=== PATIENT | male | born 1950 | race Caucasian/White ===

== ENCOUNTER 2018-06-27 15:38 | Emergency (ER) | payer MEDICARE, OTHER, SELFPAY ==
[2018-06-27 15:48] VITALS: BP 162/90; PULSE 62; RESP 20; TEMP 37; O2SAT 96; BMI 36.6
[2018-06-27 17:14] LABS: Bacteria Urine None Seen; RBC Urine None Seen (0-5/HPF); WBC Urine None Seen (0-5/HPF)
[2018-06-27 17:28] LABS: Amorphous Sediment Urine 1+; Culture Indicated Urine Cult Not Indicated
--- NOTE | 2018-06-27 18:15 | ED.MALEGU ---
HPI - Male Genitourinary <ERWIN Arnold - Last Filed: 06/27/18 23:07> General Chief complaint: Urogenital-Male Stated complaint: possible uti Time Seen by Provider: 06/27/18 16:54 Source: patient Mode of arrival: ambulatory Limitations: no limitations History of Present Illness HPI Narrative: 68-year-old male history of hypertension and is a former smoker. here for complaint of having pain into the bladder area that lasted for 2 days last week. He states symptoms have resolved somewhat. He denies having any dysuria or increased urinary frequency. He denies any rectal pain. He denies any penile discharge. no fevers no chills. He was concern for urinary tract infection. Positive p.o. intake. No nausea vomiting. No flank pain. No abdominal pain. MD Complaint: other ( Concern for urina) Related Data Home Medications Medication Instructions Recorded Confirmed Fluticasone Propionate (FLONASE) 1 spray INTRANASAL BID #0 spray 05/19/13 fexofenadine 180 mg PO QDAY #0 05/19/13 oxycodone [OxyContin] 10 mg PO QID #0 05/19/13 06/27/18 oxycodone-acetaminophen [Percocet] 2 tab PO Q4HP PRN #0 tab 05/19/13 lansoprazole 30 mg PO QDAY #0 ecc 05/29/13 alprazolam 1 tab PO Q6H 06/27/18 06/27/18 diltiazem HCl [Cartia XT] 1 cap PO DAILY 06/27/18 06/27/18 meloxicam 1 tab PO DAILY 06/27/18 06/27/18 olmesartan 1 tab PO DAILY 06/27/18 06/27/18 omeprazole 1 cap PO DAILY 06/27/18 06/27/18 oxycodone 1 tab PO QID 06/27/18 06/27/18 Allergies Allergy/AdvReac Type Severity Reaction Status Date / Time Procaine Allergy Unknown NECK Uncoded 12/08/17 12:00 SWELLING Review of Systems <ERWIN Arnold - Last Filed: 06/27/18 23:07> Review of Systems All systems reviewed & are unremarkable except as noted in HPI and below Constitutional Denies chills, Denies fever(s), Denies lethargy and Denies weakness Eyes Denies change in vision, Denies eye discharge, Denies irritation and Denies loss of vision ENT Ears, Nose, Mouth, and Throat: Denies change in voice, Denies neck pain and Denies sore throat Cardiovascular Denies chest pain, Denies irregular heart rhythm, Denies lightheadedness, Denies palpitations, Denies dyspnea, Denies dyspnea on exertion and Denies orthopnea Respiratory Denies cough, Denies dyspnea, Denies dyspnea on exertion and Denies wheezing Gastrointestinal Gastrointestinal: Denies abdominal pain, Denies change in bowel habits, Denies diarrhea, Denies nausea and Denies vomiting Genitourinary Comments: concern for urinary tract infection Musculoskeletal Denies neck pain Integumentary/Breasts Denies pruritus, Denies erythema, Denies rash and Denies wounds Neurologic Denies confusion, Denies loss of vision and Denies weakness Psychiatric Denies anxiety, Denies confusion, Denies depression, Denies homicidal ideation and Denies suicidal ideation Endocrine Denies palpitations Hematologic/Lymphatic Denies easy bruising Allergic/Immunologic Denies wheezing Exam <ERWIN Arnold - Last Filed: 06/27/18 23:07> Initial Vital Signs Initial Vital Signs: Vital Signs Temperature 98.6 F 06/27/18 15:48 Pulse Rate 62 06/27/18 15:48 Respiratory Rate 20 06/27/18 15:48 Blood Pressure 162/90 H 06/27/18 15:48 Pulse Oximetry 96 06/27/18 15:48 Const General: cooperative and well developed Nutritional Appearance: well nourished Orientation: alert, awake, oriented x3 and not confused [facility] Mouth: oral mucosae normal and moist mucous membranes Eyes Conjunctivae: conjunctivae normal Sclera: sclerae normal Pupils: PERRL EOM: EOM intact bilaterally Resp Effort & Inspection: normal respiratory effort, able to speak in complete sentences, no respiratory distress and no use of accessory muscles Auscultation: clear to auscultation bilaterally, no rales, no rhonchi and no wheezes Cardio Rate: regular rate Rhythm: regular rhythm Heart Sounds: no click, no gallops, no murmurs and no rubs Pulses: normal peripheral pulses GI Inspection: non-distended Palpation: soft, no hepatosplenomegaly, No guarding, No pulsatile mass and No tender Auscultation: normal bowel sounds General: No CVA tenderness Skin General: no rashes or lesions noted, No jaundice and No petechiae Neuro General: alert, oriented x3, gait normal and no focal motor deficits Speech: speech normal <Tres Vásquez DO - Last Filed: 06/28/18 07:15> Initial Vital Signs Initial Vital Signs: Vital Signs Temperature 98.6 F 06/27/18 15:48 Pulse Rate 62 06/27/18 15:48 Respiratory Rate 20 06/27/18 15:48 Blood Pressure 162/90 H 06/27/18 15:48 Pulse Oximetry 96 06/27/18 15:48 Course <ERWIN Arnold - Last Filed: 06/27/18 23:07> Orders Ordered: ED Orders 06/27/18 16:25 Urine Microscopic Stat Vital Signs - 8 hr 06/27/18 15:48 06/27/18 19:03 Temperature 98.6 F Pulse Rate 62 71 Respiratory Rate 20 20 Blood Pressure 162/90 H 156/100 H Pulse Oximetry 96 96 <Tres Vásquez DO - Last Filed: 06/28/18 07:15> Orders Ordered: ED Orders 06/27/18 16:25 Urine Microscopic Stat Vital Signs - 8 hr 06/27/18 15:48 06/27/18 19:03 Temperature 98.6 F Pulse Rate 62 71 Respiratory Rate 20 20 Blood Pressure 162/90 H 156/100 H Pulse Oximetry 96 96 MDM - Male Genitourinary <ERWIN Arnold - Last Filed: 06/27/18 23:07> Lab Data Lab Results 06/27/18 Range/Units 16:25 Urine RBC None seen (0-5/HPF) Urine WBC None seen (0-5/HPF) Amorphous Sediment 1+ Urine Bacteria None seen (None) Ur Culture Indicated? Cult not indicated Micro UA Comment Not Reportable Urine Dip Bedside Urine Glucose Negative Bedside Urine Bilirubin - Negative Bedside Urine Ketone - Negative Urine Specific [place] 1.020 Bedside Urine Occult Blood +/- Bedside Urine pH 6.0 Bedside Urine Protein - Negative Bedside Urine Urobilinogen - Negative Bedside Urine Nitrite - Negative Bedside Urine Leukocytes - Negative Esterase MDM Narrative Medical decision making narrative: Urinalysis was negative for urinary tract infection. Patient is not having symptoms as of this time. Differential between a urinary tract infection that has resolved or BPH issues. Follow up with primary care provider later this week. For any worsening symptoms return to the emergency room. <Rtes Thalia, DO - Last Filed: 06/28/18 07:15> Lab Data Lab Results 06/27/18 Range/Units 16:25 Urine RBC None seen (0-5/HPF) Urine WBC None seen (0-5/HPF) Amorphous Sediment 1+ Urine Bacteria None seen (None) Ur Culture Indicated? Cult not indicated Micro UA Comment Not Reportable Urine Dip Bedside Urine Glucose Negative Bedside Urine Bilirubin - Negative Bedside Urine Ketone - Negative Urine Specific [place] 1.020 Bedside Urine Occult Blood +/- Bedside Urine pH 6.0 Bedside Urine Protein - Negative Bedside Urine Urobilinogen - Negative Bedside Urine Nitrite - Negative Bedside Urine Leukocytes - Negative Esterase Discharge Plan Departure Patient Disposition: Home Clinical Impression: Suprapubic discomfort Discharge Date/Time: 06/27/18 19:04 Interventions: ED Discharge Assessment Last Done: 06/27/18 19:03 Instructions: DI for Dysuria -- Adult Activity Restrictions/Additional Instructions: urinalysis was negative for urinary tract infection. Symptoms may have been due to a urinary tract infection last week and may have resolved or may be due to prostate swelling. follow up with her primary care provider later this week for re-evaluation. For any worsening symptoms return to the emergency room. Prescriptions: No Action oxycodone-acetaminophen [Percocet] 5 MG/325 MG tablet 2 tab PO Q4HP PRNQty: 0 RF: 0 oxycodone [OxyContin] 10 MG tablet,oral only,ext.rel.12 hr 10 mg PO QID Qty: 0 RF: 0 fexofenadine 180 MG tablet 180 mg PO QDAY Qty: 0 RF: 0 Fluticasone Propionate (FLONASE) 1 spray Intranasal BID Qty: 0 RF: 0 lansoprazole 30 MG capsule,delayed release(DR/EC) 30 mg PO QDAY Qty: 0 RF: 0 meloxicam 15 mg tablet 1 tab PO DAILY RF: 0 alprazolam 0.5 mg tablet 1 tab PO Q6H RF: 0 diltiazem HCl [Cartia XT] 300 mg capsule,extended release 24hr 1 cap PO DAILY RF: 0 omeprazole 40 mg capsule,delayed release(DR/EC) 1 cap PO DAILY RF: 0 olmesartan 20 mg tablet 1 tab PO DAILY RF: 0 oxycodone 10 mg tablet 1 tab PO QID RF: 0 Referrals: Hosea Reyes MD [Primary Care Provider] - <Tres Vásquez DO - Last Filed: 06/28/18 07:15> Cosign ED Attending [place] Attestation: I was available for consultation during this patient's emergency department encounter
[2018-06-27 19:03] VITALS: BP 156/100; PULSE 71; RESP 20; O2SAT 96
== END 2018-06-27 19:04 | disposition home or self-care (01) ==
PROVIDERS: Emergency Medicine; Emergency Provider Nurse Practitioner Family; Family Provider Family Medicine; PCP Family Medicine
DX: R10.2 Pelvic and perineal pain (principal)
CPT/HCPCS: 81003; 81015; 99282; 99283

== ENCOUNTER 2018-12-03 21:34 | Emergency (ER) | payer MEDICARE, OTHER, SELFPAY ==
[2018-12-03 21:46] VITALS: BP 173/85; PULSE 69; RESP 16; TEMP 36.5; O2SAT 98; BMI 35.6
--- NOTE | 2018-12-03 21:52 | ED_ITS ---
HPI - Weakness General Chief complaint: Weakness Stated complaint: states keeps falling sleep Time Seen by Provider: 12/03/18 21:50 Source: patient Mode of arrival: ambulatory Limitations: no limitations History of Present Illness HPI Narrative: The patient is a 68-year-old male who presents increased sleepiness. Apparently today he was falling asleep without knowing it he was sitting at a computer in with fall asleep. This is extremely abnormal for him. He denies any fever chills. Someone had to keep waking him up. He is on quite a bit of opiate medication however he states that he did not take any extra. He denies any dizziness lightheadedness. He does have some chest discomfort but has a known hiatal hernia it is not any worse than normal. he has been working in the [employer] a lot lately he thinks maybe it is finally getting up with him. Yesterday he was sleepy as well. MD Complaint: generalized weakness Related Data Home Medications Medication Instructions Recorded Confirmed Fluticasone Propionate (FLONASE) 1 spray INTRANASAL BID #0 spray 05/19/13 fexofenadine 180 mg PO QDAY #0 05/19/13 oxycodone [OxyContin] 10 mg PO QID #0 05/19/13 06/27/18 oxycodone-acetaminophen [Percocet] 2 tab PO Q4HP PRN #0 tab 05/19/13 lansoprazole 30 mg PO QDAY #0 ecc 05/29/13 alprazolam 1 tab PO Q6H 06/27/18 06/27/18 diltiazem HCl [Cartia XT] 1 cap PO DAILY 06/27/18 06/27/18 meloxicam 1 tab PO DAILY 06/27/18 06/27/18 olmesartan 1 tab PO DAILY 06/27/18 06/27/18 omeprazole 1 cap PO DAILY 06/27/18 06/27/18 oxycodone 1 tab PO QID 06/27/18 06/27/18 Allergies Allergy/AdvReac Type Severity Reaction Status Date / Time No Known Drug Allergies Allergy Verified 12/03/18 21:46 Review of Systems Review of Systems ROS Unobtainable: All systems reviewed & are unremarkable except as noted in HPI and below Constitutional Denies chills, Reports daytime sleepiness, Denies fever(s) and Reports snoring Eyes Denies change in vision, Denies eye discharge, Denies irritation and Denies loss of vision ENT Ears, Nose, Mouth, and Throat: Denies change in voice, Denies neck pain and Denies sore throat Cardiovascular Reports chest pain, Denies irregular heart rhythm, Denies lightheadedness, Denies palpitations and Denies orthopnea Respiratory Reports snoring Gastrointestinal Gastrointestinal: Denies abdominal pain, Denies change in bowel habits, Denies diarrhea, Denies nausea and Denies vomiting Genitourinary Denies hematuria, Denies flank pain, Denies urinary incontinence and Denies urinary urgency Musculoskeletal Denies neck pain Integumentary/Breasts Denies pruritus, Denies erythema, Denies rash and Denies wounds Neurologic Denies loss of vision Endocrine Denies palpitations [facility] Medical History Chronic pain (Acute) Hiatal hernia (Acute) Hypertension (Acute) Social History Smoking Status: Former smoker Social History Smoking Status: Former smoker Exam Initial Vital Signs Initial Vital Signs: Vital Signs Temperature 97.7 F 12/03/18 21:46 Pulse Rate 69 12/03/18 21:46 Respiratory Rate 16 12/03/18 21:46 Blood Pressure 173/85 H 12/03/18 21:46 Pulse Oximetry 98 12/03/18 21:46 GENERAL: Overweight well-appearing male no acute distress HEENT: Head atraumatic,EOMI, pupils reactive CARDIOVASCULAR: Regular rate and rhythm without murmurs, rubs or gallops. RESPIRATORY: Breath sounds equal bilaterally, no wheezes rales or rhonchi. ABDOMEN: Soft, nontender. Normoactive bowel sounds all 4 quadrants. No guarding or rebound. EXTREMITIES: Normal range of motion, no clubbing or edema. Neurovascularly intact NEUROLOGICAL: Alert and oriented x4.Normal gait and speech. Cranial nerves II through XII grossly intact. SKIN: Warm, dry, no laceration, no petechiae, no rashes or lesions. Course Orders Ordered: ED Orders 12/03/18 21:59 XR chest 1V Stat EKG-12 Lead Stat 12/03/18 22:00 Complete Blood Count AUTO DIFF Stat Comprehensive Metabolic Panel Stat Lipase Stat Troponin & CK Cardiac Panel Stat 12/03/18 22:50 Urine Culture Stat Urine Microscopic Stat Vital Signs - 8 hr 12/03/18 21:46 12/03/18 22:30 12/03/18 23:53 Temperature 97.7 F Pulse Rate 69 63 62 Respiratory Rate 16 17 16 Blood Pressure 173/85 H 169/86 H Blood Pressure [Left Arm] 169/86 H Pulse Oximetry 98 98 96 MDM - Weakness Lab Data Attestation: I reviewed the patient's lab results. Result diagrams: 12/03/18 22:00 12/03/18 22:00 Lab Results 12/03/18 12/03/18 12/03/18 Range/Units 22:00 22:00 22:50 WBC 6.2 (4.5-11.0) X10^3/uL RBC 5.34 (4.5-5.9) X10^6/uL Hgb 14.8 (13.5-17.5) g/dL Hct 43.7 (41-53) % MCV 81.8 (80-100) fL MCH 27.6 (26-34) PG MCHC 33.8 (30-36) % RDW 14.1 (11.6-14.8) % Plt Count 181 (150-400) X10^3/uL Neut % (Auto) 46.6 L (50-75) % Lymph % (Auto) 35.8 (25-40) % [place] % (Auto) 12.3 (3-14) % Eos % (Auto) 4.6 H (2-4) % Baso % (Auto) 0.7 (0-2) % Neut # (Auto) 2900 (3422-0390) /uL Lymph # (Auto) 2200 (1519-6033) /uL [place] # (Auto) 800 (0-900) /uL Eos # (Auto) 300 (0-450) /uL Baso # (Auto) 0 (0-100) /uL Sodium 135 L (137-145) mmol/L Potassium 3.7 (3.4-5.1) mmol/L Chloride 98 (98-107) mmol/L Carbon Dioxide 29 (22-32) mmol/L BUN 13 (9-20) mg/dL Creatinine 1.00 (0.66-1.25) mg/dL Estimated GFR > 60.0 (>60) mL/min BUN/Creatinine Ratio 13.0 (6-22) Glucose 135 H (80-110) mg/dL Calcium 8.9 (8.4-10.2) mg/dL Total Bilirubin 0.6 (0.2-1.3) mg/dL AST 40 (17-59) IU/L ALT 42 (21-72) IU/L Alkaline Phosphatase 56 (38-126) U/L Total Creatine Kinase 141 (55-170) U/L CK-MB (CK-2) 2.38 H (<2.37) ng/mL CK-MB (CK-2) Rel Index 1.7 (1.5-5.0) % Troponin I < 0.012 (0.01-0.034) ng/mL Total Protein 7.1 (6.3-8.2) g/dL Albumin 4.0 (3.5-5.0) g/dL Globulin 3.1 (1.7-4.1) g/dL Albumin/Globulin Ratio 1.3 (1.0-2.8) Lipase 66 (23-300) U/L Urine RBC 5-10/hpf H (0-5/HPF) Urine WBC 1-5/hpf (0-5/HPF) Urine Bacteria Occasional (0-1) (None) Ur Culture Indicated? Specimen cultured Urine Dip Bedside Urine Glucose Negative Bedside Urine Bilirubin - Negative Bedside Urine Ketone - Negative Urine Specific [place] 1.025 Bedside Urine Occult Blood ++ Bedside Urine pH 5.5 Bedside Urine Protein +/- 15 Bedside Urine Urobilinogen - Negative Bedside Urine Nitrite - Negative Bedside Urine Leukocytes + 70 Esterase Imaging Data Chest x-ray: Attestation: I personally reviewed and interpreted this imaging study as follows: My impression: No acute cardiopulmonary process ECG Data Attestation: I personally reviewed and interpreted this ECG as follows: Prior ECG tracings: available for review Interpretation: Normal sinus rhythm rate 54 NM interval [address] changes simil ar previous EKG Q-wave noted in lead 3 unchanged MDM Narrative Medical decision making narrative: At this time patient really has no complaints except that he is tired. There is no sign of infection. I suspect he may have sleep apnea but he says he is not sure if he snores. I recommended sleep study and have his PCP said it up. However patient is quite adamant that she can't possibly be sleep apnea. At this time I have no reason for him to be falling asleep. He has been on the monitor in been awake in the ED no arrhythmias. No confusion. Discharge Plan Departure Patient Disposition: Home Clinical Impression: Feared complaint without diagnosis Discharge Date/Time: 12/03/18 23:53 Interventions: ED Discharge Assessment Last Done: 12/03/18 23:53 Instructions: DI for Obstructive Sleep Apnea -- Adult Activity Restrictions/Additional Instructions: *You have been diagnosed with no cause for sleeping during the daytime. *What to do: You may need a sleep study, possible sleep apnea. Which can put you at risk for heart attack and stroke. Speak to her primary care provider to set up a sleep study *Continue to take medications as directed *Follow up with your primary care provider in 2-3 days *Return to ER if you should have passing out, headache, chest pain or any new, worsening or concerning symptoms Prescriptions: No Action oxycodone-acetaminophen [Percocet] 5 MG/325 MG tablet 2 tab PO Q4HP PRNQty: 0 RF: 0 oxycodone [OxyContin] 10 MG tablet,oral only,ext.rel.12 hr 10 mg PO QID Qty: 0 RF: 0 fexofenadine 180 MG tablet 180 mg PO QDAY Qty: 0 RF: 0 Fluticasone Propionate (FLONASE) 1 spray Intranasal BID Qty: 0 RF: 0 lansoprazole 30 MG capsule,delayed release(DR/EC) 30 mg PO QDAY Qty: 0 RF: 0 meloxicam 15 mg tablet 1 tab PO DAILY RF: 0 alprazolam 0.5 mg tablet 1 tab PO Q6H RF: 0 diltiazem HCl [Cartia XT] 300 mg capsule,extended release 24hr 1 cap PO DAILY RF: 0 omeprazole 40 mg capsule,delayed release(DR/EC) 1 cap PO DAILY RF: 0 olmesartan 20 mg tablet 1 tab PO DAILY RF: 0 oxycodone 10 mg tablet 1 tab PO QID RF: 0 Referrals: Hosea Reyes MD [Primary Care Provider] -
--- NOTE | 2018-12-03 21:59 | DI.RAD.S_ITS ---
PROCEDURE: XR CHEST 1V INDICATIONS: chest pain TECHNIQUE: One view of the chest was acquired. COMPARISON: [facility], CHEST 1 VIEW, 12/02/2017, 23:22. [facility], CHEST 2 VIEW, 12/04/2014, 15:21. [facility], CHEST 2 VIEW, 12/25/2013, 10:56. FINDINGS: Surgical changes and devices: Multiple monitor leads project of the chest Lungs and pleura: Lungs are clear. No pleural effusions or pneumothorax. There is prominence of the pulmonary vasculature. Mediastinum: Mediastinal contours appear normal. Heart size is normal. Bones and chest wall: Degenerative changes of the right common femoral joint are noted. Mild multilevel degenerative changes of the thoracic spine. IMPRESSION: No acute cardiopulmonary disease. Dictated by: Todd Kelley M.D. on 12/04/2018 at 8:53 Approved by: Todd Kelley M.D. on 12/04/2018 at 8:55
[2018-12-03 22:15] LABS: Add Manual Diff / Slide Review NO; Basophils Absolute Auto 0 /uL (0-100); Basophils Percent Auto 0.7 % (0-2); Eosinophils Absolute Auto 300 /uL (0-450); Eosinophils Percent Auto 4.6 % (2-4); Hematocrit 43.7 % (41-53); Hemoglobin 14.8 g/dL (13.5-17.5); Lymphocytes Absolute Auto 2200 /uL (1100-4500); Lymphocytes Percent Auto 35.8 % (25-40); Mean Corpuscular HGB Conc 33.8 % (30-36); Mean Corpuscular Hemoglobin 27.6 PG (26-34); Mean Corpuscular Volume 81.8 fL (80-100); Monocytes Absolute Auto 800 /uL (0-900); Monocytes Percent Auto 12.3 % (3-14); Neutrophils Absolute Auto 2900 /uL (1500-7000); Neutrophils Percent Auto 46.6 % (50-75); Platelet Count 181 X10^3/uL (150-400); Red Blood Cell Count 5.34 X10^6/uL (4.5-5.9); Red Cell Distribution Width 14.1 % (11.6-14.8); White Blood Cell Count 6.2 X10^3/uL (4.5-11.0)
[2018-12-03 22:22] LABS: Alanine Aminotransferase 42 IU/L (21-72); Albumin Globulin Ratio 1.3 (1.0-2.8); Alkaline Phosphatase 56 U/L (38-126); Aspartate Aminotransferase 40 IU/L (17-59); Bilirubin Total 0.6 mg/dL (0.2-1.3); Blood Urea Nitrogen 13 mg/dL (9-20); Calcium 8.9 mg/dL (8.4-10.2); Carbon Dioxide 29 mmol/L (22-32); Chloride 98 mmol/L (98-107); Creatine Kinase 141 U/L (55-170); Estimated Glomerular Filt Rate > 60.0 mL/min (>60); Globulin 3.1 g/dL (1.7-4.1); Glucose 135 mg/dL (80-110); HEMOLYSIS 19 (0-50); Lipase 66 U/L (23-300); Potassium 3.7 mmol/L (3.4-5.1); Sodium 135 mmol/L (137-145); Total Protein 7.1 g/dL (6.3-8.2)
[2018-12-03 22:30] VITALS: BP 169/86; PULSE 63; RESP 17; O2SAT 98
[2018-12-03 22:33] LABS: Troponin I < 0.012 ng/mL (0.01-0.034)
[2018-12-03 22:37] LABS: CKMB % Relative Index 1.7 % (1.5-5.0); Creatine Kinase MB 2.38 ng/mL (<2.37)
[2018-12-03 23:11] LABS: Bacteria Urine Occasional (0-1); RBC Urine 5-10/HPF (0-5/HPF); WBC Urine 1-5/HPF (0-5/HPF)
[2018-12-03 23:12] LABS: Culture Indicated Urine Specimen Cultured
[2018-12-03 23:53] VITALS: BP 169/86; PULSE 62; RESP 16; O2SAT 96
== END 2018-12-03 23:53 | disposition home or self-care (01) ==
PROVIDERS: Emergency Provider Emergency Medicine; PCP Family Medicine
DX: R53.1 Weakness (principal); R07.89 Other chest pain; R53.83 Other fatigue; Z71.1 Person with feared health complaint in whom no diagnosis is made
CPT/HCPCS: 36591; 71045; 80053; 81003; 81015; 82550; 82553; 83690; 84484; 85025; 87086; 93005; 99283; 99285

== ENCOUNTER 2019-09-10 14:27 | Emergency (ER) | payer MEDICARE, OTHER, SELFPAY ==
[2019-09-10 14:30] VITALS: BP 162/83; PULSE 59; RESP 18; TEMP 36.9; O2SAT 97
[2019-09-10] MEDS: KETOROLAC 60 MG/2 ML VIAL IM (17:25)
[2019-09-10] MEDS: KETOROLAC 10MG PREPACK 1 BOTTLE MISC (18:12)
--- NOTE | 2019-09-10 19:44 | ED.BACK ---
HPI - Back Pain/Injury <SUSAN OseiBC - Last Filed: 09/10/19 19:47> General Chief Complaint: Back Pain/Injury Stated Complaint: left side hip pain Time Seen by Provider: 09/10/19 16:01 Source: patient Mode of arrival: Ambulatory Limitations: no limitations History of Present Illness HPI Narrative: The patient is a 69-year-old male former smoker with history of chronic pain who presents with a chief complaint of positional right-sided lower back pain. He states it has been going on for few days, and then got worse when he picked up a bag of dog food. Patient states that he takes Percocet and OxyContin for chronic pain. He denies any falls or trauma. He has not taken anything other than his normal medications for pain. He states that his NSAID helps, but does not help enough throughout the day. He denies any numbness, tingling, incontinence bowel, incontinence of bladder saddle anesthesia. He denies any weakness. Related Data Home Medications Medication Instructions Recorded Confirmed Fluticasone Propionate (FLONASE) 1 spray INTRANASAL BID #0 spray 05/19/13 fexofenadine 180 mg PO QDAY #0 05/19/13 oxycodone [OxyContin] 10 mg PO QID #0 05/19/13 06/27/18 oxycodone-acetaminophen [Percocet] 2 tab PO Q4HP PRN #0 tab 05/19/13 lansoprazole 30 mg PO QDAY #0 ecc 05/29/13 alprazolam 1 tab PO Q6H 06/27/18 06/27/18 diltiazem HCl [Cartia XT] 1 cap PO DAILY 06/27/18 06/27/18 meloxicam 1 tab PO DAILY 06/27/18 06/27/18 olmesartan 1 tab PO DAILY 06/27/18 06/27/18 omeprazole 1 cap PO DAILY 06/27/18 06/27/18 oxycodone 1 tab PO QID 06/27/18 06/27/18 Previous Rx's Medication Instructions Recorded ketorolac 10 mg PO TID PRN #14 tab 09/10/19 Allergies Allergy/AdvReac Type Severity Reaction Status Date / Time procaine [From Novocain] Allergy Verified 09/10/19 14:34 Review of Systems <PURVI Osei - Last Filed: 09/10/19 19:47> Review of Systems Narrative: GENERAL: Denies chills, fatigue, malaise, fever, sweats. HEENT: Denies sinus pain, ear pain, sore throat, difficulty swallowing, dizziness. RESPIRATORY: Denies dyspnea, cough, wheezing, hemoptysis, sputum. CARDIOVASCULAR: Denies chest pain, palpitations, orthopnea, edema, GASTROINTESTINAL: Denies nausea, vomiting, abdominal pain, diarrhea, constipation, melena. : Denies dysuria, frequency, incontinence, hematuria, urinary retention. MUSCULOSKELETAL: See HPI SKIN: Denies rash, skin lesions, or other NEUROLOGIC: Denies weakness, headache, numbness, change in speech, confusion, seizures, incoordination. PSYCHIATRIC: No concerning psychosocial issues. 12 point review of systems is negative except for those stated above Patient History <PURVI Osei - Last Filed: 09/10/19 19:47> Medical History Chronic pain (Acute) Hiatal hernia (Acute) Hypertension (Acute) Social History Smoking Status: Former smoker Smoking Status: Former smoker alcohol intake frequency: 0-2 drinks per day Substance Use Type: does not use Exam <PURVI Osei - Last Filed: 09/10/19 19:47> Narrative Exam Narrative: GENERAL: This is a well-nourished, well-developed patient, no acute distress HEAD: Atraumatic. Normocephalic. No temporal or scalp tenderness. EYES: Pupils equal round and reactive. Extraocular motions intact. No scleral icterus. No injection or drainage. ENT: Nose without bleeding, purulent drainage or septal hematoma. Throat without erythema, tonsillar hypertrophy or exudate. Uvula midline. Airway patent. NECK: Trachea midline. No JVD or lymphadenopathy. Supple, nontender, no meningeal signs. CARDIOVASCULAR: Regular rate and rhythm RESPIRATORY: Clear to auscultation. Breath sounds equal bilaterally. No wheezes, rales, or rhonchi. No cough. No increased respiratory effort. No accessory muscle use. GASTROINTESTINAL: Abdomen soft, non-tender, nondistended. No hepato-splenomegaly, or palpable masses. No guarding. EXTREMITIES: No clubbing, cyanosis, or edema. No joint tenderness, effusion, or edema noted. BACK: Cervical, and thoracic and lumbar spine without deformity or crepitance. Pain to palpation of right-sided lumbar paraspinal muscles. NEURO: AOx3. Stable gait. Strength is equal upper lower extremities bilaterally. No gross cranial nerve deficit. SKIN: No rash or erythema on visible skin. No rash ecchymosis erythema noted on lower back. Initial Vital Signs Initial Vital Signs: Vital Signs Temperature 98.5 F 09/10/19 14:30 Pulse Rate 59 L 09/10/19 14:30 Respiratory Rate 18 09/10/19 14:30 Blood Pressure 162/83 H 09/10/19 14:30 Pulse Oximetry 97 09/10/19 14:30 <Annetta Dickson MD - Last Filed: 09/10/19 19:48> Initial Vital Signs Initial Vital Signs: Vital Signs Temperature 98.5 F 09/10/19 14:30 Pulse Rate 59 L 09/10/19 14:30 Respiratory Rate 18 09/10/19 14:30 Blood Pressure 162/83 H 09/10/19 14:30 Pulse Oximetry 97 09/10/19 14:30 Course <PURVI Osei - Last Filed: 09/10/19 19:47> Orders Ordered: Discontinued Medications Ketorolac Tromethamine (Toradol) 60 mg IM NOW ONE Stop: 09/10/19 16:33 Last Admin: 09/10/19 17:25 Dose: 60 mg Documented by: JOAQUIM Ketorolac Tromethamine (Toradol 10mg Prepack) 1 bottle [facility] ONE Stop: 09/10/19 18:00 Last Admin: 09/10/19 18:12 Dose: 1 bottle Documented by: JOAQUIM Vital Signs Vital signs: Vital Signs - 8 hr 09/10/19 14:30 Temperature 98.5 F Pulse Rate 59 L Respiratory Rate 18 Blood Pressure 162/83 H Pulse Oximetry 97 <Annetta Dickson MD - Last Filed: 09/10/19 19:48> Orders Ordered: Discontinued Medications Ketorolac Tromethamine (Toradol) 60 mg IM NOW ONE Stop: 09/10/19 16:33 Last Admin: 09/10/19 17:25 Dose: 60 mg Documented by: JOAQUIM Ketorolac Tromethamine (Toradol 10mg Prepack) 1 bottle [facility] SEETANESHATR ONE Stop: 09/10/19 18:00 Last Admin: 09/10/19 18:12 Dose: 1 bottle Documented by: JOAQUIM Vital Signs Vital signs: Vital Signs - 8 hr 09/10/19 14:30 Temperature 98.5 F Pulse Rate 59 L Respiratory Rate 18 Blood Pressure 162/83 H Pulse Oximetry 97 MDM - Back Pain/Injury <LEXI Osei- - Last Filed: 09/10/19 19:47> MDM Narrative Medical decision making narrative: The patient is a 69-year-old male who presents with a chief complaint of right-sided lower back pain that is positional. He declines an x-ray on arrival. He has no red flag symptoms of incontinence of bowel, incontinence of bladder saddle anesthesia. He states that he understands that these are return precautions. The patient was given Toradol in the emergency department, as he had not had is Mobic yet today. This improved his pain greatly. I did give him a prescription of Toradol, strict instructions to not take it with Mobic or any other NSAIDs. Discussed at length return precautions as well as follow-up with primary care provider. Patient has no questions or concerns upon discharge and states understanding return precautions as well as follow-up care. Discharge Plan Departure Patient Disposition: Home Clinical Impression: Low back pain Qualifiers: Chronicity: acute Back pain laterality: left Sciatica presence: without sciatica Qualified Code(s): M54.5 - Low back pain Discharge Date/Time: 09/10/19 18:42 Instructions: DI for Low Back Pain, DI for Back Spasm Activity Restrictions/Additional Instructions: I've given her prescription of Toradol for pain. I appeared to work well for in the emergency department. I have given you a prescription of Toradol. This is an NSAID. Do not combine it with other NSAIDs such as Mobic or meloxicam Aleve or ibuprofen. I suggest taking it with some food, as it can irritate your stomach. Please follow-up with primary care provider in the next few days. Please come back to emergency department for any acute concerns such as incontinence of bowel, incontinence of bladder or numbness in your groin Prescriptions: New ketorolac 10 mg tablet 10 mg PO TID PRN (Reason: pain) Qty: 14 RF: 0 No Action oxycodone-acetaminophen [Percocet] 5 MG/325 MG tablet 2 tab PO Q4HP PRNQty: 0 RF: 0 oxycodone [OxyContin] 10 MG tablet,oral only,ext.rel.12 hr 10 mg PO QID Qty: 0 RF: 0 fexofenadine 180 MG tablet 180 mg PO QDAY Qty: 0 RF: 0 Fluticasone Propionate (FLONASE) 1 spray Intranasal BID Qty: 0 RF: 0 lansoprazole 30 MG capsule,delayed release(DR/EC) 30 mg PO QDAY Qty: 0 RF: 0 meloxicam 15 mg tablet 1 tab PO DAILY RF: 0 alprazolam 0.5 mg tablet 1 tab PO Q6H RF: 0 diltiazem HCl [Cartia XT] 300 mg capsule,extended release 24hr 1 cap PO DAILY RF: 0 omeprazole 40 mg capsule,delayed release(DR/EC) 1 cap PO DAILY RF: 0 olmesartan 20 mg tablet 1 tab PO DAILY RF: 0 oxycodone 10 mg tablet 1 tab PO QID RF: 0 Referrals: Hosea Reyes MD [Primary Care Provider] -
== END 2019-09-10 18:42 | disposition home or self-care (01) ==
PROVIDERS: Emergency Provider Nurse Practitioner Family; PCP Family Medicine
DX: M54.5 Low back pain (principal)
CPT/HCPCS: 96372; 99283; J1885

== ENCOUNTER 2019-10-29 16:24 | Emergency (ER) | payer MEDICARE, OTHER, SELFPAY ==
[2019-10-29 16:48] VITALS: BP 186/95; PULSE 67; RESP 20; TEMP 36.8; O2SAT 97; BMI 33.0
--- NOTE | 2019-10-29 17:32 | ED.BACK ---
HPI - Back Pain/Injury General Chief Complaint: Back Pain/Injury Stated Complaint: right hip and back pain [id number] Time Seen by Provider: 10/29/19 17:27 Source: patient Mode of arrival: Ambulatory Limitations: no limitations History of Present Illness HPI Narrative: 61-year-old male here for evaluation of right-sided hip pain on the back. He states this started about 10 days ago. It started after he was lifting his dog in to the back of his truck. Since then he has had pain in the back of his hip. Does take oxycodone at home which has not helped his pain. He switch to Tylenol which may have helped his pain a little bit more than the oxycodone. 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 Symptoms were not improving she came into the emergency department. Related Data Home Medications Medication Instructions Recorded Confirmed Fluticasone Propionate (FLONASE) 1 spray INTRANASAL BID #0 spray 05/19/13 fexofenadine 180 mg PO QDAY #0 05/19/13 oxycodone [OxyContin] 10 mg PO QID #0 05/19/13 06/27/18 oxycodone-acetaminophen [Percocet] 2 tab PO Q4HP PRN #0 tab 05/19/13 lansoprazole 30 mg PO QDAY #0 ecc 05/29/13 alprazolam 1 tab PO Q6H 06/27/18 06/27/18 diltiazem HCl [Cartia XT] 1 cap PO DAILY 06/27/18 06/27/18 meloxicam 1 tab PO DAILY 06/27/18 06/27/18 olmesartan 1 tab PO DAILY 06/27/18 06/27/18 omeprazole 1 cap PO DAILY 06/27/18 06/27/18 oxycodone 1 tab PO QID 06/27/18 06/27/18 Previous Rx's Medication Instructions Recorded ketorolac 10 mg PO TID PRN #14 tab 09/10/19 cyclobenzaprine 10 mg PO TID PRN #10 tab 10/29/19 Allergies Allergy/AdvReac Type Severity Reaction Status Date / Time procaine [From Novocain] Allergy Verified 10/29/19 16:54 Review of Systems Constitutional Constitutional: Denies fever(s) ENT Ears, Nose, Mouth, and Throat: Denies disequilibrium Respiratory Respiratory: Denies cough Gastrointestinal Gastrointestinal: Denies abdominal pain Musculoskeletal Comments: Right hip pain Integumentary/Breasts Skin/Breast: Denies lesions and Denies rash Neurologic Neurologic: Denies tremor(s) and Denies disequilibrium Hematologic/Lymphatic Hematologic/Lymphatic: Denies easy bleeding and Denies easy bruising Patient History Medical History Chronic pain (Acute) Hiatal hernia (Acute) Hypertension (Acute) Social History Smoking Status: Former smoker Smoking Status: Former smoker alcohol intake frequency: 0-2 drinks per day Substance Use Type: does not use Exam Initial Vital Signs Initial Vital Signs: Vital Signs Temperature 98.3 F 10/29/19 16:48 Pulse Rate 67 10/29/19 16:48 Respiratory Rate 20 10/29/19 16:48 Blood Pressure 186/95 H 10/29/19 16:48 Pulse Oximetry 97 10/29/19 16:48 Resp Effort & Inspection: normal respiratory effort Cardio Rate: regular rate Skin Lesions: no lesions Rashes: no rashes Neuro General: alert and awake Cognition: normal cognition Speech: speech normal Gait: normal gait Extrem General: normal to inspection and capillary refill normal Other: Mild tenderness to palpation over the posterior aspect of the right hip Course Orders Ordered: Discontinued Medications Ketorolac Tromethamine (Toradol) 30 mg IM NOW ONE Stop: 10/29/19 17:33 Last Admin: 10/29/19 17:48 Dose: 30 mg Documented by: KAYLEY Vital Signs Vital signs: Vital Signs - 8 hr 10/29/19 16:48 Temperature 98.3 F Pulse Rate 67 Respiratory Rate 20 Blood Pressure 186/95 H Pulse Oximetry 97 MDM - Back Pain/Injury MDM Narrative Medical decision making narrative: Neurovascular intact, no suspicion for fracture. Feel we can hold on radiologic studies. Patient has pain medication at home. Was given a shot of Toradol. Will send home with muscle relaxers. He was given return precautions and follow-up instructions. He expressed understanding and agreement. Discharge Plan Departure Patient Disposition: Home Clinical Impression: Acute hip pain Qualifiers: Laterality: right Qualified Code(s): M25.551 - Pain in right hip Instructions: DI for Low Back Pain Activity Restrictions/Additional Instructions: Continue to take all of your medications as directed. Keep all of your scheduled medical appointments. Return to the emergency department for any new or worsening symptoms Prescriptions: New cyclobenzaprine 10 mg tablet 10 mg PO TID PRN (Reason: muscle spasm) Qty: 10 RF: 0 No Action oxycodone-acetaminophen [Percocet] 5 MG/325 MG tablet 2 tab PO Q4HP PRNQty: 0 RF: 0 oxycodone [OxyContin] 10 MG tablet,oral only,ext.rel.12 hr 10 mg PO QID Qty: 0 RF: 0 fexofenadine 180 MG tablet 180 mg PO QDAY Qty: 0 RF: 0 Fluticasone Propionate (FLONASE) 1 spray Intranasal BID Qty: 0 RF: 0 lansoprazole 30 MG capsule,delayed release(DR/EC) 30 mg PO QDAY Qty: 0 RF: 0 meloxicam 15 mg tablet 1 tab PO DAILY RF: 0 alprazolam 0.5 mg tablet 1 tab PO Q6H RF: 0 diltiazem HCl [Cartia XT] 300 mg capsule,extended release 24hr 1 cap PO DAILY RF: 0 omeprazole 40 mg capsule,delayed release(DR/EC) 1 cap PO DAILY RF: 0 olmesartan 20 mg tablet 1 tab PO DAILY RF: 0 oxycodone 10 mg tablet 1 tab PO QID RF: 0 ketorolac 10 mg tablet 10 mg PO TID PRN (Reason: pain) Qty: 14 RF: 0 Referrals: Hosea Reyes MD [Primary Care Provider] -
[2019-10-29] MEDS: KETOROLAC 60 MG/2 ML VIAL 30 MG IM (17:48)
[2019-10-29 18:19] VITALS: BP 174/96; PULSE 60; RESP 15; O2SAT 97
== END 2019-10-29 18:24 | disposition home or self-care (01) ==
PROVIDERS: Emergency Provider Emergency Medicine; PCP Family Medicine
DX: M25.551 Pain in right hip (principal)
CPT/HCPCS: 96372; 99283; J1885

== ENCOUNTER 2019-11-03 22:37 | Observation (INO) | payer MEDICARE, OTHER, SELFPAY ==
[2019-11-03 22:42] VITALS: BP 173/96; PULSE 89; RESP 20; TEMP 36.6; O2SAT 97
--- NOTE | 2019-11-03 23:12 | DI.CT.S_ITS ---
PROCEDURE: CT STROKE INDICATIONS: weakness resolved TECHNIQUE: Noncontrast 4.5 mm thick angled axial sections acquired from the foramen magnum to the vertex, with coronal reformats. For radiation dose reduction, the following was used: automated exposure control, adjustment of mA and/or kV according to patient size. COMPARISON: None. FINDINGS: Image quality: Excellent. CSF spaces: Basal cisterns are patent. No extra-axial fluid collections. The ventricles are symmetric in size and shape. Brain: No intracranial bleeds or masses. There is cerebral volume loss for age, with resultant ventricular and sulcal prominence. There are periventricular and deep white matter chronic small vessel ischemic changes. There is intracranial internal carotid artery atherosclerosis. The M1 segment of the left middle cerebral artery appears somewhat hyperdense on single axial image (series 2/image 9). Skull and face: Calvarium and visualized facial bones appear intact, without suspicious lesions. Sinuses: There is limited visualization of the left maxillary sinus which appears opacified. Mucoperiosteal reaction is present. Visualized sinuses and mastoids are otherwise clear. IMPRESSION: 1. Questionable hyperdense left central middle cerebral artery versus artifact. Of note, there is no loss of hodge-white differentiation of the left hemisphere. However, early acute arterial thrombus cannot be excluded. Please consider MRI or short interval repeat CT if clinically indicated. This finding was discussed with Dr. Laird by the overnight interpreting radiologist on 11/03/19 at 11:51 PM [place] standard time. 2. No other acute intracranial findings. 3. Chronic left maxillary sinusitis, incompletely characterized. These findings are concordant with the overnight interpretation. This study fulfills neurological imaging criteria for inclusion or exclusion of acute stroke therapies based on available published neurological guidelines. Dictated by: Cheryl Salter M.D. on 11/04/2019 at 7:30 Approved by: Cheryl Salter M.D. on 11/04/2019 at 7:35
--- NOTE | 2019-11-03 23:15 | ED_ITS ---
HPI - Neuro Symptoms/Deficit General Chief Complaint: Neuro Symptoms/Deficit Stated Complaint: COULD NOT GET UP WEAKNESS Time Seen by Provider: 11/03/19 22:38 Source: patient Mode of arrival: Ambulatory Limitations: no limitations History of Present Illness HPI Narrative: 69-year-old male former smoker with history of hypertension, hyperlipidemia and probable prior DE presents with family in the chief complaint general weakness and fall this morning, he was unable to get up. He denies focal findings. He has had no blurred vision, trouble with speech. His story is a bit unclear but it sounds like he eventually got himself up onto the couch and had been there much of the day. He denies any history of stroke or TIA. He denies any significant injury. He states he did not pass out as he remembers the entire event. On Anticoagulants: No Related Data Home Medications Medication Instructions Recorded Confirmed Fluticasone Propionate (FLONASE) 1 spray INTRANASAL BID #0 spray 05/19/13 fexofenadine 180 mg PO QDAY #0 05/19/13 oxycodone [OxyContin] 10 mg PO QID #0 05/19/13 06/27/18 oxycodone-acetaminophen [Percocet] 2 tab PO Q4HP PRN #0 tab 05/19/13 lansoprazole 30 mg PO QDAY #0 ecc 05/29/13 alprazolam 1 tab PO Q6H 06/27/18 06/27/18 diltiazem HCl [Cartia XT] 1 cap PO DAILY 06/27/18 06/27/18 meloxicam 1 tab PO DAILY 06/27/18 06/27/18 olmesartan 1 tab PO DAILY 06/27/18 06/27/18 omeprazole 1 cap PO DAILY 06/27/18 06/27/18 oxycodone 1 tab PO QID 06/27/18 06/27/18 Previous Rx's Medication Instructions Recorded ketorolac 10 mg PO TID PRN #14 tab 09/10/19 cyclobenzaprine 10 mg PO TID PRN #10 tab 10/29/19 ibuprofen 600 mg PO TID PRN #60 tab 10/29/19 Allergies Allergy/AdvReac Type Severity Reaction Status Date / Time procaine [From Novocain] Allergy Verified 10/29/19 16:54 Review of Systems Constitutional Constitutional: Denies chills, Denies fatigue, Denies fever(s), Denies frequent falls, Denies lethargy and Reports weakness Eyes Eyes: Denies change in vision, Denies eye discharge, Denies irritation and Denies loss of vision ENT Ears, Nose, Mouth, and Throat: Denies change in voice, Denies dizziness, Denies neck pain, Denies sore throat and Denies throat swelling Cardiovascular Cardiovascular: Denies chest pain, Denies irregular heart rhythm, Denies lightheadedness, Denies palpitations, Denies dyspnea, Denies dyspnea on exertion and Denies orthopnea Respiratory Respiratory: Denies cough, Denies dyspnea, Denies dyspnea on exertion and Denies wheezing Gastrointestinal Gastrointestinal: Denies abdominal pain, Denies change in bowel habits, Denies diarrhea, Denies nausea and Denies vomiting Genitourinary Genitourinary: Denies hematuria, Denies flank pain, Denies urinary incontinence and Denies urinary urgency Musculoskeletal Musculoskeletal: Denies back pain, Denies muscle weakness, Denies neck pain, Denies numbness and Denies tingling Integumentary/Breasts Skin/Breast: Denies pruritus, Denies erythema, Denies rash and Denies wounds Neurologic Neurologic: Denies behavioral changes, Denies confusion, Denies dizziness, Denies frequent falls, Denies loss of vision, Denies numbness, Denies tingling and Reports weakness Psychiatric Psychiatric: Denies anxiety, Denies behavioral changes, Denies confusion, Denies depression, Denies homicidal ideation and Denies suicidal ideation Endocrine Endocrine: Denies fatigue, Denies flushing and Denies palpitations Hematologic/Lymphatic Hematologic/Lymphatic: Denies easy bruising Allergic/Immunologic Allergic/Immunologic: Denies urticaria, Denies throat swelling and Denies wheezing Patient History Medical History Chronic pain (Acute) Hiatal hernia (Acute) Hypertension (Acute) Social History household members: none Smoking Status: Former smoker alcohol intake: current Smoking Status: Former smoker alcohol intake frequency: 0-2 drinks per day Substance Use Type: does not use Exam Narrative Exam Narrative: GENERAL: [69] year old patient appears stated age. Well- nourished, well-developed patient, in mild distress. HEAD: Atraumatic. Normocephalic. EYES: Pupils equal round and reactive. Extraocular motions intact. No scleral icterus. No injection or drainage. ENT: Nose without bleeding, purulent drainage. Throat without erythema, tonsillar hypertrophy or exudate. Airway patent. NECK: Trachea midline. Non tender CARDIOVASCULAR: Regular rate and rhythm without murmurs, gallops, or rubs. RESPIRATORY: Clear to auscultation. Breath sounds equal bilaterally. No wheezes, rales, or rhonchi. GASTROINTESTINAL: Abdomen soft, non-tender, nondistended. EXTREMITIES: No edema or joint tenderness. BACK: Nontender without deformity or crepitance. No flank tenderness. NEURO: AOx3. SKIN: No rash or erythema of visible areas NIH Stroke Scale 1a. LOC: Patient is alert and keenly responsive (0) 1b. LOC Questions: Patient answers both LOC questions accurately (0) 1c. LOC Commands: Patient performs both tasks correctly (0) 2. Best Gaze: Normal (0) 3. Visual: No visual loss (0) 4. Facial palsy: Normal symmetrical movements (0) 5. Motor arm: No drift (0) 6. Motor leg: No drift (0) 7. Limb ataxia: Absent (0) 8. Sensory: Normal (0) 9. Best language: No aphasia; normal (0) 10. Dysarthria: Normal (0) 11. Extinction and inattention: No abnormality (0) NIHSS: 0 Initial Vital Signs Initial Vital Signs: Vital Signs Temperature 97.8 F 11/03/19 22:42 Pulse Rate 89 11/03/19 22:42 Respiratory Rate 20 11/03/19 22:42 Blood Pressure 173/96 H 11/03/19 22:42 Pulse Oximetry 97 11/03/19 22:42 Course Course Course Narrative: Upon receipt of head CT showing a possible clot in the MCA I called [facility]. Patient is outside any TPA window and though he is in the window for mechanical retrieval he is not a candidate as he has a stroke scale of 0, and LAMS 0. Neurology recommends patient be admitted here at our hospital, receive the typical stroke workup including MRI and echocardiogram Orders Ordered: ED Orders 11/03/19 23:12 CT Stroke Stat 11/03/19 23:20 Basic Metabolic Panel Stat Complete Blood Count AUTO DIFF Stat Partial Thromboplastin Time Stat Prothrombin Time INR Stat Troponin & CK Cardiac Panel Stat Alprazolam (Xanax) 0.5 mg PO Q6H [facility] Last Admin: 11/04/19 05:17 Dose: 0.5 mg Documented by: NGOZI Sodium Chloride (Normal Saline 0.9%) 1,000 mls @ 150 mls/hr IV CONT [facility] Last Admin: 11/04/19 05:16 Dose: 150 mls/hr Documented by: Infusion: 11/04/19 05:16 Dose: 0 mls/hr Documented by: Infusion: 11/04/19 04:28 Dose: 0 mls/hr Documented by: Admin: 11/04/19 00:24 Dose: 150 mls/hr Documented by: KAYLEY Ketorolac Tromethamine (Toradol) 10 mg PO TID PRN PRN Reason: pain Last Admin: 11/04/19 05:28 Dose: 10 mg Documented by: NGOZI Olmesartan (Benicar) 20 mg PO DAILY [facility] Pantoprazole Sodium (Protonix) 40 mg PO 0600 [facility] Last Admin: 11/04/19 06:10 Dose: 40 mg Documented by: NGOZI Discontinued Medications Aspirin (Aspirin Chew) 324 mg PO NOW ONE Stop: 11/04/19 00:09 Last Admin: 11/04/19 00:23 Dose: 324 mg Documented by: KAYLEY Consultations Consultation #1: Dr. Elizabeth happy to accept on her service. Vital Signs Vital signs: Vital Signs - 8 hr 11/04/19 00:47 11/04/19 02:14 Pulse Rate 70 66 Respiratory Rate 16 14 Blood Pressure [Right Arm] 181/95 H 159/87 H Pulse Oximetry 98 98 MDM - Neuro Symptoms/Deficit Lab Data Result diagrams: 11/03/19 23:20 11/03/19 23:20 Labs: Lab Results 11/03/19 11/03/19 11/03/19 Range/Units 23:20 23:20 23:20 WBC 8.3 (4.5-11.0) X10^3/uL RBC 5.64 (4.5-5.9) X10^6/uL Hgb 16.5 (13.5-17.5) g/dL Hct 47.0 (41-53) % MCV 83.3 (80-100) fL MCH 29.2 (26-34) PG MCHC 35.1 (30-36) % RDW 13.5 (11.6-14.8) % Plt Count 215 (150-400) X10^3/uL Neut % (Auto) 77.1 H (50-75) % Lymph % (Auto) 13.7 L (25-40) % [place] % (Auto) 7.6 (3-14) % Eos % (Auto) 0.4 L (2-4) % Baso % (Auto) 1.2 (0-2) % Neut # (Auto) 6400 (9867-5132) /uL Lymph # (Auto) 1100 (4678-8804) /uL [place] # (Auto) 600 (0-900) /uL Eos # (Auto) 0 (0-450) /uL Baso # (Auto) 100 (0-100) /uL PT 12.8 H (10.1-12.7) SECONDS INR 1.1 (0.9-1.3) APTT 29 (26.4-36.2) SECONDS Sodium 138 (137-145) mmol/L Potassium 4.1 (3.4-5.1) mmol/L Chloride 97 L (98-107) mmol/L Carbon Dioxide 31 (22-32) mmol/L BUN 18 (9-20) mg/dL Creatinine 1.30 H (0.66-1.25) mg/dL Estimated GFR 54.9 L (>60) mL/min BUN/Creatinine Ratio 13.8 (6-22) Glucose 123 H (80-110) mg/dL Calcium 9.5 (8.4-10.2) mg/dL Total Creatine Kinase 102 (55-170) U/L CK-MB (CK-2) 1.11 (<2.37) ng/mL CK-MB (CK-2) Rel Index 1.1 L (1.5-5.0) % Troponin I < 0.012 (0.01-0.034) ng/mL Imaging Data CT scan - head: Radiologist's Impression: Possible thrombus in L MCA Discharge Plan Departure Admit Date/Time: 11/04/19 03:25 Admit Provider: Vanesa Elizabeth
[2019-11-03 23:36] LABS: Add Manual Diff / Slide Review NO; Basophils Absolute Auto 100 /uL (0-100); Basophils Percent Auto 1.2 % (0-2); Eosinophils Absolute Auto 0 /uL (0-450); Eosinophils Percent Auto 0.4 % (2-4); Hemoglobin 16.5 g/dL (13.5-17.5); Lymphocytes Absolute Auto 1100 /uL (1100-4500); Lymphocytes Percent Auto 13.7 % (25-40); Mean Corpuscular HGB Conc 35.1 % (30-36); Mean Corpuscular Hemoglobin 29.2 PG (26-34); Mean Corpuscular Volume 83.3 fL (80-100); Monocytes Absolute Auto 600 /uL (0-900); Monocytes Percent Auto 7.6 % (3-14); Neutrophils Absolute Auto 6400 /uL (1500-7000); Neutrophils Percent Auto 77.1 % (50-75); Platelet Count 215 X10^3/uL (150-400); Red Blood Cell Count 5.64 X10^6/uL (4.5-5.9); Red Cell Distribution Width 13.5 % (11.6-14.8); White Blood Cell Count 8.3 X10^3/uL (4.5-11.0)
[2019-11-03 23:38] LABS: INR 1.1 (0.9-1.3); Prothrombin Time 12.8 SECONDS (10.1-12.7)
[2019-11-03 23:41] LABS: PTT Partial Thromboplastin Tim 29 SECONDS (26.4-36.2)
[2019-11-03 23:43] LABS: BUN Creatinine Ratio 13.8 (6-22); Blood Urea Nitrogen 18 mg/dL (9-20); Calcium 9.5 mg/dL (8.4-10.2); Carbon Dioxide 31 mmol/L (22-32); Chloride 97 mmol/L (98-107); Creatine Kinase 102 U/L (55-170); Estimated Glomerular Filt Rate 54.9 mL/min (>60); Glucose 123 mg/dL (80-110); Potassium 4.1 mmol/L (3.4-5.1); Sodium 138 mmol/L (137-145)
[2019-11-03 23:55] LABS: Troponin I < 0.012 ng/mL (0.01-0.034)
[2019-11-03 23:57] LABS: CKMB % Relative Index 1.1 % (1.5-5.0); Creatine Kinase MB 1.11 ng/mL (<2.37); HEMOLYSIS 16 (0-50)
[2019-11-04] MEDS: ASPIRIN 81 MG CHEW TAB 324 MG PO (00:23)
[2019-11-04] MEDS: SODIUM CHLORIDE 0.9% 1,000 ML 150 ML IV ×2 (00:24→05:16)
[2019-11-04 00:47] VITALS: BP 181/95; PULSE 70; RESP 16; O2SAT 98
[2019-11-04 02:14] VITALS: BP 159/87; PULSE 66; RESP 14; O2SAT 98
[2019-11-04 04:19] VITALS: BP 162/90; PULSE 74; RESP 16; TEMP 36.5; O2SAT 97
--- NOTE | 2019-11-04 04:33 | DI.ECHO.S_ITS ---
[facility] +---------+ : : [address] : [place] [address] : : : : [id number] : : : : Phone: [phone]---------+ Echocardiogram Report + + :Name: LIZBETH WOLF Study Date: 11/04/2019 Height: 73 in : :[facility] Weight: 257 lb : : Gender: Male BSA: 2.4 m2 : :: 1950 Age: 69 yrs BP: 160/90 mmHg: :Reason For Study: Stroke evaluation : :Ordering Physician: Lissa : :Hospitalist Performed By: Amanda Seay : :Referring: SUSAN JONES : + + Interpretation Summary The left ventricle is normal in size. The ejection fraction is estimated to be 45-50%. There are no obvious focal wall motion abnormalities noted but poor endocardial definition reduces the sensitivity for the detection of such. There is borderline global hypokinesis of the left ventricle. Diastolic parameters suggest probable normal left ventricular diastolic function and normal filling pressures. The right ventricle is not well visualized. The right ventricular systolic function is normal. The right ventricular systolic pressure is estimated to be at least 30 mmHg based on an estimated right atrial pressure of 3 mm Hg. The left atrial size is normal. Right atrial size is normal. The interatrial septum is intact with no evidence for an atrial septal defect. There is mild mitral regurgitation. There is mild aortic regurgitation. There is no other significant valvular heart disease. The aortic root is normal size. No obvious source for stroke. Procedure: A two-dimensional transthoracic echocardiogram with color flow and Doppler was performed. There is no prior echocardiogram noted for this patient. The study quality was technically adequate. The patient was in sinus bradycardia with heart rates between 51-71 bpm during the exam. Left Ventricle: The left ventricle is normal in size. There is normal left ventricular wall thickness. The ejection fraction is estimated to be 45-50%. There are no obvious focal wall motion abnormalities noted but poor endocardial definition reduces the sensitivity for the detection of such. There is borderline global hypokinesis of the left ventricle. Diastolic parameters suggest probable normal left ventricular diastolic function and normal filling pressures. Right Ventricle: The right ventricle is not well visualized. The right ventricular systolic function is normal. Atria: The left atrial size is normal. Right atrial size is normal. The interatrial septum is intact with no evidence for an atrial septal defect. Mitral Valve: The mitral valve is normal in structure and function. There is mild mitral annular calcification. There is mild mitral regurgitation. Aortic Valve: The aortic valve is trileaflet. The aortic valve opens well. There is no aortic valve stenosis. There is mild aortic regurgitation. Tricuspid Valve: The tricuspid valve is normal in structure and function. There is mild tricuspid regurgitation. The right ventricular systolic pressure is estimated to be at least 30 mmHg based on an estimated right atrial pressure of 3 mm Hg. Pulmonic Valve: The pulmonic valve is normal in structure and function. There is trace pulmonic regurgitation. There is no other significant valvular heart disease. Great Vessels: The aortic root is normal size. The dimensions of the ascending aorta are normal. The IVC is of normal diameter and collapses greater than 50% with a sniff. This suggests a low right atrial pressure of 3 mm Hg. Pericardium/ Pleura There is no pericardial effusion. There is no pleural effusion. MMode/2D Measurements & Calculations LVIDd: 4.6 cm LVOT diam: 2.3 cm LVIDs: 3.6 cm Ao root diam: 3.4 cm FS: 22.8 % asc Aorta Diam: 3.2 cm EPSS: 1.5 cm IVSd: 1.3 cm LVPWd: 1.1 cm LV sanchez. diameter/BSA (cm/m^2): 1.9 LV sys. diameter/BSA (cm/m^2): 1.5 LA A2 area: 18.1 cm2 RA long axis: 4.7 cm LA A4 area: 17.4 cm2 RA area: 14.6 cm2 LA length (vol): 5.2 cm RA vol: 38.8 ml LA vol: 51.4 ml RA : 16.2 ml/m2 LA vol index: 21.5 ml/m2 IVC diam: 1.2 cm TAPSE: 2.2 cm Doppler Measurements & Calculations Ao V2 max: 89.8 cm/sec LVOT Max Roshan: 62.6 cm/sec Ao V2 mean: 62.9 cm/sec LV V1 max P.6 mmHg Ao max P.2 mmHg LV V1 VTI: 14.0 cm Ao mean P.8 mmHg WILLIS(I,D): 3.0 cm2 Ao V2 VTI: 20.0 cm WILLIS(V,D): 2.9 cm2 sev ratio: 0.70 WILLIS indexed to BSA (cm^2/m^2): 1.2 MV E max roshan: 51.0 cm/sec TR max roshan: 259.4 cm/sec MV A max roshan: 41.2 cm/sec TR max P.0 mmHg MV E/A: 1.2 PA V2 max: 56.5 cm/sec Med Peak E' Roshan: 3.6 cm/sec PA V2 mean: 37.7 cm/sec E/E' med: 14.3 PA mean P.66 mmHg Lat Peak E' Roshan: 5.9 cm/sec PA Accel Time: 0.14 sec E/E' lat: 8.6 E/e' average: 11.4 MV dec time: 0.32 sec MV P1/2t: 96.5 msec MV P1/2t max roshan: 51.7 cm/sec SV(LVOT): 59.4 ml MVA(P1/2t): 2.3 cm2 Reading Physician:02:32 PM
--- NOTE | 2019-11-04 04:33 | DI.MRI.S_ITS ---
PROCEDURE: MR STROKE Pre- and post-contrast brain MRI, non-contrast brain MR angiogram, pre- and postcontrast neck MR angiogram INDICATIONS: Stroke symptoms TECHNIQUE: Brain: Noncontrast axial T1 spin echo, axial T2 fast spin echo, sagittal and axial FLAIR, coronal T2 fast spin echo, axial gradient echo, axial diffusion and ADC through the brain. After the administration of contrast, axial 3D VIBE of the cranial vasculature and brain. Brain MRA: Non-contrast 3-D time of flight MR angiogram, with multiple lqbjopl-stubfvcwm-esaisxyuau (MIP) reformats performed. Neck MRA: Axial and sagittal TruFISP through the neck. Coronal dynamic MR angiogram during administration of contrast in the arterial and venous phases, with 3-dimenstional scauzfg-unjwelkxp-gkanqazxlu (MIP) reformats constructed from subtraction images. COMPARISON: None. FINDINGS: Image quality: Excellent. BRAIN: CSF spaces: Ventricles are normal in size and shape. Basal cisterns are patent. No extra-axial fluid collections. Brain: No intracranial bleeds or mass effects. Salgado-white matter interface is normal. Diffusion weighted images show no acute ischemic insults. Brainstem appears normal. Normal intravascular flow voids are present. No abnormal intracranial enhancement. Skull and face: Calvarial marrow signal is normal. Orbits appear normal. Sinuses: Sinuses and mastoids are clear. BRAIN MR ANGIOGRAM: Anterior circulation: Intracranial internal carotid arteries are normal in size and enhancement. The flow within the paired anterior cerebral arteries is normal and symmetric. The flow within the middle cerebral arteries is normal and symmetric. The anterior communicating artery is seen. Opacification and mucoperiosteal thickening is present within the left maxillary sinus. Posterior circulation: The visualized portions of the vertebral arteries demonstrate normal caliber, and join to form a normal appearing basilar artery. The flow within the posterior cerebral arteries is normal and symmetric. No stenoses, occlusions, or aneurysms. NECK MR ANGIOGRAM: Carotids: Great vessels demonstrate a conventional anatomy as they arise from the aortic arch. The origins of the common carotid arteries appear patent. The calibers and courses of both common carotid arteries are normal. The bifurcation regions appear normal bilaterally. The internal carotid arteries demonstrate normal course and caliber. Posterior circulation: The origins of the vertebral arteries appear patent. The right vertebral artery forms the basilar artery and the left vertebral artery terminates at the skull base. Miscellaneous: Subclavian arteries appear patent. Pre-contrast images through the neck show no soft tissue abnormalities. IMPRESSION: BRAIN MRI: 1. No acute intracranial findings. Specifically, no increased restricted diffusion to suggest acute or subacute infarct. 2. Chronic left maxillary sinusitis. BRAIN MR ANGIOGRAM: 1. No stenosis, occlusion, or aneurysm. Specifically, no finding to suggest thrombus within the left middle cerebral artery. NECK MR ANGIOGRAM: 1. No stenosis, occlusion, or aneurysm. Dictated by: Cheryl Salter M.D. on 11/04/2019 at 8:08 Approved by: Cheryl Salter M.D. on 11/04/2019 at 8:14
[2019-11-04 04:34] VITALS: BMI 33.9
[2019-11-04] MEDS: ALPRAZolam 0.5 MG TABLET PO ×2 (05:17→11:12)
[2019-11-04] MEDS: KETOROLAC 10 MG TABLET PO (05:28)
[2019-11-04] MEDS: PANTOPRAZOLE 40 MG TABLET PO (06:10)
--- NOTE | 2019-11-04 06:54 | PC.ADMIT ---
[address] Admission Note:Pt admitted to room 204. Pt denies lower extremity weakness at time of admit, states It just comes on without notice, Denies numbness tingling to all extremities. Pt alert and oriented x4. Speech clear, coherent. Daughter at bedside talking with pt. Pt denies any focal deficits. Does report his blood pressure is all over the place and so I just quit taking it at home. Pt report chronic back pain and takes oxycontin at home. No current orders for pain med other than toradol PO which was given. PIV in R AC with IVF of NS at 150cc/hr. Pt is SBA to BR due to recent weakness. Plan for MRI and ECHO today. The patient,Jeremie Donohue,69 y/o, was given written information regarding hospital policies, unit procedures and contact persons. Patient's smoking status: Former smoker. Vital Signs - 8 hr 11/04/19 00:47 11/04/19 02:14 11/04/19 04:19 Temperature 97.7 F Pulse Rate 70 66 74 Respiratory Rate 16 14 16 Blood Pressure 162/90 H Blood Pressure [Right Arm] 181/95 H 159/87 H Pulse Oximetry 98 98 97
[2019-11-04 08:00] VITALS: BP 149/101; PULSE 65; RESP 16; TEMP 36.3; O2SAT 97
--- NOTE | 2019-11-04 08:03 | PC.NURSE ---
Day shift: Pt off unit for MRI at approx 0800.
--- NOTE | 2019-11-04 08:40 | PC.NURSE ---
Day shift: Talked with Dr Menezes on telephone and verbal order for oxycodone and to place on tele taken and ordered. Per ICU there are no tele boxes available. matrix drier tender made aware of the tele box issue. As this is written a tele box has been made available. Also as this is written Pt remains off of AC unit.
[2019-11-04] MEDS: OXYCODONE IR 10 MG TABLET PO (09:02)
[2019-11-04] MEDS: OLMESARTAN 20 MG TABLET PO (09:02)
--- NOTE | 2019-11-04 09:15 | CM.DANOTE ---
Addendum entered by Rocio Hamm LPN 11/04/19 15:35: Home via taxi with PCP and personnel arbitrator clinic visit recommended. Addendum entered by Rocio Hamm LPN 11/04/19 15:34: Went to room to check in with pt. A d/c order is now noted and JANN Arce confirms pt left for home setting about 1500. Addendum entered by Rocio Hamm LPN 11/04/19 15:32: Admission status: OBS: confirmed by RHODA Ham. Addendum entered by Rocio Hamm LPN 11/04/19 09:27: Note: primary contact for pt is listed as daughter Alem Donohue: cell: [phone]. She was at bedside when pt arrived to hospital. Original Note: Discharge Planning/Care Management DCP: assessment: case received, EMR reviewed. Pt is a 69 year old male who admitted early this mornin to care of [facility] team. PCP: Dr. Reyes. Payer: Medicare and commercial insurance: per face sheet. Admission status: in review: per RHODA Ham POC is outlined by the ER physician after he spoke with the [facility] Stroke Neurology team: MRI brain and echo are pending. P: discuss case in Team Rounds and meet with pt after more is known to assist with d/c issues and options. CM Discharge Assessment Start: 11/04/19 09:12 Freq: Status: Active Protocol: Document 11/04/19 09:13 ITV (Rec: 11/04/19 09:15 ITV [id number]) Discharge Planning Assessment Advance Directives? No History Provided By Medical Record Has Patient been admitted in last 30 No days? Prior Living Arrangements House Household Members none Review Status In Process
[2019-11-04 12:00] VITALS: BP 140/78; PULSE 53; RESP 16; TEMP 36.3; O2SAT 95
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
--- NOTE | 2019-11-04 15:21 | PC.NURSE ---
Day shift: Pt off unit at approx 1515. Taken to taxi by this magnetic tape typewriter operator in WC. Tolerated well. Paperwork signed and all questions answered. Pt has all personal belongings. Pt has no new MD scrips. Pt encouraged to f/u with PCP and rn intern.
== END 2019-11-04 15:22 | disposition home or self-care (01) ==
LOC: ED 22:41 → AC 11-04 03:25
PROVIDERS: Admitting Provider Family Medicine; Emergency Provider Emergency Medicine; PCP Family Medicine; Visit Provider Family Medicine
DX: M51.36 Other intervertebral disc degeneration, lumbar region (principal); R53.1 Weakness; Z87.891 Personal history of nicotine dependence; I10 Essential (primary) hypertension; E78.5 Hyperlipidemia, unspecified; W18.30XA Fall on same level, unspecified, initial encounter; Y92.009 Unspecified place in unspecified non-institutional (private) residence as the place of occurrence of the external cause; M19.90 Unspecified osteoarthritis, unspecified site; G89.29 Other chronic pain; M54.5 Low back pain; F15.90 Other stimulant use, unspecified, uncomplicated; M87.851 Other osteonecrosis, right femur; K21.9 Gastro-esophageal reflux disease without esophagitis; N40.0 Benign prostatic hyperplasia without lower urinary tract symptoms; J30.9 Allergic rhinitis, unspecified
CPT/HCPCS: 36415; 70450; 70548; 70553; 80048; 82550; 82553; 84484; 85025; 85610; 85730; 93005; 93010; 93306; 96360; 96361; 99285; G0378

== ENCOUNTER → 2020-01-03 10:28 | Outpatient (CLI) | payer MEDICARE, OTHER, SELFPAY ==
--- NOTE | 2020-01-03 | DI.NM.S_ITS ---
PROCEDURE: [facility] PERF SPECT R&S PHARM Rest and pharmacological stress myocardial perfusion SPECT with gated imaging and ejection fraction RADIOPHARMACEUTICAL: 26.2 mCi Tc-99m tetrafosmin IV at rest and 26.5 mCi Tc-99m tetrafosmin IV at peak effect of pharmacological stress. [id number] was performed. INDICATIONS: Acute systolic (congestive) heart failure TECHNIQUE: Radiopharmaceutical was injected at peak stress test, and also at rest. SPECT images were obtained. SPECT myocardial perfusion images were displayed in short axis, horizontal long axis, and vertical long axis views. Gated images were reviewed using [employer] software. COMPARISON: [employer], [place], RENAL IMAGING WITH LASIX, 02/16/2013, 8:57. CARDIAC STRESS: A pharmacologic stress test was performed under the supervision of an attending staff, using an infusion of Lexiscan. Hemodynamic data: There is normal blood pressure and heart rate response to pharmacologic stress. Symptoms: The patient denied anginal chest pain. Aminophylline: Not used. EKG: No diagnostic changes of ischemia; occasional PVCs after Lexiscan infusion. FINDINGS: Raw data: There is good myocardial uptake of radiotracer. No significant motion artifacts. Uypz-io-[id number] ratio is 0.29 (normal is less than 0.38 for tetrafosmin tracer). Left ventricle function: Gated images demonstrate normal left ventricular wall thickening. Global hypokinesis which is more pronounced over the inferior wall. No transient ischemic dilation; TID is 0.92 (normal less than 1.3). Left ventricle resting end diastolic volume is 179 mL. Left ventricle stress ejection fraction is 55%; normal range is above 45%. Myocardial perfusion: There is a large, moderately severe perfusion defect which involves the basal inferior, basal inferoseptal, mid inferior and apical inferior wall on stress images. This defect is present but less intense, especially in the basal segments, on rest images. No other perfusion defects. IMPRESSION: -Abnormal perfusion study. -Moderate reversible ischemia in the inferior wall, more pronounced in the inferior basal segment. -Prone imaging could not be performed to correct for diaphragmatic attenuation. But the difference in the post-stress and rest mages indicate ischemia of inferior wall. -The LV is enlarged and LV systolic function is reduced at baseline with LVEF of 41% which improved to 55% on post-stress images. -The findings were communicated to the ordering physician. Dictated by: Pj Burnette M.D. on 01/04/2020 at 16:23 Approved by: Pj Burnette M.D. on 01/04/2020 at 16:37
--- NOTE | 2020-01-03 11:48 | PM.TREADMILL ---
Cardiac Stress Test Report Referral & Results Date Patient Seen: 01/03/20 Time Patient Seen: 11:48 Requesting provider: Hosea Reyes Indication: systolic CHF Rest ECG: sinus bradycardia Procedure Note: After Lexiscan injection had minimal dypsnea, no chest discomfort No significant ST changes on ECG after Lexiscan injection Occasional PVC No reversal agent needed Impression: Normal Lexiscan stress test Please note: Actual ECG tracings can be found in the PACS system.
== END ==
PROVIDERS: PCP Family Medicine; Referring Provider Family Medicine; Visit Provider Family Medicine
DX: R94.39 Abnormal result of other cardiovascular function study (principal); I50.21 Acute systolic (congestive) heart failure; I25.89 Other forms of chronic ischemic heart disease
CPT/HCPCS: 78452; 93017; A9502; J2785

== ENCOUNTER → 2020-01-26 15:17 | Outpatient (CLI) | payer MEDICARE, OTHER, SELFPAY ==
--- NOTE | 2020-01-26 15:21 | DI.CT.S_ITS ---
PROCEDURE: CT SINUS SCREEN WO CON INDICATIONS: headache TECHNIQUE: Noncontrast 3.0 mm axial images acquired from the frontal sinuses to the mid-sella, with coronal and sagittal reformats. For radiation dose reduction, the following was used: automated exposure control, adjustment of mA and/or kV according to patient size. COMPARISON: None. FINDINGS: Image quality: Excellent. Maxillary Sinuses: No bony remodeling or destruction. The right maxillary sinus is clear but the left maxillary sinus appears opacified chronically given the mild thickening of the lateral wall of the left maxillary sinus associated. There is a mild degree of convex leftward deviation of the midline nasal septum with secondary significant nasal airway stenosis. Ethmoid Air Cells: No bony remodeling or destruction. Sinuses are clear except for minimal ethmoid air cell opacification at the anterolateral left border of the ethmoid air cells abutting the area of maxillary sinus opacification.. Sphenoid Sinuses: No bony remodeling or destruction. Sinuses are clear. Frontal Sinuses: No bony remodeling or destruction. Sinuses are clear. Ostiomeatal Complexes: Ostiomeatal complexes are patent. No Jaret cells. Miscellaneous: Visualized intra-orbital contents are normal. No micky bullosa or paradoxical turbinate curvature. Mild leftward nasal septal deviation. 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 Chronic complete opacification of the left maxillary sinus. Mild ethmoid air cell opacification immediately adjacent. No sign of osseous erosion or air-fluid level. Dictated by: Satya Caballero M.D. on 01/26/2020 at 15:48 Approved by: Satya Caballero M.D. on 01/26/2020 at 15:52
== END ==
PROVIDERS: PCP Family Medicine; Referring Provider Family Medicine; Visit Provider Family Medicine
DX: J32.8 Other chronic sinusitis (principal); R51 Headache; J34.2 Deviated nasal septum
CPT/HCPCS: 70486

== ENCOUNTER 2020-02-12 21:22 | Emergency (ER) | payer MEDICARE, OTHER, SELFPAY ==
[2020-02-12 21:51] VITALS: BP 147/75; PULSE 58; RESP 20; TEMP 36.8; O2SAT 96
[2020-02-12 23:01] VITALS: BP 186/99; PULSE 63; RESP 18; O2SAT 96
[2020-02-12] MEDS: MAG HYDROX/ALUMINUM/SIMETH SUS 20 ML, LIDOCAINE VISCOUS 2% 15 ML PO (23:14)
--- NOTE | 2020-02-13 00:20 | ED_ITS ---
HPI - Abdominal Pain General Chief Complaint: Abdominal Pain Stated Complaint: states heart burn,sinus issues, and hernia problem Time Seen by Provider: 02/13/20 00:20 Source: patient Mode of arrival: Ambulatory Limitations: no limitations History of Present Illness HPI narrative: The patient takes omeprazole for hiatal hernia. He was also on clindamycin. He was previously directed take clindamycin with food in his stomach. He said he had no food available he took the clindamycin as prescribed. He developed epigastric pain shortly after taking the medication. At that time he tried taking crackers and such, pain persist. He has no chest pain, no dyspnea. He has had no weakness or dizziness. He had no nausea or vomiting. After evaluation the ER, the pain has resolved. He is on medications for hypertension. He is a nonsmoker. He has no history of PA/CAD. He has no fever, chills or respiratory illness. He is asymptomatic at the time my evaluation. Related Data Home Medications Medication Instructions Recorded Confirmed Fluticasone Propionate (FLONASE) 1 spray INTRANASAL BID #0 spray 05/19/13 fexofenadine 180 mg PO QDAY #0 05/19/13 oxycodone [OxyContin] 10 mg PO QID #0 05/19/13 06/27/18 oxycodone-acetaminophen [Percocet] 2 tab PO Q4HP PRN #0 tab 05/19/13 lansoprazole 30 mg PO QDAY #0 ecc 05/29/13 alprazolam 1 tab PO Q6H 06/27/18 06/27/18 diltiazem HCl 1 cap PO DAILY 06/27/18 06/27/18 meloxicam 1 tab PO DAILY 06/27/18 06/27/18 olmesartan 1 tab PO DAILY 06/27/18 06/27/18 omeprazole 1 cap PO DAILY 06/27/18 06/27/18 oxycodone 1 tab PO QID 06/27/18 06/27/18 Previous Rx's Medication Instructions Recorded ketorolac 10 mg PO TID PRN #14 tab 09/10/19 cyclobenzaprine 10 mg PO TID PRN #10 tab 10/29/19 ibuprofen 600 mg PO TID PRN #60 tab 10/29/19 Allergies Allergy/AdvReac Type Severity Reaction Status Date / Time procaine [From Novocain] Allergy Verified 10/29/19 16:54 Review of Systems Review of Systems ROS Unobtainable: All systems reviewed & are unremarkable except as noted in HPI and below ENT Ears, Nose, Mouth, and Throat: Denies vertigo, Denies dizziness and Denies sore throat Cardiovascular Cardiovascular: Denies syncope, Denies rapid heart rate, Denies edema, Denies irregular heart rhythm and Denies dyspnea Comments: Epigastric pain, no chest pain. Respiratory Respiratory: Denies cough, Denies dyspnea and Denies wheezing Gastrointestinal Gastrointestinal: Reports as per HPI, Reports abdominal pain, Denies nausea and Denies vomiting Musculoskeletal Musculoskeletal: Denies back pain Integumentary/Breasts Skin/Breast: Denies pruritus, Denies erythema and Denies rash Neurologic Neurologic: Denies vertigo, Denies dizziness and Denies syncope Allergic/Immunologic Allergic/Immunologic: Denies wheezing Patient History Medical History Chronic pain (Acute) Hiatal hernia (Acute) Hypertension (Acute) Social History household members: none Smoking Status: Former smoker alcohol intake: current Smoking Status: Former smoker alcohol intake frequency: 0-2 drinks per day Substance Use Type: does not use Exam Initial Vital Signs Initial Vital Signs: Vital Signs Temperature 98.3 F 02/12/20 21:51 Pulse Rate 58 L 02/12/20 21:51 Respiratory Rate 20 02/12/20 21:51 Blood Pressure 147/75 H 02/12/20 21:51 Pulse Oximetry 96 02/12/20 21:51 Const General: cooperative and well developed Nutritional Appearance: well nourished [facility] Head: normocephalic and atraumatic Neck Neck: No JVD Chest Chest: normal palpation of entire chest wall Resp Effort & Inspection: normal respiratory effort and able to speak in complete sentences Auscultation: clear to auscultation bilaterally, no rales, no rhonchi and no wheezes Cardio Rate: regular rate Rhythm: regular rhythm Heart Sounds: S1 normal, S2 normal, no click, no gallops, no murmurs and no rubs Pulses: normal peripheral pulses GI Inspection: non-distended Palpation: soft, no hepatosplenomegaly, No guarding, No pulsatile mass and No tender Auscultation: normal bowel sounds Back/Spine/Pelvis Back: No back tenderness Skin General: no rashes or lesions noted and No jaundice Neuro General: patient alert, patient oriented x3, gait normal and no focal motor deficits Speech: speech normal Extrem General: full ROM, no pedal edema and no calf tenderness Psych Appearance: grossly normal Mental Status: mental status grossly normal Speech and Movement: speech and movement normal Course Orders Ordered: ED Orders 02/12/20 22:48 EKG-12 Lead Stat Discontinued Medications Al Hydrox/Mg Hydrox/Simethicone 20 ml/ Lidocaine HCl 15 ml 0 ml PO NOW ONE Stop: 02/12/20 23:03 Last Admin: 02/12/20 23:14 Dose: 35 ml Documented by: RASHAD Vital Signs Vital signs: Vital Signs - 8 hr 02/12/20 21:51 02/12/20 23:01 Temperature 98.3 F Pulse Rate 58 L 63 Respiratory Rate 20 18 Blood Pressure 147/75 H Blood Pressure [Right Arm] 186/99 H Pulse Oximetry 96 96 MDM - Abdominal Pain ECG Data Attestation: I personally reviewed and interpreted this ECG as follows: (Sinus bradycardia rate 54 beats per minute. Incomplete RBBB. No active. No acute ST T wave changes.) Discharge Plan Departure Patient Disposition: Home Clinical Impression: Gastritis Qualifiers: Gastritis type: unspecified gastritis Chronicity: acute Gastritis bleeding: without bleeding Qualified Code(s): K29.00 - Acute gastritis without bleeding Instructions: DI for Gastritis Activity Restrictions/Additional Instructions: Take your medications as prescribed. With the clindamycin be sure you have food in her stomach before you take this pill. Return the ER if you have return of significant pain. Prescriptions: No Action oxycodone-acetaminophen [Percocet] 5 MG/325 MG tablet 2 tab PO Q4HP PRNQty: 0 RF: 0 oxycodone [OxyContin] 10 MG tablet,oral only,ext.rel.12 hr 10 mg PO QID Qty: 0 RF: 0 fexofenadine 180 MG tablet 180 mg PO QDAY Qty: 0 RF: 0 Fluticasone Propionate (FLONASE) 1 spray Intranasal BID Qty: 0 RF: 0 lansoprazole 30 MG capsule,delayed release(DR/EC) 30 mg PO QDAY Qty: 0 RF: 0 cyclobenzaprine 10 mg tablet 10 mg PO TID PRN (Reason: muscle spasm) Qty: 10 RF: 0 ibuprofen 600 mg tablet 600 mg PO TID PRN (Reason: pain) Qty: 60 RF: 0 meloxicam 15 mg tablet 1 tab PO DAILY RF: 0 alprazolam 0.5 mg tablet 1 tab PO Q6H RF: 0 diltiazem HCl 300 mg capsule,extended release 24hr 1 cap PO DAILY RF: 0 omeprazole 40 mg capsule,delayed release(DR/EC) 1 cap PO DAILY RF: 0 olmesartan 20 mg tablet 1 tab PO DAILY RF: 0 oxycodone 10 mg tablet 1 tab PO QID RF: 0 ketorolac 10 mg tablet 10 mg PO TID PRN (Reason: pain) Qty: 14 RF: 0 Referrals: Hosea Reyes MD [Primary Care Provider] -
[2020-02-13 00:32] VITALS: BP 183/96; PULSE 66; RESP 14; O2SAT 99
== END 2020-02-13 00:32 | disposition home or self-care (01) ==
PROVIDERS: Emergency Provider Emergency Medicine; PCP Family Medicine
DX: K29.00 Acute gastritis without bleeding (principal); R07.9 Chest pain, unspecified
CPT/HCPCS: 93005; 99283

== ENCOUNTER 2020-03-13 21:48 | Emergency (ER) | payer MEDICARE, OTHER, SELFPAY ==
[2020-03-13 22:01] VITALS: BP 153/80; PULSE 67; RESP 17; TEMP 37.1; O2SAT 98; BMI 33.0
--- NOTE | 2020-03-13 22:08 | ED_ITS ---
HPI - Chest Pain General Chief Complaint: Chest Pain Stated Complaint: CHEST PAIN Time Seen by Provider: 03/13/20 21:55 Source: patient Mode of arrival: Ambulatory Limitations: no limitations History of Present Illness HPI narrative: 69-year-old male former smoker with history of hypertension, hyperlipidemia as well as gastritis and hiatal hernia presents with a chief complaint of some burning epigastric discomfort that is worse with eating, drinking and laying flat. He denies any dizziness, weakness or lightheadedness. He denies any shortness of breath nor nausea, vomiting or diaphoresis. He states that this happens on occasion any seems to get better with a GI cocktail. He denies any dietary indiscretions or change in his medications. He does take omeprazole and sometimes Mylanta at home. His symptoms started a few hours ago. MD complaint: chest pain Onset (ago): hour(s) Duration: constant Onset: after eating Pain location: epigastric Severity: mild Quality: other Pain radiation: none Relieving factors: antacids and leaning forward Exacerbating factors: eating and supine Treatments prior to arrival chest pain: none Related Data Home Medications Medication Instructions Recorded Confirmed Fluticasone Propionate (FLONASE) 1 spray INTRANASAL BID #0 spray 05/19/13 fexofenadine 180 mg PO QDAY #0 05/19/13 oxycodone [OxyContin] 10 mg PO QID #0 05/19/13 06/27/18 oxycodone-acetaminophen [Percocet] 2 tab PO Q4HP PRN #0 tab 05/19/13 lansoprazole 30 mg PO QDAY #0 ecc 05/29/13 alprazolam 1 tab PO Q6H 06/27/18 06/27/18 diltiazem HCl 1 cap PO DAILY 06/27/18 06/27/18 meloxicam 1 tab PO DAILY 06/27/18 06/27/18 olmesartan 1 tab PO DAILY 06/27/18 06/27/18 omeprazole 1 cap PO DAILY 06/27/18 06/27/18 oxycodone 1 tab PO QID 06/27/18 06/27/18 Previous Rx's Medication Instructions Recorded ketorolac 10 mg PO TID PRN #14 tab 09/10/19 cyclobenzaprine 10 mg PO TID PRN #10 tab 03/01/20 ibuprofen 600 mg PO TID PRN #60 tab 10/29/19 Allergies Allergy/AdvReac Type Severity Reaction Status Date / Time procaine [From Novocain] Allergy Verified 03/13/20 21:58 Review of Systems Constitutional Constitutional: Denies chills, Denies fatigue, Denies fever(s), Denies frequent falls, Denies lethargy and Denies weakness Eyes Eyes: Denies change in vision, Denies eye discharge, Denies irritation and Denies loss of vision ENT Ears, Nose, Mouth, and Throat: Denies change in voice, Denies dizziness, Denies neck pain, Denies sore throat and Denies throat swelling Cardiovascular Cardiovascular: Reports chest pain, Denies irregular heart rhythm, Denies lightheadedness, Denies palpitations, Denies dyspnea, Denies dyspnea on exertion and Denies orthopnea Respiratory Respiratory: Denies cough, Denies dyspnea, Denies dyspnea on exertion and Denies wheezing Gastrointestinal Gastrointestinal: Reports abdominal pain, Denies change in bowel habits, Denies diarrhea, Denies nausea and Denies vomiting Musculoskeletal Musculoskeletal: Denies neck pain and Denies numbness Integumentary/Breasts Skin/Breast: Denies pruritus, Denies erythema, Denies rash and Denies wounds Neurologic Neurologic: Denies behavioral changes, Denies confusion, Denies dizziness, Denies frequent falls, Denies loss of vision, Denies numbness and Denies weakness Psychiatric Psychiatric: Denies anxiety, Denies behavioral changes, Denies confusion, Denies depression, Denies homicidal ideation and Denies suicidal ideation Endocrine Endocrine: Denies fatigue, Denies flushing and Denies palpitations Hematologic/Lymphatic Hematologic/Lymphatic: Denies easy bruising Allergic/Immunologic Allergic/Immunologic: Denies urticaria, Denies throat swelling and Denies wheezing Patient History Medical History (Updated 03/14/20 @ 00:16 by Darion Laird DO) Chronic pain (Acute) Hiatal hernia (Acute) Hypertension (Acute) Social History household members: none Smoking Status: Former smoker alcohol intake: current Smoking Status: Former smoker alcohol intake frequency: 0-2 drinks per day Substance Use Type: does not use Exam Narrative Exam Narrative: GENERAL: [69] year old patient appears stated age. Well- nourished, well-developed patient, in mild distress. HEAD: Atraumatic. Normocephalic. EYES: Pupils equal round and reactive. Extraocular motions intact. No scleral icterus. No injection or drainage. ENT: Nose without bleeding, purulent drainage. Throat without erythema, tonsillar hypertrophy or exudate. Airway patent. NECK: Trachea midline. Non tender CARDIOVASCULAR: Regular rate and rhythm without murmurs, gallops, or rubs. RESPIRATORY: Clear to auscultation. Breath sounds equal bilaterally. No wheezes, rales, or rhonchi. GASTROINTESTINAL: Abdomen soft, non-tender, nondistended. EXTREMITIES: No edema or joint tenderness. BACK: Nontender without deformity or crepitance. No flank tenderness. NEURO: AOx3. SKIN: No rash or erythema of visible areas Initial Vital Signs Initial Vital Signs: Vital Signs Temperature 98.7 F 03/13/20 22:01 Pulse Rate 67 03/13/20 22:01 Respiratory Rate 17 03/13/20 22:01 Blood Pressure 153/80 H 03/13/20 22:01 Pulse Oximetry 98 03/13/20 22:01 Course Course Course Narrative: patient has near complete resolution of symptoms after above stated therapies Multiple causes of chest pain considered including PA, PE, pneumothorax, pneumonia, aortic dissection, and pleurisy. Patient reports no radiation, no diaphoresis, no provocation with exertion, and no vomiting Multiple etiologies for patient's symptoms considered including: [Reflux versus gastritis versus pancreatitis versus gallbladder disease in addition to the above-stated cardiac considerations among others] Patient's symptoms improved or duration of stay with above-stated therapies. Findings and discharge diagnosis discussed with patient/family followed by verbalization of understanding Return precautions discussed with patient/family whom verbalize understanding. Orders Ordered: ED Orders 03/13/20 21:55 EKG-12 Lead Stat 03/13/20 22:15 Complete Blood Count AUTO DIFF Stat Comprehensive Metabolic Panel Stat D Dimer Stat Lipase Stat Troponin & CK Cardiac Panel Stat 03/13/20 23:41 Troponin I Stat Discontinued Medications Al Hydrox/Mg Hydrox/Simethicone 20 ml/ Lidocaine HCl 15 ml 0 ml PO NOW ONE Stop: 03/13/20 21:56 Last Admin: 03/13/20 22:25 Dose: 35 ml Documented by: MAAME Sodium Chloride (Normal Saline 0.9%) 1,000 mls @ 150 mls/hr IV CONT SOHA Last Infusion: 03/14/20 00:36 Dose: 0 mls/hr Documented by: Admin: 03/13/20 22:30 Dose: 150 mls/hr Documented by: MAAME Vital Signs Vital signs: Vital Signs - 8 hr 03/13/20 22:01 03/13/20 23:30 Temperature 98.7 F Pulse Rate 67 61 Respiratory Rate 17 14 Blood Pressure 153/80 H 146/70 H Pulse Oximetry 98 97 MDM - Chest Pain Lab Data Result diagrams: 03/13/20 22:15 03/13/20 22:15 Labs: Lab Results 03/13/20 03/13/20 03/13/20 Range/Units 22:15 22:15 22:15 WBC 6.7 (4.5-11.0) X10^3/uL RBC 5.38 (4.5-5.9) X10^6/uL Hgb 15.3 (13.5-17.5) g/dL Hct 44.6 (41-53) % MCV 82.9 (80-100) fL MCH 28.4 (26-34) PG MCHC 34.3 (30-36) % RDW 14.5 (11.6-14.8) % Plt Count 177 (150-400) X10^3/uL Neut % (Auto) 53.3 (50-75) % Lymph % (Auto) 34.8 (25-40) % [place] % (Auto) 8.0 (3-14) % Eos % (Auto) 3.4 (2-4) % Baso % (Auto) 0.5 (0-2) % Neut # (Auto) 3600 (3397-9270) /uL Lymph # (Auto) 2300 (4645-0871) /uL [place] # (Auto) 500 (0-900) /uL Eos # (Auto) 200 (0-450) /uL Baso # (Auto) 0 (0-100) /uL D-Dimer 212 (<230) ng/mL Sodium 135 L (137-145) mmol/L Potassium 4.4 (3.4-5.1) mmol/L Chloride 101 (98-107) mmol/L Carbon Dioxide 26 (22-32) mmol/L BUN 15 (9-20) mg/dL Creatinine 1.15 (0.66-1.25) mg/dL Estimated GFR > 60.0 (>60) mL/min BUN/Creatinine Ratio 13.0 (6-22) Glucose 116 H (80-110) mg/dL Calcium 9.5 (8.4-10.2) mg/dL Total Bilirubin 0.5 (0.2-1.3) mg/dL AST 35 (17-59) IU/L ALT 30 (<50) IU/L Alkaline Phosphatase 73 (38-126) U/L Total Creatine Kinase 136 (55-170) U/L CK-MB (CK-2) 1.89 (<2.37) ng/mL CK-MB (CK-2) Rel Index 1.4 L (1.5-5.0) % Troponin I < 0.012 (0.01-0.034) ng/mL Total Protein 7.3 (6.3-8.2) g/dL Albumin 4.4 (3.5-5.0) g/dL Globulin 2.9 (1.7-4.1) g/dL Albumin/Globulin Ratio 1.5 (1.0-2.8) Lipase 120 (23-300) U/L // Range/Units 23:41 WBC (4.5-11.0) X10^3/uL RBC (4.5-5.9) X10^6/uL Hgb (13.5-17.5) g/dL Hct (41-53) % MCV (80-100) fL MCH (26-34) PG MCHC (30-36) % RDW (11.6-14.8) % Plt Count (150-400) X10^3/uL Neut % (Auto) (50-75) % Lymph % (Auto) (25-40) % [place] % (Auto) (3-14) % Eos % (Auto) (2-4) % Baso % (Auto) (0-2) % Neut # (Auto) (6192-6796) /uL Lymph # (Auto) (3415-3400) /uL [place] # (Auto) (0-900) /uL Eos # (Auto) (0-450) /uL Baso # (Auto) (0-100) /uL D-Dimer (<230) ng/mL Sodium (137-145) mmol/L Potassium (3.4-5.1) mmol/L Chloride (98-107) mmol/L Carbon Dioxide (22-32) mmol/L BUN (9-20) mg/dL Creatinine (0.66-1.25) mg/dL Estimated GFR (>60) mL/min BUN/Creatinine Ratio (6-22) Glucose (80-110) mg/dL Calcium (8.4-10.2) mg/dL Total Bilirubin (0.2-1.3) mg/dL AST (17-59) IU/L ALT (<50) IU/L Alkaline Phosphatase (38-126) U/L Total Creatine Kinase (55-170) U/L CK-MB (CK-2) (<2.37) ng/mL CK-MB (CK-2) Rel Index (1.5-5.0) % Troponin I < 0.012 (0.01-0.034) ng/mL Total Protein (6.3-8.2) g/dL Albumin (3.5-5.0) g/dL Globulin (1.7-4.1) g/dL Albumin/Globulin Ratio (1.0-2.8) Lipase (23-300) U/L Discharge Plan Departure Patient Disposition: Home Clinical Impression: Atypical chest pain Discharge Date/Time: 03/14/20 00:42 Instructions: DI for Atypical Chest Pain Activity Restrictions/Additional Instructions: *You have been diagnosed with [atypical chest pain] *What to do: *Take medications as directed *Follow up with your primary care provider in 2-3 days, call for an appointment. Let them know you were seen in the Emergency Department and that we ask that you be seen in follow up *Return to ER if you should have any new, worsening or concerning symptoms Prescriptions: No Action oxycodone-acetaminophen [Percocet] 5 MG/325 MG tablet 2 tab PO Q4HP PRNQty: 0 RF: 0 oxycodone [OxyContin] 10 MG tablet,oral only,ext.rel.12 hr 10 mg PO QID Qty: 0 RF: 0 fexofenadine 180 MG tablet 180 mg PO QDAY Qty: 0 RF: 0 Fluticasone Propionate (FLONASE) 1 spray Intranasal BID Qty: 0 RF: 0 lansoprazole 30 MG capsule,delayed release(DR/EC) 30 mg PO QDAY Qty: 0 RF: 0 cyclobenzaprine 10 mg tablet 10 mg PO TID PRN (Reason: muscle spasm) Qty: 10 RF: 0 ibuprofen 600 mg tablet 600 mg PO TID PRN (Reason: pain) Qty: 60 RF: 0 meloxicam 15 mg tablet 1 tab PO DAILY RF: 0 alprazolam 0.5 mg tablet 1 tab PO Q6H RF: 0 diltiazem HCl 300 mg capsule,extended release 24hr 1 cap PO DAILY RF: 0 omeprazole 40 mg capsule,delayed release(DR/EC) 1 cap PO DAILY RF: 0 olmesartan 20 mg tablet 1 tab PO DAILY RF: 0 oxycodone 10 mg tablet 1 tab PO QID RF: 0 ketorolac 10 mg tablet 10 mg PO TID PRN (Reason: pain) Qty: 14 RF: 0 Referrals: Hosea Reyes MD [Primary Care Provider] -
[2020-03-13 22:24] LABS: Add Manual Diff / Slide Review NO; Basophils Absolute Auto 0 /uL (0-100); Basophils Percent Auto 0.5 % (0-2); Eosinophils Absolute Auto 200 /uL (0-450); Eosinophils Percent Auto 3.4 % (2-4); Hematocrit 44.6 % (41-53); Hemoglobin 15.3 g/dL (13.5-17.5); Lymphocytes Absolute Auto 2300 /uL (1100-4500); Lymphocytes Percent Auto 34.8 % (25-40); Mean Corpuscular HGB Conc 34.3 % (30-36); Mean Corpuscular Hemoglobin 28.4 PG (26-34); Mean Corpuscular Volume 82.9 fL (80-100); Monocytes Absolute Auto 500 /uL (0-900); Neutrophils Absolute Auto 3600 /uL (1500-7000); Neutrophils Percent Auto 53.3 % (50-75); Platelet Count 177 X10^3/uL (150-400); Red Blood Cell Count 5.38 X10^6/uL (4.5-5.9); Red Cell Distribution Width 14.5 % (11.6-14.8); White Blood Cell Count 6.7 X10^3/uL (4.5-11.0)
[2020-03-13] MEDS: MAG HYDROX/ALUMINUM/SIMETH SUS 20 ML, LIDOCAINE VISCOUS 2% 15 ML PO (22:25)
[2020-03-13] MEDS: SODIUM CHLORIDE 0.9% 1,000 ML 150 ML IV (22:30)
[2020-03-13 22:32] LABS: D Dimer 212 ng/mL (<230)
[2020-03-13 22:36] LABS: Alanine Aminotransferase 30 IU/L (<50); Albumin 4.4 g/dL (3.5-5.0); Albumin Globulin Ratio 1.5 (1.0-2.8); Alkaline Phosphatase 73 U/L (38-126); Aspartate Aminotransferase 35 IU/L (17-59); Bilirubin Total 0.5 mg/dL (0.2-1.3); Blood Urea Nitrogen 15 mg/dL (9-20); Calcium 9.5 mg/dL (8.4-10.2); Carbon Dioxide 26 mmol/L (22-32); Chloride 101 mmol/L (98-107); Creatine Kinase 136 U/L (55-170); Estimated Glomerular Filt Rate > 60.0 mL/min (>60); Globulin 2.9 g/dL (1.7-4.1); Glucose 116 mg/dL (80-110); Lipase 120 U/L (23-300); Potassium 4.4 mmol/L (3.4-5.1); Sodium 135 mmol/L (137-145); Total Protein 7.3 g/dL (6.3-8.2)
[2020-03-13 22:47] LABS: Troponin I < 0.012 ng/mL (0.01-0.034)
[2020-03-13 22:54] LABS: CKMB % Relative Index 1.4 % (1.5-5.0); Creatine Kinase MB 1.89 ng/mL (<2.37); HEMOLYSIS < 15 (0-50)
[2020-03-13 23:30] VITALS: BP 146/70; PULSE 61; RESP 14; O2SAT 97
[2020-03-14 00:13] LABS: Troponin I < 0.012 ng/mL (0.01-0.034)
== END 2020-03-14 00:42 | disposition home or self-care (01) ==
PROVIDERS: Emergency Provider Emergency Medicine; PCP Family Medicine
DX: R07.89 Other chest pain (principal); R10.13 Epigastric pain; I10 Essential (primary) hypertension; E78.5 Hyperlipidemia, unspecified; K29.70 Gastritis, unspecified, without bleeding; K44.9 Diaphragmatic hernia without obstruction or gangrene
CPT/HCPCS: 36415; 80053; 82550; 82553; 83690; 84484; 85025; 85379; 93005; 93010; 96360; 96361; 99283; 99284

== ENCOUNTER → 2020-06-11 18:32 | Outpatient (CLI) | payer MEDICARE, OTHER, SELFPAY ==
--- NOTE | 2020-06-11 18:36 | DI.MRI.S_ITS ---
PROCEDURE: MR KNEE RT WO CON INDICATIONS: UNILATERAL PRIMARY OSTEOARTHRITIS,RIGHT KNEE TECHNIQUE: Noncontrast sagittal PD fast spin echo and T2 fast spin echo with fat saturation, sagittal 3-D FLASH with fat saturation; coronal T1 spin echo and PD fast spin echo with fat saturation, and axial PD fast spin echo with fat saturation through the knee. COMPARISON: None. FINDINGS: Image quality: Excellent. Menisci: Complex oblique tear involving posterior horn of medial meniscus is seen extending to inferior articulating surface. There is also complex tear seen involving anterior horn and body of lateral meniscus extending to both superior and inferior articulating surfaces. The meniscal root ligaments appear intact. Cruciate ligaments: The anterior and posterior cruciate ligaments appear intact. Medial structures: The medial collateral ligament appears intact. The posterior oblique ligament, semimembranosus tendon insertions, oblique popliteal ligament, and meniscocapsular junction appear intact. Visualized portions of the pes anserinus tendons appear normal. No abnormal bursal fluid. Lateral structures: The lateral collateral ligament, long and short heads of the biceps femoris tendon appear intact. The popliteus tendon appears normal; the popliteofibular ligament appears intact. The posterosuperior and anteroinferior popliteomeniscal fascicles appear intact. The arcuate and fabellofibular ligaments appear intact, on either side of the lateral inferior geniculate artery. Iliotibial band appears normal. Anterior structures: The quadriceps and patellar tendons appear intact. Patellar alignment is normal. No femoral trochlear dysplasia or ventral trochlear prominence. No edema in the infrapatellar fat pad. Bones and cartilage: Moderate tricompartmental osteoarthritis and chondromalacia is seen most prominent in medial femoral tibial compartment. Joint space: There is small to moderate amount of joint fluid, no gross intra-articular loose body. Small popliteal cyst is seen. Normal appearing synovial plicae are incidentally noted. IMPRESSION: 1. Complex oblique tear involving posterior horn of medial meniscus extending to inferior articulating surface. Complex tear also seen involving anterior horn and body of lateral meniscus extending to both superior and inferior articulating surfaces. 2. Cruciate ligaments are intact. 3. Moderate tricompartmental osteoarthritis and chondromalacia more prominent in medial femoral tibial compartment. 4. Small to moderate amount of joint fluid, no gross loose body. Small popliteal cyst. Dictated by: Charlie Cano M.D. on 06/12/2020 at 8:25 Approved by: Charlie Cano M.D. on 06/12/2020 at 8:35
== END ==
PROVIDERS: PCP Family Medicine; Referring Provider Orthopaedic Surgery; Visit Provider Orthopaedic Surgery
DX: M17.11 Unilateral primary osteoarthritis, right knee (principal); S83.231A Complex tear of medial meniscus, current injury, right knee, initial encounter; S83.271A Complex tear of lateral meniscus, current injury, right knee, initial encounter; M94.261 Chondromalacia, right knee; M71.21 Synovial cyst of popliteal space [Baker], right knee
CPT/HCPCS: 73721

== ENCOUNTER 2020-07-12 12:13 | Emergency (ER) | payer MEDICARE, OTHER, SELFPAY ==
[2020-07-12] VITALS (24 sets, daily range): BP systolic 138–179; BP diastolic 74–127; PULSE 47–66; RESP 14–36; TEMP 37.3; O2SAT 93–98; BMI 34.2
--- NOTE | 2020-07-12 12:54 | DI.CT.S_ITS ---
PROCEDURE: CT HEAD/BRAIN WO CON INDICATIONS: Difficulty texting prior to coming to ED,now resolved. TECHNIQUE: Noncontrast 4.5 mm thick angled axial sections acquired from the foramen magnum to the vertex, with coronal and sagittal reformats. For radiation dose reduction, the following was used: automated exposure control, adjustment of mA and/or kV according to patient size. COMPARISON: None. FINDINGS: Image quality: Excellent. CSF spaces: Basal cisterns are patent. No extra-axial fluid collections. Ventricles are normal in size and shape. Brain: No midline shift. No intracranial masses or hemorrhage. Salgado-white matter interface is normal. Skull and face: Calvarium and visualized facial bones are intact, without suspicious lesions. Sinuses: Partially visualized chronic left maxillary sinusitis. Remaining paranasal sinuses and mastoid air cells are clear where visualized. IMPRESSION: No acute intracranial abnormality demonstrated. Dictated by: Gabo Key M.D. on 07/12/2020 at 13:31 Approved by: Gabo Key M.D. on 07/12/2020 at 13:32
--- NOTE | 2020-07-12 13:00 | ED_ITS ---
HPI - Chest Pain General Chief Complaint: Chest Pain Stated Complaint: Pain in ribs Time Seen by Provider: 07/12/20 13:00 Source: patient Mode of arrival: Ambulatory Limitations: no limitations History of Present Illness HPI narrative: Patient is a 70-year-old male hyperlipidemia hiatal hernia presenting with some right-sided chest pain. He said today he was sitting watching TV when he felt some sharp shooting pain on the right side it was nonradiating remained in [address] It lasted for under an hour and has resolved since he got here. He says that he did have cardiac workup this year including stress test and possible calcium score CT. He says that while driving over here he had some difficulty texting which is abnormal. He said he just can not find the letters. He had no weakness numbness tingling or difficulty speaking. He does not the seems to be resolved as well. MD complaint: chest pain Onset (ago): hour(s) Duration: now resolved Onset: during rest Pain location: right chest Related Data Home Medications Medication Instructions Recorded Confirmed Fluticasone Propionate (FLONASE) 1 spray INTRANASAL BID #0 spray 05/19/13 fexofenadine 180 mg PO QDAY #0 05/19/13 oxycodone [OxyContin] 10 mg PO QID #0 05/19/13 06/27/18 oxycodone-acetaminophen [Percocet] 2 tab PO Q4HP PRN #0 tab 05/19/13 lansoprazole 30 mg PO QDAY #0 ecc 05/29/13 alprazolam 1 tab PO Q6H 06/27/18 06/27/18 diltiazem HCl 1 cap PO DAILY 06/27/18 06/27/18 meloxicam 1 tab PO DAILY 06/27/18 06/27/18 olmesartan 1 tab PO DAILY 06/27/18 06/27/18 omeprazole 1 cap PO DAILY 06/27/18 06/27/18 oxycodone 1 tab PO QID 06/27/18 06/27/18 Previous Rx's Medication Instructions Recorded ketorolac 10 mg PO TID PRN #14 tab 09/10/19 cyclobenzaprine 10 mg PO TID PRN #10 tab 10/29/19 ibuprofen 600 mg PO TID PRN #60 tab 10/29/19 Allergies Allergy/AdvReac Type Severity Reaction Status Date / Time procaine [From Novocain] Allergy Verified 07/12/20 12:37 Review of Systems Review of Systems Narrative: GENERAL: Denies chills, fatigue, malaise, fever, sweats, travel HEENT: Denies sinus pain, ear pain, sore throat, difficulty swallowing, neck pain RESPIRATORY: Denies dyspnea, cough, wheezing, hemoptysis, sputum. CARDIOVASCULAR: See HPI GASTROINTESTINAL: Denies nausea, vomiting, abdominal pain, diarrhea, constipation, melena. : Denies dysuria, frequency, incontinence, hematuria, urinary retention, flank pain. MUSCULOSKELETAL: Denies weakness, joint pain, or bony pain SKIN: No rash, no erythema, no pruritus NEUROLOGIC: See HPI Denies weakness, dizziness, headache, numbness, change in speech, confusion PSYCHIATRIC: No concerning psychosocial issues. 12 point review of systems is negative except for those stated above and HPI Patient History Medical History Chronic pain (Acute) Hiatal hernia (Acute) Hypertension (Acute) Social History household members: none Smoking Status: Former smoker alcohol intake: current Smoking Status: Former smoker alcohol intake frequency: 0-2 drinks per day Substance Use Type: does not use Exam Initial Vital Signs Initial Vital Signs: Vital Signs Temperature 99.1 F 07/12/20 12:37 Pulse Rate 66 07/12/20 12:37 Respiratory Rate 16 07/12/20 12:37 Blood Pressure 177/90 H 07/12/20 12:37 Pulse Oximetry 96 07/12/20 12:37 GENERAL: Well-appearing, well-nourished and in no acute distress. HEENT: Head atraumatic,EOMI, pupils reactive, face symmetric, moist mucous membranes CARDIOVASCULAR: Regular rate and rhythm without murmurs, rubs or gallops. RESPIRATORY: Breath sounds equal bilaterally, no wheezes rales or rhonchi. ABDOMEN: Soft, nontender. Normoactive bowel sounds all 4 quadrants. No guarding or rebound. EXTREMITIES: Normal range of motion, no clubbing or edema. Neurovascularly intact NEUROLOGICAL: Alert and oriented x4.Normal gait and speech. Cranial nerves II t hrough XII grossly intact. Good [id number], good [id number], strength equal bilaterally, no dysarthria or aphasia, sensation in tact to soft touch bilaterally, no visual changes, no facial droop SKIN: Warm, dry, no laceration, no petechiae, no rashes or lesions. Course Orders Ordered: ED Orders 07/12/20 12:50 Complete Blood Count AUTO DIFF Stat Comprehensive Metabolic Panel Stat Lipase Stat Troponin & CK Cardiac Panel Stat 07/12/20 12:54 CT head/brain wo con Stat 07/12/20 13:01 XR chest 1V Stat EKG-12 Lead Stat 07/12/20 15:05 Troponin I Stat Discontinued Medications Aspirin (Aspirin Chew) 324 mg PO NOW ONE Stop: 07/12/20 13:01 Last Admin: 07/12/20 13:07 Dose: 324 mg Documented by: KBROTEM Aspirin (Aspirin) 325 mg PO NOW ONE Stop: 07/12/20 17:13 Last Admin: 07/12/20 17:21 Dose: 325 mg Documented by: MMINOR Nitroglycerin (Nitrostat) 0.4 mg SL NOW ONE Stop: 07/12/20 17:13 Vital Signs Vital signs: Vital Signs - 8 hr 07/12/20 12:37 07/12/20 12:57 07/12/20 13:00 Temperature 99.1 F Pulse Rate 66 53 L 57 L Respiratory Rate 16 17 18 Blood Pressure 177/90 H Pulse Oximetry 96 96 97 07/12/20 13:01 07/12/20 13:58 07/12/20 13:59 Temperature Pulse Rate 54 L 49 L 47 L Respiratory Rate 17 16 Blood Pressure 162/90 H 138/84 Pulse Oximetry 93 97 97 07/12/20 14:00 07/12/20 14:01 07/12/20 14:30 Temperature Pulse Rate 48 L 47 L 47 L Respiratory Rate 16 15 17 Blood Pressure 150/74 H 140/95 H Pulse Oximetry 96 96 96 07/12/20 15:00 07/12/20 15:01 07/12/20 15:30 Temperature Pulse Rate 50 L 49 L 53 L Respiratory Rate 22 23 36 H Blood Pressure 146/75 H Pulse Oximetry 96 96 98 07/12/20 16:01 07/12/20 16:03 07/12/20 16:30 Temperature Pulse Rate 62 51 L 53 L Respiratory Rate 16 24 Blood Pressure 162/92 H Pulse Oximetry 95 98 96 07/12/20 16:31 07/12/20 17:00 07/12/20 17:30 Temperature Pulse Rate 49 L 54 L 51 L Respiratory Rate 20 17 15 Blood Pressure 165/92 H 166/89 H Pulse Oximetry 97 96 96 07/12/20 17:31 07/12/20 18:00 07/12/20 18:27 Temperature Pulse Rate 53 L 51 L 53 L Respiratory Rate 19 14 20 Blood Pressure 179/90 H 176/86 H 158/127 H Pulse Oximetry 96 97 97 07/12/20 18:30 07/12/20 18:31 07/12/20 19:08 Temperature Pulse Rate 54 L 61 56 L Respiratory Rate 20 27 H 14 Blood Pressure 164/88 H 171/87 H Pulse Oximetry 96 96 98 MDM - Chest Pain Lab Data Attestation: I reviewed the patient's lab results. Result diagrams: 07/12/20 12:50 07/12/20 12:50 Labs: Lab Results 07/12/20 07/12/20 07/12/20 Range/Units 12:50 12:50 15:05 WBC 6.4 (4.5-11.0) X10^3/uL RBC 5.09 (4.5-5.9) X10^6/uL Hgb 14.6 (13.5-17.5) g/dL Hct 43.4 (41-53) % MCV 85.4 (80-100) fL MCH 28.8 (26-34) PG MCHC 33.7 (30-36) % RDW 13.7 (11.6-14.8) % Plt Count 182 (150-400) X10^3/uL Neut % (Auto) 59.4 (50-75) % Lymph % (Auto) 29.5 (25-40) % [place] % (Auto) 7.5 (3-14) % Eos % (Auto) 3.1 (2-4) % Baso % (Auto) 0.5 (0-2) % Neut # (Auto) 3800 (7518-6566) /uL Lymph # (Auto) 1900 (2029-0722) /uL [place] # (Auto) 500 (0-900) /uL Eos # (Auto) 200 (0-450) /uL Baso # (Auto) 0 (0-100) /uL Sodium 138 (137-145) mmol/L Potassium 3.8 (3.4-5.1) mmol/L Chloride 102 (98-107) mmol/L Carbon Dioxide 31 (22-32) mmol/L BUN 19 (9-20) mg/dL Creatinine 1.08 (0.66-1.25) mg/dL Estimated GFR > 60.0 (>60) mL/min BUN/Creatinine Ratio 17.6 (6-22) Glucose 115 H (80-110) mg/dL Calcium 9.0 (8.4-10.2) mg/dL Total Bilirubin 0.9 (0.2-1.3) mg/dL AST 35 (17-59) IU/L ALT 29 (<50) IU/L Alkaline Phosphatase 69 (38-126) U/L Total Creatine Kinase 137 (55-170) U/L CK-MB (CK-2) 1.83 (<2.37) ng/mL CK-MB (CK-2) Rel Index 1.3 L (1.5-5.0) % Troponin I < 0.012 < 0.012 (0.01-0.034) ng/mL Total Protein 7.3 (6.3-8.2) g/dL Albumin 4.3 (3.5-5.0) g/dL Globulin 3.0 (1.7-4.1) g/dL Albumin/Globulin Ratio 1.4 (1.0-2.8) Lipase 74 (23-300) U/L Imaging Data Chest x-ray: Radiologist's Impression: PROCEDURE: XR CHEST 1V INDICATIONS: chest pain TECHNIQUE: One view of the chest was acquired. COMPARISON: [facility], , XR CHEST 1V, 12/03/2018, 22:33. FINDINGS: Surgical changes and devices: None. Lungs and pleura: Lungs are clear. No pleural effusions or pneumothorax. Mediastinum: Mediastinal contours appear normal. Heart size is normal. Bones and chest wall: No suspicious bony lesions. Overlying soft tissues appear unremarkable. IMPRESSION: No acute cardiopulmonary abnormality. Dictated by: Camilo Monk M.D. on 07/12/2020 at 13:24 ECG Data Attestation: I personally reviewed and interpreted this ECG as follows: Prior ECG tracings: available for review Interpretation: EKG 1. Normal sinus rhythm rate 49 p.r. interval 178 QRS 100 QTC 450 Q-wave noted in lead 3 and AVF as similar to previous EKG in February of [address] elevations or depressions noted EKG 2. Sinus rhythm rate 46 similar to previous EKG no changes MDM Narrative Medical decision making narrative: 4:[address] Tse contacted Cardiology. The patient did have an abnormal stress test. 2-troponins are negative. He states patient does need a coronary CT. Recommends ambulating patient if he has chest pain he probably needs to be transferred for further testing otherwise can follow up outpatient. Patient did have some further chest discomfort but happened when he sat up it lasted less than a minute and resolved. [facility] no beds Spoke with Dr. North at [facility] who happily accepted patient for chest pain obs Patient now requesting to go home. Saying that his life is very complicated. I explained to him that he had an abnormal stress test and is still having some chest pain in the ED, coronary artery disease not yet completely ruled out. Patient understands risk of ID and . He states he lives just a few blocks away and will return to the ED if needed. I discussed with him calling 911 if needed. The patient is clinically sober, free from distracting injury, appears to have intact insight, judgment and reason. Does not meet criteria for involuntary hospitalization. Patient has the capacity to make decisions. Discharge Plan Departure Patient Disposition: Home Clinical Impression: Atypical chest pain Discharge Date/Time: 07/12/20 19:10 Instructions: DI for Atypical Chest Pain Activity Restrictions/Additional Instructions: You are leaving against medical advice. It is recommended that you have further cardiac testing. You may return to the emergency department at any time and in fact are encouraged to do so if your chest pain should return or change in any way. I also recommend calling 911 if you have chest pain *You have been diagnosed with atypical chest pain *Continue to take medications as directed *Follow up with your primary care provider in 2-3 days *Return to ER if you should have new or worsening chest pain, shortness of breaths or any new, worsening or concerning symptoms Prescriptions: No Action oxycodone-acetaminophen [Percocet] 5 MG/325 MG tablet 2 tab PO Q4HP PRNQty: 0 RF: 0 oxycodone [OxyContin] 10 MG tablet,oral only,ext.rel.12 hr 10 mg PO QID Qty: 0 RF: 0 fexofenadine 180 MG tablet 180 mg PO QDAY Qty: 0 RF: 0 Fluticasone Propionate (FLONASE) 1 spray Intranasal BID Qty: 0 RF: 0 lansoprazole 30 MG capsule,delayed release(DR/EC) 30 mg PO QDAY Qty: 0 RF: 0 cyclobenzaprine 10 mg tablet 10 mg PO TID PRN (Reason: muscle spasm) Qty: 10 RF: 0 ibuprofen 600 mg tablet 600 mg PO TID PRN (Reason: pain) Qty: 60 RF: 0 meloxicam 15 mg tablet 1 tab PO DAILY RF: 0 alprazolam 0.5 mg tablet 1 tab PO Q6H RF: 0 diltiazem HCl 300 mg capsule,extended release 24hr 1 cap PO DAILY RF: 0 omeprazole 40 mg capsule,delayed release(DR/EC) 1 cap PO DAILY RF: 0 olmesartan 20 mg tablet 1 tab PO DAILY RF: 0 oxycodone 10 mg tablet 1 tab PO QID RF: 0 ketorolac 10 mg tablet 10 mg PO TID PRN (Reason: pain) Qty: 14 RF: 0 Referrals: Hosea Reyes MD [Primary Care Provider] -
--- NOTE | 2020-07-12 13:01 | DI.RAD.S_ITS ---
PROCEDURE: XR CHEST 1V INDICATIONS: chest pain TECHNIQUE: One view of the chest was acquired. COMPARISON: [facility], CR, XR CHEST 1V, 12/03/2018, 22:33. FINDINGS: Surgical changes and devices: None. Lungs and pleura: Lungs are clear. No pleural effusions or pneumothorax. Mediastinum: Mediastinal contours appear normal. Heart size is normal. Bones and chest wall: No suspicious bony lesions. Overlying soft tissues appear unremarkable. IMPRESSION: No acute cardiopulmonary abnormality. Dictated by: Camilo Monk M.D. on 07/12/2020 at 13:24 Approved by: Camilo Monk M.D. on 07/12/2020 at 13:25
[2020-07-12] MEDS: ASPIRIN 81 MG CHEW TAB 324 MG PO (13:07)
[2020-07-12 13:08] LABS: Add Manual Diff / Slide Review NO; Basophils Absolute Auto 0 /uL (0-100); Basophils Percent Auto 0.5 % (0-2); Eosinophils Absolute Auto 200 /uL (0-450); Eosinophils Percent Auto 3.1 % (2-4); Hematocrit 43.4 % (41-53); Hemoglobin 14.6 g/dL (13.5-17.5); Lymphocytes Absolute Auto 1900 /uL (1100-4500); Lymphocytes Percent Auto 29.5 % (25-40); Mean Corpuscular HGB Conc 33.7 % (30-36); Mean Corpuscular Hemoglobin 28.8 PG (26-34); Mean Corpuscular Volume 85.4 fL (80-100); Monocytes Absolute Auto 500 /uL (0-900); Monocytes Percent Auto 7.5 % (3-14); Neutrophils Absolute Auto 3800 /uL (1500-7000); Neutrophils Percent Auto 59.4 % (50-75); Platelet Count 182 X10^3/uL (150-400); Red Blood Cell Count 5.09 X10^6/uL (4.5-5.9); Red Cell Distribution Width 13.7 % (11.6-14.8); White Blood Cell Count 6.4 X10^3/uL (4.5-11.0)
[2020-07-12 13:18] LABS: HEMOLYSIS < 15 (0-50)
[2020-07-12 13:19] LABS: Alanine Aminotransferase 29 IU/L (<50); Albumin 4.3 g/dL (3.5-5.0); Albumin Globulin Ratio 1.4 (1.0-2.8); Alkaline Phosphatase 69 U/L (38-126); Aspartate Aminotransferase 35 IU/L (17-59); BUN Creatinine Ratio 17.6 (6-22); Bilirubin Total 0.9 mg/dL (0.2-1.3); Blood Urea Nitrogen 19 mg/dL (9-20); Carbon Dioxide 31 mmol/L (22-32); Chloride 102 mmol/L (98-107); Creatine Kinase 137 U/L (55-170); Estimated Glomerular Filt Rate > 60.0 mL/min (>60); Glucose 115 mg/dL (80-110); Lipase 74 U/L (23-300); Sodium 138 mmol/L (137-145); Total Protein 7.3 g/dL (6.3-8.2)
[2020-07-12 13:30] LABS: Troponin I < 0.012 ng/mL (0.01-0.034)
[2020-07-12 13:34] LABS: CKMB % Relative Index 1.3 % (1.5-5.0); Creatine Kinase MB 1.83 ng/mL (<2.37)
[2020-07-12 13:39] LABS: Potassium 3.8 mmol/L (3.4-5.1)
[2020-07-12 15:41] LABS: Troponin I < 0.012 ng/mL (0.01-0.034)
[2020-07-12] MEDS: ASPIRIN 325 MG TABLET PO (17:21)
== END 2020-07-12 19:10 | disposition home or self-care (01) ==
PROVIDERS: Emergency Provider Emergency Medicine; PCP Family Medicine
DX: R07.89 Other chest pain (principal); R07.81 Pleurodynia; K44.9 Diaphragmatic hernia without obstruction or gangrene; R41.0 Disorientation, unspecified
CPT/HCPCS: 36415; 70450; 71045; 80053; 82550; 82553; 83690; 84484; 85025; 93005; 99284

== ENCOUNTER 2020-08-21 01:19 | Emergency (ER) | payer MEDICARE, OTHER, SELFPAY ==
[2020-08-21 01:29] VITALS: BP 154/97; PULSE 92; RESP 18; TEMP 36.6; O2SAT 98
--- NOTE | 2020-08-21 01:32 | DI.RAD.S_ITS ---
PROCEDURE: XR KNEE LT 3V INDICATIONS: fell,chronic left knee pain,landed on left knee TECHNIQUE: 3 views of the knee were acquired. COMPARISON: [facility], , KNEE 3V LEFT, 04/20/2012, 9:32. FINDINGS: Bones: No fractures or dislocations. No suspicious bony lesions. Tricompartmental osteoarthritis. Soft tissues: No joint effusion. No suspicious soft tissue calcifications. IMPRESSION: No fracture. No acute osseous lesion. If symptoms and/or clinical suspicion for pathology persists, further assessment with repeat radiographs (7-10 days) or advanced imaging (e.g. CT, MRI or bone scan) should be considered. Dictated by: Lin Whittaker MD, PhD on 08/21/2020 at 8:43 Approved by: Lin Whittaker MD, PhD on 08/21/2020 at 8:44
--- NOTE | 2020-08-21 01:57 | ED.LOWEXIN ---
HPI - Extremity Injury (Lower) General Chief Complaint: Extremity Injury, Lower Stated Complaint: pain in left knee Time Seen by Provider: 08/21/20 01:21 Source: patient Mode of arrival: Wheelchair Limitations: no limitations History of Present Illness HPI Narrative: 70-year-old male former smoker with history of stroke and hypertension as well as chronic knee problems presents with increasing left knee pain since a fall. He states he was walking his large pit bulls when they ran, he lost his footing on wet slippery grass and fell on to his left knee. He states since then there has been a small amount of increased swelling and pain with ambulation. He states he has had 2 canceled surgeries for this knee due to COVID, and also a request for a cardiac evaluation. He states that it hurts when he ambulates but does not feel unstable. He denies other injury. He denies any numbness, tingling or weakness. He has plenty of pain meds at home which he has been taking, he hopes to obtain an anti-inflammatory MD complaint: knee injury Onset (ago): hour(s) Type of Injury: blunt Place: home Severity: moderate Relieving factors: immobilization Exacerbating factors: weight bearing, movement and palpation Context: fall Associated symptoms: swelling and able to partially bear weight Other symptoms: none Related Data Home Medications Medication Instructions Recorded Confirmed Fluticasone Propionate (FLONASE) 1 spray INTRANASAL BID #0 spray 05/19/13 fexofenadine 180 mg PO QDAY #0 05/19/13 oxycodone [OxyContin] 10 mg PO QID #0 05/19/13 06/27/18 oxycodone-acetaminophen [Percocet] 2 tab PO Q4HP PRN #0 tab 05/19/13 lansoprazole 30 mg PO QDAY #0 ecc 05/29/13 alprazolam 1 tab PO Q6H 06/27/18 06/27/18 diltiazem HCl 1 cap PO DAILY 06/27/18 06/27/18 meloxicam 1 tab PO DAILY 06/27/18 06/27/18 olmesartan 1 tab PO DAILY 06/27/18 06/27/18 omeprazole 1 cap PO DAILY 06/27/18 06/27/18 oxycodone 1 tab PO QID 06/27/18 06/27/18 Previous Rx's Medication Instructions Recorded ketorolac 10 mg PO TID PRN #14 tab 09/10/19 cyclobenzaprine 10 mg PO TID PRN #10 tab 10/29/19 ibuprofen 600 mg PO TID PRN #60 tab 10/29/19 ketorolac 10 mg PO Q6H PRN #14 tab 08/21/20 Allergies Allergy/AdvReac Type Severity Reaction Status Date / Time procaine [From Novocain] Allergy Verified 07/12/20 12:37 Patient History Medical History (Updated 08/21/20 @ 02:16 by Darion Laird DO) Chronic pain Hiatal hernia Hypertension Social History household members: none Smoking Status: Former smoker alcohol intake: current Smoking Status: Former smoker alcohol intake frequency: 0-2 drinks per day Substance Use Type: does not use Exam Initial Vital Signs Initial Vital Signs: Vital Signs Temperature 97.9 F 08/21/20 01:29 Pulse Rate 92 H 08/21/20 01:29 Respiratory Rate 18 08/21/20 01:29 Blood Pressure 154/97 H 08/21/20 01:29 Pulse Oximetry 98 08/21/20 01:29 Course Orders Ordered: ED Orders 08/21/20 01:32 XR knee LT 3V Stat Discontinued Medications Ketorolac Tromethamine (Ketorolac 10 Mg Tablet) 10 mg PO NOW ONE Stop: 08/21/20 02:02 Last Admin: 08/21/20 02:09 Dose: 10 mg Documented by: YOLANDE Vital Signs Vital signs: Vital Signs - 8 hr 08/21/20 01:29 Temperature 97.9 F Pulse Rate 92 H Respiratory Rate 18 Blood Pressure 154/97 H Pulse Oximetry 98 MDM - Extremity Injury (Lower) Imaging Data Extremity x-ray #1: Radiologist's Impression: No fracture, misalignment or joint effusion Discharge Plan Departure Patient Disposition: Home Clinical Impression: Left knee sprain Qualifiers: Encounter type: initial encounter Involved ligament of knee: unspecified ligament Qualified Code(s): S83.92XA - Sprain of unspecified site of left knee, initial encounter Instructions: DI for Knee Sprain Activity Restrictions/Additional Instructions: *You have been diagnosed with [acute left knee pain, likely from sprain secondary to your fall. No evidence of fracture] *What to do: *Take medications as directed *Follow up with your primary care provider in 2-3 days, call for an appointment. Let them know you were seen in the Emergency Department and that we ask that you be seen in follow up *Return to ER if you should have any new, worsening or concerning symptoms Prescriptions: New ketorolac 10 mg tablet 10 mg PO Q6H PRN (Reason: pain) Qty: 14 RF: 0 No Action oxycodone-acetaminophen [Percocet] 5 MG/325 MG tablet 2 tab PO Q4HP PRNQty: 0 RF: 0 oxycodone [OxyContin] 10 MG tablet,oral only,ext.rel.12 hr 10 mg PO QID Qty: 0 RF: 0 fexofenadine 180 MG tablet 180 mg PO QDAY Qty: 0 RF: 0 Fluticasone Propionate (FLONASE) 1 spray Intranasal BID Qty: 0 RF: 0 lansoprazole 30 MG capsule,delayed release(DR/EC) 30 mg PO QDAY Qty: 0 RF: 0 cyclobenzaprine 10 mg tablet 10 mg PO TID PRN (Reason: muscle spasm) Qty: 10 RF: 0 ibuprofen 600 mg tablet 600 mg PO TID PRN (Reason: pain) Qty: 60 RF: 0 meloxicam 15 mg tablet 1 tab PO DAILY RF: 0 alprazolam 0.5 mg tablet 1 tab PO Q6H RF: 0 diltiazem HCl 300 mg capsule,extended release 24hr 1 cap PO DAILY RF: 0 omeprazole 40 mg capsule,delayed release(DR/EC) 1 cap PO DAILY RF: 0 olmesartan 20 mg tablet 1 tab PO DAILY RF: 0 oxycodone 10 mg tablet 1 tab PO QID RF: 0 ketorolac 10 mg tablet 10 mg PO TID PRN (Reason: pain) Qty: 14 RF: 0 Referrals: Hosea Reyes MD [Primary Care Provider] -
[2020-08-21] MEDS: KETOROLAC 10 MG TABLET PO (02:09)
[2020-08-21 02:30] VITALS: BP 159/90; PULSE 88; RESP 98
== END 2020-08-21 02:31 | disposition home or self-care (01) ==
PROVIDERS: Emergency Provider Emergency Medicine; PCP Family Medicine
DX: S83.92XA Sprain of unspecified site of left knee, initial encounter (principal); W19.XXXA Unspecified fall, initial encounter; I10 Essential (primary) hypertension; Z86.73 Personal history of transient ischemic attack (TIA), and cerebral infarction without residual deficits
CPT/HCPCS: 73562; 99283

== ENCOUNTER 2020-10-02 23:24 | Emergency (ER) | payer MEDICARE, OTHER, SELFPAY ==
[2020-10-02 23:25] VITALS: BP 180/90; PULSE 60; RESP 16; TEMP 36.5; O2SAT 96; BMI 32.1
--- NOTE | 2020-10-02 23:38 | DI.RAD.S_ITS ---
PROCEDURE: XR FOOT RT MIN 3V INDICATIONS: laceration to Right medial foot TECHNIQUE: 3 views of the foot were acquired. COMPARISON: [facility], , FOOT 3V RIGHT, 12/28/2011, 15:03. FINDINGS: Bones: No fractures or dislocations. No suspicious bony lesions. Calcaneal bone spurs. Soft tissues: No tibiotalar joint effusion. Achilles tendon appears normal. No soft tissue gas. No radiodense foreign body. IMPRESSION: No fracture. No acute osseous lesion. If symptoms and/or clinical suspicion for pathology persists, further assessment with repeat radiographs (7-10 days) or advanced imaging (e.g. CT, MRI or bone scan) should be considered. Dictated by: Lin Whittaker MD, PhD on 10/03/2020 at 9:19 Approved by: Lin Whittaker MD, PhD on 10/03/2020 at 9:20
[2020-10-02] MEDS: TET,DIPH,PERTUSS(ACELL),VAC/PF 0.5 ML SYRINGE IM (23:45)
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
[2020-10-03] MEDS: cephALEXin 250 MG CAPSULE 500 MG PO (00:25)
== END 2020-10-03 00:28 | disposition home or self-care (01) ==
PROVIDERS: Emergency Provider Emergency Medicine; PCP Family Medicine
DX: S91.311A Laceration without foreign body, right foot, initial encounter (principal); I10 Essential (primary) hypertension; W26.0XXA Contact with knife, initial encounter; Z23 Encounter for immunization
CPT/HCPCS: 73630; 90471; 99283; 90715

== ENCOUNTER → 2020-10-18 10:02 | Outpatient (CLI) | payer MEDICARE, OTHER, SELFPAY ==
--- NOTE | 2020-10-18 | DI.CT.S_ITS ---
PROCEDURE: CT ANGIO ABDOMEN INDICATIONS: Essential (primary) hypertension TECHNIQUE: After the administration of intravenous contrast, 2.5 mm sections acquired from the diaphragm to the iliac crests. 10 mm maximum intensity projection (MIP) coronal and sagittal reformats were then performed. For radiation dose reduction, the following was used: automated exposure control. COMPARISON: [facility], [place], KIDNEY W/ PHARMACOLOGY INT., 06/04/2010, 14:12. [place], RENAL IMAGING WITH LASIX, 02/16/2013, 8:57. [place], ABD/PELVIS W&WO CON ([facility]), 05/02/2010, 10:40. FINDINGS: Image quality: Excellent. Extravascular tissues: Lung bases are clear. Heart size is normal. Kidneys are normal in size. Mild left hydronephrosis secondary to left UPJ obstruction. Mild left renal cortical thinning. There are multiple nonobstructive calculi in the inferior pole of the left kidney. There is a 0.8 mm hypodense nodule in the anterior left hepatic lobe, compatible with a cyst. Liver is normal in size and enhancement. Gallbladder is normal. Biliary system is non dilated. Pancreas enhances normally. Spleen is normal in size and enhancement. There is a 1.2 cm splenial in the posterior lateral aspect of the spleen. No adrenal nodules. Non-opacified bowel loops demonstrate normal wall thickness and caliber. No free fluid or air. No retroperitoneal or mesenteric adenopathy. No ventral hernias. No suspicious bony abnormalities. No vertebral body compression fractures. Mild degenerative changes in lumbar spine. There is a tiny fat containing umbilical hernia. Note is made of atrophy and fatty replacement of the left oblique abdominal muscles, which was present on 05/02/2010 and appear unchanged. Abdominal aorta: Abdominal aorta is normal in caliber. Minimal arthritic calcification of of aorta. The bifurcation is normal. Common iliac arteries are patent and normal in caliber. Mesenteric arteries: Celiac trunk, superior mesenteric artery and inferior mesenteric artery are patent without evidence sclerosis. Renal arteries: There are 2 renal arteries on left with a main left renal artery and a small accessory left renal arteries supplying the inferior pole of the left kidney. A single right renal artery is present. Renal arteries are patent without significant stenosis. IMPRESSION: 1. No findings to suggest renal arterial hypertension. 2. Mild left hydronephrosis secondary to UPJ obstruction. 3. Multiple nonobstructive stones in the inferior pole of the left kidney. There is mild left renal cortical thinning, likely secondary to chronic obstructive nephropathy. Dictated by: Sera Morton M.D. on 10/18/2020 at 10:43 Approved by: Sera Morton M.D. on 10/18/2020 at 10:59
== END ==
PROVIDERS: PCP Family Medicine; Referring Provider Family Medicine; Visit Provider Family Medicine
DX: N13.0 Hydronephrosis with ureteropelvic junction obstruction (principal); N20.0 Calculus of kidney; I10 Essential (primary) hypertension
CPT/HCPCS: 74175

== ENCOUNTER → 2021-02-14 14:24 | Outpatient (CLI) | payer MEDICARE, OTHER, SELFPAY ==
[2021-02-14 14:42] LABS: Bacteria Urine None Seen
[2021-02-14 15:07] LABS: Appearance Urine UA CLEAR; Bilirubin Urine UA NEGATIVE (NEGATIVE); Color Urine UA YELLOW; Glucose Urine UA NEGATIVE (Negative); Ketones Urine UA NEGATIVE (NEGATIVE); Leukocyte Esterase Urine UA TRACE (NEGATIVE); Nitrite Urine UA NEGATIVE (Negative); Occult Blood Urine UA 3+ (Negative); Protein Urine UA NEGATIVE (Negative); Specific Gravity Urine UA 1.025 (1.000-1.035); Urobilinogen Urine UA 0.2 E.U./dL (0.2)
[2021-02-14 15:17] LABS: Add Manual Diff / Slide Review NO; Basophils Absolute Auto 0 /uL (0-100); Basophils Percent Auto 0.6 % (0-2); Eosinophils Absolute Auto 300 /uL (0-450); Eosinophils Percent Auto 3.5 % (2-4); Hematocrit 44.2 % (41-53); Hemoglobin 14.7 g/dL (13.5-17.5); Lymphocytes Absolute Auto 2300 /uL (1100-4500); Lymphocytes Percent Auto 28.1 % (25-40); Mean Corpuscular HGB Conc 33.3 % (30-36); Mean Corpuscular Volume 83.9 fL (80-100); Monocytes Absolute Auto 600 /uL (0-900); Neutrophils Absolute Auto 5000 /uL (1500-7000); Neutrophils Percent Auto 60.8 % (50-75); Platelet Count 196 X10^3/uL (150-400); Red Blood Cell Count 5.26 X10^6/uL (4.5-5.9); Red Cell Distribution Width 13.7 % (11.6-14.8); White Blood Cell Count 8.2 X10^3/uL (4.5-11.0)
[2021-02-14 15:46] LABS: Hemoglobin A1C% w Est Avg Glu 6.5 % (4.0-6.0)
[2021-02-14 15:47] LABS: BUN Creatinine Ratio 19.1 (6-22); Blood Urea Nitrogen 22 mg/dL (9-20); Calcium 9.6 mg/dL (8.4-10.2); Carbon Dioxide 28 mmol/L (22-32); Chloride 104 mmol/L (98-107); Estimated Glomerular Filt Rate > 60.0 mL/min (>60); Glucose 129 mg/dL (80-110); HEMOLYSIS < 15 (0-50); Potassium 4.1 mmol/L (3.4-5.1); Sodium 139 mmol/L (137-145)
[2021-02-14 15:55] LABS: Culture Indicated Urine Cult Not Indicated; RBC Urine 10-30/HPF (0-5/HPF); Squamous Epithelial Cell Urine None Seen (0-5/HPF); WBC Urine 1-5/HPF (0-5/HPF)
== END ==
PROVIDERS: PCP Family Medicine; Referring Provider Orthopaedic Surgery; Visit Provider Orthopaedic Surgery
DX: Z01.818 Encounter for other preprocedural examination (principal); R73.9 Hyperglycemia, unspecified; Z01.812 Encounter for preprocedural laboratory examination; N39.0 Urinary tract infection, site not specified
CPT/HCPCS: 36415; 80048; 81001; 83036; 85025; 93005; 93010

== ENCOUNTER → 2021-05-27 13:29 | Outpatient (CLI) | payer MEDICARE, OTHER, SELFPAY ==
--- NOTE | 2021-05-27 | DI.CT.S_ITS ---
PROCEDURE: CT SINUS SCREEN WO CON INDICATIONS: Chronic pansinusitis TECHNIQUE: Noncontrast 3.0 mm axial images acquired from the frontal sinuses to the mid-sella, with coronal and sagittal reformats. For radiation dose reduction, the following was used: automated exposure control, adjustment of mA and/or kV according to patient size. COMPARISON: [facility], [place], CT SINUS SCREEN WO CON, 01/26/2020, 15:20. [facility], CT, CT HEAD/BRAIN WO CON, 07/12/2020, 13:08. FINDINGS: Image quality: Excellent. Maxillary Sinuses: There is complete opacification of the left maxillary sinus. The medial wall of the left maxillary sinus is not seen. Ethmoid Air Cells: There is complete opacification seen of the anterior left ethmoid air cells. Demineralization of several of the ethmoid air cell septations can be seen. Mild to moderate mucosal thickening can be seen involving the anterior right ethmoid air cells. Sphenoid Sinuses: No bony remodeling or destruction. Sinuses are clear. Frontal Sinuses: At least moderate mucosal thickening can be seen involving the left frontal sinus. There is mild demineralization of a septation within the left frontal sinus. Ostiomeatal Complexes: Ostiomeatal complexes are patent. No Jaret cells. Miscellaneous: There is abnormal soft tissue material seen within the left nasal cavity, with demineralization of the left middle turbinate. Visualized intra-orbital contents are normal. No micky bullosa can be seen on the right. No significant nasal septal deviation. IMPRESSION: Progression of prominent sinus disease on the left compared to the prior examination. Given the destructive and confluent nature of this process, please consider neoplasm. Please correlate with history and physical examination findings. Dictated by: Shayne Ovalles M.D. on 05/27/2021 at 13:10 Approved by: Shayne Ovalles M.D. on 05/27/2021 at 13:13
== END ==
PROVIDERS: PCP Family Medicine; Referring Provider Otolaryngology; Visit Provider Otolaryngology
DX: J32.4 Chronic pansinusitis (principal)
CPT/HCPCS: 70486

== ENCOUNTER → 2021-10-23 15:22 | Outpatient (CLI) | payer MEDICARE, OTHER, SELFPAY ==
[2021-10-23 16:02] LABS: COVID19 -Nasal RAPID POSITIVE (Negative)
== END ==
PROVIDERS: PCP Family Medicine; Visit Provider Student in an Organized Health Care Education/Training Program
DX: U07.1 COVID-19 (principal)
CPT/HCPCS: 87635

== ENCOUNTER 2021-10-23 16:11 | Inpatient (IN) | payer MEDICARE, OTHER, SELFPAY ==
[2021-10-23] VITALS (22 sets, daily range): BP systolic 90–130; BP diastolic 52–64; PULSE 51–156; RESP 14–27; TEMP 35.9–36.4; O2SAT 89–98; BMI 29.9
--- NOTE | 2021-10-23 16:24 | DI.RAD.S_ITS ---
PROCEDURE: XR CHEST 1V INDICATIONS: suspected sepsis TECHNIQUE: One view of the chest was acquired. COMPARISON: [facility], [place], XR CHEST 1V, 07/12/2020, 13:04. FINDINGS: Heart size is enlarged. Mild vascular congestion noted. There is obscuration of left hemidiaphragm with a blunting of left costophrenic angle. Right lung and pleural space clear. Osseous structures unremarkable other than degenerative changes noted particularly involving the right glenohumeral joint. IMPRESSION: Cardiomegaly and mild vascular congestion Left basilar atelectasis and or infiltrate Approved by: Reyes Hernandez M.D. on 10/23/2021 at 17:46
[2021-10-23 16:49] LABS: Add Manual Diff / Slide Review NO; Basophils Absolute Auto 100 /uL (0-100); Basophils Percent Auto 0.7 % (0-2); Eosinophils Absolute Auto 500 /uL (0-450); Eosinophils Percent Auto 4.3 % (2-4); Hematocrit 49.4 % (41-53); Hemoglobin 16.6 g/dL (13.5-17.5); Lymphocytes Absolute Auto 1600 /uL (1100-4500); Mean Corpuscular HGB Conc 33.6 % (30-36); Mean Corpuscular Hemoglobin 27.8 PG (26-34); Mean Corpuscular Volume 82.6 fL (80-100); Monocytes Absolute Auto 1200 /uL (0-900); Monocytes Percent Auto 10.8 % (3-14); Neutrophils Absolute Auto 7400 /uL (1500-7000); Neutrophils Percent Auto 69.2 % (50-75); Platelet Count 449 X10^3/uL (150-400); Red Blood Cell Count 5.97 X10^6/uL (4.5-5.9); White Blood Cell Count 10.8 X10^3/uL (4.5-11.0)
[2021-10-23 16:54] LABS: INR 1.2 (0.9-1.3); Prothrombin Time 13.1 SECONDS (10.1-12.7)
[2021-10-23] MEDS: SODIUM CHLORIDE 0.9% 1,000 ML 1000 ML IV (16:54)
[2021-10-23 16:57] LABS: PTT Partial Thromboplastin Tim 28 SECONDS (26.4-36.2)
[2021-10-23 16:59] LABS: Lactate (Lactic Acid) 1.4 mmol/L (0.7-2.1)
[2021-10-23 17:01] LABS: Alanine Aminotransferase 54 IU/L (<50); Albumin 4.5 g/dL (3.5-5.0); Alkaline Phosphatase 103 U/L (38-126); Aspartate Aminotransferase 93 IU/L (17-59); BUN Creatinine Ratio 31.6 (6-22); Bilirubin Total 1.3 mg/dL (0.2-1.3); Blood Urea Nitrogen 78 mg/dL (9-20); Calcium 9.7 mg/dL (8.4-10.2); Carbon Dioxide 30 mmol/L (22-32); Chloride 95 mmol/L (98-107); Glucose 145 mg/dL (80-110); HEMOLYSIS 24 (0-50); Lipase 403 U/L (23-300); Potassium 4.7 mmol/L (3.4-5.1); Sodium 133 mmol/L (137-145)
[2021-10-23 17:10] LABS: Albumin Globulin Ratio 0.9 (1.0-2.8); Globulin 5.1 g/dL (1.7-4.1); Total Protein 9.6 g/dL (6.3-8.2)
[2021-10-23 17:16] LABS: Procalcitonin 0.11 ng/mL (<0.5)
--- NOTE | 2021-10-23 17:51 | ED.SOB ---
HPI - SOB/Dyspnea <Arthur Castrejon MD - Last Filed: 10/24/21 09:24> General Chief Complaint: Shortness of Breath/Dyspnea Stated Complaint: COVID+,Weakness,Low Stats, Sent from [facility] Time Seen by Provider: 10/23/21 16:51 Source: patient and family Mode of arrival: Wheelchair History of Present Illness HPI Narrative: Patient here from the walk-in clinic for dyspnea and hypoxia and hypotension. Patient states not COVID vaccinated. Started 1 month ago not feeling very well. Unable to get in here due to family. Decreased oral intake as well. No fall or injury. Patient states he lives alone. Has not been eating or drinking very much for the past 4 weeks. Related Data Home Medications Medication Instructions Recorded Confirmed Fluticasone Propionate (FLONASE) 1 spray INTRANASAL BID #0 spray 05/19/13 10/23/21 fexofenadine 180 mg tablet 180 mg PO QDAY #0 05/19/13 10/23/21 oxycodone-acetaminophen 5 mg-325 2 tab PO Q4HP PRN #0 tab 05/19/13 10/23/21 mg tablet (Percocet) lansoprazole 30 mg capsule,delayed 30 mg PO QDAY #0 ecc 05/29/13 10/23/21 release alprazolam 0.5 mg tablet 1 tab PO Q6H 06/27/18 10/23/21 diltiazem HCl 300 mg 1 cap PO DAILY 06/27/18 10/23/21 capsule,extended release 24 hr meloxicam 15 mg tablet 1 tab PO DAILY 06/27/18 10/23/21 olmesartan 20 mg tablet 1 tab PO DAILY 06/27/18 10/23/21 omeprazole 40 mg capsule,delayed 1 cap PO DAILY 06/27/18 10/23/21 release oxycodone 10 mg tablet 1 tab PO QID 06/27/18 10/23/21 Previous Rx's Medication Instructions Recorded ketorolac 10 mg tablet 10 mg PO TID PRN #14 tab 09/10/19 cyclobenzaprine 10 mg tablet 10 mg PO TID PRN #10 tab 10/29/19 ibuprofen 600 mg tablet 600 mg PO TID PRN #60 tab 10/29/19 ketorolac 10 mg tablet 10 mg PO Q6H PRN #14 tab 08/21/20 cephalexin 500 mg capsule 500 mg PO QID #12 cap 10/03/20 Allergies Allergy/AdvReac Type Severity Reaction Status Date / Time procaine [From Novocain] Allergy Verified 10/23/21 15:29 Review of Systems <Arthur Castrejon MD - Last Filed: 10/24/21 09:24> Review of Systems Narrative: GENERAL: Positive forchills, fatigue, malaise, negative for fever, sweats. HEENT: Denies sinus pain, ear pain, sore throat RESPIRATORY: Positive for dyspnea, cough CARDIOVASCULAR: Denies chest pain, palpitations GASTROINTESTINAL: Denies nausea, vomiting, abdominal pain : Denies dysuria, frequency, hematuria MUSCULOSKELETAL: denies muscle or bony pain SKIN: Denies rash, skin lesions NEUROLOGIC: Denies weakness, numbness ROS Unobtainable: All systems reviewed & are unremarkable except as noted in HPI and below Patient History <Arthur Castrejon MD - Last Filed: 10/24/21 09:24> Medical History (Updated 10/23/21 @ 18:37 by Arthur Castrejon MD) Chronic pain Hiatal hernia Hypertension Social History household members: none Smoking Status: Former smoker alcohol intake: current Smoking Status: Former smoker alcohol intake frequency: other Substance Use Type: does not use Exam <Arthur Castrejon MD - Last Filed: 10/24/21 09:24> Narrative Exam Narrative: GENERAL: in no distress, not toxic not dyspneic HEAD: Normocephalic. EYES: Pupils equal round No scleral icterus. ENT: Mucous membranes moist. NECK: Trachea midline. CARDIOVASCULAR: Regular rate and rhythm without murmurs RESPIRATORY: Clear to auscultation. Breath sounds equal bilaterally. No wheezes, rales, or rhonchi. GASTROINTESTINAL: Abdomen soft, non-tender EXTREMITIES: No gross deformities. BACK: No flank tenderness. NEURO: AOx4. SKIN: Warm and dry PSYCH: Not anxious, is cooperative Initial Vital Signs Initial Vital Signs: Vital Signs Temperature 97.6 F 10/23/21 16:20 Pulse Rate 79 10/23/21 16:20 Respiratory Rate 16 10/23/21 16:20 Blood Pressure 90/57 L 10/23/21 16:20 Pulse Oximetry 92 10/23/21 16:20 <Leydi Weiss DO - Last Filed: 10/24/21 04:03> Initial Vital Signs Initial Vital Signs: Vital Signs Temperature 97.6 F 10/23/21 16:20 Pulse Rate 79 10/23/21 16:20 Respiratory Rate 16 10/23/21 16:20 Blood Pressure 90/57 L 10/23/21 16:20 Pulse Oximetry 92 10/23/21 16:20 Course <Arthur Castrejon MD - Last Filed: 10/24/21 09:24> Course Course Narrative: 6:30 p.m.. Sign out to Dr. Weiss, awaiting for imaging results in for admit to hospitalist Orders Ordered: Acetaminophen (Acetaminophen 325 Mg Tablet) 650 mg PO Q4HR PRN PRN Reason: Fever/Mild Pain (1-3) Acetaminophen (Acetaminophen 325 Mg Tablet) 650 mg PO Q6HR PRN PRN Reason: Fever/Mild Pain (1-3) Bisacodyl (Bisacodyl 10 Mg Supp) 10 mg ME DAILY PRN PRN Reason: Constipation Docusate Sodium (Docusate 100 Mg Capsule) 100 mg PO BID [facility] [place] Last Admin: 10/24/21 09:00 Dose: 100 mg Documented by: CTRLINO Enoxaparin Sodium (Enoxaparin 40 Mg/0.4 Ml Syringe) 40 mg SUBCUT DAILY [facility] [place] Last Admin: 10/24/21 09:00 Dose: 40 mg Documented by: CTR.ROSE Hydroxyzine Pamoate (Hydroxyzine Pamoate 25 Mg Capsule) 10 mg PO Q6HR PRN PRN Reason: Nausea Sodium Chloride (Normal Saline 0.45%) 1,000 mls @ 150 mls/hr IV CONT [facility] [place] Last Admin: 10/24/21 08:57 Dose: 150 mls/hr Documented by: CTRLINO Melatonin (Melatonin 3 Mg Tablet) 9 mg PO BEDTIME [facility] [place] Last Admin: 10/23/21 23:23 Dose: 9 mg Documented by: CATHERINE Naloxone HCl (Naloxone 0.4 Mg/Ml Vial) 0.2 mg IV Q2MIN PRN PRN Reason: Opiate Reversal Ondansetron HCl (Ondansetron 4 Mg/2 Ml Inj) 4 mg IV Q8HR PRN PRN Reason: Nausea And Vomiting Oxycodone HCl (Oxycodone Ir 10 Mg Tablet) 10 mg PO Q4HR [facility] Last Admin: 10/24/21 07:55 Dose: 10 mg Documented by: Admin: 10/24/21 05:13 Dose: 10 mg Documented by: Admin: 10/24/21 00:34 Dose: 10 mg Documented by: CATHERINE Pantoprazole Sodium (Pantoprazole Dr 40 Mg Tablet) 40 mg PO 0700 [facility] Last Admin: 10/24/21 07:55 Dose: 40 mg Documented by: JOSEPH Sennosides (Sennosides 8.6 Mg Tablet) 17.2 mg PO BEDTIME [facility] Discontinued Medications Dexamethasone (Dexamethasone 10 Mg/Ml Vial) 6 mg IV NOW ONE Stop: 10/23/21 19:49 Last Admin: 10/23/21 19:57 Dose: 6 mg Documented by: NAYELI Furosemide (Furosemide 20 Mg/2 Ml Vial) 20 mg IV NOW ONE Stop: 10/24/21 08:30 Last Admin: 10/24/21 09:06 Dose: 20 mg Documented by: JOSEPH Sodium Chloride (Normal Saline 0.9%) 1,000 mls @ 1,000 mls/hr IV BOLUS ONE Stop: 10/23/21 17:23 Last Infusion: 10/23/21 17:56 Dose: 0 mls/hr Documented by: Admin: 10/23/21 16:54 Dose: 1,000 mls/hr Documented by: ATAISABELAOR Sodium Chloride (Normal Saline 0.9%) 500 mls @ 1,000 mls/hr IV BOLUS ONE Stop: 10/23/21 18:18 Last Infusion: 10/23/21 20:41 Dose: 0 mls/hr Documented by: Admin: 10/23/21 17:56 Dose: 1,000 mls/hr Documented by: ATAYLOR Lactated Ringer's (Lactated Ringers) 1,000 mls @ 150 mls/hr IV CONT [facility] Sodium Chloride (Normal Saline 0.9%) 1,000 mls @ 150 mls/hr IV CONT [facility] Last Admin: 10/24/21 05:13 Dose: 150 mls/hr Documented by: Infusion: 10/24/21 05:13 Dose: 150 mls/hr Documented by: Admin: 10/23/21 23:23 Dose: 150 mls/hr Documented by: CATHERINE Vital Signs Vital signs: Vital Signs - 8 hr 10/23/21 16:20 10/23/21 16:29 10/23/21 16:30 Temperature 97.6 F Pulse Rate 79 70 69 Respiratory Rate 16 25 H 23 Blood Pressure 90/57 L 97/56 L Pulse Oximetry 92 93 93 10/23/21 17:00 10/23/21 17:29 10/23/21 17:30 Temperature Pulse Rate 70 58 L Respiratory Rate 22 21 Blood Pressure 106/60 104/62 Pulse Oximetry 93 94 91 10/23/21 18:00 10/23/21 18:01 10/23/21 18:30 Temperature Pulse Rate 55 L 55 L 55 L Respiratory Rate 22 15 20 Blood Pressure 130/64 Pulse Oximetry 97 97 95 10/23/21 18:31 10/23/21 19:00 10/23/21 19:01 Temperature Pulse Rate 55 L 54 L 62 Respiratory Rate 22 20 14 Blood Pressure 114/54 L 98/52 L Pulse Oximetry 95 94 94 10/23/21 19:30 Temperature Pulse Rate 52 L Respiratory Rate 17 Blood Pressure 94/52 L Pulse Oximetry 98 <Leydi Weiss, DO - Last Filed: 10/24/21 04:03> Orders Ordered: Acetaminophen (Acetaminophen 325 Mg Tablet) 650 mg PO Q4HR PRN PRN Reason: Fever/Mild Pain (1-3) Acetaminophen (Acetaminophen 325 Mg Tablet) 650 mg PO Q6HR PRN PRN Reason: Fever/Mild Pain (1-3) Bisacodyl (Bisacodyl 10 Mg Supp) 10 mg ME DAILY PRN PRN Reason: Constipation Docusate Sodium (Docusate 100 Mg Capsule) 100 mg PO BID [facility] [place] Last Admin: 10/24/21 09:00 Dose: 100 mg Documented by: JOSEPH Enoxaparin Sodium (Enoxaparin 40 Mg/0.4 Ml Syringe) 40 mg SUBCUT DAILY [facility] [place] Last Admin: 10/24/21 09:00 Dose: 40 mg Documented by: JOSEPH Hydroxyzine Pamoate (Hydroxyzine Pamoate 25 Mg Capsule) 10 mg PO Q6HR PRN PRN Reason: Nausea Sodium Chloride (Normal Saline 0.45%) 1,000 mls @ 150 mls/hr IV CONT [facility] [place] Last Admin: 10/24/21 08:57 Dose: 150 mls/hr Documented by: JOSEPH Melatonin (Melatonin 3 Mg Tablet) 9 mg PO BEDTIME [facility] [place] Last Admin: 10/23/21 23:23 Dose: 9 mg Documented by: CATHERINE Naloxone HCl (Naloxone 0.4 Mg/Ml Vial) 0.2 mg IV Q2MIN PRN PRN Reason: Opiate Reversal Ondansetron HCl (Ondansetron 4 Mg/2 Ml Inj) 4 mg IV Q8HR PRN PRN Reason: Nausea And Vomiting Oxycodone HCl (Oxycodone Ir 10 Mg Tablet) 10 mg PO Q4HR [facility] [place] Last Admin: 10/24/21 07:55 Dose: 10 mg Documented by: Admin: 10/24/21 05:13 Dose: 10 mg Documented by: Admin: 10/24/21 00:34 Dose: 10 mg Documented by: CATHERINE Pantoprazole Sodium (Pantoprazole Dr 40 Mg Tablet) 40 mg PO 0700 [facility] [place] Last Admin: 10/24/21 07:55 Dose: 40 mg Documented by: JOSEPH Sennosides (Sennosides 8.6 Mg Tablet) 17.2 mg PO BEDTIME [facility] [place] Discontinued Medications Dexamethasone (Dexamethasone 10 Mg/Ml Vial) 6 mg IV NOW ONE Stop: 10/23/21 19:49 Last Admin: 10/23/21 19:57 Dose: 6 mg Documented by: NAYELI Furosemide (Furosemide 20 Mg/2 Ml Vial) 20 mg IV NOW ONE Stop: 10/24/21 08:30 Last Admin: 10/24/21 09:06 Dose: 20 mg Documented by: JOSEPH Sodium Chloride (Normal Saline 0.9%) 1,000 mls @ 1,000 mls/hr IV BOLUS ONE Stop: 10/23/21 17:23 Last Infusion: 10/23/21 17:56 Dose: 0 mls/hr Documented by: Admin: 10/23/21 16:54 Dose: 1,000 mls/hr Documented by: NAYELI Sodium Chloride (Normal Saline 0.9%) 500 mls @ 1,000 mls/hr IV BOLUS ONE Stop: 10/23/21 18:18 Last Infusion: 10/23/21 20:41 Dose: 0 mls/hr Documented by: Admin: 10/23/21 17:56 Dose: 1,000 mls/hr Documented by: NAYELI Lactated Ringer's (Lactated Ringers) 1,000 mls @ 150 mls/hr IV CONT [facility] Sodium Chloride (Normal Saline 0.9%) 1,000 mls @ 150 mls/hr IV CONT [facility] Last Admin: 10/24/21 05:13 Dose: 150 mls/hr Documented by: Infusion: 10/24/21 05:13 Dose: 150 mls/hr Documented by: Admin: 10/23/21 23:23 Dose: 150 mls/hr Documented by: CATHERINE Vital Signs Vital signs: Vital Signs - 8 hr 10/23/21 16:20 10/23/21 16:29 10/23/21 16:30 Temperature 97.6 F Pulse Rate 79 70 69 Respiratory Rate 16 25 H 23 Blood Pressure 90/57 L 97/56 L Pulse Oximetry 92 93 93 10/23/21 17:00 10/23/21 17:29 10/23/21 17:30 Temperature Pulse Rate 70 58 L Respiratory Rate 22 21 Blood Pressure 106/60 104/62 Pulse Oximetry 93 94 91 10/23/21 18:00 10/23/21 18:01 10/23/21 18:30 Temperature Pulse Rate 55 L 55 L 55 L Respiratory Rate 22 15 20 Blood Pressure 130/64 Pulse Oximetry 97 97 95 10/23/21 18:31 10/23/21 19:00 10/23/21 19:01 Temperature Pulse Rate 55 L 54 L 62 Respiratory Rate 22 20 14 Blood Pressure 114/54 L 98/52 L Pulse Oximetry 95 94 94 10/23/21 19:30 Temperature Pulse Rate 52 L Respiratory Rate 17 Blood Pressure 94/52 L Pulse Oximetry 98 MDM - SOB/Dyspnea <Arthur Castrejon MD - Last Filed: 10/24/21 09:24> Differential Diagnosis Differential diagnosis: Likely acute exacerbation of chronic obstructive airways disease, congestive heart failure, community acquired pneumonia and other (Acute renal injury. COVID pneumonia) Lab Data Result diagrams: 10/24/21 03:52 10/24/21 03:52 Labs: Lab Results 10/23/21 10/23/21 10/23/21 Range/Units 16:30 16:30 16:30 WBC 10.8 (4.5-11.0) X10^3/uL RBC 5.97 H (4.5-5.9) X10^6/uL Hgb 16.6 (13.5-17.5) g/dL Hct 49.4 (41-53) % MCV 82.6 (80-100) fL MCH 27.8 (26-34) PG MCHC 33.6 (30-36) % RDW 14.0 (11.6-14.8) % Plt Count 449 H (150-400) X10^3/uL Neut % (Auto) 69.2 (50-75) % Lymph % (Auto) 15.0 L (25-40) % Pine % (Auto) 10.8 (3-14) % Eos % (Auto) 4.3 H (2-4) % Baso % (Auto) 0.7 (0-2) % Neut # (Auto) 7400 H (1087-5972) /uL Lymph # (Auto) 1600 (7044-4877) /uL Pine # (Auto) 1200 H (0-900) /uL Eos # (Auto) 500 H (0-450) /uL Baso # (Auto) 100 (0-100) /uL PT 13.1 H (10.1-12.7) SECONDS INR 1.2 (0.9-1.3) APTT 28 (26.4-36.2) SECONDS Sodium 133 L (137-145) mmol/L Potassium 4.7 (3.4-5.1) mmol/L Chloride 95 L (98-107) mmol/L Carbon Dioxide 30 (22-32) mmol/L BUN 78 H (9-20) mg/dL Creatinine 2.47 H (0.66-1.25) mg/dL Estimated GFR 26.0 L (>60) mL/min BUN/Creatinine Ratio 31.6 H (6-22) Glucose 145 H (80-110) mg/dL Lactate (0.7-2.1) mmol/L Calcium 9.7 (8.4-10.2) mg/dL Total Bilirubin 1.3 (0.2-1.3) mg/dL AST 93 H (17-59) IU/L ALT 54 H (<50) IU/L Alkaline Phosphatase 103 (38-126) U/L Total Creatine Kinase (55-170) U/L CK-MB (CK-2) (<2.37) ng/mL CK-MB (CK-2) Rel Index (1.5-5.0) % Troponin I (0.01-0.034) ng/mL NT-Pro-B Natriuret Pep (<125) pg/mL Total Protein 9.6 H (6.3-8.2) g/dL Albumin 4.5 (3.5-5.0) g/dL Globulin 5.1 H (1.7-4.1) g/dL Albumin/Globulin Ratio 0.9 L (1.0-2.8) Lipase 403 H (23-300) U/L Procalcitonin 0.11 (<0.5) ng/mL 10/23/21 10/23/21 Range/Units 16:30 16:30 WBC (4.5-11.0) X10^3/uL RBC (4.5-5.9) X10^6/uL Hgb (13.5-17.5) g/dL Hct (41-53) % MCV (80-100) fL MCH (26-34) PG MCHC (30-36) % RDW (11.6-14.8) % Plt Count (150-400) X10^3/uL Neut % (Auto) (50-75) % Lymph % (Auto) (25-40) % Pine % (Auto) (3-14) % Eos % (Auto) (2-4) % Baso % (Auto) (0-2) % Neut # (Auto) (1385-7387) /uL Lymph # (Auto) (9882-6127) /uL Pine # (Auto) (0-900) /uL Eos # (Auto) (0-450) /uL Baso # (Auto) (0-100) /uL PT (10.1-12.7) SECONDS INR (0.9-1.3) APTT (26.4-36.2) SECONDS Sodium (137-145) mmol/L Potassium (3.4-5.1) mmol/L Chloride (98-107) mmol/L Carbon Dioxide (22-32) mmol/L BUN (9-20) mg/dL Creatinine (0.66-1.25) mg/dL Estimated GFR (>60) mL/min BUN/Creatinine Ratio (6-22) Glucose (80-110) mg/dL Lactate 1.4 (0.7-2.1) mmol/L Calcium (8.4-10.2) mg/dL Total Bilirubin (0.2-1.3) mg/dL AST (17-59) IU/L ALT (<50) IU/L Alkaline Phosphatase (38-126) U/L Total Creatine Kinase 358 H (55-170) U/L CK-MB (CK-2) 2.78 H (<2.37) ng/mL CK-MB (CK-2) Rel Index 0.8 L (1.5-5.0) % Troponin I < 0.012 (0.01-0.034) ng/mL NT-Pro-B Natriuret Pep 141 H (<125) pg/mL Total Protein (6.3-8.2) g/dL Albumin (3.5-5.0) g/dL Globulin (1.7-4.1) g/dL Albumin/Globulin Ratio (1.0-2.8) Lipase (23-300) U/L Procalcitonin (<0.5) ng/mL ECG Data Interpretation: Sinus bradycardia rate [address] elevation or depression. Otherwise normal EKG <Leydi Weiss DO - Last Filed: 10/24/21 04:03> Lab Data Labs: Lab Results 10/23/21 10/23/21 10/23/21 Range/Units 16:30 16:30 16:30 WBC 10.8 (4.5-11.0) X10^3/uL RBC 5.97 H (4.5-5.9) X10^6/uL Hgb 16.6 (13.5-17.5) g/dL Hct 49.4 (41-53) % MCV 82.6 (80-100) fL MCH 27.8 (26-34) PG MCHC 33.6 (30-36) % RDW 14.0 (11.6-14.8) % Plt Count 449 H (150-400) X10^3/uL Neut % (Auto) 69.2 (50-75) % Lymph % (Auto) 15.0 L (25-40) % Pine % (Auto) 10.8 (3-14) % Eos % (Auto) 4.3 H (2-4) % Baso % (Auto) 0.7 (0-2) % Neut # (Auto) 7400 H (2524-1573) /uL Lymph # (Auto) 1600 (9396-0761) /uL Pine # (Auto) 1200 H (0-900) /uL Eos # (Auto) 500 H (0-450) /uL Baso # (Auto) 100 (0-100) /uL PT 13.1 H (10.1-12.7) SECONDS INR 1.2 (0.9-1.3) APTT 28 (26.4-36.2) SECONDS Sodium 133 L (137-145) mmol/L Potassium 4.7 (3.4-5.1) mmol/L Chloride 95 L (98-107) mmol/L Carbon Dioxide 30 (22-32) mmol/L BUN 78 H (9-20) mg/dL Creatinine 2.47 H (0.66-1.25) mg/dL Estimated GFR 26.0 L (>60) mL/min BUN/Creatinine Ratio 31.6 H (6-22) Glucose 145 H (80-110) mg/dL Lactate (0.7-2.1) mmol/L Calcium 9.7 (8.4-10.2) mg/dL Total Bilirubin 1.3 (0.2-1.3) mg/dL AST 93 H (17-59) IU/L ALT 54 H (<50) IU/L Alkaline Phosphatase 103 (38-126) U/L Total Creatine Kinase (55-170) U/L CK-MB (CK-2) (<2.37) ng/mL CK-MB (CK-2) Rel Index (1.5-5.0) % Troponin I (0.01-0.034) ng/mL NT-Pro-B Natriuret Pep (<125) pg/mL Total Protein 9.6 H (6.3-8.2) g/dL Albumin 4.5 (3.5-5.0) g/dL Globulin 5.1 H (1.7-4.1) g/dL Albumin/Globulin Ratio 0.9 L (1.0-2.8) Lipase 403 H (23-300) U/L Procalcitonin 0.11 (<0.5) ng/mL 10/23/21 10/23/21 Range/Units 16:30 16:30 WBC (4.5-11.0) X10^3/uL RBC (4.5-5.9) X10^6/uL Hgb (13.5-17.5) g/dL Hct (41-53) % MCV (80-100) fL MCH (26-34) PG MCHC (30-36) % RDW (11.6-14.8) % Plt Count (150-400) X10^3/uL Neut % (Auto) (50-75) % Lymph % (Auto) (25-40) % Pine % (Auto) (3-14) % Eos % (Auto) (2-4) % Baso % (Auto) (0-2) % Neut # (Auto) (5860-3444) /uL Lymph # (Auto) (1360-7015) /uL Pine # (Auto) (0-900) /uL Eos # (Auto) (0-450) /uL Baso # (Auto) (0-100) /uL PT (10.1-12.7) SECONDS INR (0.9-1.3) APTT (26.4-36.2) SECONDS Sodium (137-145) mmol/L Potassium (3.4-5.1) mmol/L Chloride (98-107) mmol/L Carbon Dioxide (22-32) mmol/L BUN (9-20) mg/dL Creatinine (0.66-1.25) mg/dL Estimated GFR (>60) mL/min BUN/Creatinine Ratio (6-22) Glucose (80-110) mg/dL Lactate 1.4 (0.7-2.1) mmol/L Calcium (8.4-10.2) mg/dL Total Bilirubin (0.2-1.3) mg/dL AST (17-59) IU/L ALT (<50) IU/L Alkaline Phosphatase (38-126) U/L Total Creatine Kinase 358 H (55-170) U/L CK-MB (CK-2) 2.78 H (<2.37) ng/mL CK-MB (CK-2) Rel Index 0.8 L (1.5-5.0) % Troponin I < 0.012 (0.01-0.034) ng/mL NT-Pro-B Natriuret Pep 141 H (<125) pg/mL Total Protein (6.3-8.2) g/dL Albumin (3.5-5.0) g/dL Globulin (1.7-4.1) g/dL Albumin/Globulin Ratio (1.0-2.8) Lipase (23-300) U/L Procalcitonin (<0.5) ng/mL MDM Narrative Medical decision making narrative: Received sign-out from Dr. Castrejon I have seen and evaluated patient myself. He is overall weak and confused. Apparently a family member had COVID 1 month ago. He is COVID positive today. He is found to have acute kidney injury as well with a creatinine elevated to 2.4. Previous creatinine from January of 2021 was 1.15. He generally is not feeling well he has had 40 lb weight loss not eating or drinking much. He denies any pain. Overall a very poor historian. He has had IV fluid which temporarily increased his blood pressure and now blood pressure is swelling again. I have added troponin and BNP. Discussed case with Dr. Elizabeth was obtained patient's symptoms test results agrees with admission request ICU. Pending troponin and BNP evaluation. Patient is hypoxic when he ambulates chest CT shows COVID pneumonia. Awaiting for BMP. Will give dexamethasone however hesitant to give remdesivir due to acute kidney injury. Discharge Plan Departure Patient Disposition: Admitted As Inpatient Clinical Impression: Acute kidney injury Admit Date/Time: 10/23/21 19:58 Admit Provider: Vanesa Elizabeth
--- NOTE | 2021-10-23 17:54 | DI.CT.S_ITS ---
PROCEDURE: CT CHEST WO CON INDICATIONS: Dyspnea TECHNIQUE: Noncontrast 5 mm thick sections acquired from the pulmonary apices to the posterior costophrenic angles. 1 mm lung window, 5 mm thick coronal and sagittal and 7 mm axial MIP reformats were then acquired. For radiation dose reduction, the following was used: automated exposure control, adjustment of mA and/or kV according to patient size. COMPARISON: [facility], CT, CT ANGIO ABDOMEN, 10/18/2020, 10:08. [facility], CR, XR CHEST 1V, 10/23/2021, 17:27. FINDINGS: Image quality: Excellent. Lungs and pleura: Bilateral peripheral airspace infiltrates consistent with atypical pneumonia. No pleural effusions or pneumothorax. Central and peripheral airways are patent and normal in caliber. Mediastinum: Heart size is normal. No pericardial effusion. Mild coronary artery calcification. A 0.9 x 1.2 cm prevascular lymph node is likely reactive. No mediastinal adenopathy by size criteria. Thoracic aorta and central pulmonary arteries are normal in size. Esophagus is normal in caliber. Small hiatal hernia. Bones and chest wall: No suspicious bony lesions. Mild scoliosis. Degenerative changes in thoracic spine. No vertebral body compression fractures. Moderate to severe shoulder joint degeneration bilaterally. No axillary or supraclavicular adenopathy by size criteria. Thyroid gland is normal . Abdomen: There is a 1 cm splenule. Possible superior pole cyst in left kidney. IMPRESSION: 1. Bilateral atypical pneumonia compatible with COVID-19 pneumonia. Recommend clinical correlation. 2. Coronary artery calcification. 3. Small hiatal hernia. Dictated by: Sera Morton M.D. on 10/23/2021 at 18:48 Approved by: Sera Morton M.D. on 10/23/2021 at 18:54
[2021-10-23] MEDS: SODIUM CHLORIDE 0.9% 500 ML 1000 ML IV (17:56)
--- NOTE | 2021-10-23 19:14 | PC.NURSE ---
Per pt request daughter updated on plan of care.
[2021-10-23] MEDS: DEXAMETHASONE 10 MG/ML VIAL 6 MG IV (19:57)
[2021-10-23 20:16] LABS: Creatine Kinase 358 U/L (55-170)
[2021-10-23 20:30] LABS: NT-proBNP (BNP-Adult 18+) 141 pg/mL (<125); Troponin I < 0.012 ng/mL (0.01-0.034)
[2021-10-23 20:32] LABS: CKMB % Relative Index 0.8 % (1.5-5.0); Creatine Kinase MB 2.78 ng/mL (<2.37)
[2021-10-23 21:19] LABS: Troponin I < 0.012 ng/mL (0.01-0.034)
[2021-10-23] MEDS: SODIUM CHLORIDE 0.9% 1,000 ML 150 ML IV (23:23)
[2021-10-23] MEDS: MELATONIN 3 MG TABLET 9 MG PO (23:23)
[2021-10-24] VITALS (54 sets, daily range): BP systolic 110–146; BP diastolic 61–71; PULSE 47–103; RESP 13–42; TEMP 35.9–36.6; O2SAT 89–97
[2021-10-24] MEDS: OXYCODONE IR 10 MG TABLET PO ×6 (00:34→20:24)
[2021-10-24 01:40] LABS: Appearance Urine UA CLEAR; Bilirubin Urine UA NEGATIVE (NEGATIVE); Color Urine UA YELLOW; Glucose Urine UA NEGATIVE (Negative); Ketones Urine UA NEGATIVE (NEGATIVE); Leukocyte Esterase Urine UA TRACE (NEGATIVE); Nitrite Urine UA NEGATIVE (Negative); Occult Blood Urine UA 3+ (Negative); Protein Urine UA NEGATIVE (Negative); Urobilinogen Urine UA 0.2 E.U./dL (0.2)
[2021-10-24 02:16] LABS: RBC Urine 1-5/HPF (0-5/HPF); WBC Urine 1-5/HPF (0-5/HPF)
[2021-10-24 02:17] LABS: Bacteria Urine None Seen; Culture Indicated Urine Specimen Cultured; Uric Acid Crystals Urine Many
[2021-10-24 04:42] LABS: Add Manual Diff / Slide Review NO; Basophils Absolute Auto 100 /uL (0-100); Basophils Percent Auto 0.8 % (0-2); Eosinophils Absolute Auto 0 /uL (0-450); Eosinophils Percent Auto 0.2 % (2-4); Hematocrit 39.2 % (41-53); Hemoglobin 13.2 g/dL (13.5-17.5); Lymphocytes Absolute Auto 700 /uL (1100-4500); Lymphocytes Percent Auto 9.3 % (25-40); Mean Corpuscular HGB Conc 33.6 % (30-36); Mean Corpuscular Volume 83.2 fL (80-100); Monocytes Absolute Auto 200 /uL (0-900); Monocytes Percent Auto 2.4 % (3-14); Neutrophils Absolute Auto 7000 /uL (1500-7000); Neutrophils Percent Auto 87.3 % (50-75); Platelet Count 330 X10^3/uL (150-400); Red Blood Cell Count 4.71 X10^6/uL (4.5-5.9); Red Cell Distribution Width 13.9 % (11.6-14.8)
[2021-10-24 04:47] LABS: Alanine Aminotransferase 39 IU/L (<50); Albumin 3.3 g/dL (3.5-5.0); Albumin Globulin Ratio 0.9 (1.0-2.8); Alkaline Phosphatase 69 U/L (38-126); Aspartate Aminotransferase 64 IU/L (17-59); BUN Creatinine Ratio 35.4 (6-22); Bilirubin Total 0.8 mg/dL (0.2-1.3); Blood Urea Nitrogen 62 mg/dL (9-20); Calcium 8.2 mg/dL (8.4-10.2); Carbon Dioxide 27 mmol/L (22-32); Chloride 101 mmol/L (98-107); Estimated Glomerular Filt Rate 38.7 mL/min (>60); Globulin 3.6 g/dL (1.7-4.1); Glucose 160 mg/dL (80-110); HEMOLYSIS < 15 (0-50); Sodium 131 mmol/L (137-145); Total Protein 6.9 g/dL (6.3-8.2)
[2021-10-24 05:09] LABS: Potassium 5.9 mmol/L (3.4-5.1)
[2021-10-24 05:11] LABS: Creatine Kinase 262 U/L (55-170); Troponin I < 0.012 ng/mL (0.01-0.034)
[2021-10-24] MEDS: SODIUM CHLORIDE 0.9% 1,000 ML 150 ML IV (05:13)
[2021-10-24 06:09] LABS: Ferritin 1470 ng/mL (18-464)
--- NOTE | 2021-10-24 06:11 | PC.ADMIT ---
[address] Admission Note: The patient,Jeremie Donohue,71 y/o, was given written information regarding hospital policies, unit procedures and contact persons. Patient's smoking status: Former smoker. Vital Signs - 8 hr 10/23/21 23:00 10/24/21 00:00 10/24/21 01:00 Temperature Pulse Rate 57 L 52 L 48 L Respiratory Rate 16 20 20 Blood Pressure 116/57 L 116/62 121/66 Pulse Oximetry 93 93 95 10/24/21 04:20 Temperature 96.7 F L Pulse Rate 63 Respiratory Rate 19 Blood Pressure 146/71 H Pulse Oximetry 95 Patient admitted to ICU room 231 at 2100, placed in Droplet Isolation. A/Ox4, forgetful, does not know all of medications, list and bottles sent home with daughter. Has been on RA throughout night, SpO2 >92%, has occasional 2-3 second apnea while sleeping, RR 16-20s, denies shortness of breath, crackles posterior bases. BP stable, SB 50s, see vital trends, denies dizziness, ambulates into BR with SBA.
[2021-10-24 06:28] LABS: CKMB % Relative Index 0.9 % (1.5-5.0); Creatine Kinase MB 2.34 ng/mL (<2.37)
[2021-10-24 06:36] LABS: D Dimer 2505 ng/mL (<230)
[2021-10-24 07:54] LABS: Uric Acid 10.9 mg/dL (3.5-8.5)
[2021-10-24] MEDS: PANTOPRAZOLE DR 40 MG TABLET PO (07:55)
--- NOTE | 2021-10-24 08:36 | PM.HP.1 ---
History of Present Illness History of Present Illness Date Patient Seen: 10/24/21 Time Patient Seen: 08:36 Date of Onset of Symptoms: 09/30/21 Chief complaint: COVID+,Weakness,Low Stats, Sent from [facility] Narrative: This is a 71-year-old patient who is cared for by Dr. Reyes as his primary care physician. He presents to the emergency department via EMS with complaints of progressive weakness, weight loss, cough and low oxygenation in the walk-in clinic. He was found to be COVID positive. He has not been vaccinated for COVID. He was exposed to COVID approximately a month ago. He has had cough and shortness of breath since then. Over the last week he has had progressive worsening in weakness and ability to ambulate. He was evaluated in the emergency department and found to have hypotension which did respond slowly to IV fluids. His oxygenation was normal except when he ambulated. He was found to have new onset acute kidney injury thought to be secondary to dehydration. CK and troponin x3 were normal. He was admitted to the hospital for further treatment and evaluation. Past medical history: 1. Degenerative joint disease 2. Chronic low back 3. Chronic narcotic 4. Hypertension.? This has been difficult to control and he has seen cardiology for this.? He is currently on Benicar and diltiazem. 5. Avascular necrosis of his right hip 6. Esophageal reflux 7. Impaired glucose tolerance 8. BPH 9. Allergic rhinitis Assessment 10. Anxiety Assessment 11. Gout Assessment 12. History of left ureter stenosis with hydronephrosis Medications: Olinda 180 mg daily Omeprazole 40 mg daily Meloxicam 15 mg daily Oxycodone 10 mg 4 times a day Alprazolam 0.5 mg as needed OxyContin 10 mg p.o. b.i.d. Benicar 40 mg daily Diltiazem 300 mg daily Past surgical history 1. Total right hip replacement 05/29/2013 Dr. Purdy 2. Carpal tunnel surgery 3. 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 He has family who lives here in [facility] He lives alone in [place]. Has 3 daughters who live locally Family history father at 61 from drowning had a history of alcohol and substance abuse Mother at 95 she had heart disease Sister does not have any contact with her Patient has 3 daughters who live locally Patient is not Health related behavior: Patient smoked but quit when he was approximately 21. He does not use alcohol. Patient is not active Review of systems: Patient has been health for over a month. He has had progressive weakness and inability to ambulate and care for himself. He has had poor p.o. intake both fluids and solids. He denies nausea or vomiting. He denies any diarrhea. He denies any constipation. He denies any bloody stools or black tarry stools or hematochezia. He denies any cough or chest pain. He has had shortness of breath. He has had a cough. He denies any headaches. He has had recent weight loss. He has not had any change in his chronic pain. He has not had any recent gout symptoms Patient History Medical History (Updated 10/23/21 @ 18:37 by Arthur Reyes MD) Chronic pain Hiatal hernia Hypertension Family & Social History Social History: household members none Safety & Behavioral: Feels Safe in Current Yes Environment Been Physically Hurt or No Threatened By a Person Suicidal Ideation Description None Suicide Plan Description No Plan Tobacco & Substance use: Tobacco type cigarettes Smoking Status Former smoker alcohol intake current alcohol intake frequency other Substance Use Type does not use Meds Home Medications and Allergies Home Medications Medication Instructions Recorded Confirmed Type Fluticasone Propionate (FLONASE) 1 spray INTRANASAL BID #0 spray 05/19/13 10/23/21 History fexofenadine 180 mg tablet 180 mg PO QDAY #0 05/19/13 10/23/21 History oxycodone-acetaminophen 5 mg-325 2 tab PO Q4HP PRN #0 tab 05/19/13 10/23/21 History mg tablet (Percocet) lansoprazole 30 mg capsule,delayed 30 mg PO QDAY #0 ecc 05/29/13 10/23/21 History release alprazolam 0.5 mg tablet 1 tab PO Q6H 06/27/18 10/23/21 History diltiazem HCl 300 mg 1 cap PO DAILY 06/27/18 10/23/21 History capsule,extended release 24 hr meloxicam 15 mg tablet 1 tab PO DAILY 06/27/18 10/23/21 History olmesartan 20 mg tablet 1 tab PO DAILY 06/27/18 10/23/21 History omeprazole 40 mg capsule,delayed 1 cap PO DAILY 06/27/18 10/23/21 History release oxycodone 10 mg tablet 1 tab PO QID 06/27/18 10/23/21 History ketorolac 10 mg tablet 10 mg PO TID PRN #14 tab 09/10/19 10/23/21 Rx cyclobenzaprine 10 mg tablet 10 mg PO TID PRN #10 tab 10/29/19 10/23/21 Rx ibuprofen 600 mg tablet 600 mg PO TID PRN #60 tab 10/29/19 10/23/21 Rx ketorolac 10 mg tablet 10 mg PO Q6H PRN #14 tab 08/21/20 10/23/21 Rx cephalexin 500 mg capsule 500 mg PO QID #12 cap 10/03/20 10/23/21 Rx Allergies Allergy/AdvReac Type Severity Reaction Status Date / Time procaine [From Novocain] Allergy Verified 10/23/21 15:29 Review of Systems Review of Systems Narrative: 12 point review of systems is negative otherwise than HPI Exam Vital Signs (past 8 hours): - 10/24/21 00:41 10/24/21 01:00 10/24/21 01:30 Temperature Pulse Rate 59 L 51 L 49 L Respiratory Rate 25 H 18 18 Blood Pressure 121/66 121/66 Pulse Oximetry 96 95 95 10/24/21 02:00 10/24/21 02:30 10/24/21 03:00 Temperature Pulse Rate 52 L 52 L 48 L Respiratory Rate 20 18 16 Blood Pressure Pulse Oximetry 95 92 94 10/24/21 03:30 10/24/21 04:00 10/24/21 04:10 Temperature Pulse Rate 51 L 67 70 Respiratory Rate 14 26 H 13 Blood Pressure 146/71 H Pulse Oximetry 94 95 92 10/24/21 04:20 10/24/21 04:30 10/24/21 05:00 Temperature 96.7 F L Pulse Rate 63 58 L 52 L Respiratory Rate 19 22 18 Blood Pressure 146/71 H Pulse Oximetry 95 94 94 10/24/21 05:30 10/24/21 06:00 10/24/21 06:30 Temperature Pulse Rate 53 L 49 L 48 L Respiratory Rate 20 16 17 Blood Pressure Pulse Oximetry 92 95 93 Oxygen Delivery Method Room Air Oxygen Flow Rate 0 Narrative Exam Narrative: Patient is alert and oriented in no apparent distress. He is lying in the hospital bed comfortably on room air. His vital signs are stable. Overnight his heart rate was in the 40s to 50s but has come up throughout the day and now is in the 60s. His blood pressure has been in the 1 teens and up into the 140s but back into the 1 teens after 20 mg of IV Lasix. He is a poor historian but has had a progressive illness over the last month and found to be COVID positive. HEENT: Unremarkable. He has no mucosal lesions orally. Neck: Supple without adenopathy, no thyromegaly or bruits Chest: He has decreased breath sounds bibasilar. There is no rhonchi or crackles or wheezes Cor: Regular rate and rhythm with distant S1-S2 Abdomen: Positive bowel sounds, soft, nontender, nondistended, no hepatosplenomegaly Extremities: No edema, pulses intact Neurologic exam is nonfocal, cranial nerves 2-12 are grossly intact Skin: No rashes Objective Labs Result Diagrams: 10/24/21 03:52 10/24/21 14:41 Labs: Laboratory Results - last 24 hr 10/23/21 10/23/21 10/23/21 16:30 16:30 16:30 WBC 10.8 RBC 5.97 H Hgb 16.6 Hct 49.4 MCV 82.6 MCH 27.8 MCHC 33.6 RDW 14.0 Plt Count 449 H Neut % (Auto) 69.2 Lymph % (Auto) 15.0 L [place] % (Auto) 10.8 Eos % (Auto) 4.3 H Baso % (Auto) 0.7 Neut # (Auto) 7400 H Lymph # (Auto) 1600 [place] # (Auto) 1200 H Eos # (Auto) 500 H Baso # (Auto) 100 PT 13.1 H INR 1.2 APTT 28 D-Dimer Sodium 133 L Potassium 4.7 Chloride 95 L Carbon Dioxide 30 BUN 78 H Creatinine 2.47 H Estimated GFR 26.0 L BUN/Creatinine Ratio 31.6 H Glucose 145 H Lactate Uric Acid Calcium 9.7 Ferritin Total Bilirubin 1.3 AST 93 H ALT 54 H Alkaline Phosphatase 103 Total Creatine Kinase CK-MB (CK-2) CK-MB (CK-2) Rel Index Troponin I NT-Pro-B Natriuret Pep Total Protein 9.6 H Albumin 4.5 Globulin 5.1 H Albumin/Globulin Ratio 0.9 L Lipase 403 H Procalcitonin 0.11 Urine Color Urine Appearance Urine pH Ur Specific [place] Urine Protein Urine Glucose (UA) Urine Ketones Urine Occult Blood Urine Nitrate Urine Bilirubin Urine Urobilinogen Ur Leukocyte Esterase Urine RBC Urine WBC Uric Acid Crystals Urine Bacteria Ur Culture Indicated? 10/23/21 10/23/21 10/23/21 16:30 16:30 20:50 WBC RBC Hgb Hct MCV MCH MCHC RDW Plt Count Neut % (Auto) Lymph % (Auto) [place] % (Auto) Eos % (Auto) Baso % (Auto) Neut # (Auto) Lymph # (Auto) [place] # (Auto) Eos # (Auto) Baso # (Auto) PT INR APTT D-Dimer Sodium Potassium Chloride Carbon Dioxide BUN Creatinine Estimated GFR BUN/Creatinine Ratio Glucose Lactate 1.4 Uric Acid Calcium Ferritin Total Bilirubin AST ALT Alkaline Phosphatase Total Creatine Kinase 358 H CK-MB (CK-2) 2.78 H CK-MB (CK-2) Rel Index 0.8 L Troponin I < 0.012 < 0.012 NT-Pro-B Natriuret Pep 141 H Total Protein Albumin Globulin Albumin/Globulin Ratio Lipase Procalcitonin Urine Color Urine Appearance Urine pH Ur Specific [place] Urine Protein Urine Glucose (UA) Urine Ketones Urine Occult Blood Urine Nitrate Urine Bilirubin Urine Urobilinogen Ur Leukocyte Esterase Urine RBC Urine WBC Uric Acid Crystals Urine Bacteria Ur Culture Indicated? 10/24/21 10/24/21 10/24/21 00:55 03:52 03:52 WBC RBC Hgb Hct MCV MCH MCHC RDW Plt Count Neut % (Auto) Lymph % (Auto) [place] % (Auto) Eos % (Auto) Baso % (Auto) Neut # (Auto) Lymph # (Auto) [place] # (Auto) Eos # (Auto) Baso # (Auto) PT INR APTT D-Dimer 2505 H Sodium Potassium Chloride Carbon Dioxide BUN Creatinine Estimated GFR BUN/Creatinine Ratio Glucose Lactate Uric Acid Calcium Ferritin Total Bilirubin AST ALT Alkaline Phosphatase Total Creatine Kinase 262 H CK-MB (CK-2) 2.34 CK-MB (CK-2) Rel Index 0.9 L Troponin I < 0.012 NT-Pro-B Natriuret Pep Total Protein Albumin Globulin Albumin/Globulin Ratio Lipase Procalcitonin Urine Color Yellow Urine Appearance Clear Urine pH 5.0 Ur Specific [place] 1.020 Urine Protein Negative Urine Glucose (UA) Negative Urine Ketones Negative Urine Occult Blood 3+ H Urine Nitrate Negative Urine Bilirubin Negative Urine Urobilinogen 0.2 Ur Leukocyte Esterase Trace H Urine RBC 1-5/hpf D Urine WBC 1-5/hpf Uric Acid Crystals Many H Urine Bacteria None seen Ur Culture Indicated? Specimen cultured 10/24/21 10/24/21 10/24/21 03:52 03:52 03:52 WBC 8.0 RBC 4.71 Hgb 13.2 L Hct 39.2 L MCV 83.2 MCH 28.0 MCHC 33.6 RDW 13.9 Plt Count 330 Neut % (Auto) 87.3 H Lymph % (Auto) 9.3 L [place] % (Auto) 2.4 L Eos % (Auto) 0.2 L Baso % (Auto) 0.8 Neut # (Auto) 7000 Lymph # (Auto) 700 L [place] # (Auto) 200 Eos # (Auto) 0 Baso # (Auto) 100 PT INR APTT D-Dimer Sodium 131 L Potassium 5.9 H D Chloride 101 Carbon Dioxide 27 BUN 62 H Creatinine 1.75 H Estimated GFR 38.7 L BUN/Creatinine Ratio 35.4 H Glucose 160 H Lactate Uric Acid Calcium 8.2 L Ferritin 1470 H Total Bilirubin 0.8 AST 64 H ALT 39 Alkaline Phosphatase 69 Total Creatine Kinase CK-MB (CK-2) CK-MB (CK-2) Rel Index Troponin I NT-Pro-B Natriuret Pep Total Protein 6.9 Albumin 3.3 L Globulin 3.6 Albumin/Globulin Ratio 0.9 L Lipase Procalcitonin Urine Color Urine Appearance Urine pH Ur Specific [place] Urine Protein Urine Glucose (UA) Urine Ketones Urine Occult Blood Urine Nitrate Urine Bilirubin Urine Urobilinogen Ur Leukocyte Esterase Urine RBC Urine WBC Uric Acid Crystals Urine Bacteria Ur Culture Indicated? 10/24/21 03:52 WBC RBC Hgb Hct MCV MCH MCHC RDW Plt Count Neut % (Auto) Lymph % (Auto) [place] % (Auto) Eos % (Auto) Baso % (Auto) Neut # (Auto) Lymph # (Auto) [place] # (Auto) Eos # (Auto) Baso # (Auto) PT INR APTT D-Dimer Sodium Potassium Chloride Carbon Dioxide BUN Creatinine Estimated GFR BUN/Creatinine Ratio Glucose Lactate Uric Acid 10.9 H Calcium Ferritin Total Bilirubin AST ALT Alkaline Phosphatase Total Creatine Kinase CK-MB (CK-2) CK-MB (CK-2) Rel Index Troponin I NT-Pro-B Natriuret Pep Total Protein Albumin Globulin Albumin/Globulin Ratio Lipase Procalcitonin Urine Color Urine Appearance Urine pH Ur Specific [place] Urine Protein Urine Glucose (UA) Urine Ketones Urine Occult Blood Urine Nitrate Urine Bilirubin Urine Urobilinogen Ur Leukocyte Esterase Urine RBC Urine WBC Uric Acid Crystals Urine Bacteria Ur Culture Indicated? Assessment & Plan Assessment & Plan narrative: A 71-year-old male admitted for COVID-19 pneumonia Assessment 1. COVID-19 pneumonia currently not required oxygen. Unclear how long he has had symptoms but it seems that this is been over 2 weeks. It is unclear what point he contracted the illness. It certainly seems that his symptoms from the COVID-19 are improving. He did receive 1 dose of dexamethasone on 10/23/2019 to in the ER. He was not treated with from Remdemisvir because of his poor renal function and is not currently meeting guidelines for treatment with this because he is not requiring oxygen. We will continue to monitor closely and use precautions. We will do inflammatory markers tomorrow as well as a CBC. At this point he does not appear to have a bacterial secondary infection based on the fact that he is afebrile and does not have a leukocytosis and is not requiring oxygen. Assessment 2. Acute kidney injury. This is a new diagnosis. I suspect this is related to dehydration secondary to COVID-19 illness. He has improved over night with IV fluid. Plan: We will continue the same. We will continue to monitor closely. We will hold Benicar. We will re-initiate once we have resolved this issue. Assessment 3. Hyperkalemia suspect this is lagging behind from his acute kidney injury despite that his GFR has improved overnight with IV fluids. He is not getting any potassium replacement Plan: Will go ahead and give Lasix 20 mg IV x1. Will reassess Assessment 4. Acute dehydration with associated hypotension improved with IV fluid resuscitation Plan: Will continue IV fluids but decrease the rate. We will gradually re-initiate his antihypertensives. Assessment 5. Hypertension with currently rising blood pressure this afternoon Plan: We will restart his metoprolol 25 mg tomorrow. Pending how he does will gradually increase and once kidney function improves will restart the Benicar. Patient has a history of difficulty controlling his blood pressure Assessment 6. Hyperuricemia with elevated uric acid in his urine and history of gout. I suspect this is more elevated due to his acute dehydration and acute kidney injury possibly even directly related to COVID-19 illness. He is not having any acute gout symptoms. At this point we will rehydrate with IV fluids and will continue to monitor Assessment 7. Gout without current symptoms Plan: I think if he continues to have elevated serum uric acid that we will start allopurinol. Certainly when his kidney function to be improved before reinitiate that. Assessment 8. DVT prophylaxis Plan: Will go ahead and treat with Lovenox Assessment 9. History of GERD Plan: Will go ahead and treat with pantoprazole Assessment 10. Chronic pain unchanged Plan: Continue outpatient regimen of OxyContin and oxycodone. Assessment 11. History of benzodiazepine usage and currently not on Plan: We will try to abstain from these medications during hospitalization Assessment 12. Elevated CK with negative troponins x3. Patient without acute symptoms. These were monitor due to hypotension on presentation and unclear history. Plan: I do not think any further treatment is indicated. We will do an echo. His BNPs have been normal. Patient is a full code 70 minutes was spent with patient discussing with the ER physician and nursing and meeting with patient and reviewing his chart and workup thus far and formulating a plan and documentation. Time Spent With Patient Critical Care time: I spent a total of [] minutes of critical care time on this patient's care today; this time is exclusive of procedural time. Quality VTE Deep Vein Thrombosis/Pulmonary Embolism Present on Admission: No
[2021-10-24] MEDS: SODIUM CHLORIDE 0.45% 1,000 ML 150 ML IV ×3 (08:57→23:35)
[2021-10-24] MEDS: ENOXAPARIN 40 MG/0.4 ML SYRINGE SUBCUT (09:00)
[2021-10-24] MEDS: DOCUSATE 100 MG CAPSULE PO ×2 (09:00→20:23)
[2021-10-24] MEDS: FUROSEMIDE 20 MG/2 ML VIAL IV (09:06)
--- NOTE | 2021-10-24 11:31 | PT.IIE ---
Current Diagnoses COVID-19 (10/23/21) Medical History (Last Reviewed 10/23/21 @ 17:53 by Arthur Reyes MD) Chronic pain Hiatal hernia Hypertension Physical Therapy Inpatient Evaluation/Re-Eval M1 PT/OT-IP Prior Functional Status Start: 10/24/21 13:35 Freq: NEEDED Status: Active Protocol: Document 10/24/21 11:31 AB (Rec: 10/24/21 13:50 AB [id number]) Medical Review Prior Functional Status Medical History Reviewed Yes Communication able to make needs known Mobility and Gait pt stated that he is modified independent with all mobilities and ambulation without AD but does not really walk much per pt Social History Household Members none Living Arrangements House Number of Floors (Floors) One Floor Number of Stairs To Enter/Railing? 2 steps B rails to enter Home Environment Walk in Shower Home Equipment Shower Seat without Backrest, Hand Held Shower,Grab Bars In Shower Additional Social History Comment pt stated that his daughters can assist him if needed M2 PT-IP Current Condition Start: 10/24/21 13:35 Freq: NEEDED Status: Active Protocol: Document 10/24/21 11:31 AB (Rec: 10/24/21 13:50 AB [email or web address]) Physical Therapy Current Condition Current Condition Evaluation Date 10/24/21 Treatment Diagnosis Covid; HORACE; difficulty in walking Onset Date 10/23/21 M3 PT-IP Subjective Start: 10/24/21 13:35 Freq: NEEDED Status: Active Protocol: Document 10/24/21 11:31 AB (Rec: 10/24/21 13:50 AB [email or web address]) Subjective Physical Therapy Visit Type Type Initial Evaluation Visit Start Time 11:31 Visit Stop Time 12:05 Total Visit Minutes 34 Number of MANAGER REGULATORY Visits 0 Physical Therapy Visit Comments Patient Comments pt is agreeable to do PT Therapy Pain Assessment Pain Present Pain Present Denied Pain M4 PT-IP Mobility and Gait Start: 10/24/21 13:35 Freq: NEEDED Status: Active Protocol: Document 10/24/21 11:31 AB (Rec: 10/24/21 13:50 AB [email or web address]) PT-Bed Mobility Assessment Supine to Sit Supine to Sit Independent Sit to Supine Sit to Supine Independent PT-Transfer Assessment Sit to and From Stand Sit to and from Stand Standby Assistance Equipment Transfer Assistive Device None,Gait Belt Orthotic/Prosthetic Devices or Brace: No Comments Mobility Comments pt completed supine to sit mod I. sit to stand SBA and ambulated in room without AD CGA. presents with antalgic gait and pt tends to reach for wall/bed/table to support. presents with increase L knee genuvalgus with ankle eversion , flatfootedness. informed pt regarding safety and agreed to use fWW. ambulated more in room using FWW ~ 40 ft SBA. presents with steadier gait compared to without and pt agreed to use. pt requested to go back to bed. mod I with bed mobility. call light and table within reach. pt without c/o SOB throughout tx session. O2 sat 94% Gait Assessment Gait Gait Assistance Required: Standby Assistance,Contact Guard Assist,1 Person Assist Distance (Feet) 40 Able to Maintain Weight Bearing Status Yes During Gait Assistive Devices Assistive Device None,Front Wheeled Walker Orthotic/Prosthetic Devices or Brace: No Gait Deviations General Gait Pattern Antalgic,Decreased Stride Length,Decreased Feet Clearance Factors Limiting Gait Function Factors Limiting Gait Function Decreased Activity Tolerance, Decreased Strength,Poor Balance,Poor Safety Awareness PT-Balance Assessment Sitting Balance and Reactions Static Sitting Balance Ability Good Dynamic Sitting Balance Ability Good Standing Balance and Reactions Static Standing Balance Ability Good Dynamic Standing Balance Ability Fair Device Used without AD M5 PT-IP Objective Assessments Start: 10/24/21 13:35 Freq: NEEDED Status: Active Protocol: Document 10/24/21 11:31 AB (Rec: 10/24/21 13:50 AB [email or web address]) Orientation Orientation/Cognition Level of Alertness Alert Orientation Name Safety Awareness Decreased Safety Awareness Memory Description Short Term Impaired Gross Range of Motion Lower Extremity ROM Impairments B ankle tightness with decrease DF Strength Lower Extremity Strength Hip 4-/5 Knee 4-/5 Sensation Assessment Sensation Gross Sensation WNL Muscle Tone Muscle Tone WNL Yes M6 PT-IP Treatment Start: 10/24/21 13:35 Freq: NEEDED Status: Active Protocol: Document 10/24/21 11:31 AB (Rec: 10/24/21 13:50 AB [email or web address]) Physical Therapy Treatment Education Education Provided Safety M7 PT-IP Assessment and Plan Start: 10/24/21 13:35 Freq: NEEDED Status: Active Protocol: Document 10/24/21 11:31 AB (Rec: 10/24/21 13:50 AB [email or web address]) PT Summary Assessment and Plan Potential Rehabilitation Potential Fair Status of Condition at Evaluation Stable Summary Impairments Pain,ROM,Strength,Balance, Coordination,Sensation,Tone, Cognition,Bed Mobility, Transfers,Gait,Activity Tolerance Assessment Summary pt requiring SBA to CGA with mobility but recommending use of FWW at this time for safety . Pt understood and agreed. will continue to assess progress. Goals Transfer Goal Independent,Front Wheeled Walker Gait Goal Independent,Front Wheel Walker Gait Distance 200 Other Goals improve transfers mod I without AD improve ambulation without AD 100 ft SBA up/down 2 steps B rails mod I Days to Meet Goals 10 Frequency of Treatment Frequency Of Treatment Once a Day Treatment Plan Physical Therapy Treatment Plan Bed Mobility Training,Transfer Training,Gait Training, Therapeutic Exercise,Balance Retraining,Discharge Planning, Hot or Cold Pack,Neuromuscular Re-ed,Coordination Retraining Precautions Other Precautions Covid prec. Recommendations To Nursing Amount of Assist Needed 1 Person Assist Discharge Recommendations PT Discharge Recommendations Home with Assistance Equipment Needed for Home Before FWW if not safe without AD Discharge Transportation Needs at Discharge Private Vehicle
[2021-10-24 15:05] LABS: BUN Creatinine Ratio 32.8 (6-22); Blood Urea Nitrogen 58 mg/dL (9-20); Calcium 8.8 mg/dL (8.4-10.2); Carbon Dioxide 24 mmol/L (22-32); Chloride 101 mmol/L (98-107); Estimated Glomerular Filt Rate 38.2 mL/min (>60); Glucose 140 mg/dL (80-110); HEMOLYSIS < 15 (0-50); Potassium 5.1 mmol/L (3.4-5.1); Sodium 133 mmol/L (137-145); Uric Acid 10.4 mg/dL (3.5-8.5)
[2021-10-24] MEDS: SENNOSIDES 8.6 MG TABLET 17.2 MG PO (20:24)
[2021-10-24] MEDS: MELATONIN 3 MG TABLET 9 MG PO (20:24)
[2021-10-24] MEDS: ATORVASTATIN 20 MG TABLET 80 MG PO (20:25)
[2021-10-25] VITALS (33 sets, daily range): BP systolic 120–145; BP diastolic 59–75; PULSE 47–82; RESP 12–27; TEMP 36.2–36.6; O2SAT 92–96
[2021-10-25] MEDS: OXYCODONE IR 10 MG TABLET PO ×6 (00:50→21:22)
[2021-10-25 06:20] LABS: Add Manual Diff / Slide Review NO; Basophils Absolute Auto 100 /uL (0-100); Basophils Percent Auto 0.6 % (0-2); Eosinophils Absolute Auto 100 /uL (0-450); Eosinophils Percent Auto 1.2 % (2-4); Hematocrit 38.3 % (41-53); Lymphocytes Absolute Auto 800 /uL (1100-4500); Lymphocytes Percent Auto 8.6 % (25-40); Mean Corpuscular Hemoglobin 28.1 PG (26-34); Mean Corpuscular Volume 82.7 fL (80-100); Monocytes Absolute Auto 800 /uL (0-900); Monocytes Percent Auto 8.4 % (3-14); Neutrophils Absolute Auto 7900 /uL (1500-7000); Neutrophils Percent Auto 81.2 % (50-75); Platelet Count 308 X10^3/uL (150-400); Red Blood Cell Count 4.63 X10^6/uL (4.5-5.9); Red Cell Distribution Width 13.7 % (11.6-14.8); White Blood Cell Count 9.7 X10^3/uL (4.5-11.0)
[2021-10-25 06:24] LABS: Alanine Aminotransferase 38 IU/L (<50); Albumin 3.4 g/dL (3.5-5.0); Albumin Globulin Ratio 0.9 (1.0-2.8); Alkaline Phosphatase 65 U/L (38-126); Aspartate Aminotransferase 60 IU/L (17-59); BUN Creatinine Ratio 29.1 (6-22); Bilirubin Total 0.8 mg/dL (0.2-1.3); Blood Urea Nitrogen 46 mg/dL (9-20); Calcium 8.6 mg/dL (8.4-10.2); Carbon Dioxide 26 mmol/L (22-32); Chloride 102 mmol/L (98-107); Estimated Glomerular Filt Rate 43.6 mL/min (>60); Globulin 3.7 g/dL (1.7-4.1); Glucose 133 mg/dL (80-110); HEMOLYSIS < 15 (0-50); Potassium 4.8 mmol/L (3.4-5.1); Sodium 132 mmol/L (137-145); Total Protein 7.1 g/dL (6.3-8.2); Uric Acid 9.2 mg/dL (3.5-8.5)
[2021-10-25 06:29] LABS: D Dimer 3440 ng/mL (<230)
[2021-10-25] MEDS: SODIUM CHLORIDE 0.45% 1,000 ML 150 ML IV ×2 (06:46→21:24)
[2021-10-25 07:59] LABS: Ferritin 1340 ng/mL (18-464)
[2021-10-25] MEDS: ENOXAPARIN 40 MG/0.4 ML SYRINGE SUBCUT (08:03)
[2021-10-25] MEDS: DOCUSATE 100 MG CAPSULE PO (08:03)
[2021-10-25] MEDS: METOPROLOL ER 25 MG TABLET PO (08:03)
--- NOTE | 2021-10-25 10:31 | PM.PN.1 ---
Subjective Subjective Date Patient Seen: 10/25/21 Time Patient Seen: 10:31 Interval history: Patient had uneventful night. Slept poorly due to interruptions. Reports that he was able to eat breakfast this morning without any nausea or vomiting. Denies any chest pain. No shortness of breath. No extremity pain. Worried about his bull dogs at home not getting any care. He does live alone and is socially isolated. Has several children but they are apparently on drugs. Exam Vital Signs (past 8 hours): - 10/25/21 04:00 10/25/21 07:00 10/25/21 08:00 Temperature 97.1 F L 98 F Pulse Rate 60 78 Respiratory Rate 15 27 H Blood Pressure 122/59 L 145/75 H Pulse Oximetry 95 95 96 10/25/21 08:35 10/25/21 10:30 Temperature Pulse Rate 80 Respiratory Rate Blood Pressure 145/75 H Pulse Oximetry 93 Oxygen Delivery Method Room Air Oxygen Flow Rate 0 Narrative Exam Narrative: GENERAL: Alert and oriented, appearing stated age and in no acute distress. HEENT: Head normocephalic/atraumatic. Extraocular movements intact. LUNGS: Clear to ausculation bilaterally, no wheezes, rhonchi or rales. CV: Normal S1 and S2 with regular rate and rhythm, no audible murmurs, rubs or gallops. ABDOMEN: Soft, non-tender, non-distended, no organomegaly. Positive bowel sounds. EXTREMITIES: No erythema of either distal extremities. Negative Suzanne's sign bilaterally. NEURO: Cranial nerves II through XII grossly intact, no focal deficits. PSYCH: Alert and oriented x 3. SKIN: No concerning lesions. Objective Labs Result Diagrams: 10/25/21 05:58 10/25/21 05:58 Labs: Laboratory Results - last 24 hr 10/24/21 10/25/21 10/25/21 14:41 05:58 05:58 WBC 9.7 RBC 4.63 Hgb 13.0 L Hct 38.3 L MCV 82.7 MCH 28.1 MCHC 34.0 RDW 13.7 Plt Count 308 Neut % (Auto) 81.2 H Lymph % (Auto) 8.6 L [place] % (Auto) 8.4 Eos % (Auto) 1.2 L Baso % (Auto) 0.6 Neut # (Auto) 7900 H Lymph # (Auto) 800 L [place] # (Auto) 800 Eos # (Auto) 100 Baso # (Auto) 100 D-Dimer 3440 H Sodium 133 L Potassium 5.1 Chloride 101 Carbon Dioxide 24 BUN 58 H Creatinine 1.77 H Estimated GFR 38.2 L BUN/Creatinine Ratio 32.8 H Glucose 140 H Uric Acid 10.4 H Calcium 8.8 Ferritin Total Bilirubin AST ALT Alkaline Phosphatase Total Protein Albumin Globulin Albumin/Globulin Ratio 10/25/21 05:58 WBC RBC Hgb Hct MCV MCH MCHC RDW Plt Count Neut % (Auto) Lymph % (Auto) [place] % (Auto) Eos % (Auto) Baso % (Auto) Neut # (Auto) Lymph # (Auto) [place] # (Auto) Eos # (Auto) Baso # (Auto) D-Dimer Sodium 132 L Potassium 4.8 Chloride 102 Carbon Dioxide 26 BUN 46 H Creatinine 1.58 H Estimated GFR 43.6 L BUN/Creatinine Ratio 29.1 H Glucose 133 H Uric Acid 9.2 H Calcium 8.6 Ferritin 1340 H Total Bilirubin 0.8 AST 60 H ALT 38 Alkaline Phosphatase 65 Total Protein 7.1 Albumin 3.4 L Globulin 3.7 Albumin/Globulin Ratio 0.9 L PFSH Medical History (Updated 10/23/21 @ 18:37 by Arthur Reyes MD) Chronic pain Hiatal hernia Hypertension Social History household members: none Smoking Status: Former smoker alcohol intake: current Assessment & Plan Assessment & Plan narrative: A 71-year-old male admitted for COVID-19 pneumonia, HD#1 1. COVID-19 pneumonia currently not requiring oxygen.? -Unclear how long he has had symptoms but it seems that it has been over 2 weeks.? -Status post 1 dose of dexamethasone on 10/23/2021 in the ER.? -Not treated with Remdemisvir because of his poor renal function and not currently meeting guidelines for treatment with this because he is not requiring oxygen.? Plan: No evidence of secondary bacterial infection, continue supportive care and monitoring. Inflammatory markers going up in setting of possible gout with hyperuricemia and hyperuria, will give dexamethasone for dual effect. 2.? Acute kidney injury, new -Likely due to dehydration from COVID-19 illness, improving with IVF.? Plan: Continue IVF, will trend labs. 3.? Hyperkalemia, acute, resolved Plan: Will trend BMP. 4.? Acute dehydration with associated hypotension -Secondary to COVID -Improved with IV fluid resuscitation -Hypotension now back to baseline hypertension Plan:? Continue IV fluids at decreased rate.? Have restarted home metoprol today, will restart losartan as well. 5. Hypertension, chronic, now uncontrolled Plan:? Please see #4. 6.? Hyperuricemia with elevated uric acid in his urine and history of gout.? Plan: Etiology unclear, gout vs. dehydration. Dexamethasone dual coverage as noted in #1. Will continue IVF and trend labs. 7.? Gout, history of, no current symptoms Plan:? Will trend labs, may need allopurinol prior to discharge after kidney function improves.? 8. DVT prophylaxis Plan:? Lovenox. 9. History of GERD Plan: Pantoprazole. 10. Chronic pain, unchanged Plan: Continue outpatient regimen of oxycodone. 11.? Elevated CK with negative troponins x3.? -Patient without acute symptoms.? -BNPs normal. Plan: Echo.? 12. High social risk -Socially isolated -History of drug problems in the family Plan: Pastoral care consult. Code: Full Dispo: at least one more night. Time Spent With Patient Critical Care time: I spent a total of 35 minutes of critical care time on this patient's care today; this time is exclusive of procedural time. Quality VTE Deep Vein Thrombosis/Pulmonary Embolism Present on Admission: No
[2021-10-25] MEDS: LOSARTAN 50 MG TABLET PO (12:07)
[2021-10-25] MEDS: DEXAMETHASONE 10 MG/ML VIAL 6 MG IV (12:07)
--- NOTE | 2021-10-25 15:05 | PT.IPTN ---
Current Diagnoses COVID-19 (10/23/21) Physical Therapy Treatment Note M2 PT-IP Current Condition Start: 10/24/21 13:35 Freq: NEEDED Status: Active Protocol: Document 10/24/21 11:31 AB (Rec: 10/24/21 13:50 AB [id number]) Physical Therapy Current Condition Current Condition Evaluation Date 10/24/21 Treatment Diagnosis Covid; HORACE; difficulty in walking Onset Date 10/23/21 M3 PT-IP Subjective Start: 10/24/21 13:35 Freq: NEEDED Status: Active Protocol: Document 10/25/21 14:45 KS (Rec: 10/25/21 15:28 KS [id number]) Subjective Physical Therapy Visit Type Type Treatment Note Visit Start Time 14:45 Visit Stop Time 15:05 Total Visit Minutes 20 Number of SUPERVISOR COVERING AND LINING Visits 1 Physical Therapy Visit Comments Patient Comments pt is agreeable to do PT M4 PT-IP Mobility and Gait Start: 10/24/21 13:35 Freq: NEEDED Status: Active Protocol: Document 10/25/21 14:45 KS (Rec: 10/25/21 15:28 KS [id number]) PT-Bed Mobility Assessment Supine to Sit Supine to Sit Independent Sit to Supine Sit to Supine Independent Scooting Scooting to Edge of Bed Independent PT-Transfer Assessment Sit to and From Stand Sit to and from Stand Standby Assistance Equipment Transfer Assistive Device Gait Belt,Front Wheeled Walker Orthotic/Prosthetic Devices or Brace: No Transfers Transfer Destination Bed Transfer Technique Pt ambulated Transfer Ability Level of Assist Standby Assistance,1 Person Assistance,Use of Upper Extremities Comments Mobility Comments Pt in bed upon arrival and agreeable to practice step. Per RN and patient, he has been getting in and out of bed independently today. Pt I for sup<>sit and scooting, SBA for sit<>Stand and SBA for 2x step w/ FWW. Pt denied SOB or fatigue following and requested to stay seated EOB to make phone calls and asked to be disconnected from IV to use bathroom, RN notified. Pt left w/ all needs in reach. Gait Assessment Gait Gait Assistance Required: Standby Assistance,1 Person Assist Distance (Feet) 10 Able to Maintain Weight Bearing Status Yes During Gait Assistive Devices Assistive Device None,Front Wheeled Walker Orthotic/Prosthetic Devices or Brace: No Gait Deviations General Gait Pattern Antalgic,Decreased Stride Length,Decreased Feet Clearance Factors Limiting Gait Function Factors Limiting Gait Function Decreased Activity Tolerance, Decreased Strength,Poor Balance,Poor Safety Awareness Comments Gait Comments Pt only ambulated to and from step SBA w/ FWW. Pt states he would like to continue to progress gait w/ PT but not today as he has important phone calls to make. Stair Climbing Assessment Evaluation Level of Assist On Stairs Standby Assistance,1 Person Assistance Devices Stair Climbing Assistive Devices Front Wheel Walker Technique/Endurance Stair Climbing Direction Ascend and Descend Stair Climbing Technique Step to Step Number of Steps Climbed 1 Stair Climbing Set # Repetitions (reps) 2 Comments Stair Climbing Comments 2x step stool w/ FWW over top for BUE support SBA step to pattern. No LOB, deneid SOB or fatigue. PT-Balance Assessment Sitting Balance and Reactions Static Sitting Balance Ability Good Dynamic Sitting Balance Ability Good Standing Balance and Reactions Static Standing Balance Ability Good Dynamic Standing Balance Ability Good Device Used FWW M5 PT-IP Objective Assessments Start: 10/24/21 13:35 Freq: NEEDED Status: Active Protocol: Document 10/24/21 11:31 AB (Rec: 10/24/21 13:50 AB [id number]) Orientation Orientation/Cognition Level of Alertness Alert Orientation Name Safety Awareness Decreased Safety Awareness Memory Description Short Term Impaired Gross Range of Motion Lower Extremity ROM Impairments B ankle tightness with decrease DF Strength Lower Extremity Strength Hip 4-/5 Knee 4-/5 Sensation Assessment Sensation Gross Sensation WNL Muscle Tone Muscle Tone WNL Yes M6 PT-IP Treatment Start: 10/24/21 13:35 Freq: NEEDED Status: Active Protocol: Document 10/25/21 14:45 KS (Rec: 10/25/21 15:28 KS [id number]) Physical Therapy Treatment Education Education Provided Safety Other Treatments Other Treatment Performed Discussed HHPT or caregiver due to pts request for increased assistance at home, however per RN and pt he has been moving independently in room. Pt stating I have the best insurance in the world and they shoud cover anything including 24/7 caregiver when suggested outpatient physical therapy to improve balance, strength, and activity tolerance pt stated every PT I have ever worked with has done more harm than good to my body. M7 PT-IP Assessment and Plan Start: 10/24/21 13:35 Freq: NEEDED Status: Active Protocol: Document 10/25/21 14:45 FL (Rec: 10/25/21 15:28 KS [id number]) PT Summary Assessment and Plan Potential Rehabilitation Potential Fair Status of Condition at Evaluation Stable Summary Impairments Pain,ROM,Strength,Balance, Coordination,Sensation,Tone, Cognition,Bed Mobility, Transfers,Gait,Activity Tolerance Assessment Summary Pt Independenetly moving around room in and out of bed, SBA for 2x step stool w/ FWW over step for BUE support. Pt agrees to use FWW for safety and energy conservation. Pt states he would like 22/03 caregiver at home and states he does not want outpatient rehab to improve mobility at this time. Goals Transfer Goal Independent,Front Wheeled Walker Gait Goal Independent,Front Wheel Walker Gait Distance 200 Other Goals improve transfers mod I without AD improve ambulation without AD 100 ft SBA up/down 2 steps B rails mod I Days to Meet Goals 10 Frequency of Treatment Frequency Of Treatment Once a Day Treatment Plan Physical Therapy Treatment Plan Bed Mobility Training,Transfer Training,Gait Training, Therapeutic Exercise,Balance Retraining,Discharge Planning, Hot or Cold Pack,Neuromuscular Re-ed,Coordination Retraining Precautions Other Precautions Covid prec. Recommendations To Nursing Amount of Assist Needed 1 Person Assist Discharge Recommendations PT Discharge Recommendations Home with Assistance Equipment Needed for Home Before FWW if not safe without AD Discharge Transportation Needs at Discharge Private Vehicle
[2021-10-25] MEDS: SENNOSIDES 8.6 MG TABLET 17.2 MG PO (21:23)
[2021-10-26] VITALS: BP 146/86; PULSE 84; RESP 19; TEMP 36.6; O2SAT 94
[2021-10-26] MEDS: OXYCODONE IR 10 MG TABLET PO ×6 (02:00→21:22)
[2021-10-26] MEDS: SODIUM CHLORIDE 0.45% 1,000 ML 150 ML IV ×3 (03:53→21:23)
[2021-10-26 04:00] VITALS: BP 124/74; PULSE 80; RESP 17; TEMP 36.3; O2SAT 96
--- NOTE | 2021-10-26 08:04 | CM.IDA ---
Initial DCP Assessment Note Pt is a 71 yo male, resident of [place], sent from [facility] for weakness, low sats, C19+ and admitted for C19 pneumonia. Patient currently not requiring O2 and ambulating independently around his room. PCP: Hosea Reyes Payer: [facility] Reviewed chart, pt discussed with Dr Mcknight 10.25.21. Dr Mcknight hopeful patient will DC home today 10.26.21; states patient is socially isolated and apparently there is much dysfunction and drug abuse throughout patient's family. Patient is unvaccinated against C19 and reports he has not been eating or drinking many fluids for 2 weeks. Patient denies illicit drug use, endorses ETOH but daily amount unknown Patient plans to return home; patient cleared by the therapy team for this plan. Patient does not qualify for services as he is indp. and driving. Dr Mcknight has requested Pastoral care services for support around patient's report of family dysfunction. Plan: DC home upon medical clearance, likely via pov ROCÍO Hall Discharge Planning/Care Management CM Discharge Assessment Start: 10/26/21 07:56 Freq: Status: Active Protocol: Document 10/26/21 07:56 ALEXANDRA (Rec: 10/26/21 08:04 ALEXANDRA [id number]) Discharge Planning Assessment Assigned Spa SupervisorROCÍO Crane DPOA/Assigned Designee Name Alem Donohue dtr Contact Information [phone] Advance Directives? No History Provided By Patient,Medical Record Prior Living Arrangements House Household Members none Type of transporation used prior to Drives own vehicle admit Independent with ADL's Yes Is patient alert and oriented? Yes Barriers to Discharge No Comment Home via pov, close outpatient f/u Discharge Plan Home Transportation Arrangement Self vs friend ? C19+ is a barrier Referrals Initiated None needed
[2021-10-26 08:32] LABS: Hematocrit 37.4 % (41-53); Hemoglobin 12.6 g/dL (13.5-17.5); Mean Corpuscular HGB Conc 33.7 % (30-36); Mean Corpuscular Hemoglobin 27.9 PG (26-34); Mean Corpuscular Volume 82.8 fL (80-100); Platelet Count 300 X10^3/uL (150-400); Red Blood Cell Count 4.52 X10^6/uL (4.5-5.9); Red Cell Distribution Width 13.9 % (11.6-14.8)
[2021-10-26 08:36] LABS: BUN Creatinine Ratio 23.2 (6-22); Blood Urea Nitrogen 35 mg/dL (9-20); Calcium 8.6 mg/dL (8.4-10.2); Carbon Dioxide 25 mmol/L (22-32); Chloride 104 mmol/L (98-107); Estimated Glomerular Filt Rate 45.9 mL/min (>60); Glucose 127 mg/dL (80-110); HEMOLYSIS < 15 (0-50); Potassium 5.2 mmol/L (3.4-5.1); Sodium 134 mmol/L (137-145)
[2021-10-26] MEDS: DEXAMETHASONE 10 MG/ML VIAL 6 MG IV (08:51)
[2021-10-26] MEDS: ENOXAPARIN 40 MG/0.4 ML SYRINGE SUBCUT (08:52)
[2021-10-26] MEDS: LOSARTAN 50 MG TABLET PO (08:52)
[2021-10-26] MEDS: METOPROLOL ER 25 MG TABLET PO (08:52)
[2021-10-26 09:00] VITALS: BP 145/85; PULSE 78; RESP 16; TEMP 36.6; O2SAT 96
[2021-10-26 09:23] LABS: Add Manual Diff / Slide Review YES
[2021-10-26 09:25] LABS: Neutrophils Absolute Manual 6930 /uL (3000-5900); RBC Morphology Normal Morphology; Total Cells Counted 100
--- NOTE | 2021-10-26 11:41 | PM.PN.1 ---
Subjective Subjective Date Patient Seen: 10/26/21 Time Patient Seen: 10:30 Interval history: Patient had an uneventful night, now resting more. Still very worried about going home alone. He is socially isolated. [place] that this event might have brought his kids closer to him but he does not think that is going to happen. Knows that he needs to move out of his home and find something that is more modern and suitable to his needs. Appetite improved, tolerating diet with no nausea or vomiting. Ambulating up to the bathroom. Chronic pain at baseline. Exam Vital Signs (past 8 hours): - 10/26/21 04:00 10/26/21 09:00 Temperature 97.3 F L 98 F Pulse Rate 80 78 Respiratory Rate 17 16 Blood Pressure 124/74 145/85 H Pulse Oximetry 96 96 Oxygen Delivery Method Room Air Oxygen Flow Rate 0 Narrative Exam Narrative: GENERAL:? Alert and oriented, appearing stated age and in no acute distress. HEENT:? Head normocephalic/atraumatic.? Extraocular movements intact. LUNGS:? Clear to ausculation bilaterally, no wheezes, rhonchi or rales. CV:? Normal S1 and S2 with regular rate and rhythm, no audible murmurs, rubs or gallops. ABDOMEN:? Soft, non-tender, non-distended, no organomegaly.? Positive bowel sounds. EXTREMITIES:? No erythema of either distal extremities.? Negative Suzanne's sign bilaterally. NEURO:? Cranial nerves II through XII grossly intact, no focal deficits. PSYCH:? Alert and oriented x 3. SKIN:? No concerning lesions. Objective Labs Result Diagrams: 10/26/21 08:14 10/26/21 08:14 Labs: Laboratory Results - last 24 hr 10/26/21 10/26/21 08:14 08:14 WBC 9.0 RBC 4.52 Hgb 12.6 L Hct 37.4 L MCV 82.8 MCH 27.9 MCHC 33.7 RDW 13.9 Plt Count 300 Neut % (Auto) Not Reportable Lymph % (Auto) Not Reportable Rhea % (Auto) Not Reportable Eos % (Auto) Not Reportable Baso % (Auto) Not Reportable Lymph # (Auto) Not Reportable Rhea # (Auto) Not Reportable Baso # (Auto) Not Reportable Total Counted 100 Seg Neutrophils % 75.0 H Band Neutrophils % 2.0 L Lymphocytes % (Manual) 12.0 L Monocytes % (Manual) 10.0 Metamyelocytes % 1.0 H Neutrophils # (Manual) 6930 H RBC Morphology Normal morphology Sodium 134 L Potassium 5.2 H Chloride 104 Carbon Dioxide 25 BUN 35 H Creatinine 1.51 H Estimated GFR 45.9 L BUN/Creatinine Ratio 23.2 H Glucose 127 H Calcium 8.6 PFSH Medical History (Updated 10/23/21 @ 18:37 by Arthur Reyes MD) Chronic pain Hiatal hernia Hypertension Social History household members: none Smoking Status: Former smoker alcohol intake: current Assessment & Plan Assessment & Plan narrative: A 71-year-old male admitted for COVID-19 pneumonia, HD#2 1. COVID-19 pneumonia currently not requiring oxygen.? -Unclear how long he has had symptoms but it seems that it has been over 2 weeks.? -Received 1 dose of dexamethasone on 10/23/2021 in the ER.? -Not treated with Remdemisvir because of his poor renal function and not currently meeting guidelines for treatment with this because he is not requiring oxygen.? Plan:? No evidence of secondary bacterial infection. Continue supportive care and monitoring of inflammatory markers which are going up. Continue dexamethasone. 2.? Acute kidney injury, new, very slight improvement -Likely due to dehydration from COVID-19 illness, improving with IVF.? Plan: Continue 1/2NS at 150 cc/hour, will trend labs. 3.? Hyperkalemia, acute, resolved, now back again, likely secondary to ARF 4.7-->5.9-->5.1-->4.8-->5.2 Plan:? Very minor at this point, will continue to hydrate and monitor BMP. 4.? Acute dehydration, resolving -Secondary to COVID -Improved with IV fluid resuscitation -Hypotension now back to baseline hypertension Plan:? Continue IV fluids. 5. Hypertension, chronic, labile Plan:? Continue home metoprolol and losartan. 6.? Hyperuricemia with elevated uric acid in his urine and history of gout.? Plan:? Etiology unclear, gout vs. dehydration.? Dexamethasone for dual coverage as noted in #1. Will continue IVF and trend labs. 7.? Gout, history of, no current symptoms Plan:? May need allopurinol prior to discharge after kidney function improves.? 8. DVT prophylaxis Plan:? Lovenox. 9. History of GERD Plan:? Pantoprazole. 10. Chronic pain, unchanged Plan: Continue outpatient regimen of oxycodone. 11.? Elevated CK with negative troponins x3.? -Patient without acute symptoms.? -BNPs normal. Plan: Echo.? 12.? High social risk -Socially isolated -History of drug problems in the family Plan:? Pastoral care consult. Code:? Full Dispo:?1-2 more days. Quality VTE Deep Vein Thrombosis/Pulmonary Embolism Present on Admission: No
[2021-10-26 12:00] VITALS: BP 151/79; PULSE 81; RESP 16; TEMP 36.6; O2SAT 95
--- NOTE | 2021-10-26 12:15 | PM.PNPO.1 ---
Exam Vital Signs (past 8 hours): - 10/26/21 09:00 Temperature 98 F Pulse Rate 78 Respiratory Rate 16 Blood Pressure 145/85 H Pulse Oximetry 96 Oxygen Delivery Method Room Air Oxygen Flow Rate 0 Narrative Exam Narrative: Patient is feeling more well rested today. Still afraid to go home alone. Prior to admission, he became so dehydrated that he found himself lying on the floor with just a thin blanket over him. He was not sure how long he had been there. Worried about that situation repeating itself again, socially isolated. Wondering out loud if this event will turn things around with his kids. Quickly states, I don't think so. Does feel like his appetite is coming back and he is able to drink more. Kidneys are making very slow recovery but trending in a positive direction. He remains off oxygen. Denies any nausea or vomiting. No acute pain. Ambulating around his room. Objective Labs Result Diagrams: 10/26/21 08:14 10/26/21 08:14 Labs: Laboratory Results - last 24 hr 10/26/21 10/26/21 08:14 08:14 WBC 9.0 RBC 4.52 Hgb 12.6 L Hct 37.4 L MCV 82.8 MCH 27.9 MCHC 33.7 RDW 13.9 Plt Count 300 Neut % (Auto) Not Reportable Lymph % (Auto) Not Reportable [place] % (Auto) Not Reportable Eos % (Auto) Not Reportable Baso % (Auto) Not Reportable Lymph # (Auto) Not Reportable [place] # (Auto) Not Reportable Baso # (Auto) Not Reportable Total Counted 100 Seg Neutrophils % 75.0 H Band Neutrophils % 2.0 L Lymphocytes % (Manual) 12.0 L Monocytes % (Manual) 10.0 Metamyelocytes % 1.0 H Neutrophils # (Manual) 6930 H RBC Morphology Normal morphology Sodium 134 L Potassium 5.2 H Chloride 104 Carbon Dioxide 25 BUN 35 H Creatinine 1.51 H Estimated GFR 45.9 L BUN/Creatinine Ratio 23.2 H Glucose 127 H Calcium 8.6 PFSH Medical History (Updated 10/23/21 @ 18:37 by Arthur Reyes MD) Chronic pain Hiatal hernia Hypertension Social History household members: none Smoking Status: Former smoker alcohol intake: current Quality VTE Deep Vein Thrombosis/Pulmonary Embolism Present on Admission: No
--- NOTE | 2021-10-26 14:55 | PT-IP ANOTE ---
Reviewed chart and discussed pt with RN who states pt has been ambulating independently in the room. PT notes from yesterday indicate pt was SBA with FWW and was able to manage stairs SBA. No further acute needs are identified. PT will complete current orders.
[2021-10-26 17:50] VITALS: BP 144/88; PULSE 71; RESP 16; TEMP 36.6; O2SAT 97
[2021-10-26 20:00] VITALS: BP 129/77; PULSE 68; RESP 19; TEMP 36.3; O2SAT 95
[2021-10-26] MEDS: MELATONIN 3 MG TABLET 9 MG PO (21:22)
[2021-10-26] MEDS: SENNOSIDES 8.6 MG TABLET 17.2 MG PO (21:22)
[2021-10-26] MEDS: DOCUSATE 100 MG CAPSULE PO (21:22)
[2021-10-26] MEDS: ATORVASTATIN 20 MG TABLET 80 MG PO (21:23)
[2021-10-27] VITALS: BP 131/68; PULSE 68; RESP 19; TEMP 36.2; O2SAT 94
[2021-10-27] MEDS: OXYCODONE IR 10 MG TABLET PO ×4 (01:46→12:50)
[2021-10-27 04:00] VITALS: BP 147/86; PULSE 67; RESP 19; TEMP 36.6; O2SAT 96
[2021-10-27] MEDS: SODIUM CHLORIDE 0.45% 1,000 ML 150 ML IV (04:09)
[2021-10-27 05:39] LABS: Add Manual Diff / Slide Review NO; Basophils Absolute Auto 0 /uL (0-100); Basophils Percent Auto 0.5 % (0-2); Eosinophils Absolute Auto 0 /uL (0-450); Eosinophils Percent Auto 0.2 % (2-4); Hematocrit 37.5 % (41-53); Hemoglobin 12.6 g/dL (13.5-17.5); Lymphocytes Absolute Auto 1100 /uL (1100-4500); Mean Corpuscular HGB Conc 33.6 % (30-36); Mean Corpuscular Hemoglobin 27.8 PG (26-34); Mean Corpuscular Volume 82.5 fL (80-100); Monocytes Absolute Auto 1100 /uL (0-900); Monocytes Percent Auto 11.5 % (3-14); Neutrophils Absolute Auto 7100 /uL (1500-7000); Neutrophils Percent Auto 75.8 % (50-75); Platelet Count 277 X10^3/uL (150-400); Red Blood Cell Count 4.55 X10^6/uL (4.5-5.9); Red Cell Distribution Width 13.9 % (11.6-14.8); White Blood Cell Count 9.3 X10^3/uL (4.5-11.0)
[2021-10-27 05:49] LABS: Alanine Aminotransferase 51 IU/L (<50); Albumin 3.3 g/dL (3.5-5.0); Albumin Globulin Ratio 0.9 (1.0-2.8); Alkaline Phosphatase 57 U/L (38-126); Aspartate Aminotransferase 62 IU/L (17-59); BUN Creatinine Ratio 21.9 (6-22); Bilirubin Total 0.7 mg/dL (0.2-1.3); Blood Urea Nitrogen 33 mg/dL (9-20); Calcium 8.7 mg/dL (8.4-10.2); Carbon Dioxide 27 mmol/L (22-32); Chloride 104 mmol/L (98-107); Estimated Glomerular Filt Rate 45.9 mL/min (>60); Globulin 3.6 g/dL (1.7-4.1); Glucose 135 mg/dL (80-110); HEMOLYSIS < 15 (0-50); Potassium 4.7 mmol/L (3.4-5.1); Sodium 135 mmol/L (137-145); Total Protein 6.9 g/dL (6.3-8.2); Uric Acid 6.4 mg/dL (3.5-8.5)
[2021-10-27 05:54] LABS: D Dimer 2826 ng/mL (<230)
[2021-10-27] MEDS: PANTOPRAZOLE DR 40 MG TABLET PO (06:47)
[2021-10-27 07:26] VITALS: O2SAT 93
[2021-10-27 08:00] VITALS: BP 158/86; PULSE 78; RESP 19; TEMP 36.6; O2SAT 97
[2021-10-27] MEDS: DEXAMETHASONE 10 MG/ML VIAL 6 MG IV (08:25)
--- NOTE | 2021-10-27 08:25 | P.DS_ITS ---
History of Present Illness History of Present Illness Date Patient Seen: 10/27/21 Time Patient Seen: 08:25 Date of Onset of Symptoms: 09/30/21 Chief complaint: COVID+,Weakness,Low Stats, Sent from [facility] Narrative: See history and physical dictated by Dr. 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 Patient was admitted. Did not require O2 at all during admission. Patient was given an initial dose of dexamethasone but remdesivir was held secondary to his poor renal function. Patient was followed. And on DVT prophylaxis was undertaken. But otherwise there was no evidence of bacterial infection and he was followed clinically throughout the course. Discharged in stable condition without O2 requirement. Acute kidney failure. Probably secondary to dehydration. Probably secondary to dehydration. Probable pre renal. Patient was aggressively hydrated over the course of his full admission and slowly creatinine improved. No other changes. Urine output was good. Has mild elevation is creatinine but will be followed as an outpatient. Suspect he is close to baseline at this time. Patient will push fluids at home and call. We will recheck in 1 week. Weakness. Baudette to be secondary to combination of dehydration and COVID-19 pneumonia. Patient slowly improved and feels he is pretty close to baseline at this time. As his hydration status improved and he was further out from his C OVID-19 infection he was slowly improving had no focal findings and was moving well. Hyperkalemia. Patient probably secondary to a combination of his GFR and his being down with weakness. Resolved over the course of 2 days and then required replacement but overall is doing well stable will be followed as an outpatient. Acute dehydration. Secondary to probable COVID. And then progressive weakness. Patient not taking fluid or eating secondary to that. He otherwise is back to normal. With no significant change. He has been aggressively hydrated over the course of the admission and will be followed as an outpatient Hypertension. Patient has intermittent elevated blood pressure will continue usual medicine outpatient which is been stable and follow from there. Elevated uric acid. Baudette to be cause of his gout. Will follow as outpatient but suspect not significant. Gout. Stable throughout his admission. Elevated CK. Negative troponins. Probably more likely secondary to his lying on the floor for 4 days and coming from muscle. No evidence of cardiac injury. Will follow. Resolved at this time. Chronic pain. Stable throughout the course patient was given his usual medicines will be followed. Status at Discharge Cognitive/behavioral status at discharge: oriented Functional status at discharge: independent ambulation Overall status at discharge: patient is progressing back to baseline Exam Vital Signs (past 8 hours): - 10/27/21 04:00 Temperature 97.8 F Pulse Rate 67 Respiratory Rate 19 Blood Pressure 147/86 H Pulse Oximetry 96 Oxygen Delivery Method Room Air Oxygen Flow Rate 0 Narrative Exam Narrative: Alert non fatigued elderly male lying in bed no acute distress Mucous membranes moist. Neck supple without adenopathy. Lungs are clear. Heart regular rate and rhythm. Abdomen is soft positive bowel sounds nontender extremities without cyanosis clubbing during a neurologic exam is nonfocal. Alert oriented interactive Objective Labs Result Diagrams: 10/27/21 05:00 10/27/21 05:00 Labs: Laboratory Results - last 24 hr 10/26/21 10/26/21 10/27/21 08:14 08:14 05:00 WBC 9.0 9.3 RBC 4.52 4.55 Hgb 12.6 L 12.6 L Hct 37.4 L 37.5 L MCV 82.8 82.5 MCH 27.9 27.8 MCHC 33.7 33.6 RDW 13.9 13.9 Plt Count 300 277 Neut % (Auto) Not Reportable 75.8 H Lymph % (Auto) Not Reportable 12.0 L [place] % (Auto) Not Reportable 11.5 Eos % (Auto) Not Reportable 0.2 L Baso % (Auto) Not Reportable 0.5 Neut # (Auto) 7100 H Lymph # (Auto) Not Reportable 1100 [place] # (Auto) Not Reportable 1100 H Eos # (Auto) 0 Baso # (Auto) Not Reportable 0 Total Counted 100 Seg Neutrophils % 75.0 H Band Neutrophils % 2.0 L Lymphocytes % (Manual) 12.0 L Monocytes % (Manual) 10.0 Metamyelocytes % 1.0 H Neutrophils # (Manual) 6930 H RBC Morphology Normal morphology D-Dimer Sodium 134 L Potassium 5.2 H Chloride 104 Carbon Dioxide 25 BUN 35 H Creatinine 1.51 H Estimated GFR 45.9 L BUN/Creatinine Ratio 23.2 H Glucose 127 H Uric Acid Calcium 8.6 Total Bilirubin AST ALT Alkaline Phosphatase Total Protein Albumin Globulin Albumin/Globulin Ratio 10/27/21 10/27/21 05:00 05:00 WBC RBC Hgb Hct MCV MCH MCHC RDW Plt Count Neut % (Auto) Lymph % (Auto) [place] % (Auto) Eos % (Auto) Baso % (Auto) Neut # (Auto) Lymph # (Auto) [place] # (Auto) Eos # (Auto) Baso # (Auto) Total Counted Seg Neutrophils % Band Neutrophils % Lymphocytes % (Manual) Monocytes % (Manual) Metamyelocytes % Neutrophils # (Manual) RBC Morphology D-Dimer 2826 H Sodium 135 L Potassium 4.7 Chloride 104 Carbon Dioxide 27 BUN 33 H Creatinine 1.51 H Estimated GFR 45.9 L BUN/Creatinine Ratio 21.9 Glucose 135 H Uric Acid 6.4 Calcium 8.7 Total Bilirubin 0.7 AST 62 H ALT 51 H Alkaline Phosphatase 57 Total Protein 6.9 Albumin 3.3 L Globulin 3.6 Albumin/Globulin Ratio 0.9 L PFSH Medical History (Updated 10/23/21 @ 18:37 by Arthur Reyes MD) Chronic pain Hiatal hernia Hypertension Social History household members: none Smoking Status: Former smoker alcohol intake: current Discharge Assessment & Plan Assessment and Plan Assessment: Discharge home. Stable at this time. Follow-up 1 week. 35 minutes spent reviewing chart, discussing with patient, dictating in orders Discharge Plan Discharge Plan Patient Disposition: Home Discharge orders & Medications Prescriptions: Continued fluticasone propionate 50 mcg/actuation [place],Suspension 1 spray INTRANASAL DAILY Qty: 0 0RF Rx Instructions: administer into each nostril atorvastatin 80 mg tablet 80 mg PO DAILY 0RF Label Comments: TAKE 1 TABLET BY MOUTH ONCE DAILY diltiazem HCl 180 mg capsule,extended release 24hr 180 mg PO DAILY 0RF Label Comments: TAKE 1 CAPSULE BY MOUTH EVERY DAY metoprolol succinate 50 mg tablet extended release 24 hr 75 mg PO DAILY 0RF Label Comments: TAKE 1 AND 1/2 TABLETS BY MOUTH TWICE DAILY diclofenac sodium 100 mg tablet extended release 24 hr 100 mg PO DAILY 0RF Label Comments: TAKE 1 TABLET BY MOUTH EVERY DAY WITH FOOD hydroxyzine HCl 10 mg tablet 10 mg PO Q6HR PRN (Reason: Anxiety) 0RF Label Comments: TAKE 1 TABLET BY MOUTH EVERY 6 HOURS DIRECTED FOR ANXIETY omeprazole 40 mg capsule,delayed release(DR/EC) 1 cap PO DAILY 0RF Label Comments: TAKE ONE CAPSULE BY MOUTH EVERY DAY olmesartan 20 mg tablet 2 tab PO DAILY 0RF Label Comments: TAKE 1 TABLET BY MOUTH EVERY DAY. IF BLOOD PRESSURE IS ABOVE 140/80, INCREASE TO 2 TABS A DAY. oxycodone 10 mg tablet 1 tab PO QID PRN (Reason: Pain (Scale Score 4-6)) 0RF Label Comments: TAKE ONE TABLET BY MOUTH FOUR TIMES A DAY FOR BACK AND LEG PAIN Follow up/Referrals: Hosea Reyes MD [Primary Care Provider] - 1 Week (please call for appointment) Diet/Activity/Treatments Diet: Diet as Tolerated Activity: as tolerated Skin/Wound/Dressing Care Report to your healthcare provider any signs of infection, such as:: chills, fever, night sweats and increased pain Visit Report/Discharge Packet Instructions: DI for Prescription Opioid Use Discharge Data Primary Care Provider: Hosea Reyes Quality VTE Deep Vein Thrombosis/Pulmonary Embolism Present on Admission: No
[2021-10-27] MEDS: METOPROLOL ER 25 MG TABLET PO (08:26)
[2021-10-27] MEDS: LOSARTAN 50 MG TABLET PO (08:27)
--- NOTE | 2021-10-27 13:58 | CM.DPC ---
Addendum entered by ROCÍO Byrne 10/27/21 15:53: ADD: Family member arrived to the hospital around 1530 to transport pt home and RN helped to get pt down to POV. BF Original Note: DCP Discharge Home Per MD, pt remains medically stable to d/c home today and no oxygen needs or HH. Per RN, pt independent in room but having difficulty getting ahold of his Dtr for transport home today and somewhat agitated with RN attempting to help. Due to pt's COVID+precautions, SW attempted to call into room phone and no answer from pt. SW contacted pt's Dtr Alem who has been involved in his care while admitted and updated that pt has d/c orders for home and no needs but barrier of COVID+ so taxi or alternative transport cannot be set up unless BLS transport and likely not covered by Medicare. Dtr Alem states she is currently in [facility] for classes but done around 1530 and will attempt to contact her sisters towards getting family to transport home today sometime. ZENA discussed not wanting pt to have to be responsible for the bill if he stays past today since he is medically stable to d/c and she acknowledges understanding and will work on finding someone to give pt a ride home today, but might be this evening. ZENA updated RN. Plan: SW to follow closely with Dtr Alem at 1530 to confirm family to transport home sometime this evening. Otherwise BLS transport will need to be set up due to COVID precautions. ROCÍO Byrne
== END 2021-10-27 15:39 | disposition home or self-care (01) | DRG 177 ==
LOC: ED 19:09 → AC 20:10 → ICU 10-24 07:01
PROVIDERS: Emergency Medicine; Student in an Organized Health Care Education/Training Program; Admitting Provider Family Medicine; Emergency Provider Emergency Medicine; PCP Family Medicine; Referring Provider Emergency Medicine; Visit Provider Family Medicine
DX: U07.1 COVID-19 (principal); J12.82 Pneumonia due to coronavirus disease 2019; N17.9 Acute kidney failure, unspecified; E87.1 Hypo-osmolality and hyponatremia; E86.0 Dehydration; E87.5 Hyperkalemia; I10 Essential (primary) hypertension; K21.9 Gastro-esophageal reflux disease without esophagitis; G89.29 Other chronic pain; M10.9 Gout, unspecified; Z87.891 Personal history of nicotine dependence
CPT/HCPCS: 36415; 71045; 71250; 80048; 80053; 81001; 82550; 82553; 82728; 83605; 83690; 83880; 84145; 84484; 84550; 85007; 85025; 85379; 85610; 85730; 87040; 87086; 87635; 93005; 94760; 96361; 96374; 97161; 97530; 99285; J1100; J1650; J1940; J7050

== ENCOUNTER → 2022-03-27 17:24 | Outpatient (CLI) | payer MEDICARE, OTHER, SELFPAY ==
[2021-10-23 21:44] VITALS: BMI 29.9
[2022-03-27 18:17] LABS: Appearance Urine UA SL CLOUDY; Bilirubin Urine UA NEGATIVE (NEGATIVE); Color Urine UA YELLOW; Glucose Urine UA TRACE g/dL (Negative); Ketones Urine UA NEGATIVE (NEGATIVE); Leukocyte Esterase Urine UA 1+ (NEGATIVE); Nitrite Urine UA NEGATIVE (Negative); Occult Blood Urine UA 3+ (Negative); Protein Urine UA TRACE (Negative); Urobilinogen Urine UA 0.2 E.U./dL (0.2)
[2022-03-27 18:33] LABS: Bacteria Urine Occasional (0-1); RBC Urine >100/HPF (0-5/HPF); Squamous Epithelial Cell Urine 0-1 /HPF (0-5/HPF); Transitional Epi Cells Urine 0-1/HPF (0-5/HPF); Urine Comments CX ORDERED; WBC Urine 5-10/HPF (0-5/HPF)
== END ==
PROVIDERS: PCP Family Medicine; Referring Provider Family Medicine; Visit Provider Family Medicine
DX: N20.0 Calculus of kidney (principal)
CPT/HCPCS: 81001; 87077; 87086; 87185; 87186

== ENCOUNTER → 2022-04-21 15:28 | Outpatient (CLI) | payer MEDICARE, OTHER, SELFPAY ==
[2021-10-23 21:44] VITALS: BMI 29.9
--- NOTE | 2022-04-21 | DI.CT.S_ITS ---
PROCEDURE: CT KIDNEY URETER BLADDER (KUB) INDICATIONS: calculus of bladder TECHNIQUE: Axial sections were acquired from the lung bases to the pubic symphysis. Coronal and sagittal reformats were performed. For radiation dose reduction, the following was used: automated exposure control, adjustment of mA and/or kV according to patient size. COMPARISON: [facility], , MRI L-SPINE W/O CONTRAST, 02/02/2001, 13:24. FINDINGS: Image quality: Excellent. Lung bases: Unremarkable. Heart: No significant findings. URINARY: Right Kidney: No stones or hydronephrosis. Right Ureter: No hydroureter. Left Kidney: The left kidney is atrophic. Multiple calcified stones are visualized within the lower pole, the largest of which measures 1.3 cm in diameter and demonstrates 430 Hounsfield units in density. There is moderate to severe left hydronephrosis. Left Ureter: The left ureter is nondilated. No ureteral calculi. Bladder: Normal wall thickness. No stones. ABDOMEN: Liver: Unremarkable. Gallbladder: Unremarkable. Biliary ducts: Unremarkable. Pancreas: Unremarkable. Spleen: Unremarkable. Adrenal Glands: Unremarkable. Stomach and Bowel: Stomach, small bowel loops, and colon are unremarkable. There are scattered sigmoid diverticula. No evidence for diverticulitis. The appendix is thin walled and gas filled. Peritoneum: No abnormal intraperitoneal fluid. No free air. Ventral Wall: No hernia. Abdominal Nodes: No enlarged retroperitoneal or mesenteric lymph nodes. Vessels: Aorta and inferior vena cava are normal in size. PELVIS: Pelvic Organs: Unremarkable. Pelvic Nodes: Unremarkable. Miscellaneous: No inguinal hernias are seen. Bones: Unremarkable. There is a probable intraosseous hemangioma at L5. Adjacent to this is a cystic lucency with sclerotic margins. This was not visualized on the comparison lumbar spine MRI dated February 02, 2001. Right hip arthroplasty is grossly intact. IMPRESSION: 1. Nonobstructive nephrolithiasis. 2. Moderate to severe left hydronephrosis with a nondilated ureter suggesting UPJ obstruction. 3. No bladder calculi visualized on the current study. 4. No acute intra-abdominal findings. Normal appendix. Diverticulosis. No acute diverticulitis. 5. Questionable intraosseous hemangioma at L5 with adjacent cystic lesion likely representing a simple bone cyst but is incompletely characterized. If further characterization is warranted, nonemergent noncontrast MRI of the lumbar spine could be used. Dictated by: Cheryl Salter M.D. on 04/21/2022 at 17:41 Approved by: Cheryl Salter M.D. on 04/21/2022 at 17:46
== END ==
PROVIDERS: PCP Family Medicine; Referring Provider Family Medicine; Visit Provider Family Medicine
DX: N13.2 Hydronephrosis with renal and ureteral calculous obstruction (principal); K57.30 Diverticulosis of large intestine without perforation or abscess without bleeding; M89.9 Disorder of bone, unspecified
CPT/HCPCS: 74176

== ENCOUNTER → 2022-07-22 15:46 | Outpatient (CLI) | payer MEDICARE, OTHER, SELFPAY ==
[2021-10-23 21:44] VITALS: BMI 29.9
--- NOTE | 2022-07-22 | DI.US.S_ITS ---
PROCEDURE: US RENAL COMPLETE INDICATIONS: CALCULUS OF KIDNEY TECHNIQUE: Real-time scanning was performed of the kidneys and bladder, with image documentation. COMPARISON: [facility], CT, CT KIDNEY URETER BLADDER (KUB), 04/21/2022, 15:44. [facility], US, RENAL COMPLETE, 02/27/2010, 12:26. FINDINGS: Kidneys: Kidneys are normal in size. Right kidney measures 11.7 cm long; left kidney measures 15.6 cm long. Right renal cortical thickness is 1.7 cm; left renal cortical thickness is 1.6 cm. Renal cortical echotexture is normal. No suspicious solid mass lesions. Moderate to severe left hydronephrosis. Several stones in the left kidney collecting system. A left Kidney stone measuring 1.6 cm is identified. No right hydronephrosis. Bladder: Decompressed. IMPRESSION: 1. Moderate to severe left hydronephrosis. Overall this is likely similar to the CT 04/21/2022. This could be due to UPJ obstruction. 2. Nonobstructing left kidney stone measuring 1.[address] KUB or CT IVP. Dictated by: Mike Zheng M.D. on 07/22/2022 at 17:18 Approved by: Mike Zheng M.D. on 07/22/2022 at 17:22
== END ==
PROVIDERS: PCP Family Medicine; Referring Provider Urology; Visit Provider Urology
DX: N13.30 Unspecified hydronephrosis (principal); N20.0 Calculus of kidney
CPT/HCPCS: 76770

== ENCOUNTER 2022-08-12 16:06 | Emergency (ER) | payer MEDICARE, OTHER, SELFPAY ==
[2021-10-23 21:44] VITALS: BMI 29.9
[2022-08-12 16:29] VITALS: BP 153/68; PULSE 56; RESP 20; TEMP 36.2; O2SAT 96; BMI 34.9
--- NOTE | 2022-08-12 21:00 | PC.NURSE ---
renal stent has dislodged pt's urologist instructed pt to come to [facility] but they did not have a ride, pt c/o hematuria
--- NOTE | 2022-08-12 22:19 | ED.MALEGU ---
HPI - Male Genitourinary General Chief complaint: Urogenital-Male Stated complaint: STENT COMING OUT/URINATING BLOOD Time Seen by Provider: 08/12/22 21:59 Source: patient Mode of arrival: Wheelchair History of Present Illness HPI Narrative: Patient is a 72 year old male history of hyperlipidemia, chronic low back pain degenerative joint disease, hypertension, presents today with urinary incontinence and need for ureteral stent removal. He apparently had left urethral stent placed with [facility] 2 days ago. No nephrolithiasis. I did call and speak with Urology was placed for hydronephrosis. Patient states that the string has gotten longer he feels like it got snagged pulled and he can not stop urinating. No fever chills or pain. He is had the stents before. Related Data Home Medications Medication Instructions Recorded Confirmed fluticasone propionate 50 1 spray intranasal DAILY #0 sprays 05/19/13 10/26/21 mcg/actuation nasal spray,suspension olmesartan 20 mg tablet 2 tab PO DAILY 06/27/18 10/26/21 omeprazole 40 mg capsule,delayed 1 cap PO DAILY 06/27/18 10/26/21 release oxycodone 10 mg tablet 1 tab PO QID PRN Pain (Scale Score 06/27/18 10/26/21 4-6) atorvastatin 80 mg tablet 80 mg PO DAILY 10/26/21 10/26/21 diclofenac sodium 100 mg 100 mg PO DAILY 10/26/21 10/26/21 tablet,extended release 24 hr diltiazem HCl 180 mg 180 mg PO DAILY 10/26/21 10/26/21 capsule,extended release 24 hr hydroxyzine HCl 10 mg tablet 10 mg PO Q6HR PRN Anxiety 10/26/21 10/26/21 metoprolol succinate 50 mg 75 mg PO DAILY 10/26/21 10/26/21 tablet,extended release 24 hr Allergies Allergy/AdvReac Type Severity Reaction Status Date / Time procaine [From Novocain] Allergy Verified 10/23/21 15:29 Review of Systems Review of Systems Narrative: GENERAL: Denies chills,fever HEENT: Denies throat pain RESPIRATORY: Denies dyspnea, cough, wheezing CARDIOVASCULAR: Denies chest pain, palpitations GASTROINTESTINAL: Denies nausea, vomiting : See HPI MUSCULOSKELETAL: Denies extremity pain, injury SKIN: No rash, no laceration, no pruritus NEUROLOGIC: Denies weakness, dizziness, headache, numbness 8 point review of systems is negative except for those stated above and HPI Patient History Medical History (Updated 08/12/22 @ 23:29 by Leydi Weiss DO) Chronic pain Hiatal hernia Hypertension Social History household members: none Smoking Status: Former smoker alcohol intake: current Smoking Status: Former smoker alcohol intake frequency: other Substance Use Type: does not use Exam Initial Vital Signs Initial Vital Signs: Vital Signs Temperature 97.1 F L 08/12/22 16:29 Pulse Rate 56 L 08/12/22 16:29 Respiratory Rate 20 08/12/22 16:29 Blood Pressure 153/68 H 08/12/22 16:29 Pulse Oximetry 96 08/12/22 16:29 Oxygen Delivery Method 08/12/22 16:29 GENERAL: Alert 72-year-old male slightly anxious no acute distress CARDIOVASCULAR: peripheral pulses in tact, cap refill <2 sec RESPIRATORY: No respiratory distress, speaks in full sentences without difficulty ABDOMEN: Soft, nontender, no guarding or rebound : Long green string seen no stent, incontinent of urine EXTREMITIES: Normal range of motion, no clubbing or edema. Neurovascularly intact NEUROLOGICAL: Cranial nerves II through XII grossly intact. Normal gait and speech. SKIN: Warm, dry, no petechiae, no rashes or lesions. Course Orders Ordered: ED Orders 08/12/22 22:37 XR abdomen 1V Stat Vital Signs Vital signs: Vital Signs - 8 hr 08/12/22 16:29 Temperature 97.1 F L Pulse Rate 56 L Respiratory Rate 20 Blood Pressure 153/68 H Pulse Oximetry 96 Oxygen Delivery Method Room Air MDM - Male Genitourinary Imaging Data Abdominal x-ray: Radiologist's Impression: Signed Patient: Jeremie Donohue MR#: [id number] : 1950 Acct:[id number] Age/Sex: 72 / M Date of Service: 08/12/22 Loc: ED Accession Number: [id number] ?? Procedure: XR abdomen 1V Ordering Provider: Leydi Weiss D.O. PROCEDURE:? XR ABDOMEN 1V ? INDICATIONS:? stent placement ? TECHNIQUE:? One view of the abdomen acquired.? ? COMPARISON:? [facility], CT, CT KIDNEY URETER BLADDER (KUB), 04/21/2022, 15:44. ? FINDINGS:? ? Surgical changes and devices:? There is a left ureteral stent with the distal coil extending inferiorly below the expected margin of the bladder.? The proximal coil is demonstrated in the left lower quadrant with the left kidney not well visualized on the current study.? A right hip prosthesis is noted. ? Bowel:? Bowel gas pattern is normal.? ? Soft tissues:? No suspicious abdominal calcifications.? ? Bones:? No suspicious bony lesions.? ? IMPRESSION:? ? 1. Left ureteral stent with suspected distal migration.? Consider further evaluation with CT if clinically indicated.? ? ? Dictated by: Josh Ferrell M.D. on 08/13/2022 at 0:44 ? ? Approved by: Josh Ferrell M.D. on 08/13/2022 at 0:46 ? MDM Narrative Medical decision making narrative: Patient had left urethral l stent placed for hydronephrosis. I did speak with Librado on-call for [employer] [facility]. She states that at this time actually can be removed. Stent can be irritating to the bladder and can cause urinary incontinence. I personally pull the stent it came out easily no complications. Patient waited for quite awhile trying to urinate. As soon as the stent was pulled he stopped having urinary incontinence. I discussed with him that he needs to urinate before he leaves. He did try but then got anxious and wanted to leave. He understands that there may be urinary retention he will return if he does not urinate. I also encouraged him to have a UA done with doctors make sure there is no infection. He understands all of this. Discharge Plan Departure Patient Disposition: Home Clinical Impression: Encounter for removal of ureteral stent, Hydronephrosis, left Instructions: Hydronephrosis -- Adult Activity Restrictions/Additional Instructions: *You have been diagnosed with hydronephrosis *What to do: You did not urinate. If you do not urinate by morning you probably need to come back to the ER for potential Bhatt catheter. Please have your doctor check for urinalysis. To make sure you do not have an infection *Continue to take medications as directed *Follow up with your primary care provider in 2-3 days or call [phone] Please follow-up with your urologist *Return to ER if you should have inability to pee, fever chills [or] any new, worsening or concerning symptoms Prescriptions: No Action fluticasone propionate 50 mcg/actuation [place],Suspension 1 spray INTRANASAL DAILY Qty: 0 Rx Instructions: administer into each nostril atorvastatin 80 mg tablet 80 mg PO DAILY Label Comments: TAKE 1 TABLET BY MOUTH ONCE DAILY diltiazem HCl 180 mg capsule,extended release 24hr 180 mg PO DAILY Label Comments: TAKE 1 CAPSULE BY MOUTH EVERY DAY metoprolol succinate 50 mg tablet extended release 24 hr 75 mg PO DAILY Label Comments: TAKE 1 AND 1/2 TABLETS BY MOUTH TWICE DAILY diclofenac sodium 100 mg tablet extended release 24 hr 100 mg PO DAILY Label Comments: TAKE 1 TABLET BY MOUTH EVERY DAY WITH FOOD hydroxyzine HCl 10 mg tablet 10 mg PO Q6HR PRN (Reason: Anxiety) Label Comments: TAKE 1 TABLET BY MOUTH EVERY 6 HOURS DIRECTED FOR ANXIETY omeprazole 40 mg capsule,delayed release(DR/EC) 1 cap PO DAILY Label Comments: TAKE ONE CAPSULE BY MOUTH EVERY DAY olmesartan 20 mg tablet 2 tab PO DAILY Label Comments: TAKE 1 TABLET BY MOUTH EVERY DAY. IF BLOOD PRESSURE IS ABOVE 140/80, INCREASE TO 2 TABS A DAY. oxycodone 10 mg tablet 1 tab PO QID PRN (Reason: Pain (Scale Score 4-6)) Label Comments: TAKE ONE TABLET BY MOUTH FOUR TIMES A DAY FOR BACK AND LEG PAIN Referrals: Hosea Reyes MD [Primary Care Provider] - Visit Report Forms: Patient Portal/API
--- NOTE | 2022-08-12 22:37 | DI.RAD.S_ITS ---
PROCEDURE: XR ABDOMEN 1V INDICATIONS: stent placement TECHNIQUE: One view of the abdomen acquired. COMPARISON: [facility], CT, CT KIDNEY URETER BLADDER (KUB), 04/21/2022, 15:44. FINDINGS: Surgical changes and devices: There is a left ureteral stent with the distal coil extending inferiorly below the expected margin of the bladder. The proximal coil is demonstrated in the left lower quadrant with the left kidney not well visualized on the current study. A right hip prosthesis is noted. Bowel: Bowel gas pattern is normal. Soft tissues: No suspicious abdominal calcifications. Bones: No suspicious bony lesions. IMPRESSION: 1. Left ureteral stent with suspected distal migration. Consider further evaluation with CT if clinically indicated. Dictated by: Josh Ferrell M.D. on 08/13/2022 at 0:44 Approved by: Josh Ferrell M.D. on 08/13/2022 at 0:46
== END 2022-08-13 00:24 | disposition home or self-care (01) ==
PROVIDERS: Emergency Provider Emergency Medicine; PCP Family Medicine
DX: N13.30 Unspecified hydronephrosis (principal); Z46.6 Encounter for fitting and adjustment of urinary device; Z79.899 Other long term (current) drug therapy
CPT/HCPCS: 74018; 87086; 99281; 99283

== ENCOUNTER 2022-08-13 22:49 | Emergency (ER) | payer MEDICARE, OTHER, SELFPAY ==
[2021-10-23 21:44] VITALS: BMI 29.9
[2022-08-13 23:11] VITALS: BP 147/87; PULSE 67; RESP 20; TEMP 37; O2SAT 98; BMI 34.9
--- NOTE | 2022-08-13 23:52 | DI.CT.S_ITS ---
PROCEDURE: CT KIDNEY URETER BLADDER (KUB) INDICATIONS: blood in urine, flank pain, ureteral stent pulled yesterday TECHNIQUE: Axial sections were acquired from the lung bases to the pubic symphysis. Coronal and sagittal reformats were performed. For radiation dose reduction, the following was used: automated exposure control, adjustment of mA and/or kV according to patient size. COMPARISON: [facility], CT, CT KIDNEY URETER BLADDER (KUB), 04/21/2022, 15:44. FINDINGS: Image quality: There is metallic streak artifact from patient's right hip prosthesis limiting evaluation. Lung bases: There is minimal atelectasis. Heart: Heart is normal in size. URINARY: Right Kidney and Ureter: No stones or hydronephrosis. Nonspecific perinephric stranding redemonstrated. No hydroureter. Left Kidney and Ureter: There is severe left hydronephrosis, increased compared to the prior study with a transition at the ureteropelvic junction. No obstructing stone visualized. The left ureter is nondistended along its course, with mild periureteral fat stranding. Findings are again suggestive of a UPJ obstruction. Multiple, at least 7, nonobstructing left renal stones are demonstrated with the largest measuring up to 1.3 cm. This demonstrates attenuation values of approximately 500-600 Hounsfield units. There is nonspecific mild perinephric stranding. Bladder: Normal wall thickness. No stones. ABDOMEN: Liver: Noncontrast evaluation of the liver demonstrates no discrete mass. Gallbladder: Within normal limits without calcified gallstones. Biliary ducts: No biliary ductal dilatation. Pancreas: Unremarkable. Spleen: Normal in size. Adrenal Glands: No adrenal nodules. Stomach and Bowel: Stomach, small bowel loops, and colon are normal in caliber and wall thickness. The appendix is normal in appearance. There is colonic diverticulosis without acute diverticulitis. Peritoneum: No abnormal intraperitoneal fluid. No free air. Ventral Wall: No hernia. Abdominal Nodes: No retroperitoneal or mesenteric adenopathy by size criteria. Vessels: Aorta and inferior vena cava are normal in size. PELVIS: Pelvic Organs: Unremarkable. Pelvic Nodes: No enlarged lymph nodes. Miscellaneous: No inguinal hernias identified. Bones: Visualized osseous structures demonstrate no suspicious focal lesions. IMPRESSION: 1. Severe left hydronephrosis with a nondistended ureter again suggestive of a UPJ obstruction. The degree of distention is increased compared to the 04/21/2022 study. Dictated by: Josh Ferrell M.D. on 08/14/2022 at 1:28 Approved by: Josh Ferrell M.D. on 08/14/2022 at 1:51
[2022-08-14 00:36] LABS: Add Manual Diff / Slide Review NO; Basophils Absolute Auto 0 /uL (0-100); Basophils Percent Auto 0.5 % (0-2); Eosinophils Absolute Auto 300 /uL (0-450); Eosinophils Percent Auto 3.3 % (2-4); Hematocrit 42.5 % (41-53); Hemoglobin 14.5 g/dL (13.5-17.5); Lymphocytes Absolute Auto 2100 /uL (1100-4500); Mean Corpuscular HGB Conc 34.2 % (30-36); Mean Corpuscular Hemoglobin 27.4 PG (26-34); Monocytes Absolute Auto 1100 /uL (0-900); Monocytes Percent Auto 12.1 % (3-14); Neutrophils Absolute Auto 5200 /uL (1500-7000); Neutrophils Percent Auto 60.1 % (50-75); Platelet Count 192 X10^3/uL (150-400); Red Blood Cell Count 5.31 X10^6/uL (4.5-5.9); White Blood Cell Count 8.7 X10^3/uL (4.5-11.0)
[2022-08-14 01:43] LABS: Alanine Aminotransferase 23 IU/L (<50); Albumin 4.3 g/dL (3.5-5.0); Albumin Globulin Ratio 1.3 (1.0-2.8); Alkaline Phosphatase 80 U/L (38-126); Aspartate Aminotransferase 33 IU/L (17-59); BUN Creatinine Ratio 13.7 (6-22); Bilirubin Total 0.6 mg/dL (0.2-1.3); Blood Urea Nitrogen 18 mg/dL (9-20); Carbon Dioxide 29 mmol/L (22-32); Chloride 101 mmol/L (98-107); Estimated Glomerular Filt Rate 58 mL/min (>60); Globulin 3.4 g/dL (1.7-4.1); Glucose 101 mg/dL (80-110); HEMOLYSIS < 15 (0-50); Lipase 89 U/L (23-300); Potassium 3.5 mmol/L (3.4-5.1); Sodium 139 mmol/L (137-145); Total Protein 7.7 g/dL (6.3-8.2)
--- NOTE | 2022-08-14 02:10 | PC.NURSE ---
Patient became aggressive with LOOM TECHNICIAN when she answered his call light. Stating you are just holding me here because I have the good insurance. Patient shouting and raising his voice at staff. I stepped in and reassured the patient that we were moving as fast as we could and to try and remain patient. Patient also told to not yell at staff and that he was able to leave at any time if needed. Patient began yelling for water. Patient reassured that we were waiting for imaging results and that we would follow up with the doctor when they were so that he could have something to drink.
--- NOTE | 2022-08-14 02:49 | ED_ITS ---
HPI - Male Genitourinary General Chief complaint: Urogenital-Male Stated complaint: kidney issues, stent removed last night Time Seen by Provider: 08/13/22 23:51 Source: patient, RN notes reviewed and old records reviewed Mode of arrival: Ambulatory Limitations: no limitations History of Present Illness HPI Narrative: This is a 72-year-old male with history dyslipidemia, chronic low back pain, degenerative joint disease, hypertension who had a left ureteral stent placed on 08/10/2022 was seen here on 08/13/2022 with the stent string protruding and having incontinence, the stent was removed in the department by our emergency physician last night after speaking with urology at [facility] or patient had the stent placed and patient left before urinating. Patient returns tonight with complaint of left flank pain and hematuria. Patient states patient denies fevers or chills. He states his flank pain has resolved. Patient denies dysuria urgency or frequency. He states blood present but not increasing. Denies any other symptoms currently. He notes he does have an appointment set up for next week either on Wednesday or . He is not currently on tamsulosin or Flomax. He notes on his stent placement they were unable to find any kidney stones at that time. Related Data Home Medications Medication Instructions Recorded Confirmed fluticasone propionate 50 1 spray intranasal DAILY #0 sprays 05/19/13 10/26/21 mcg/actuation nasal spray,suspension olmesartan 20 mg tablet 2 tab PO DAILY 06/27/18 10/26/21 omeprazole 40 mg capsule,delayed 1 cap PO DAILY 06/27/18 10/26/21 release oxycodone 10 mg tablet 1 tab PO QID PRN Pain (Scale Score 06/27/18 10/26/21 4-6) atorvastatin 80 mg tablet 80 mg PO DAILY 10/26/21 10/26/21 diclofenac sodium 100 mg 100 mg PO DAILY 10/26/21 10/26/21 tablet,extended release 24 hr diltiazem HCl 180 mg 180 mg PO DAILY 10/26/21 10/26/21 capsule,extended release 24 hr hydroxyzine HCl 10 mg tablet 10 mg PO Q6HR PRN Anxiety 10/26/21 10/26/21 metoprolol succinate 50 mg 75 mg PO DAILY 10/26/21 10/26/21 tablet,extended release 24 hr Previous Rx's Medication Instructions Recorded ciprofloxacin HCl 500 mg tablet 500 mg PO Q12H #14 tabs 08/14/22 Allergies Allergy/AdvReac Type Severity Reaction Status Date / Time procaine [From Novocain] Allergy Verified 08/13/22 23:19 Review of Systems Review of Systems ROS Unobtainable: All systems reviewed & are unremarkable except as noted in HPI and below Patient History Medical History (Updated 08/14/22 @ 02:54 by Noa Ness DO) Chronic pain Hiatal hernia Hypertension Social History household members: none Smoking Status: Former smoker alcohol intake: current Smoking Status: Former smoker alcohol intake frequency: other Substance Use Type: does not use Exam Narrative Exam Narrative: GENERAL: Alert and oriented x three, male in mild distress. HEENT: Head normocephalic, atraumatic, EOMI, pupils reactive, face symmetric, moist mucous membranes NECK: Supple, full range of motion CARDIOVASCULAR: Regular rate and rhythm without murmurs, rubs or gallops. RESPIRATORY: Breath sounds equal bilaterally, no wheezes rales or rhonchi. ABDOMEN: Soft, nontender. Normoactive bowel sounds all 4 quadrants. No guarding or rebound, rigidity, no mass : No CVA tenderness EXTREMITIES: Normal range of motion, no clubbing or edema. Neurovascularly intact NEUROLOGICAL: Cranial nerves II through XII grossly intact. Moving all extremit ies SKIN: Warm, dry, no petechiae, no rashes or lesions. Initial Vital Signs Initial Vital Signs: Vital Signs Temperature 98.6 F 08/13/22 23:11 Pulse Rate 67 08/13/22 23:11 Respiratory Rate 20 08/13/22 23:11 Blood Pressure 147/87 H 08/13/22 23:11 Pulse Oximetry 98 08/13/22 23:11 Oxygen Delivery Method 08/13/22 23:11 Course Orders Ordered: Discontinued Medications Ondansetron HCl (Ondansetron 4 Mg/2 Ml Inj) 4 mg IV NOW PRN PRN Reason: Nausea And Vomiting Ondansetron HCl (Ondansetron 4 Mg Odt) 4 mg SL NOW PRN PRN Reason: Nausea And Vomiting Consultations Consultation #1: SAÚL Deleon, was also in contact with the physician last night, agrees with plan for culture, they have appointment coming this week and plan to see patient for additional treatment and workup and are comfortable with current plan. Time: 03:28 Vital Signs Vital signs: Vital Signs - 8 hr 08/13/22 23:11 08/14/22 03:21 Temperature 98.6 F Pulse Rate 67 61 Respiratory Rate 20 18 Blood Pressure 147/87 H 135/83 Pulse Oximetry 98 98 Oxygen Delivery Method Room Air Room Air MDM - Male Genitourinary Lab Data Result diagrams: 08/14/22 00:20 08/14/22 00:20 Labs: Lab Results 08/14/22 08/14/22 Range/Units 00:20 00:20 WBC 8.7 (4.5-11.0) X10^3/uL RBC 5.31 (4.5-5.9) X10^6/uL Hgb 14.5 (13.5-17.5) g/dL Hct 42.5 (41-53) % MCV 80.0 (80-100) fL MCH 27.4 (26-34) PG MCHC 34.2 (30-36) % RDW 14.0 (11.6-14.8) % Plt Count 192 (150-400) X10^3/uL Neut % (Auto) 60.1 (50-75) % Lymph % (Auto) 24.0 L (25-40) % [place] % (Auto) 12.1 (3-14) % Eos % (Auto) 3.3 (2-4) % Baso % (Auto) 0.5 (0-2) % Neut # (Auto) 5200 (0961-5307) /uL Lymph # (Auto) 2100 (0188-0265) /uL [place]akon # (Auto) 1100 H (0-900) /uL Eos # (Auto) 300 (0-450) /uL Baso # (Auto) 0 (0-100) /uL Sodium 139 (137-145) mmol/L Potassium 3.5 (3.4-5.1) mmol/L Chloride 101 (98-107) mmol/L Carbon Dioxide 29 (22-32) mmol/L BUN 18 (9-20) mg/dL Creatinine 1.31 H (0.66-1.25) mg/dL Estimated GFR 58 L (>60) mL/min BUN/Creatinine Ratio 13.7 (6-22) Glucose 101 (80-110) mg/dL Calcium 9.0 (8.4-10.2) mg/dL Total Bilirubin 0.6 (0.2-1.3) mg/dL AST 33 (17-59) IU/L ALT 23 (<50) IU/L Alkaline Phosphatase 80 (38-126) U/L Total Protein 7.7 (6.3-8.2) g/dL Albumin 4.3 (3.5-5.0) g/dL Globulin 3.4 (1.7-4.1) g/dL Albumin/Globulin Ratio 1.3 (1.0-2.8) Lipase 89 (23-300) U/L Urine Dip Bedside Urine Glucose Negative Bedside Urine Bilirubin - Negative Bedside Urine Ketone - Negative Urine Specific [place] 1.020 Bedside Urine Occult Blood +++ Bedside Urine pH 6.0 Bedside Urine Protein + 30 Bedside Urine Urobilinogen - Negative Bedside Urine Nitrite - Negative Bedside Urine Leukocytes + [address] scan - abdomen/pelvis: Radiologist's Impression: [address] [address] [address] Scan Report Signed Patient: Jeremie Donohue MR#: [id number] : 1950 Acct:[id number] Age/Sex: 72 / M Date of Service: 08/13/22 Loc: ED Accession Number: [id number] ?? Procedure: CT kidney ureter bladder (KUB) Ordering Provider: Noa Ness D.O. PROCEDURE:? CT KIDNEY URETER BLADDER (KUB) ? INDICATIONS:? blood in urine, flank pain, ureteral stent pulled yesterday ? TECHNIQUE:? Axial sections were acquired from the lung bases to the pubic symphysis.? Coronal and sagittal reformats were performed.? For radiation dose reduction, the following was used: ?automated exposure control, adjustment of mA and/or kV according to patient size.? ? COMPARISON:? [facility], CT, CT KIDNEY URETER BLADDER (KUB), 04/21/2022, 15:44. ? FINDINGS:? Image quality:? There is metallic streak artifact from patient's right hip prosthesis limiting evaluation.? ? Lung bases:? There is minimal atelectasis.? ? Heart:? Heart is normal in size. ? URINARY: Right Kidney and Ureter: ? No stones or hydronephrosis.? Nonspecific perinephric stranding redemonstrated.? No hydroureter.? ? Left Kidney and Ureter: ? There is severe left hydronephrosis, increased compared to the prior study with a transition at the ureteropelvic junction.? No obstructing stone visualized.? The left ureter is nondistended along its course, with mild periureteral fat stranding.? Findings are again suggestive of a UPJ obstruction.? Multiple, at least 7, nonobstructing left renal stones are demonstrated with the largest measuring up to 1.3 cm.? This demonstrates attenuation values of approximately 500-600 Hounsfield units.? There is nonspecific mild perinephric stranding. ? Bladder:? Normal wall thickness. No stones. ? ? ? ABDOMEN: Liver:? Noncontrast evaluation of the liver demonstrates no discrete? mass. Gallbladder:? Within normal limits without calcified gallstones.? ? Biliary ducts:? No biliary ductal dilatation.? ? Pancreas:? Unremarkable.? ? Spleen:? Normal in size.? ? Adrenal Glands:? No adrenal nodules.? ? ? Stomach and Bowel:? Stomach, small bowel loops, and colon are normal in caliber and wall thickness.? The appendix is normal in appearance.? There is colonic diverticulosis without acute diverticulitis.? Peritoneum:? No abnormal intraperitoneal fluid.? No free air.? ? Ventral Wall: ? No hernia.? Abdominal Nodes:? No retroperitoneal or mesenteric adenopathy by size criteria.? Vessels:? Aorta and inferior vena cava are normal in size.? ? PELVIS: Pelvic Organs:? Unremarkable.? ? Pelvic Nodes: No enlarged lymph nodes.? Miscellaneous: No inguinal hernias identified. ? ? ? Bones:? Visualized osseous structures demonstrate no suspicious focal lesions. IMPRESSION:? ? 1. Severe left hydronephrosis with a nondistended ureter again suggestive of a UPJ obstruction.? The degree of distention is increased compared to the 04/21/2022 study. ? ? Dictated by: Josh Ferrell M.D. on 08/14/2022 at 1:28 ? ? Approved by: Josh Ferrell M.D. on 08/14/2022 at 1:51?? MDM Narrative Medical decision making narrative: This is a 72-year-old male who presents with complaint of persistent left flank pain after having a stent placed on the , was removed here in the emergency department on the after it started to come out and persistent flank pain and hematuria. Patient's has abnormal renal function but is improved from prior baselines in comparison to past visits, labs do not reflect any signs of infection, normal electrolytes and LFTs. Patient's urine shows blood, 1+ leukocyte esterase and 5-[address] KUB shows severe left hydro with nondistended ureter suggesting a ureteropelvic junction obstruction in comparison to CT from 04/21/2022 increased distention. Discussed with patient he has child at home that he needs to get back to this evening he can not continue to wait but he is open to having me call him back after trying to contact Urology. He states he does have an appointment this upcoming week around Wednesday or . He is not have any dysuria, urgency or frequency he states his flank pain has gone away we reviewed all of his findings today. He states when he had his cystoscopy and evaluation they could not find any kidney stones. We also reviewed that there are stones that are sometimes not seen on CT imaging he does appear to have hydro of the kidney itself and this does not need to be followed up but his renal function appears improved today compared to prior visits. He does have possible infection he has white blood cells in his urine so was given prescription for antibiotic. Patient's labs and vitals appear appropriate and stable for discharge home. Discharge Plan Departure Patient Disposition: Home Clinical Impression: Hydronephrosis of left kidney Activity Restrictions/Additional Instructions: Please follow-up with your urologist, there is a call out to the urology team I will try to call and leave a message or talk with you this morning about what they say. Please follow-up at your scheduled appointment if the urologist does not have you seen sooner. Your CT today does not show kidney stones but does still show swelling of the left kidney, there does not appear to be any damage or injury to the ureter itself. Your urine possibly shows an infection so an antibiotic was sent to [facility]'s in [place]. Please return for fevers, rapidly worsening pain, persistent vomiting, inability to urinate or other new or concerning changes. Prescriptions: New ciprofloxacin HCl 500 mg tablet 500 mg PO Q12H Qty: 14 0RF No Action fluticasone propionate 50 mcg/actuation [place],Suspension 1 spray INTRANASAL DAILY Qty: 0 Rx Instructions: administer into each nostril atorvastatin 80 mg tablet 80 mg PO DAILY Label Comments: TAKE 1 TABLET BY MOUTH ONCE DAILY diltiazem HCl 180 mg capsule,extended release 24hr 180 mg PO DAILY Label Comments: TAKE 1 CAPSULE BY MOUTH EVERY DAY metoprolol succinate 50 mg tablet extended release 24 hr 75 mg PO DAILY Label Comments: TAKE 1 AND 1/2 TABLETS BY MOUTH TWICE DAILY diclofenac sodium 100 mg tablet extended release 24 hr 100 mg PO DAILY Label Comments: TAKE 1 TABLET BY MOUTH EVERY DAY WITH FOOD hydroxyzine HCl 10 mg tablet 10 mg PO Q6HR PRN (Reason: Anxiety) Label Comments: TAKE 1 TABLET BY MOUTH EVERY 6 HOURS DIRECTED FOR ANXIETY omeprazole 40 mg capsule,delayed release(DR/EC) 1 cap PO DAILY Label Comments: TAKE ONE CAPSULE BY MOUTH EVERY DAY olmesartan 20 mg tablet 2 tab PO DAILY Label Comments: TAKE 1 TABLET BY MOUTH EVERY DAY. IF BLOOD PRESSURE IS ABOVE 140/80, INCREASE TO 2 TABS A DAY. oxycodone 10 mg tablet 1 tab PO QID PRN (Reason: Pain (Scale Score 4-6)) Label Comments: TAKE ONE TABLET BY MOUTH FOUR TIMES A DAY FOR BACK AND LEG PAIN Referrals: Hoesa Reyes MD [Primary Care Provider] - Visit Report Forms: Patient Portal/API
[2022-08-14 03:21] VITALS: BP 135/83; PULSE 61; RESP 18; O2SAT 98
== END 2022-08-14 03:23 | disposition home or self-care (01) ==
PROVIDERS: Emergency Provider Emergency Medicine; PCP Family Medicine
DX: N13.30 Unspecified hydronephrosis (principal)
CPT/HCPCS: 36415; 74176; 80053; 81003; 83690; 85025; 99283

== ENCOUNTER → 2022-10-30 13:59 | Outpatient (CLI) | payer MEDICARE, OTHER, SELFPAY ==
[2021-10-23 21:44] VITALS: BMI 29.9
--- NOTE | 2022-10-30 | DI.NM.S_ITS ---
PROCEDURE: NM RENAL FLOW AND FUNCTION RADIOPHARMACEUTICAL: 10.7 mCi Tc-99m MAG3 IV. INDICATIONS: LT HYDRONEPHROSIS,EVAL SPLIT FUNCTION AND T1/2 TECHNIQUE: The patient was hydrated orally before the examination was begun. After intravenous administration of Tc-99m MAG3, posterior abdominal radionuclide angiogram and sequential (1 minute per frame) renal images were obtained. A time-activity curve for each kidney was generated and analyzed. COMPARISON: [facility], CT, CT KIDNEY URETER BLADDER (KUB), 08/14/2022, 0:01. FINDINGS: Perfusion: There is normal vascular perfusion to both kidneys. Morphology: Kidneys are normal in shape and size. There are no central photopenic regions to suggest dilated collecting systems. The ureters and bladder are visualized, and appear normal in morphology. Function: There is delayed uptake of the bilateral renal cortices, with time to maximum of 30 minutes on the left and 6.5 minutes on the right. The right kidney contributes 46 % of total renal function. The left kidney contributes 54 % of total renal function. Significant retention of radiotracer within the left intrarenal collecting system. There is delayed clearance of radiotracer from the bilateral kidneys, left greater than right. Severe left hydronephrosis. IMPRESSION: 1. Impaired perfusion of the bilateral kidneys, left greater than right. 2. Left hydronephrosis with significantly delayed clearance of radiotracer from the left kidney. Dictated by: Anthony Mathis M.D. on 10/30/2022 at 15:48 Transcribed by: SHAYNE on 10/30/2022 at 15:58 Approved by: Anthony Mathis M.D. on 10/30/2022 at 16:49
== END ==
PROVIDERS: PCP Family Medicine; Referring Provider Urology; Visit Provider Urology
DX: N13.30 Unspecified hydronephrosis
CPT/HCPCS: 78708; A9562

== ENCOUNTER → 2023-06-08 14:46 | Outpatient (CLI) | payer MEDICARE, OTHER, SELFPAY ==
[2021-10-23 21:44] VITALS: BMI 29.9
--- NOTE | 2023-06-08 | DI.US.S_ITS ---
PROCEDURE: US RENAL COMPLETE INDICATIONS: LEFT HYDRONEPHROSIS TECHNIQUE: Real-time scanning was performed of the kidneys and bladder, with image documentation. COMPARISON: [facility], CT, CT KIDNEY URETER BLADDER (KUB), 08/14/2022, 0:01. [facility], US, US RENAL COMPLETE, 07/22/2022, 15:52. FINDINGS: Kidneys: Right kidney measures 12.4 cm long; left kidney measures 15.8 cm long. Right renal cortical thickness is 1.3 cm; left renal cortical thickness is 1.3 cm. No right hydronephrosis or evidence of right nephrolithiasis. Severe left hydronephrosis present as before. Two nonobstructing stones present at the inferior kidney measuring 1.8 and 1.3 cm respectively. Bladder: Pre-void bladder volume is 203 mL. Post-void residual is 71 mL. Pre-void images demonstrate no intraluminal masses or stones. On pre-void images, right ureteral jets are noted with color Doppler interrogation. (Of note, ureteral jets may not be detectable in up to 25% of cases due to insufficient differences in specific gravity between ureteral and bladder urine). Miscellaneous: No free pelvic fluid. IMPRESSION: Severe left hydronephrosis as before. Nonobstructing left renal stones. Dictated by: Jones Mackey M.D. on 06/11/2023 at 11:58 Approved by: Jones Mackey M.D. on 06/11/2023 at 12:05
== END ==
PROVIDERS: PCP Family Medicine; Referring Provider Family Medicine; Visit Provider Family Medicine
DX: N13.30 Unspecified hydronephrosis (principal); N20.0 Calculus of kidney
CPT/HCPCS: 76770

== ENCOUNTER 2023-07-24 12:19 | Emergency (ER) | payer MEDICARE, OTHER, SELFPAY ==
[2021-10-23 21:44] VITALS: BMI 29.9
[2023-07-24 12:23] VITALS: BP 189/88; PULSE 64; RESP 15; TEMP 36.3; O2SAT 99; BMI 32.5
--- NOTE | 2023-07-24 12:48 | ED_ITS ---
HPI - Back Pain/Injury <Gabriella Taylor PA-C - Last Filed: 07/24/23 15:47> General Chief Complaint: Urogenital-Male Stated Complaint: lt kidney injury/states stones and was hit Time Seen by Provider: 07/24/23 12:31 Source: patient History of Present Illness HPI Narrative: 73-year-old male with history of hypertension chronic knee pain, left hydronephrosis and kidney stones, who presents for evaluation of left low back pain. He describes being seen within the last 6 months for removal of kidney stones, but says they were actually able to remove all the stones and he is still pending follow-up for that. Over the last 24 hours he is had an increase in his left low back pain over the area where he is had his kidney stone pain and he also reports decreased urination. He denies fever abdominal pain nausea vomiting chest pain shortness of breath. His pain is dull and achy and better at rest. He also reports 2 days ago while laying in his recliner on his side that his 13-year-old grandson jumped on his left side unexpectedly. He says the pain has gradually worsened since then. He is prescribed oxycodone for his chronic knee pain and took a dose at 6:00 a.m. this morning without much relief. Related Data Home Medications Medication Instructions Recorded Confirmed fluticasone propionate 50 1 spray intranasal DAILY #0 sprays 05/19/13 10/26/21 mcg/actuation nasal spray,suspension olmesartan 20 mg tablet 2 tab PO DAILY 06/27/18 10/26/21 omeprazole 40 mg capsule,delayed 1 cap PO DAILY 06/27/18 10/26/21 release oxycodone 10 mg tablet 1 tab PO QID PRN Pain (Scale Score 06/27/18 10/26/21 4-6) atorvastatin 80 mg tablet 80 mg PO DAILY 10/26/21 10/26/21 diclofenac sodium 100 mg 100 mg PO DAILY 10/26/21 10/26/21 tablet,extended release 24 hr diltiazem HCl 180 mg 180 mg PO DAILY 10/26/21 10/26/21 capsule,extended release 24 hr hydroxyzine HCl 10 mg tablet 10 mg PO Q6HR PRN Anxiety 10/26/21 10/26/21 metoprolol succinate 50 mg 75 mg PO DAILY 10/26/21 10/26/21 tablet,extended release 24 hr Previous Rx's Medication Instructions Recorded ciprofloxacin HCl 500 mg tablet 500 mg PO Q12H #14 tabs 08/14/22 oxycodone 10 mg tablet 10 mg PO Q6H PRN pain #10 tabs 07/24/23 Allergies Allergy/AdvReac Type Severity Reaction Status Date / Time procaine [From Novocain] Allergy Verified 07/24/23 12:23 Review of Systems <Gabriella Taylor PA-C - Last Filed: 07/24/23 15:47> Review of Systems ROS Unobtainable: All systems reviewed & are unremarkable except as noted in HPI and below Patient History <Gabriella Taylor PA-C - Last Filed: 07/24/23 15:47> Medical History Hypertension Chronic pain Hiatal hernia Social History household members: none Smoking Status: Former smoker alcohol intake: current Smoking Status: Former smoker alcohol intake frequency: other Substance Use Type: does not use Exam <Gabriella Taylor PA-C - Last Filed: 07/24/23 15:47> Initial Vital Signs Initial Vital Signs: Vital Signs Temperature 97.3 F L 07/24/23 12:23 Pulse Rate 64 07/24/23 12:23 Respiratory Rate 15 07/24/23 12:23 Blood Pressure 189/88 H 07/24/23 12:23 Pulse Oximetry 99 07/24/23 12:23 Oxygen Delivery Method Room Air 07/24/23 12:23 <Noa Ness DO - Last Filed: 07/31/23 02:41> Initial Vital Signs Initial Vital Signs: Vital Signs Temperature 97.3 F L 07/24/23 12:23 Pulse Rate 64 07/24/23 12:23 Respiratory Rate 15 07/24/23 12:23 Blood Pressure 189/88 H 07/24/23 12:23 Pulse Oximetry 99 07/24/23 12:23 Oxygen Delivery Method Room Air 07/24/23 12:23 Course <Gabriella Taylor PA-C - Last Filed: 07/24/23 15:47> Orders Ordered: Discontinued Medications Ketorolac Tromethamine (Ketorolac 30 Mg/Ml Vial) 30 mg IM NOW ONE Stop: 07/24/23 12:50 Last Admin: 07/24/23 13:02 Dose: Not Given Documented By: TYRONE Oxycodone/Acetaminophen (Oxycodone/Acetaminophen 5/325 Tablet) 1 tab PO NOW ONE Stop: 07/24/23 12:59 Last Admin: 07/24/23 13:28 Dose: 1 tab Documented By: TYRONE Vital Signs Vital signs: Vital Signs - 8 hr 07/24/23 12:23 Temperature 97.3 F L Pulse Rate 64 Respiratory Rate 15 Blood Pressure 189/88 H Pulse Oximetry 99 Oxygen Delivery Method Room Air <Noa Ness DO - Last Filed: 07/31/23 02:41> Orders Ordered: Discontinued Medications Ketorolac Tromethamine (Ketorolac 30 Mg/Ml Vial) 30 mg IM NOW ONE Stop: 07/24/23 12:50 Last Admin: 07/24/23 13:02 Dose: Not Given Documented By: TYRONE Oxycodone/Acetaminophen (Oxycodone/Acetaminophen 5/325 Tablet) 1 tab PO NOW ONE Stop: 07/24/23 12:59 Last Admin: 07/24/23 13:28 Dose: 1 tab Documented By: TYRONE Vital Signs Vital signs: Vital Signs - 8 hr 07/24/23 12:23 Temperature 97.3 F L Pulse Rate 64 Respiratory Rate 15 Blood Pressure 189/88 H Pulse Oximetry 99 Oxygen Delivery Method Room Air MDM - Back Pain/Injury <Gabriella Taylor PA-C - Last Filed: 07/24/23 15:47> Differential Diagnosis Differential diagnosis: Likely strain of lumbar region, renal colic, pyelonephritis and other (Kidney stones.) Lab Data 07/24/23 13:13 07/24/23 13:13 Labs: Lab Results 07/24/23 07/24/23 Range/Units 13:13 13:55 WBC 7.7 (4.5-11.0) X10^3/uL RBC 5.22 (4.5-5.9) X10^6/uL Hgb 13.4 L (13.5-17.5) g/dL Hct 39.9 L (41-53) % MCV 76.5 L (80-100) fL MCH 25.6 L (26-34) PG MCHC 33.4 (30-36) % RDW 19.6 H (11.6-14.8) % Plt Count 187 (150-400) X10^3/uL Neut % (Auto) 72.7 (50-75) % Lymph % (Auto) 16.2 L (25-40) % [place] % (Auto) 8.6 (3-14) % Eos % (Auto) 1.8 L (2-4) % Baso % (Auto) 0.7 (0-2) % Neut # (Auto) 5600 (3979-7533) /uL Lymph # (Auto) 1200 (4122-5359) /uL [place] # (Auto) 700 (0-900) /uL Eos # (Auto) 100 (0-450) /uL Baso # (Auto) 100 (0-100) /uL Sodium 136 L (137-145) mmol/L Potassium 3.9 (3.4-5.1) mmol/L Chloride 101 (98-107) mmol/L Carbon Dioxide 28 (22-32) mmol/L BUN 14 (9-20) mg/dL Creatinine 1.53 H (0.66-1.25) mg/dL Estimated GFR 48 L (>60) mL/min BUN/Creatinine Ratio 9.2 (6-22) Glucose 130 H (80-110) mg/dL Calcium 9.5 (8.4-10.2) mg/dL Total Bilirubin 0.6 (0.2-1.3) mg/dL AST 25 (17-59) IU/L ALT 18 (<50) IU/L Alkaline Phosphatase 89 (38-126) U/L Total Protein 7.6 (6.3-8.2) g/dL Albumin 4.1 (3.5-5.0) g/dL Globulin 3.5 (1.7-4.1) g/dL Albumin/Globulin Ratio 1.2 (1.0-2.8) Lipase 69 (23-300) U/L Urine Color Yellow Urine Appearance Clear Urine pH 5.5 (4.5-8.0) Ur Specific [place] 1.010 (1.000-1.035) Urine Protein Negative (Negative) Urine Glucose (UA) Negative (Negative) g/dL Urine Ketones Negative (NEGATIVE) Urine Occult Blood 3+ H (Negative) Urine Nitrate Negative (Negative) Urine Bilirubin Negative (NEGATIVE) Urine Urobilinogen 0.2 (0.2) E.U./dL Ur Leukocyte Esterase Negative (NEGATIVE) Urine RBC 10-30/hpf H (0-5/HPF) Urine WBC 0-1/hpf (0-5/HPF) Ur Squamous Epith Cells None seen (0-5/HPF) Urine Bacteria None seen (None) Ur Culture Indicated? Cult not indicated Imaging Data CT scan - abdomen/pelvis: Radiologist's Impression: PROCEDURE: CT KIDNEY URETER BLADDER (KUB) INDICATIONS: LLQ pain; h/o injury, kindney stones, hydronephrosis TECHNIQUE: Axial sections were acquired from the lung bases to the pubic symphysis. Coronal and sagittal reformats were performed. For radiation dose reduction, the following was used: automated exposure control, adjustment of mA and/or kV according to patient size. COMPARISON: [facility], CT, CT KIDNEY URETER BLADDER (KUB), 08/14/2022, 0:01. FINDINGS: Image quality: Excellent. Lung bases: Mild bibasilar dependent atelectasis is seen. Heart: Heart size is enlarged, no pericardial effusion URINARY: Right Kidney: No stones or hydronephrosis. Right Ureter: No hydroureter. Left Kidney: Asymmetrically enlarged left kidney is seen. Severe left-sided hydronephrosis is seen. Multiple nonobstructing left renal calculi are seen measures up to 1.2 x 0.9 cm in size and 530 Hounsfield unit in density. Left Ureter: No hydroureter. No obstructing stone is seen. Bladder: Normal wall thickness. No stones. ABDOMEN: Liver: No contour-deforming solid mass. Gallbladder: No radiopaque gallstones or wall thickening. Biliary ducts: No biliary dilation. Pancreas: No ductal dilation. Spleen: Size is within normal limits. Adrenal Glands: No adrenal nodules. Stomach and Bowel: Normal colonic caliber, without significant wall thickening. Appendix is visualized and is within normal limits. Peritoneum: No abnormal intraperitoneal fluid. No free air. Ventral Wall: No hernia. Abdominal Nodes: No enlarged retroperitoneal or mesenteric lymph nodes. Vessels: Aorta and inferior vena cava are normal in size. PELVIS: Pelvic Organs: Unremarkable. Pelvic Nodes: Unremarkable. Miscellaneous: No inguinal hernias are seen. Bones: There is prior right total hip arthroplasty with significant beam hardening artifacts. No suspicious bony lesions. No acute vertebral body compression fracture. 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 IMPRESSION: 1. Chronic severe left-sided hydronephrosis and multiple nonobstructing left renal calculi unchanged from prior study and is suggestive of left UPJ obstruction. No right-sided stones or hydronephrosis. Normal appearing urinary bladder. 2. No acute inflammatory process is seen in abdomen or pelvis. No free fluid or free air. Dictated by: Charlie Cano M.D. on 07/24/2023 at 13:46 Approved by: Charlie Cano M.D. on 07/24/2023 at 13:50 [facility] Narrative Medical decision making narrative: A 73-year-old male has a history of significant hydronephrosis on the left and multiple kidney stones in the left kidney who is followed by a contact center professional and [facility]. His history supports both an exacerbation of kidney stones, or lumbar strain due to his grandson jumping on him. His exam is reassuring. Kidney function stable, urinalysis without signs of infection, white count normal. Abdominal CT shows chronic severe left-sided hydronephrosis and multiple nonobstructing left renal calculi unchanged from prior study. Normal appearing urinary bladder. And no acute inflammatory process seen in the abdomen or pelvis with no free fluid or free air. He remained comfortable during the duration of his stay. Given the stable parents of his kidney we will have him follow-up with his contact center professional next week. I have given him additional oxycodone for the weekend. Expresses agreement with this plan and is discharged without complications. Patient was discussed with who agrees with the assessment and plan. <Noa Ness, DO - Last Filed: 07/31/23 02:41> Lab Data Labs: Lab Results 07/24/23 07/24/23 Range/Units 13:13 13:55 WBC 7.7 (4.5-11.0) X10^3/uL RBC 5.22 (4.5-5.9) X10^6/uL Hgb 13.4 L (13.5-17.5) g/dL Hct 39.9 L (41-53) % MCV 76.5 L (80-100) fL MCH 25.6 L (26-34) PG MCHC 33.4 (30-36) % RDW 19.6 H (11.6-14.8) % Plt Count 187 (150-400) X10^3/uL Neut % (Auto) 72.7 (50-75) % Lymph % (Auto) 16.2 L (25-40) % [place] % (Auto) 8.6 (3-14) % Eos % (Auto) 1.8 L (2-4) % Baso % (Auto) 0.7 (0-2) % Neut # (Auto) 5600 (6156-2473) /uL Lymph # (Auto) 1200 (9532-9246) /uL [place] # (Auto) 700 (0-900) /uL Eos # (Auto) 100 (0-450) /uL Baso # (Auto) 100 (0-100) /uL Sodium 136 L (137-145) mmol/L Potassium 3.9 (3.4-5.1) mmol/L Chloride 101 (98-107) mmol/L Carbon Dioxide 28 (22-32) mmol/L BUN 14 (9-20) mg/dL Creatinine 1.53 H (0.66-1.25) mg/dL Estimated GFR 48 L (>60) mL/min BUN/Creatinine Ratio 9.2 (6-22) Glucose 130 H (80-110) mg/dL Calcium 9.5 (8.4-10.2) mg/dL Total Bilirubin 0.6 (0.2-1.3) mg/dL AST 25 (17-59) IU/L ALT 18 (<50) IU/L Alkaline Phosphatase 89 (38-126) U/L Total Protein 7.6 (6.3-8.2) g/dL Albumin 4.1 (3.5-5.0) g/dL Globulin 3.5 (1.7-4.1) g/dL Albumin/Globulin Ratio 1.2 (1.0-2.8) Lipase 69 (23-300) U/L Urine Color Yellow Urine Appearance Clear Urine pH 5.5 (4.5-8.0) Ur Specific [place] 1.010 (1.000-1.035) Urine Protein Negative (Negative) Urine Glucose (UA) Negative (Negative) g/dL Urine Ketones Negative (NEGATIVE) Urine Occult Blood 3+ H (Negative) Urine Nitrate Negative (Negative) Urine Bilirubin Negative (NEGATIVE) Urine Urobilinogen 0.2 (0.2) E.U./dL Ur Leukocyte Esterase Negative (NEGATIVE) Urine RBC 10-30/hpf H (0-5/HPF) Urine WBC 0-1/hpf (0-5/HPF) Ur Squamous Epith Cells None seen (0-5/HPF) Urine Bacteria None seen (None) Ur Culture Indicated? Cult not indicated Discharge Plan Departure Patient Disposition: Home Clinical Impression: Hydronephrosis concurrent with and due to calculi of kidney and ureter Instructions: DI for Kidney Infection Activity Restrictions/Additional Instructions: The swelling over your left kidney is stable compared to the last time you had imaging. Your urine does not show any signs of infection. Given the stability of your condition I suspect there is a combination of low back injury and the kidney stones. It is important that you follow-up with your contact center professional next week. I will give you a small number of additional oxycodone and you can take 1 every 4-6 hours as needed for the pain. I also suggest you take Tylenol every 4-6 hours at 500-1000 mg, not to exceed 4000 mg in 1 day. This can add additional pain relief. Return for any significant increase of the pain, inability to urinate, fever, or other new onset concerning symptoms. It was a pleasure to take care of you today. Prescriptions: New oxycodone 10 mg tablet 10 mg PO Q6H PRN (Reason: pain) Qty: 10 0RF No Action fluticasone propionate 50 mcg/actuation [place],Suspension 1 spray INTRANASAL DAILY Qty: 0 Rx Instructions: administer into each nostril atorvastatin 80 mg tablet 80 mg PO DAILY Patient Comments: TAKE 1 TABLET BY MOUTH ONCE DAILY diltiazem HCl 180 mg capsule,extended release 24hr 180 mg PO DAILY Patient Comments: TAKE 1 CAPSULE BY MOUTH EVERY DAY metoprolol succinate 50 mg tablet extended release 24 hr 75 mg PO DAILY Patient Comments: TAKE 1 AND 1/2 TABLETS BY MOUTH TWICE DAILY diclofenac sodium 100 mg tablet extended release 24 hr 100 mg PO DAILY Patient Comments: TAKE 1 TABLET BY MOUTH EVERY DAY WITH FOOD hydroxyzine HCl 10 mg tablet 10 mg PO Q6HR PRN (Reason: Anxiety) Patient Comments: TAKE 1 TABLET BY MOUTH EVERY 6 HOURS DIRECTED FOR ANXIETY ciprofloxacin HCl 500 mg tablet 500 mg PO Q12H Qty: 14 0RF omeprazole 40 mg capsule,delayed release(DR/EC) 1 cap PO DAILY Patient Comments: TAKE ONE CAPSULE BY MOUTH EVERY DAY olmesartan 20 mg tablet 2 tab PO DAILY Patient Comments: TAKE 1 TABLET BY MOUTH EVERY DAY. IF BLOOD PRESSURE IS ABOVE 140/80, INCREASE TO 2 TABS A DAY. oxycodone 10 mg tablet 1 tab PO QID PRN (Reason: Pain (Scale Score 4-6)) Patient Comments: TAKE ONE TABLET BY MOUTH FOUR TIMES A DAY FOR BACK AND LEG PAIN Referrals: Hosea Reyes MD [Primary Care Provider] - Stand Alone Forms: Patient Portal/API ED Sign-out <Noa Ness DO - Last Filed: 07/31/23 02:41> Cosign ED Attending [place] Attestation: I was immediately available in the department for consultation. Case discussed, labs and imaging reviewed. Patient history as well, appears to have chronic kidney disease as well as chronic hydronephrosis not requiring emergent urology intervention but does need follow-up with his urologist.
--- NOTE | 2023-07-24 12:58 | DI.CT.S_ITS ---
PROCEDURE: CT KIDNEY URETER BLADDER (KUB) INDICATIONS: LLQ pain; h/o injury, kindney stones, hydronephrosis TECHNIQUE: Axial sections were acquired from the lung bases to the pubic symphysis. Coronal and sagittal reformats were performed. For radiation dose reduction, the following was used: automated exposure control, adjustment of mA and/or kV according to patient size. COMPARISON: [facility], CT, CT KIDNEY URETER BLADDER (KUB), 08/14/2022, 0:01. FINDINGS: Image quality: Excellent. Lung bases: Mild bibasilar dependent atelectasis is seen. Heart: Heart size is enlarged, no pericardial effusion URINARY: Right Kidney: No stones or hydronephrosis. Right Ureter: No hydroureter. Left Kidney: Asymmetrically enlarged left kidney is seen. Severe left-sided hydronephrosis is seen. Multiple nonobstructing left renal calculi are seen measures up to 1.2 x 0.9 cm in size and 530 Hounsfield unit in density. Left Ureter: No hydroureter. No obstructing stone is seen. Bladder: Normal wall thickness. No stones. ABDOMEN: Liver: No contour-deforming solid mass. Gallbladder: No radiopaque gallstones or wall thickening. Biliary ducts: No biliary dilation. Pancreas: No ductal dilation. Spleen: Size is within normal limits. Adrenal Glands: No adrenal nodules. Stomach and Bowel: Normal colonic caliber, without significant wall thickening. Appendix is visualized and is within normal limits. Peritoneum: No abnormal intraperitoneal fluid. No free air. Ventral Wall: No hernia. Abdominal Nodes: No enlarged retroperitoneal or mesenteric lymph nodes. Vessels: Aorta and inferior vena cava are normal in size. PELVIS: Pelvic Organs: Unremarkable. Pelvic Nodes: Unremarkable. Miscellaneous: No inguinal hernias are seen. Bones: There is prior right total hip arthroplasty with significant beam hardening artifacts. No suspicious bony lesions. No acute vertebral body compression fracture. 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 IMPRESSION: 1. Chronic severe left-sided hydronephrosis and multiple nonobstructing left renal calculi unchanged from prior study and is suggestive of left UPJ obstruction. No right-sided stones or hydronephrosis. Normal appearing urinary bladder. 2. No acute inflammatory process is seen in abdomen or pelvis. No free fluid or free air. Dictated by: Charlie Cano M.D. on 07/24/2023 at 13:46 Approved by: Charlie Cano M.D. on 07/24/2023 at 13:50
[2023-07-24 13:23] LABS: Add Manual Diff / Slide Review NO; Basophils Absolute Auto 100 /uL (0-100); Basophils Percent Auto 0.7 % (0-2); Eosinophils Absolute Auto 100 /uL (0-450); Eosinophils Percent Auto 1.8 % (2-4); Hematocrit 39.9 % (41-53); Hemoglobin 13.4 g/dL (13.5-17.5); Lymphocytes Absolute Auto 1200 /uL (1100-4500); Lymphocytes Percent Auto 16.2 % (25-40); Mean Corpuscular HGB Conc 33.4 % (30-36); Mean Corpuscular Hemoglobin 25.6 PG (26-34); Mean Corpuscular Volume 76.5 fL (80-100); Monocytes Absolute Auto 700 /uL (0-900); Monocytes Percent Auto 8.6 % (3-14); Neutrophils Absolute Auto 5600 /uL (1500-7000); Neutrophils Percent Auto 72.7 % (50-75); Platelet Count 187 X10^3/uL (150-400); Red Blood Cell Count 5.22 X10^6/uL (4.5-5.9); Red Cell Distribution Width 19.6 % (11.6-14.8); White Blood Cell Count 7.7 X10^3/uL (4.5-11.0)
[2023-07-24] MEDS: OXYCODONE/ACETAMINOPHEN 5/325 TABLET 1 TAB PO (13:28)
[2023-07-24 13:35] LABS: Alanine Aminotransferase 18 IU/L (<50); Albumin 4.1 g/dL (3.5-5.0); Albumin Globulin Ratio 1.2 (1.0-2.8); Alkaline Phosphatase 89 U/L (38-126); Aspartate Aminotransferase 25 IU/L (17-59); BUN Creatinine Ratio 9.2 (6-22); Bilirubin Total 0.6 mg/dL (0.2-1.3); Blood Urea Nitrogen 14 mg/dL (9-20); Calcium 9.5 mg/dL (8.4-10.2); Carbon Dioxide 28 mmol/L (22-32); Chloride 101 mmol/L (98-107); Estimated Glomerular Filt Rate 48 mL/min (>60); Globulin 3.5 g/dL (1.7-4.1); Glucose 130 mg/dL (80-110); HEMOLYSIS < 15 (0-50); Lipase 69 U/L (23-300); Potassium 3.9 mmol/L (3.4-5.1); Sodium 136 mmol/L (137-145); Total Protein 7.6 g/dL (6.3-8.2)
[2023-07-24 14:02] LABS: Appearance Urine UA CLEAR; Bilirubin Urine UA NEGATIVE (NEGATIVE); Color Urine UA YELLOW; Glucose Urine UA NEGATIVE (Negative); Ketones Urine UA NEGATIVE (NEGATIVE); Leukocyte Esterase Urine UA NEGATIVE (NEGATIVE); Nitrite Urine UA NEGATIVE (Negative); Occult Blood Urine UA 3+ (Negative); Protein Urine UA NEGATIVE (Negative); Urobilinogen Urine UA 0.2 E.U./dL (0.2); pH Urine UA 5.5 (4.5-8.0)
[2023-07-24 14:20] LABS: Bacteria Urine None Seen; Culture Indicated Urine Cult Not Indicated; RBC Urine 10-30/HPF (0-5/HPF); Squamous Epithelial Cell Urine None Seen (0-5/HPF); WBC Urine 0-1/HPF (0-5/HPF)
[2023-07-24 15:40] VITALS: BP 153/77; PULSE 58; RESP 20; TEMP 36.6; O2SAT 98
== END 2023-07-24 15:45 | disposition home or self-care (01) ==
PROVIDERS: Emergency Provider Physician Assistant; PCP Family Medicine
DX: N13.2 Hydronephrosis with renal and ureteral calculous obstruction (principal); I10 Essential (primary) hypertension; Z87.891 Personal history of nicotine dependence
CPT/HCPCS: 36415; 74176; 80053; 81001; 83690; 85025; 96372; 99283

== ENCOUNTER → 2023-08-25 16:15 | Outpatient (CLI) | payer MEDICARE, OTHER, SELFPAY ==
[2021-10-23 21:44] VITALS: BMI 29.9
--- NOTE | 2023-08-25 | DI.RAD.S_ITS ---
PROCEDURE: XR LUMBAR SPINE 2-3V INDICATIONS: CHRONIC BACK PAIN TECHNIQUE: 3 views of the lumbar spine were acquired. COMPARISON: None. FINDINGS: Bones: 5 [id number] vertebrae are present. There is normal bony alignment. No acute vertebral body compression fractures. No suspicious bony lesions. Moderate multilevel lumbar spondylosis with degenerative endplate changes, endplate osteophyte formation, and disc space loss. Moderate mid and lower lumbar facet arthropathy. Moderate degenerative changes of the lower thoracic spine. Soft tissues: Overlying bowel gas pattern is normal. No suspicious soft tissue calcifications. IMPRESSION: Lumbar spine without acute osseous abnormalities or malalignment. Moderate multilevel thoracolumbar spondylosis. Dictated by: Angelito Ortez M.D. on 08/26/2023 at 9:30 Approved by: Angelito Ortez M.D. on 08/26/2023 at 9:32
== END ==
PROVIDERS: PCP Family Medicine; Referring Provider Family Medicine; Visit Provider Family Medicine
DX: M54.50 Low back pain, unspecified (principal); G89.29 Other chronic pain; M47.815 Spondylosis without myelopathy or radiculopathy, thoracolumbar region
CPT/HCPCS: 72100

== ENCOUNTER 2023-11-22 02:15 | Emergency (ER) | payer MEDICARE, OTHER, SELFPAY ==
[2021-10-23 21:44] VITALS: BMI 29.9
[2023-11-22 02:17] VITALS: BP 197/97; PULSE 59; RESP 18; TEMP 36.9; O2SAT 94; BMI 32.3
--- NOTE | 2023-11-22 02:38 | ED_ITS ---
HPI - General Adult General Chief complaint: Urogenital-Male Stated complaint: possible kidney stone Time Seen by Provider: 11/22/23 02:25 Source: patient Mode of arrival: Ambulatory History of Present Illness HPI narrative: 73-year-old male. History of multiple kidney stones. States that he has been advised that he potentially needs surgery for the stones but has yet to have this performed. Is here for evaluation of left-sided flank discomfort that he states feels just like prior stones. No fevers. No vomiting. He did take 2 in medication that he had at home prior to arrival. He states he is still having some discomfort. States he is feeling like he is emptying his bladder. No change in bowel habits. No skin changes. Related Data Home Medications Medication Instructions Recorded Confirmed fluticasone propionate 50 1 spray intranasal DAILY #0 sprays 05/19/13 10/26/21 mcg/actuation nasal spray,suspension olmesartan 20 mg tablet 2 tab PO DAILY 06/27/18 10/26/21 omeprazole 40 mg capsule,delayed 1 cap PO DAILY 06/27/18 10/26/21 release oxycodone 10 mg tablet 1 tab PO QID PRN Pain (Scale Score 06/27/18 10/26/21 4-6) atorvastatin 80 mg tablet 80 mg PO DAILY 10/26/21 10/26/21 diclofenac sodium 100 mg 100 mg PO DAILY 10/26/21 10/26/21 tablet,extended release 24 hr diltiazem HCl 180 mg 180 mg PO DAILY 10/26/21 10/26/21 capsule,extended release 24 hr hydroxyzine HCl 10 mg tablet 10 mg PO Q6HR PRN Anxiety 10/26/21 10/26/21 metoprolol succinate 50 mg 75 mg PO DAILY 10/26/21 10/26/21 tablet,extended release 24 hr Previous Rx's Medication Instructions Recorded ciprofloxacin HCl 500 mg tablet 500 mg PO Q12H #14 tabs 08/14/22 oxycodone 10 mg tablet 10 mg PO Q6H PRN pain #10 tabs 07/24/23 Allergies Allergy/AdvReac Type Severity Reaction Status Date / Time procaine [From Novocain] Allergy Verified 07/24/23 12:23 Review of Systems Gastrointestinal Gastrointestinal: Reports system reviewed and no additional complaints, except as documented Genitourinary Genitourinary: Reports system reviewed and no additional complaints, except as documented Musculoskeletal Musculoskeletal: Reports system reviewed and no additional complaints, except as documented Integumentary/Breasts Skin/Breast: Reports system reviewed and no additional complaints, except as documented Patient History Medical History (Updated 11/22/23 @ 04:15 by Tres Vásquez DO) Hypertension Chronic pain Hiatal hernia Social History household members: none Smoking Status: Former smoker alcohol intake: current Smoking Status: Former smoker alcohol intake frequency: other Substance Use Type: does not use Exam Initial Vital Signs Initial Vital Signs: Vital Signs Temperature 98.4 F 11/22/23 02:17 Pulse Rate 59 L 11/22/23 02:17 Respiratory Rate 18 11/22/23 02:17 Blood Pressure 197/97 H 11/22/23 02:17 Pulse Oximetry 94 11/22/23 02:17 Oxygen Delivery Method Room Air 11/22/23 02:17 HENMT Head: normal to inspection and normocephalic Resp Effort & Inspection: normal respiratory effort Cardio Rate: regular rate GI Inspection: normal to inspection and non-distended Palpation: soft and No tender Skin General: no rashes or lesions noted Course Orders Ordered: ED Orders 11/22/23 02:42 Basic Metabolic Panel Stat Complete Blood Count AUTO DIFF Stat 11/22/23 02:49 Urine Microscopic Stat Discontinued Medications Hydromorphone HCl (Hydromorphone 1 Mg Inj) 1 mg IM NOW ONE Stop: 11/22/23 03:28 Last Admin: 11/22/23 03:37 Dose: 1 mg Documented By: OCTAVIANO Ketorolac Tromethamine (Ketorolac 30 Mg/Ml Vial) 30 mg IM NOW ONE Stop: 11/22/23 03:28 Last Admin: 11/22/23 03:33 Dose: 30 mg Documented By: SB Vital Signs Vital signs: Vital Signs - 8 hr 11/22/23 02:17 Temperature 98.4 F Pulse Rate 59 L Respiratory Rate 18 Blood Pressure 197/97 H Pulse Oximetry 94 Oxygen Delivery Method Room Air Medical Decision Making Lab Data Lab results reviewed: Yes I reviewed the patient's lab results. 11/22/23 02:42 11/22/23 02:42 Labs: Lab Results 11/22/23 11/22/23 Range/Units 02:42 02:49 WBC 9.9 (4.5-11.0) X10^3/uL RBC 5.33 (4.5-5.9) X10^6/uL Hgb 14.8 (13.5-17.5) g/dL Hct 44.1 (41-53) % MCV 82.6 (80-100) fL MCH 27.7 (26-34) PG MCHC 33.5 (30-36) % RDW 14.1 (11.6-14.8) % Plt Count 190 (150-400) X10^3/uL Neut % (Auto) 69.2 (50-75) % Lymph % (Auto) 17.9 L (25-40) % [place] % (Auto) 8.8 (3-14) % Eos % (Auto) 3.2 (2-4) % Baso % (Auto) 0.9 (0-2) % Neut # (Auto) 6900 (4640-6370) /uL Lymph # (Auto) 1800 (0721-9124) /uL [place] # (Auto) 900 (0-900) /uL Eos # (Auto) 300 (0-450) /uL Baso # (Auto) 100 (0-100) /uL Sodium 136 L (137-145) mmol/L Potassium 4.2 (3.4-5.1) mmol/L Chloride 101 (98-107) mmol/L Carbon Dioxide 29 (22-32) mmol/L BUN 33 H (9-20) mg/dL Creatinine 1.64 H (0.66-1.25) mg/dL Estimated GFR 44 L (>60) mL/min BUN/Creatinine Ratio 20.1 (6-22) Glucose 113 H (80-110) mg/dL Calcium 9.0 (8.4-10.2) mg/dL Urine RBC None seen (0-5/HPF) Urine WBC None seen (0-5/HPF) Ur Squamous Epith Cells 0-1 /hpf (0-5/HPF) Amorphous Sediment 1+ Urine Bacteria None seen (None) Ur Culture Indicated? Cult not indicated Vol Urine Centrifuged 10ml (spun) Urine Dip Bedside Urine Glucose Negative Bedside Urine Bilirubin - Negative Bedside Urine Ketone - Negative Urine Specific [place] 1.015 Bedside Urine Occult Blood +++ Bedside Urine pH 5.5 Bedside Urine Protein +/- 15 Bedside Urine Urobilinogen - Negative Bedside Urine Nitrite - Negative Bedside Urine Leukocytes - Negative Esterase Point of care testing: Urine Dip Bedside Urine Glucose Negative Bedside Urine Bilirubin - Negative Bedside Urine Ketone - Negative Urine Specific [place] 1.015 Bedside Urine Occult Blood +++ Bedside Urine pH 5.5 Bedside Urine Protein +/- 15 Bedside Urine Urobilinogen - Negative Bedside Urine Nitrite - Negative Bedside Urine Leukocytes - Negative Esterase MDM Narrative Medical decision making narrative: Patient has a history of kidney stones. He states this feels like a kidney stone. He is blood in his urine. No signs of urinary tract infection. Is renal function is at baseline. He is feeling like he is emptying his bladder. He is tolerating oral intake. Discussed options to include CT scan here in the ER not necessarily to diagnose a kidney stone but more to evaluate for size and location. Discussed the risks and benefits of this. Plan will be to hold on a CT for now. Will treat symptomatically. He was given strict return precautions. Will have him contact his urology for follow-up. He expressed understanding and agreement with plan. Discharge Plan Departure Patient Disposition: Home Clinical Impression: Renal colic on left side Instructions: DI for Kidney Stones Activity Restrictions/Additional Instructions: Recommend that you continue to take all of your medications as directed. I also recommend you contact urologist follow-up. Return to the emergency department for fever, inability to urinate, worsening pain or any other new symptoms. Prescriptions: No Action fluticasone propionate 50 mcg/actuation [place],Suspension 1 spray INTRANASAL DAILY Qty: 0 Rx Instructions: administer into each nostril atorvastatin 80 mg tablet 80 mg PO DAILY Patient Comments: TAKE 1 TABLET BY MOUTH ONCE DAILY diltiazem HCl 180 mg capsule,extended release 24hr 180 mg PO DAILY Patient Comments: TAKE 1 CAPSULE BY MOUTH EVERY DAY metoprolol succinate 50 mg tablet extended release 24 hr 75 mg PO DAILY Patient Comments: TAKE 1 AND 1/2 TABLETS BY MOUTH TWICE DAILY diclofenac sodium 100 mg tablet extended release 24 hr 100 mg PO DAILY Patient Comments: TAKE 1 TABLET BY MOUTH EVERY DAY WITH FOOD hydroxyzine HCl 10 mg tablet 10 mg PO Q6HR PRN (Reason: Anxiety) Patient Comments: TAKE 1 TABLET BY MOUTH EVERY 6 HOURS DIRECTED FOR ANXIETY ciprofloxacin HCl 500 mg tablet 500 mg PO Q12H Qty: 14 0RF omeprazole 40 mg capsule,delayed release(DR/EC) 1 cap PO DAILY Patient Comments: TAKE ONE CAPSULE BY MOUTH EVERY DAY olmesartan 20 mg tablet 2 tab PO DAILY Patient Comments: TAKE 1 TABLET BY MOUTH EVERY DAY. IF BLOOD PRESSURE IS ABOVE 140/80, INCREASE TO 2 TABS A DAY. oxycodone 10 mg tablet 1 tab PO QID PRN (Reason: Pain (Scale Score 4-6)) Patient Comments: TAKE ONE TABLET BY MOUTH FOUR TIMES A DAY FOR BACK AND LEG PAIN oxycodone 10 mg tablet 10 mg PO Q6H PRN (Reason: pain) Qty: 10 0RF Referrals: Hosea Reyes MD [Primary Care Provider] - Stand Alone Forms: Patient Portal/API
[2023-11-22 02:51] LABS: Add Manual Diff / Slide Review NO; Basophils Absolute Auto 100 /uL (0-100); Basophils Percent Auto 0.9 % (0-2); Eosinophils Absolute Auto 300 /uL (0-450); Eosinophils Percent Auto 3.2 % (2-4); Hematocrit 44.1 % (41-53); Hemoglobin 14.8 g/dL (13.5-17.5); Lymphocytes Absolute Auto 1800 /uL (1100-4500); Lymphocytes Percent Auto 17.9 % (25-40); Mean Corpuscular HGB Conc 33.5 % (30-36); Mean Corpuscular Hemoglobin 27.7 PG (26-34); Mean Corpuscular Volume 82.6 fL (80-100); Monocytes Absolute Auto 900 /uL (0-900); Monocytes Percent Auto 8.8 % (3-14); Neutrophils Absolute Auto 6900 /uL (1500-7000); Neutrophils Percent Auto 69.2 % (50-75); Platelet Count 190 X10^3/uL (150-400); Red Blood Cell Count 5.33 X10^6/uL (4.5-5.9); Red Cell Distribution Width 14.1 % (11.6-14.8); White Blood Cell Count 9.9 X10^3/uL (4.5-11.0)
[2023-11-22 02:59] LABS: BUN Creatinine Ratio 20.1 (6-22); Blood Urea Nitrogen 33 mg/dL (9-20); Carbon Dioxide 29 mmol/L (22-32); Chloride 101 mmol/L (98-107); Estimated Glomerular Filt Rate 44 mL/min (>60); Glucose 113 mg/dL (80-110); HEMOLYSIS < 15 (0-50); Potassium 4.2 mmol/L (3.4-5.1); Sodium 136 mmol/L (137-145)
[2023-11-22 03:22] LABS: Amorphous Sediment Urine 1+; Bacteria Urine None Seen; Culture Indicated Urine Cult Not Indicated; RBC Urine None Seen (0-5/HPF); Squamous Epithelial Cell Urine 0-1 /HPF (0-5/HPF); Urine Volume 10mL (spun); WBC Urine None Seen (0-5/HPF)
[2023-11-22] MEDS: KETOROLAC 30 MG/ML VIAL IM (03:33)
[2023-11-22] MEDS: HYDROMORPHONE 1 MG INJ IM (03:37)
== END 2023-11-22 04:19 | disposition home or self-care (01) ==
PROVIDERS: Emergency Provider Emergency Medicine; PCP Family Medicine
DX: N20.0 Calculus of kidney (principal); Z87.442 Personal history of urinary calculi
CPT/HCPCS: 36415; 80048; 81003; 81015; 85025; 96372; 99283; 99284; J1170; J1885

== ENCOUNTER 2024-01-16 03:42 | Emergency (ER) | payer MEDICARE, OTHER, SELFPAY ==
[2021-10-23 21:44] VITALS: BMI 29.9
[2024-01-16] VITALS (7 sets, daily range): BP systolic 131–158; BP diastolic 69–85; PULSE 56–78; RESP 16; TEMP 36.6; O2SAT 92–97; BMI 32.3
[2024-01-16 04:34] LABS: Add Manual Diff / Slide Review NO; Basophils Absolute Auto 100 /uL (0-100); Basophils Percent Auto 0.6 % (0-2); Eosinophils Absolute Auto 200 /uL (0-450); Eosinophils Percent Auto 2.1 % (2-4); Hematocrit 42.8 % (41-53); Hemoglobin 14.5 g/dL (13.5-17.5); Lymphocytes Absolute Auto 2500 /uL (1100-4500); Lymphocytes Percent Auto 20.9 % (25-40); Mean Corpuscular Hemoglobin 27.7 PG (26-34); Mean Corpuscular Volume 81.5 fL (80-100); Monocytes Absolute Auto 1100 /uL (0-900); Monocytes Percent Auto 9.1 % (3-14); Neutrophils Absolute Auto 8000 /uL (1500-7000); Neutrophils Percent Auto 67.3 % (50-75); Platelet Count 208 X10^3/uL (150-400); Red Blood Cell Count 5.25 X10^6/uL (4.5-5.9); Red Cell Distribution Width 14.6 % (11.6-14.8); White Blood Cell Count 11.9 X10^3/uL (4.5-11.0)
[2024-01-16 04:41] LABS: Alanine Aminotransferase 20 IU/L (<50); Albumin 4.6 g/dL (3.5-5.0); Albumin Globulin Ratio 1.4 (1.0-2.8); Alkaline Phosphatase 97 U/L (38-126); Aspartate Aminotransferase 28 IU/L (17-59); BUN Creatinine Ratio 11.9 (6-22); Bilirubin Total 0.6 mg/dL (0.2-1.3); Blood Urea Nitrogen 16 mg/dL (9-20); Calcium 9.1 mg/dL (8.4-10.2); Carbon Dioxide 27 mmol/L (22-32); Chloride 101 mmol/L (98-107); Estimated Glomerular Filt Rate 56 mL/min (>60); Globulin 3.3 g/dL (1.7-4.1); Glucose 108 mg/dL (80-110); HEMOLYSIS 40 (0-50); Lipase 82 U/L (23-300); Potassium 4.1 mmol/L (3.4-5.1); Sodium 137 mmol/L (137-145); Total Protein 7.9 g/dL (6.3-8.2)
--- NOTE | 2024-01-16 04:50 | ED.GENADULT ---
HPI - General Adult General Chief complaint: Urogenital-Male Stated complaint: low back pain, kidney stone Time Seen by Provider: 01/16/24 04:50 Source: patient Mode of arrival: Ambulatory History of Present Illness HPI narrative: 73-year-old male with history of kidney stones complains of left lower quadrant abdominal pain, then radiation cephalad to the left lateral abdomen into left flank area. Somewhat typical of his previous kidney stones. Last episode of kidney stones 2 or 3 months ago he believes, passed without interventions. 1-2 years ago he had transurethral removal of kidney stones by a urologist in the [facility]. He has not having fevers or chills or cough. No nausea or vomiting. No loose stools diarrhea. No black or red stools. No injury trauma new activities. Related Data Home Medications Medication Instructions Recorded Confirmed fluticasone propionate 50 1 spray intranasal DAILY #0 sprays 05/19/13 10/26/21 mcg/actuation nasal spray,suspension olmesartan 20 mg tablet 2 tab PO DAILY 06/27/18 10/26/21 omeprazole 40 mg capsule,delayed 1 cap PO DAILY 06/27/18 10/26/21 release oxycodone 10 mg tablet 1 tab PO QID PRN Pain (Scale Score 06/27/18 10/26/21 4-6) atorvastatin 80 mg tablet 80 mg PO DAILY 10/26/21 10/26/21 diclofenac sodium 100 mg 100 mg PO DAILY 10/26/21 10/26/21 tablet,extended release 24 hr diltiazem HCl 180 mg 180 mg PO DAILY 10/26/21 10/26/21 capsule,extended release 24 hr hydroxyzine HCl 10 mg tablet 10 mg PO Q6HR PRN Anxiety 10/26/21 10/26/21 metoprolol succinate 50 mg 75 mg PO DAILY 10/26/21 10/26/21 tablet,extended release 24 hr Previous Rx's Medication Instructions Recorded ciprofloxacin HCl 500 mg tablet 500 mg PO Q12H #14 tabs 08/14/22 oxycodone 10 mg tablet 10 mg PO Q6H PRN pain #10 tabs 07/24/23 Allergies Allergy/AdvReac Type Severity Reaction Status Date / Time procaine [From Novocain] Allergy Verified 07/24/23 12:23 Patient History Medical History (Updated 05/19/24 @ 06:28 by Abdirahman Paula MD) Hypertension Chronic pain Hiatal hernia Social History household members: none Smoking Status: Former smoker alcohol intake: current Smoking Status: Former smoker alcohol intake frequency: other Substance Use Type: does not use Exam Narrative Exam Narrative: GENERAL: Well-developed patient, in moderate-severe distress due to pain. HEAD: Atraumatic. Normocephalic. EYES: Pupils equal round and reactive. Extraocular motions intact. No scleral icterus. No injection or drainage. ENT: Nose without bleeding, purulent drainage. Throat without erythema, tonsillar hypertrophy or exudate. Airway patent. NECK: Trachea midline. Non tender CARDIOVASCULAR: Regular rate and rhythm without murmurs, gallops, or rubs. RESPIRATORY: Clear to auscultation. Breath sounds equal bilaterally. No wheezes, rales, or rhonchi. GASTROINTESTINAL: Abdomen soft, non-tender, nondistended. EXTREMITIES: No edema or joint tenderness. BACK: Nontender without deformity or crepitance. No flank tenderness right or left. NEURO: AOx3. SKIN: No rash or erythema of visible areas Initial Vital Signs Initial Vital Signs: Vital Signs Temperature 97.8 F 01/16/24 03:54 Pulse Rate 78 01/16/24 03:54 Respiratory Rate 16 01/16/24 03:54 Blood Pressure 134/78 01/16/24 03:54 Pulse Oximetry 95 01/16/24 03:54 Oxygen Delivery Method Room Air 01/16/24 03:54 Course Orders Ordered: Discontinued Medications Sodium Chloride (Normal Saline 0.9%) 1,000 mls @ 1,000 mls/hr IV BOLUS ONE Stop: 01/16/24 06:07 Last Infusion: 01/16/24 06:20 Dose: Infused Documented By: Admin: 01/16/24 05:18 Dose: 1,000 mls/hr Documented By: DANIA Ketorolac Tromethamine (Ketorolac 30 Mg/Ml Vial) 15 mg IV NOW ONE Stop: 01/16/24 05:09 Last Admin: 01/16/24 05:15 Dose: 15 mg Documented By: DANIA Morphine Sulfate (Morphine 4 Mg/Ml Inj) 4 mg IV NOW ONE Stop: 01/16/24 05:09 Last Admin: 01/16/24 05:17 Dose: 4 mg Documented By: DANIA Ondansetron HCl (Ondansetron 4 Mg/2 Ml Inj) 4 mg IV NOW PRN PRN Reason: Nausea And Vomiting Last Admin: 01/16/24 05:16 Dose: 4 mg Documented By: DANIA Ondansetron HCl (Ondansetron 4 Mg Odt) 4 mg PO NOW PRN PRN Reason: Nausea And Vomiting Vital Signs Vital signs: Vital Signs - 8 hr 01/16/24 03:54 01/16/24 04:06 01/16/24 04:07 Temperature 97.8 F Pulse Rate 78 61 Respiratory Rate 16 Blood Pressure 134/78 Pulse Oximetry 95 92 93 Oxygen Delivery Method Room Air 01/16/24 04:07 01/16/24 04:30 01/16/24 04:30 Temperature Pulse Rate 56 L Respiratory Rate Blood Pressure 158/85 H 131/75 Pulse Oximetry 95 Oxygen Delivery Method 01/16/24 05:07 01/16/24 06:36 01/16/24 06:37 Temperature Pulse Rate 62 58 L 61 Respiratory Rate Blood Pressure 141/69 H Pulse Oximetry 96 95 97 Oxygen Delivery Method 01/16/24 06:37 Temperature 98 F Pulse Rate Respiratory Rate 16 Blood Pressure 141/69 H Pulse Oximetry Oxygen Delivery Method Medical Decision Making Lab Data Lab results reviewed: Yes I reviewed the patient's lab results. 01/16/24 04:13 01/16/24 04:13 Labs: Lab Results 01/16/24 01/16/24 Range/Units 04:13 05:10 WBC 11.9 H (4.5-11.0) X10^3/uL RBC 5.25 (4.5-5.9) X10^6/uL Hgb 14.5 (13.5-17.5) g/dL Hct 42.8 (41-53) % MCV 81.5 (80-100) fL MCH 27.7 (26-34) PG MCHC 34.0 (30-36) % RDW 14.6 (11.6-14.8) % Plt Count 208 (150-400) X10^3/uL Neut % (Auto) 67.3 (50-75) % Lymph % (Auto) 20.9 L (25-40) % [place] % (Auto) 9.1 (3-14) % Eos % (Auto) 2.1 (2-4) % Baso % (Auto) 0.6 (0-2) % Neut # (Auto) 8000 H (9351-0198) /uL Lymph # (Auto) 2500 (0875-5758) /uL [place] # (Auto) 1100 H (0-900) /uL Eos # (Auto) 200 (0-450) /uL Baso # (Auto) 100 (0-100) /uL Sodium 137 (137-145) mmol/L Potassium 4.1 (3.4-5.1) mmol/L Chloride 101 (98-107) mmol/L Carbon Dioxide 27 (22-32) mmol/L BUN 16 (9-20) mg/dL Creatinine 1.35 H (0.66-1.25) mg/dL Estimated GFR 56 L (>60) mL/min BUN/Creatinine Ratio 11.9 (6-22) Glucose 108 (80-110) mg/dL Calcium 9.1 (8.4-10.2) mg/dL Total Bilirubin 0.6 (0.2-1.3) mg/dL AST 28 (17-59) IU/L ALT 20 (<50) IU/L Alkaline Phosphatase 97 (38-126) U/L Total Protein 7.9 (6.3-8.2) g/dL Albumin 4.6 (3.5-5.0) g/dL Globulin 3.3 (1.7-4.1) g/dL Albumin/Globulin Ratio 1.4 (1.0-2.8) Lipase 82 (23-300) U/L Urine RBC None seen (0-5/HPF) Urine WBC None seen (0-5/HPF) Ur Squamous Epith Cells None seen (0-5/HPF) Urine Bacteria None seen (None) Ur Culture Indicated? Cult not indicated Vol Urine Centrifuged 10ml (spun) Urine Dip Bedside Urine Glucose Negative Bedside Urine Bilirubin - Negative Bedside Urine Ketone - Negative Urine Specific [place] 1.015 Bedside Urine Occult Blood +/- Bedside Urine pH 6.0 Bedside Urine Protein - Negative Bedside Urine Urobilinogen - Negative Bedside Urine Nitrite - Negative Bedside Urine Leukocytes - Negative Esterase Point of care testing: Urine Dip Bedside Urine Glucose Negative Bedside Urine Bilirubin - Negative Bedside Urine Ketone - Negative Urine Specific [place] 1.015 Bedside Urine Occult Blood +/- Bedside Urine pH 6.0 Bedside Urine Protein - Negative Bedside Urine Urobilinogen - Negative Bedside Urine Nitrite - Negative Bedside Urine Leukocytes - Negative Esterase MDM Narrative Medical decision making narrative: 73-year-old male with history of kidney stones, prior kidney stone interventions, last kidney stone 2-3 months ago past without Urology interventions. Now with new left flank pain. No fever on triage, sirs screen negative. Urine dip negative for blood. CT abdomen and pelvis imaging requested. CT abdomen pelvis without IV contrast. Impressions: ?Significant left-sided hydronephrosis (likely chronic) due to left UPJ stenosis. Nonobstructive small left renal stones measuring up to 13 mm. Small left femoral head AVN without associated femoral head collapse.? See detailed radiology report Dr. Rodriguez Additional Information: Patient informed, given copy of CT reports. He thinks he has been having left-sided hip pain and wonders it is radiating into the back, as he had right-sided hip replacement with similar symptoms. We discussed AVN. Follow up with Orthopedic surgery for this problem. Regarding the kidney stone within the renal pelvis, nonobstructing, and chronic appearing hydronephrosis, he was advised to follow up with his [facility] urologist. Return precautions discussed. Home with family Critical Care Time Critical Care Time Critical Care Time: Yes Total Critical Care Time: 35 Attestation: The high probability of a clinically significant, sudden or life threatening deterioration of the [neurologic, orthopedic, abdominal pelvic] system(s) required my full and direct attention, intervention and personal management. The aggregate critical care time was [35] minutes. This time is in addition to time spent performing reported procedures but includes the following: [x] Data Review and interpretation [x] Patient assessment and monitoring of vital signs [x] Documentation [x] Medication orders and management Discharge Plan Departure Patient Disposition: Home Clinical Impression: LLQ abdominal pain, Hydroureter, left, Avascular necrosis of bone of left hip, Hip pain, left Instructions: Aseptic Necrosis of the Hip, DI for Kidney Stones Activity Restrictions/Additional Instructions: Left lower quadrant abdominal discomfort, history of kidney stones, also left hip discomfort without obvious trauma or injury. CT abdomen and pelvis imaging today showed presence of a large stone within the left kidney but it did not seem to be obstructing or blocking anything at this time. There was some dilated left ureter changes up to 13 mm, however the radiologist felt that looked chronic in appearance, not acute in appearance, and there was no stone mentioned within the ureter. Urine dip test negative for infection or even blood today. There was incidental finding of left hip avascular necrosis, which might be causing your left hip pain. You had previous hip replacement on the right hand side, and recalled having lower abdominal discomfort and back discomfort that went away after hip replacement. It is possible some of your symptoms could be referred pain from this left hip avascular necrosis change. Follow up with Orthopedic surgery in follow up, contact information for Dr. Salinas on-call provided, if he did not have your own orthopedic surgeon. Follow up with your [facility] urologist regarding the other findings in the kidney and the ureter. Return to this/nearest emergency department for any change worsening symptoms or any concerns prior Prescriptions: No Action fluticasone propionate 50 mcg/actuation [place],Suspension 1 spray INTRANASAL DAILY Qty: 0 Rx Instructions: administer into each nostril atorvastatin 80 mg tablet 80 mg PO DAILY Patient Comments: TAKE 1 TABLET BY MOUTH ONCE DAILY diltiazem HCl 180 mg capsule,extended release 24hr 180 mg PO DAILY Patient Comments: TAKE 1 CAPSULE BY MOUTH EVERY DAY metoprolol succinate 50 mg tablet extended release 24 hr 75 mg PO DAILY Patient Comments: TAKE 1 AND 1/2 TABLETS BY MOUTH TWICE DAILY diclofenac sodium 100 mg tablet extended release 24 hr 100 mg PO DAILY Patient Comments: TAKE 1 TABLET BY MOUTH EVERY DAY WITH FOOD hydroxyzine HCl 10 mg tablet 10 mg PO Q6HR PRN (Reason: Anxiety) Patient Comments: TAKE 1 TABLET BY MOUTH EVERY 6 HOURS DIRECTED FOR ANXIETY ciprofloxacin HCl 500 mg tablet 500 mg PO Q12H Qty: 14 0RF omeprazole 40 mg capsule,delayed release(DR/EC) 1 cap PO DAILY Patient Comments: TAKE ONE CAPSULE BY MOUTH EVERY DAY olmesartan 20 mg tablet 2 tab PO DAILY Patient Comments: TAKE 1 TABLET BY MOUTH EVERY DAY. IF BLOOD PRESSURE IS ABOVE 140/80, INCREASE TO 2 TABS A DAY. oxycodone 10 mg tablet 1 tab PO QID PRN (Reason: Pain (Scale Score 4-6)) Patient Comments: TAKE ONE TABLET BY MOUTH FOUR TIMES A DAY FOR BACK AND LEG PAIN oxycodone 10 mg tablet 10 mg PO Q6H PRN (Reason: pain) Qty: 10 0RF Referrals: Hosea Reyes MD [Primary Care Provider] - Stand Alone Forms: Patient Portal/API
--- NOTE | 2024-01-16 05:13 | DI.CT.S_ITS ---
PROCEDURE: CT KIDNEY URETER BLADDER (KUB) INDICATIONS: flank pain TECHNIQUE: Axial sections were acquired from the lung bases to the pubic symphysis. Coronal and sagittal reformats were performed. For radiation dose reduction, the following was used: automated exposure control, adjustment of mA and/or kV according to patient size. COMPARISON: [facility], CT, CT KIDNEY URETER BLADDER (KUB), 07/24/2023, 13:05. FINDINGS: Image quality: Diagnostic. Lower Chest: No significant findings. URINARY: Right Kidney: No stones or hydronephrosis. Right Ureter: No hydroureter. Left Kidney: Severe left-sided hydronephrosis is seen. Multiple nonobstructing stones are noted in left kidney measures up to 1.2 x 0.8 cm in size not significantly changed from prior study. Left Ureter: No hydroureter. Bladder: Normal wall thickness. No stones. ABDOMEN: Liver: No contour-deforming solid mass. Gallbladder: No radiopaque gallstones or wall thickening. Biliary ducts: No biliary dilation. Pancreas: No ductal dilation. Spleen: Size is within normal limits. Adrenal Glands: No adrenal nodules. Stomach and Bowel: There is no bowel obstruction. No abnormal bowel wall thickening or mesenteric fat stranding. Appendix is visualized and is within normal limits. Peritoneum: No abnormal intraperitoneal fluid. No free air. Ventral Wall: No hernia. Abdominal Nodes: No enlarged retroperitoneal or mesenteric lymph nodes. Vessels: Aorta and inferior vena cava are normal in size. PELVIS: Pelvic Organs: Unremarkable. Pelvic Nodes: Unremarkable. Miscellaneous: No inguinal hernias are seen. Bones: There is prior right total hip arthroplasty with beam hardening artifacts. No aggressive appearing bony lesions. Geographic area of abnormal density involving lateral weight-bearing portion of left femoral head not significantly changed in size and appearance from previous study, concerning for early avascular necrosis of femoral head versus subcortical cyst. 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 No acute vertebral body compression fracture. IMPRESSION: 1. Chronic appearing severe left-sided hydronephrosis without obstructing renal stone and likely represent severe left UPJ stenosis. Nonobstructing stones in left kidney not significantly changed from prior study. No left-sided hydroureter. 2. No right-sided renal stones or hydronephrosis. No gross abnormality is seen in partially distended urinary bladder. 3. No bowel obstruction or abnormal bowel wall thickening. Normal appendix. No free fluid or free air. 4. Findings in lateral weight-bearing portion of left femoral head concerning for early avascular necrosis versus subcortical cysts secondary to osteoarthritis. Prior right total hip arthroplasty. Degenerative disc disease in lower lumbar spine. No discrepancies from preliminary reading. Dictated by: Charlie Cano M.D. on 01/16/2024 at 8:56 Approved by: Charlie Cano M.D. on 01/16/2024 at 9:01
[2024-01-16] MEDS: KETOROLAC 30 MG/ML VIAL 15 MG IV (05:15)
[2024-01-16] MEDS: ONDANSETRON 4 MG/2 ML INJ IV (05:16)
[2024-01-16] MEDS: MORPHINE 4 MG/ML INJ IV (05:17)
[2024-01-16] MEDS: SODIUM CHLORIDE 0.9% 1,000 ML 1000 ML IV (05:18)
[2024-01-16 05:33] LABS: Bacteria Urine None Seen; Culture Indicated Urine Cult Not Indicated; RBC Urine None Seen (0-5/HPF); Squamous Epithelial Cell Urine None Seen (0-5/HPF); Urine Volume 10mL (spun); WBC Urine None Seen (0-5/HPF)
== END 2024-01-16 06:44 | disposition home or self-care (01) ==
PROVIDERS: Emergency Provider Emergency Medicine; PCP Family Medicine
DX: N13.4 Hydroureter (principal); M87.052 Idiopathic aseptic necrosis of left femur; R10.32 Left lower quadrant pain; M25.552 Pain in left hip
CPT/HCPCS: 36415; 74176; 80053; 81003; 81015; 83690; 85025; 93005; 93010; 96361; 96374; 96375; 99284; J1885; J2270; J2405

== ENCOUNTER → 2024-03-16 16:20 | Outpatient (CLI) | payer MEDICARE, OTHER, SELFPAY ==
[2021-10-23 21:44] VITALS: BMI 29.9
--- NOTE | 2024-03-16 16:27 | EKG_ITS ---
[address] [address] Test Date: 2024-03-16 Pat Name: Jeremie Donohue Department: [facility] Room: Gender: Male It Programmer: BRANDON : 1950 Requested By: Order Number: [id number] Reading MD: Julien Og MD Measurements Intervals [place] Rate: 59 P: 47 CA: 212 QRS: 24 QRSD: 92 T: 41 QT: 398 QTc: 394 Interpretive Statements Sinus bradycardia with 1st degree AV block Electronically Signed On 03-16-2024 17:03:17 PDT by Julien Og MD
[2024-03-16 18:09] LABS: Add Manual Diff / Slide Review NO; Basophils Absolute Auto 100 /uL (0-100); Basophils Percent Auto 0.7 % (0-2); Eosinophils Absolute Auto 300 /uL (0-450); Eosinophils Percent Auto 4.2 % (2-4); Hematocrit 39.7 % (41-53); Hemoglobin 13.3 g/dL (13.5-17.5); Lymphocytes Absolute Auto 2300 /uL (1100-4500); Lymphocytes Percent Auto 30.2 % (25-40); Mean Corpuscular HGB Conc 33.6 % (30-36); Mean Corpuscular Hemoglobin 28.5 PG (26-34); Monocytes Absolute Auto 600 /uL (0-900); Monocytes Percent Auto 8.2 % (3-14); Neutrophils Absolute Auto 4300 /uL (1500-7000); Neutrophils Percent Auto 56.7 % (50-75); Platelet Count 223 X10^3/uL (150-400); Red Blood Cell Count 4.67 X10^6/uL (4.5-5.9); Red Cell Distribution Width 14.6 % (11.6-14.8); White Blood Cell Count 7.5 X10^3/uL (4.5-11.0)
[2024-03-16 18:26] LABS: Albumin 4.2 g/dL (3.5-5.0); Blood Urea Nitrogen 25 mg/dL (9-20); Calcium 8.6 mg/dL (8.4-10.2); Carbon Dioxide 25 mmol/L (22-32); Chloride 104 mmol/L (98-107); Estimated Glomerular Filt Rate 43 mL/min (>60); Glucose 119 mg/dL (80-110); HEMOLYSIS < 15 (0-50); Potassium 4.7 mmol/L (3.4-5.1); Sodium 137 mmol/L (137-145)
[2024-03-16 18:33] LABS: Prealbumin 25.5 mg/dL (17.6-36.0)
[2024-03-16 18:45] LABS: Vitamin D 25 Hydroxy (D3) 16.3 ng/mL (30.0-100.0)
[2024-03-16 19:38] LABS: Hemoglobin A1C% w Est Avg Glu 6.2 % (4.0-6.0)
== END ==
PROVIDERS: PCP Family Medicine; Referring Provider Orthopaedic Surgery Adult Reconstructive Orthopaedic Surgery; Visit Provider Orthopaedic Surgery Adult Reconstructive Orthopaedic Surgery
DX: Z01.812 Encounter for preprocedural laboratory examination (principal); R77.0 Abnormality of albumin; R73.9 Hyperglycemia, unspecified; E55.9 Vitamin D deficiency, unspecified; Z01.818 Encounter for other preprocedural examination
CPT/HCPCS: 36415; 80048; 82040; 82306; 83036; 84134; 85025; 93005

== ENCOUNTER 2024-06-05 06:02 | Emergency (ER) | payer MEDICARE, OTHER, SELFPAY ==
[2021-10-23 21:44] VITALS: BMI 29.9
[2024-06-05 06:05] VITALS: BP 135/77; PULSE 78; RESP 16; TEMP 36.6; O2SAT 97; BMI 31.6
--- NOTE | 2024-06-05 06:17 | ED.GENADULT ---
HPI - General Adult <Tres Vásquez DO - Last Filed: 06/05/24 18:02> General Chief complaint: Urogenital-Male Stated complaint: weakness Time Seen by Provider: 06/05/24 06:05 Source: patient and EMS Mode of arrival: EMS History of Present Illness HPI narrative: Patient is a 74-year-old male who arrives by EMS for evaluation of what was initially described as weakness. The patient states that several days ago he had episodes where he had stool incontinence and urinary incontinence. He stated that it got to the point where he just could not make it to the bathroom because it ?came on so fast? he thinks that things actually improved for a couple days and now within the past 24 hours those symptoms have returned. No belly pain. No chest pain. No shortness of breath. No headache. No fevers. He states that he does not have any pain when he urinates or has a bowel movement. States that his grandson? gets worried? which is why EMS was called to bring him to the ER. Related Data Home Medications Medication Instructions Recorded Confirmed fluticasone propionate 50 1 spray intranasal DAILY #0 sprays 05/19/13 10/26/21 mcg/actuation nasal spray,suspension olmesartan 20 mg tablet 2 tab PO DAILY 06/27/18 10/26/21 omeprazole 40 mg capsule,delayed 1 cap PO DAILY 06/27/18 10/26/21 release oxycodone 10 mg tablet 1 tab PO QID PRN Pain (Scale Score 06/27/18 10/26/21 4-6) atorvastatin 80 mg tablet 80 mg PO DAILY 10/26/21 10/26/21 diclofenac sodium 100 mg 100 mg PO DAILY 10/26/21 10/26/21 tablet,extended release 24 hr diltiazem HCl 180 mg 180 mg PO DAILY 10/26/21 10/26/21 capsule,extended release 24 hr hydroxyzine HCl 10 mg tablet 10 mg PO Q6HR PRN Anxiety 10/26/21 10/26/21 metoprolol succinate 50 mg 75 mg PO DAILY 10/26/21 10/26/21 tablet,extended release 24 hr Previous Rx's Medication Instructions Recorded ciprofloxacin HCl 500 mg tablet 500 mg PO Q12H #14 tabs 08/14/22 oxycodone 10 mg tablet 10 mg PO Q6H PRN pain #10 tabs 07/24/23 Allergies Allergy/AdvReac Type Severity Reaction Status Date / Time procaine [From Novocain] Allergy Verified 07/24/23 12:23 Review of Systems <DO Rob Crum Last Filed: 06/05/24 18:02> Review of Systems Narrative: See HPI Patient History <DO Rob Crum Last Filed: 06/05/24 18:02> Medical History (Updated 06/05/24 @ 08:33 by Leydi Weiss DO) Hypertension Chronic pain Hiatal hernia Social History household members: none Smoking Status: Former smoker alcohol intake: current Smoking Status: Former smoker alcohol intake frequency: other Substance Use Type: does not use Exam <DO Rob Crum Last Filed: 06/05/24 18:02> Initial Vital Signs Initial Vital Signs: Vital Signs Temperature 97.8 F 06/05/24 06:05 Pulse Rate 78 06/05/24 06:05 Respiratory Rate 16 06/05/24 06:05 Blood Pressure 135/77 06/05/24 06:05 Pulse Oximetry 97 06/05/24 06:05 Oxygen Delivery Method Room Air 06/05/24 06:05 Const Other: Chronically ill-appearing HENSC Head: normal to inspection and normocephalic Resp Effort & Inspection: normal respiratory effort Auscultation: clear to auscultation bilaterally Cardio Rate: regular rate Rhythm: regular rhythm GI Inspection: normal to inspection Skin General: no rashes or lesions noted Neuro General: patient alert, patient awake and moves all extremities <DO Rob Hawkins Last Filed: 06/05/24 09:54> Initial Vital Signs Initial Vital Signs: Vital Signs Temperature 97.8 F 06/05/24 06:05 Pulse Rate 78 06/05/24 06:05 Respiratory Rate 16 06/05/24 06:05 Blood Pressure 135/77 06/05/24 06:05 Pulse Oximetry 97 06/05/24 06:05 Oxygen Delivery Method Room Air 06/05/24 06:05 Course <DO Rob Crum Last Filed: 06/05/24 18:02> Orders Ordered: ED Orders 06/05/24 06:30 Complete Blood Count AUTO DIFF Stat Comprehensive Metabolic Panel Stat Covid-19 + FLU A/B + RSV - PCR Stat Lipase Stat 06/05/24 08:05 GI Panel (Film Array) Stat Urine Microscopic Stat Vital Signs Vital signs: Vital Signs - 8 hr 06/05/24 06:05 06/05/24 07:00 06/05/24 07:00 Temperature 97.8 F Pulse Rate 78 74 Respiratory Rate 16 Blood Pressure 135/77 140/78 Pulse Oximetry 97 94 Oxygen Delivery Method Room Air Room Air 06/05/24 07:17 06/05/24 07:30 06/05/24 08:07 Temperature Pulse Rate 84 79 Respiratory Rate Blood Pressure 139/75 Pulse Oximetry 97 96 Oxygen Delivery Method Room Air 06/05/24 08:25 06/05/24 08:25 Temperature Pulse Rate 81 Respiratory Rate Blood Pressure 130/86 Pulse Oximetry 95 Oxygen Delivery Method Room Air <Leydi Weiss DO - Last Filed: 06/05/24 09:54> Orders Ordered: ED Orders 06/05/24 06:30 Complete Blood Count AUTO DIFF Stat Comprehensive Metabolic Panel Stat Covid-19 + FLU A/B + RSV - PCR Stat Lipase Stat 06/05/24 08:05 GI Panel (Film Array) Stat Urine Microscopic Stat Vital Signs Vital signs: Vital Signs - 8 hr 06/05/24 06:05 06/05/24 07:00 06/05/24 07:00 Temperature 97.8 F Pulse Rate 78 74 Respiratory Rate 16 Blood Pressure 135/77 140/78 Pulse Oximetry 97 94 Oxygen Delivery Method Room Air Room Air 06/05/24 07:17 06/05/24 07:30 06/05/24 08:07 Temperature Pulse Rate 84 79 Respiratory Rate Blood Pressure 139/75 Pulse Oximetry 97 96 Oxygen Delivery Method Room Air 06/05/24 08:25 06/05/24 08:25 Temperature Pulse Rate 81 Respiratory Rate Blood Pressure 130/86 Pulse Oximetry 95 Oxygen Delivery Method Room Air Medical Decision Making <DO Rob Crum Last Filed: 06/05/24 18:02> Lab Data Lab results reviewed: Yes I reviewed the patient's lab results. 06/05/24 06:30 06/05/24 06:30 Labs: Lab Results 06/05/24 06/05/24 Range/Units 06:30 08:05 WBC 11.9 H (4.5-11.0) X10^3/uL RBC 4.97 (4.5-5.9) X10^6/uL Hgb 14.3 (13.5-17.5) g/dL Hct 41.9 (41-53) % MCV 84.2 (80-100) fL MCH 28.8 (26-34) PG MCHC 34.2 (30-36) % RDW 14.1 (11.6-14.8) % Plt Count 226 (150-400) X10^3/uL Neut % (Auto) 78.4 H (50-75) % Lymph % (Auto) 11.1 L (25-40) % [place] % (Auto) 9.8 (3-14) % Eos % (Auto) 0.3 L (2-4) % Baso % (Auto) 0.4 (0-2) % Neut # (Auto) 9400 H (7730-6007) /uL Lymph # (Auto) 1300 (4345-3772) /uL [place] # (Auto) 1200 H (0-900) /uL Eos # (Auto) 0 (0-450) /uL Baso # (Auto) 0 (0-100) /uL Sodium 134 L (137-145) mmol/L Potassium 4.5 (3.4-5.1) mmol/L Chloride 100 (98-107) mmol/L Carbon Dioxide 23 (22-32) mmol/L BUN 18 (9-20) mg/dL Creatinine 1.77 H (0.66-1.25) mg/dL Estimated GFR 40 L (>60) mL/min BUN/Creatinine Ratio 10.2 (6-22) Glucose 137 H (80-110) mg/dL Calcium 9.3 (8.4-10.2) mg/dL Total Bilirubin 0.7 (0.2-1.3) mg/dL AST 20 (17-59) IU/L ALT 16 (<50) IU/L Alkaline Phosphatase 96 (38-126) U/L Total Protein 7.9 (6.3-8.2) g/dL Albumin 4.4 (3.5-5.0) g/dL Globulin 3.5 (1.7-4.1) g/dL Albumin/Globulin Ratio 1.3 (1.0-2.8) Lipase 64 (23-300) U/L Urine RBC 1-5/hpf (0-5/HPF) Urine WBC 0-1/hpf (0-5/HPF) Ur Squamous Epith Cells None seen (0-5/HPF) Urine Bacteria None seen (None) Ur Culture Indicated? Cult not indicated Vol Urine Centrifuged 10ml (spun) Stl C. cayetanensis PCR Not detected (Not Detect) Stool Rotavirus (PCR) Not detected (Not Detect) Stool Adenovirus (PCR) Not detected (Not Detect) Stool Astrovirus (PCR) Not detected (Not Detect) Stool Cryptosporidium PCR Not detected (Not Detect) Stl E.coli Shiga Tox PCR Not detected (Not Detect) St Sh/Enteroin Ecoli PCR Not detected (Not Detect) Stl Enterotoxigenic E PCR Not detected (Not Detect) Stool EPEC (PCR) Not detected (Not Detect) Stl E. histolytica PCR Not detected (Not Detect) Stool Giardia Lamblia PCR Not detected (Not Detect) Stool Sapovirus (PCR) Not detected (Not Detect) Stl P. shigelloides PCR Not detected (Not Detect) St Y.enterocolitica PCR Not detected (Not Detect) Stool Vibrio (PCR) Not detected (Not Detect) Stl Vibrio cholerae PCR Not detected (Not Detect) Stl Enteroaggr Ecoli PCR Not detected (Not Detect) Stl Norovirus GI/GII PCR Not detected (Not Detect) Campylobacter (PCR) Not detected (Not Detect) C. difficile Tox (PCR) Not detected (Not Detect) SARS-CoV-2 (PCR) Negative (Negative) Influenza A (RT-PCR) Flu a negative (NEGATIVE) Influenza B (RT-PCR) Flu b negative (NEGATIVE) RSV (PCR) Negative (Negative) Salmonella (PCR) Not detected (Not Detect) Urine Dip Bedside Urine Glucose Negative Bedside Urine Bilirubin - Negative Bedside Urine Ketone - Negative Urine Specific [place] 1.015 Bedside Urine Occult Blood ++ Bedside Urine pH 6.0 Bedside Urine Protein - Negative Bedside Urine Urobilinogen - Negative Bedside Urine Nitrite - Negative Bedside Urine Leukocytes - Negative Esterase Point of care testing: Urine Dip Bedside Urine Glucose Negative Bedside Urine Bilirubin - Negative Bedside Urine Ketone - Negative Urine Specific [place] 1.015 Bedside Urine Occult Blood ++ Bedside Urine pH 6.0 Bedside Urine Protein - Negative Bedside Urine Urobilinogen - Negative Bedside Urine Nitrite - Negative Bedside Urine Leukocytes - Negative Esterase MDM Narrative Medical decision making narrative: Patient states that he has had profuse watery diarrhea and urination for the past couple days that the symptoms then improved now returned again. He also expressed generalized weakness. States he was going to be unable to give us a stool sample. Labs were drawn. Respiratory panel ordered care turned over to Dr. Weiss to follow-up and disposition. <Leydi Weiss, DO - Last Filed: 06/05/24 09:54> Lab Data Labs: Lab Results 06/05/24 06/05/24 Range/Units 06:30 08:05 WBC 11.9 H (4.5-11.0) X10^3/uL RBC 4.97 (4.5-5.9) X10^6/uL Hgb 14.3 (13.5-17.5) g/dL Hct 41.9 (41-53) % MCV 84.2 (80-100) fL MCH 28.8 (26-34) PG MCHC 34.2 (30-36) % RDW 14.1 (11.6-14.8) % Plt Count 226 (150-400) X10^3/uL Neut % (Auto) 78.4 H (50-75) % Lymph % (Auto) 11.1 L (25-40) % [place] % (Auto) 9.8 (3-14) % Eos % (Auto) 0.3 L (2-4) % Baso % (Auto) 0.4 (0-2) % Neut # (Auto) 9400 H (7501-2498) /uL Lymph # (Auto) 1300 (0995-9894) /uL [place] # (Auto) 1200 H (0-900) /uL Eos # (Auto) 0 (0-450) /uL Baso # (Auto) 0 (0-100) /uL Sodium 134 L (137-145) mmol/L Potassium 4.5 (3.4-5.1) mmol/L Chloride 100 (98-107) mmol/L Carbon Dioxide 23 (22-32) mmol/L BUN 18 (9-20) mg/dL Creatinine 1.77 H (0.66-1.25) mg/dL Estimated GFR 40 L (>60) mL/min BUN/Creatinine Ratio 10.2 (6-22) Glucose 137 H (80-110) mg/dL Calcium 9.3 (8.4-10.2) mg/dL Total Bilirubin 0.7 (0.2-1.3) mg/dL AST 20 (17-59) IU/L ALT 16 (<50) IU/L Alkaline Phosphatase 96 (38-126) U/L Total Protein 7.9 (6.3-8.2) g/dL Albumin 4.4 (3.5-5.0) g/dL Globulin 3.5 (1.7-4.1) g/dL Albumin/Globulin Ratio 1.3 (1.0-2.8) Lipase 64 (23-300) U/L Urine RBC 1-5/hpf (0-5/HPF) Urine WBC 0-1/hpf (0-5/HPF) Ur Squamous Epith Cells None seen (0-5/HPF) Urine Bacteria None seen (None) Ur Culture Indicated? Cult not indicated Vol Urine Centrifuged 10ml (spun) Stl C. cayetanensis PCR Not detected (Not Detect) Stool Rotavirus (PCR) Not detected (Not Detect) Stool Adenovirus (PCR) Not detected (Not Detect) Stool Astrovirus (PCR) Not detected (Not Detect) Stool Cryptosporidium PCR Not detected (Not Detect) Stl E.coli Shiga Tox PCR Not detected (Not Detect) St Sh/Enteroin Ecoli PCR Not detected (Not Detect) Stl Enterotoxigenic E PCR Not detected (Not Detect) Stool EPEC (PCR) Not detected (Not Detect) Stl E. histolytica PCR Not detected (Not Detect) Stool Giardia Lamblia PCR Not detected (Not Detect) Stool Sapovirus (PCR) Not detected (Not Detect) Stl P. shigelloides PCR Not detected (Not Detect) St Y.enterocolitica PCR Not detected (Not Detect) Stool Vibrio (PCR) Not detected (Not Detect) Stl Vibrio cholerae PCR Not detected (Not Detect) Stl Enteroaggr Ecoli PCR Not detected (Not Detect) Stl Norovirus GI/GII PCR Not detected (Not Detect) Campylobacter (PCR) Not detected (Not Detect) C. difficile Tox (PCR) Not detected (Not Detect) SARS-CoV-2 (PCR) Negative (Negative) Influenza A (RT-PCR) Flu a negative (NEGATIVE) Influenza B (RT-PCR) Flu b negative (NEGATIVE) RSV (PCR) Negative (Negative) Salmonella (PCR) Not detected (Not Detect) Urine Dip Bedside Urine Glucose Negative Bedside Urine Bilirubin - Negative Bedside Urine Ketone - Negative Urine Specific [place] 1.015 Bedside Urine Occult Blood ++ Bedside Urine pH 6.0 Bedside Urine Protein - Negative Bedside Urine Urobilinogen - Negative Bedside Urine Nitrite - Negative Bedside Urine Leukocytes - Negative Esterase Point of care testing: Urine Dip Bedside Urine Glucose Negative Bedside Urine Bilirubin - Negative Bedside Urine Ketone - Negative Urine Specific [place] 1.015 Bedside Urine Occult Blood ++ Bedside Urine pH 6.0 Bedside Urine Protein - Negative Bedside Urine Urobilinogen - Negative Bedside Urine Nitrite - Negative Bedside Urine Leukocytes - Negative Esterase MDM Narrative Medical decision making narrative: Patient states that he has had profuse watery diarrhea and urination for the past couple days that the symptoms then improved now returned again. He also expressed generalized weakness. States he was going to be unable to give us a stool sample. Labs were drawn. Respiratory panel ordered care turned over to Dr. Weiss to follow-up and disposition. Dr. Weiss-patient signed out to me by Dr. Vásquez I have seen evaluated patient myself. He reports having about 2 episodes of diarrhea for the last 4-5 days. Not dizzy or lightheaded. He actually did have 1 bowel movement here in the ED finally. He denies any significant abdominal pain. He has not been on any recent antibiotics. Blood work has been reviewed and overall reassuring. No significant HORACE his creatinine is about stable at 1.7, is previously 1.67, his mild leukocytosis of 11. Respiratory panel is negativ. GI panel pending. A do recommend supportive care at this time. If GI panel is positive I would call patient back we have discussed this plan and he agrees. 09:55 patient's stool panel is negative urinalysis is negative I called and updated patient. Recommended Imodium supportive care and to return as needed. Discharge Plan Departure Patient Disposition: Home Clinical Impression: Diarrhea Instructions: Diarrhea Activity Restrictions/Additional Instructions: *You have been diagnosed with diarrhea *What to do: At this time I will call you when your panel comes back let you know the results. If you should need something at that time I will call it infor you Please stay hydrated with electrolyte fluids such as Pedialyte Gatorade or electrolyte package May increase diet as tolerated *Continue to take medications as directed You may also try Imodium [id number] if diarrhea is significant *Follow up with your primary care provider in 2-3 days or call [phone] *Return to ER if you should have inability to stay hydrated dizziness lightheadedness or any new, worsening or concerning symptoms Prescriptions: No Action fluticasone propionate 50 mcg/actuation [place],Suspension 1 spray INTRANASAL DAILY Qty: 0 Rx Instructions: administer into each nostril atorvastatin 80 mg tablet 80 mg PO DAILY Patient Comments: TAKE 1 TABLET BY MOUTH ONCE DAILY diltiazem HCl 180 mg capsule,extended release 24hr 180 mg PO DAILY Patient Comments: TAKE 1 CAPSULE BY MOUTH EVERY DAY metoprolol succinate 50 mg tablet extended release 24 hr 75 mg PO DAILY Patient Comments: TAKE 1 AND 1/2 TABLETS BY MOUTH TWICE DAILY diclofenac sodium 100 mg tablet extended release 24 hr 100 mg PO DAILY Patient Comments: TAKE 1 TABLET BY MOUTH EVERY DAY WITH FOOD hydroxyzine HCl 10 mg tablet 10 mg PO Q6HR PRN (Reason: Anxiety) Patient Comments: TAKE 1 TABLET BY MOUTH EVERY 6 HOURS DIRECTED FOR ANXIETY ciprofloxacin HCl 500 mg tablet 500 mg PO Q12H Qty: 14 0RF omeprazole 40 mg capsule,delayed release(DR/EC) 1 cap PO DAILY Patient Comments: TAKE ONE CAPSULE BY MOUTH EVERY DAY olmesartan 20 mg tablet 2 tab PO DAILY Patient Comments: TAKE 1 TABLET BY MOUTH EVERY DAY. IF BLOOD PRESSURE IS ABOVE 140/80, INCREASE TO 2 TABS A DAY. oxycodone 10 mg tablet 1 tab PO QID PRN (Reason: Pain (Scale Score 4-6)) Patient Comments: TAKE ONE TABLET BY MOUTH FOUR TIMES A DAY FOR BACK AND LEG PAIN oxycodone 10 mg tablet 10 mg PO Q6H PRN (Reason: pain) Qty: 10 0RF Referrals: Hosea Reyes MD [Primary Care Provider] - Stand Alone Forms: Patient Portal/API
[2024-06-05 06:41] LABS: Add Manual Diff / Slide Review NO; Basophils Absolute Auto 0 /uL (0-100); Basophils Percent Auto 0.4 % (0-2); Eosinophils Absolute Auto 0 /uL (0-450); Eosinophils Percent Auto 0.3 % (2-4); Hematocrit 41.9 % (41-53); Hemoglobin 14.3 g/dL (13.5-17.5); Lymphocytes Absolute Auto 1300 /uL (1100-4500); Lymphocytes Percent Auto 11.1 % (25-40); Mean Corpuscular HGB Conc 34.2 % (30-36); Mean Corpuscular Hemoglobin 28.8 PG (26-34); Mean Corpuscular Volume 84.2 fL (80-100); Monocytes Absolute Auto 1200 /uL (0-900); Monocytes Percent Auto 9.8 % (3-14); Neutrophils Absolute Auto 9400 /uL (1500-7000); Neutrophils Percent Auto 78.4 % (50-75); Platelet Count 226 X10^3/uL (150-400); Red Blood Cell Count 4.97 X10^6/uL (4.5-5.9); Red Cell Distribution Width 14.1 % (11.6-14.8); White Blood Cell Count 11.9 X10^3/uL (4.5-11.0)
[2024-06-05 06:58] LABS: Alanine Aminotransferase 16 IU/L (<50); Albumin 4.4 g/dL (3.5-5.0); Albumin Globulin Ratio 1.3 (1.0-2.8); Alkaline Phosphatase 96 U/L (38-126); Aspartate Aminotransferase 20 IU/L (17-59); BUN Creatinine Ratio 10.2 (6-22); Bilirubin Total 0.7 mg/dL (0.2-1.3); Blood Urea Nitrogen 18 mg/dL (9-20); Calcium 9.3 mg/dL (8.4-10.2); Carbon Dioxide 23 mmol/L (22-32); Chloride 100 mmol/L (98-107); Estimated Glomerular Filt Rate 40 mL/min (>60); Globulin 3.5 g/dL (1.7-4.1); Glucose 137 mg/dL (80-110); HEMOLYSIS < 15 (0-50); Lipase 64 U/L (23-300); Potassium 4.5 mmol/L (3.4-5.1); Sodium 134 mmol/L (137-145); Total Protein 7.9 g/dL (6.3-8.2)
[2024-06-05 07:00] VITALS: BP 140/78; PULSE 74; O2SAT 94
[2024-06-05 07:17] VITALS: PULSE 84; O2SAT 97
[2024-06-05 07:18] LABS: Influenza A - CEPHEID Flu A NEGATIVE (NEGATIVE); Influenza B - CEPHEID Flu B NEGATIVE (NEGATIVE); Respiratory Syncytial Virus Negative (Negative)
[2024-06-05 07:19] LABS: COVID-19 CEPHEID 4-PLEX PCR Negative (Negative)
[2024-06-05 07:30] VITALS: BP 139/75
[2024-06-05 08:07] VITALS: PULSE 79; O2SAT 96
[2024-06-05 08:23] LABS: Urine Volume 10mL (spun)
[2024-06-05 08:25] VITALS: BP 130/86; PULSE 81; O2SAT 95
[2024-06-05 08:31] LABS: Bacteria Urine None Seen; Culture Indicated Urine Cult Not Indicated; RBC Urine 1-5/HPF (0-5/HPF); Squamous Epithelial Cell Urine None Seen (0-5/HPF); WBC Urine 0-1/HPF (0-5/HPF)
--- NOTE | 2024-06-05 08:35 | PC.NURSE ---
Pt requests I call his grandson Oswald who lives at home with pt to update Oswald on being discharged. I called phone number provided by pt and it rang to pt's cell phone in room. Pt states I forgot that Oswald has a cell phone, but doesnt have coverage for calls. He uses my phone for calls. Pt able to walk to ER wheelchair with walker on his own. 2 wheeled walker provided to patient. Pt wheeled to ER lobby while awaiting taxi ride home.
[2024-06-05 09:38] LABS: Adenovirus F 40/41 Not Detected (Not Detect); Astrovirus Not Detected (Not Detect); Campylobacter Not Detected (Not Detect); Clostridium difficile toxin AB Not Detected (Not Detect); Cryptosporidium Not Detected (Not Detect); Cyclospora cayetanensis Not Detected (Not Detect); Entamoeba histolytica Not Detected (Not Detect); Enteroaggregative E.coli Not Detected (Not Detect); Enteropathogenic E.coli Not Detected (Not Detect); Enterotoxigenic E.coli It/st Not Detected (Not Detect); Giardia lamblia Not Detected (Not Detect); Norovirus GI/GII Not Detected (Not Detect); Plesiomonsa shigelloides Not Detected (Not Detect); Rotavirus A Not Detected (Not Detect); Salmonella Not Detected (Not Detect); Sapovirus Not Detected (Not Detect); Shiga-like toxin-prod E.coli Not Detected (Not Detect); Shigella/Enteroinvasive E.coli Not Detected (Not Detect); Vibrio Not Detected (Not Detect); Vibrio cholerae Not Detected (Not Detect); Yersinia enterocolitica Not Detected (Not Detect)
== END 2024-06-05 08:55 | disposition home or self-care (01) ==
PROVIDERS: Emergency Medicine; Emergency Provider Emergency Medicine; PCP Family Medicine
DX: R19.7 Diarrhea, unspecified (principal); R79.89 Other specified abnormal findings of blood chemistry; Z11.52 Encounter for screening for COVID-19
CPT/HCPCS: 0241U; 36415; 80053; 81003; 81015; 83690; 85025; 87507; 99283

== ENCOUNTER 2024-09-01 00:24 | Emergency (ER) | payer MEDICARE, OTHER, SELFPAY ==
[2021-10-23 21:44] VITALS: BMI 29.9
[2024-09-01] VITALS (13 sets, daily range): BP systolic 183–195; BP diastolic 90–118; PULSE 56–69; RESP 16–24; TEMP 36.3; O2SAT 94–97; BMI 30.8
--- NOTE | 2024-09-01 00:53 | EKG_ITS ---
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
--- NOTE | 2024-09-01 01:06 | ED.ABDPAIN ---
HPI - Abdominal Pain General Chief Complaint: Abdominal Pain Stated Complaint: abd pain, weakness Time Seen by Provider: 09/01/24 01:06 Source: patient Mode of arrival: Ambulatory History of Present Illness HPI narrative: 74-year-old male with history of kidney stones last year, has left lower quadrant pain since yesterday, does not recall if he has had diverticulitis in the past, takes diclofenac and baby aspirin, no injury trauma new activities recalled. No fevers or chills. No painful urination or frequency of urination. No black or red stools. No loose stools. Pain not worse with movements. He is taken Tylenol so far, not helping his pain. Related Data Home Medications Medication Instructions Recorded Confirmed fluticasone propionate 50 1 spray intranasal DAILY #0 sprays 05/19/13 10/26/21 mcg/actuation nasal spray,suspension olmesartan 20 mg tablet 2 tab PO DAILY 06/27/18 10/26/21 omeprazole 40 mg capsule,delayed 1 cap PO DAILY 06/27/18 10/26/21 release oxycodone 10 mg tablet 1 tab PO QID PRN Pain (Scale Score 06/27/18 10/26/21 4-6) atorvastatin 80 mg tablet 80 mg PO DAILY 10/26/21 10/26/21 diclofenac sodium 100 mg 100 mg PO DAILY 10/26/21 10/26/21 tablet,extended release 24 hr diltiazem HCl 180 mg 180 mg PO DAILY 10/26/21 10/26/21 capsule,extended release 24 hr hydroxyzine HCl 10 mg tablet 10 mg PO Q6HR PRN Anxiety 10/26/21 10/26/21 metoprolol succinate 50 mg 75 mg PO DAILY 10/26/21 10/26/21 tablet,extended release 24 hr Previous Rx's Medication Instructions Recorded ciprofloxacin HCl 500 mg tablet 500 mg PO Q12H #14 tabs 08/14/22 oxycodone 10 mg tablet 10 mg PO Q6H PRN pain #10 tabs 07/24/23 tamsulosin 0.4 mg capsule (Flomax) 0.4 mg PO DAILY #14 caps 09/01/24 Allergies Allergy/AdvReac Type Severity Reaction Status Date / Time procaine [From Novocain] Allergy Verified 09/01/24 00:43 Patient History Medical History (Updated 09/01/24 @ 04:14 by Abdirahman Paula MD) Hypertension Chronic pain Hiatal hernia Social History household members: none Smoking Status: Former smoker alcohol intake: current Smoking Status: Former smoker alcohol intake frequency: other Exam Narrative Exam Narrative: GENERAL: Well-developed patient, in mild distress. HEAD: Atraumatic. Normocephalic. EYES: Pupils equal round and reactive. Extraocular motions intact. No scleral icterus. No injection or drainage. ENT: Nose without bleeding, purulent drainage. Throat without erythema, tonsillar hypertrophy or exudate. Airway patent. NECK: Trachea midline. Non tender CARDIOVASCULAR: Regular rate and rhythm without murmurs, gallops, or rubs. RESPIRATORY: Clear to auscultation. Breath sounds equal bilaterally. No wheezes, rales, or rhonchi. GASTROINTESTINAL: Abdomen soft, non-tender, nondistended. EXTREMITIES: No edema or joint tenderness. BACK: Nontender without deformity or crepitance. No flank tenderness. NEURO: AOx3. Motor functions grossly nonfocal SKIN: No rash or erythema of visible areas Initial Vital Signs Initial Vital Signs: Vital Signs Blood Pressure 193/102 H 09/01/24 00:40 Course Orders Ordered: ED Orders 09/01/24 00:44 EKG-12 Lead Stat 09/01/24 01:00 Complete Blood Count AUTO DIFF Stat Comprehensive Metabolic Panel Stat Lipase Stat 09/01/24 01:25 Urine Microscopic Stat 09/01/24 02:01 CT abdomen pelvis wo con Stat Discontinued Medications Hydromorphone HCl (Hydromorphone 0.5 Mg Inj) 0.5 mg IV NOW ONE Stop: 09/01/24 02:07 Last Admin: 09/01/24 02:15 Dose: 0.5 mg Documented By: TYRONE Ondansetron HCl (Ondansetron 4 Mg/2 Ml Inj) 4 mg IV NOW PRN PRN Reason: Nausea And Vomiting Ondansetron HCl (Ondansetron 4 Mg Odt) 4 mg PO NOW PRN PRN Reason: Nausea And Vomiting Ondansetron HCl (Ondansetron 4 Mg/2 Ml Inj) 4 mg IV NOW ONE Stop: 09/01/24 02:07 Last Admin: 09/01/24 02:15 Dose: 4 mg Documented By: TYRONE Oxycodone/Acetaminophen (Oxycodone/Apap 5/325 Prepack) 1 bottle MISC DIRECTED ONE Stop: 09/01/24 03:20 Last Admin: 09/01/24 04:03 Dose: 1 bottle Documented By: LARON Vital Signs Vital signs: Vital Signs - 8 hr 09/01/24 00:40 09/01/24 00:41 09/01/24 00:41 Temperature 97.3 F L Pulse Rate 60 59 L Respiratory Rate 16 Blood Pressure 193/102 H 193/102 H Pulse Oximetry 97 97 Oxygen Delivery Method Room Air 09/01/24 01:00 09/01/24 01:30 09/01/24 02:00 Temperature Pulse Rate 59 L 60 57 L Respiratory Rate Blood Pressure Pulse Oximetry 97 95 97 Oxygen Delivery Method 09/01/24 02:24 09/01/24 02:24 09/01/24 02:30 Temperature Pulse Rate 60 57 L Respiratory Rate 16 21 Blood Pressure 195/95 H Pulse Oximetry 97 96 Oxygen Delivery Method 09/01/24 02:30 09/01/24 03:00 09/01/24 03:01 Temperature Pulse Rate 58 L 60 Respiratory Rate 21 Blood Pressure 191/95 H Pulse Oximetry 94 95 Oxygen Delivery Method 09/01/24 03:01 09/01/24 03:30 09/01/24 03:37 Temperature Pulse Rate 56 L 68 Respiratory Rate 24 Blood Pressure 195/118 H Pulse Oximetry 96 96 Oxygen Delivery Method 09/01/24 03:37 09/01/24 04:00 09/01/24 04:23 Temperature Pulse Rate 56 L 69 Respiratory Rate 23 18 Blood Pressure 195/106 H 183/90 H Pulse Oximetry 95 97 Oxygen Delivery Method Room Air MDM - Abdominal Pain Lab Data Attestation: I reviewed the patient's lab results. Lab results narrative: White blood cell count 9700, hemoglobin 14.1, platelets are 199,000. Sodium 135, potassium 3.7, serum CO2 23, BUN 15 with creatinine 1.39, glucose 145. Liver functions and lipase normal. 09/01/24 01:00 09/01/24 01:00 Labs: Lab Results 09/01/24 09/01/24 Range/Units 01:00 01:25 WBC 9.7 (4.5-11.0) X10^3/uL RBC 4.84 (4.5-5.9) X10^6/uL Hgb 14.1 (13.5-17.5) g/dL Hct 41.7 (41-53) % MCV 86.0 (80-100) fL MCH 29.0 (26-34) PG MCHC 33.7 (30-36) % RDW 14.4 (11.6-14.8) % Plt Count 199 (150-400) X10^3/uL Neut % (Auto) 77.6 H (50-75) % Lymph % (Auto) 13.0 L (25-40) % [place] % (Auto) 6.7 (3-14) % Eos % (Auto) 2.1 (2-4) % Baso % (Auto) 0.6 (0-2) % Neut # (Auto) 7500 H (3824-2272) /uL Lymph # (Auto) 1300 (3615-3715) /uL [place] # (Auto) 600 (0-900) /uL Eos # (Auto) 200 (0-450) /uL Baso # (Auto) 100 (0-100) /uL Sodium 135 L (137-145) mmol/L Potassium 3.7 (3.4-5.1) mmol/L Chloride 105 (98-107) mmol/L Carbon Dioxide 23 (22-32) mmol/L BUN 15 (9-20) mg/dL Creatinine 1.39 H (0.66-1.25) mg/dL Estimated GFR 54 L (>60) mL/min BUN/Creatinine Ratio 10.8 (6-22) Glucose 145 H (80-110) mg/dL Calcium 8.9 (8.4-10.2) mg/dL Total Bilirubin 0.5 (0.2-1.3) mg/dL AST 24 (17-59) IU/L ALT 16 (<50) IU/L Alkaline Phosphatase 78 (38-126) U/L Total Protein 7.5 (6.3-8.2) g/dL Albumin 4.0 (3.5-5.0) g/dL Globulin 3.5 (1.7-4.1) g/dL Albumin/Globulin Ratio 1.1 (1.0-2.8) Lipase 82 (23-300) U/L Urine RBC 10-30/hpf H (0-5/HPF) Urine WBC None seen (0-5/HPF) Ur Squamous Epith Cells 0-1 /hpf (0-5/HPF) Urine Bacteria Occasional (0-1) (None) Ur Culture Indicated? Cult not indicated Vol Urine Centrifuged 10ml (spun) Point of care testing: Urine Dip Bedside Urine Glucose Negative Bedside Urine Bilirubin - Negative Bedside Urine Ketone - Negative Urine Specific [place] 1.010 Bedside Urine Occult Blood +++ Bedside Urine pH 5.5 Bedside Urine Protein - Negative Bedside Urine Urobilinogen - Negative Bedside Urine Nitrite - Negative Bedside Urine Leukocytes - Negative Esterase ECG Data Attestation: I personally reviewed and interpreted this ECG as follows: Interpretation: Sinus bradycardia with first-degree AV block, rate 58, OK interval 234, QRS 90, QTC 412. MDM Narrative Medical decision making narrative: 74-year-old male with history of prior remote kidney stone, now with 2 days duration left lower quadrant discomfort, afebrile, sirs screen negative, no significant tenderness on examination. Unclear if this seems similar to his previous kidney stone pain, does not recognize history of diverticulitis, no skin rash changes. Labs unremarkable. Patient amenable to imaging, CT abdomen and pelvis noncontrast study ordered. IV Dilaudid/Zofran. Keep NPO for now. CT abdomen and pelvis without contrast. 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 Nonobstructing left inferior renal calculi. Cholelithiasis.. See radiology report Patient were comfortable after Dilaudid dose. Continue taking regular chronic medication diclofenac. Follow up with Urology, he has [facility] urologist. Home pack oxycodone/APAP. Discharged home with family Discharge Plan Departure Patient Disposition: Home Clinical Impression: Calculus of proximal left ureter Activity Restrictions/Additional Instructions: Left lower quadrant discomfort, history of kidney stones, now with 2 days increasing symptoms. Screening labs unremarkable. CT scanning showed proximal left ureteral stone, chronic appearing per Radiology report. Improved symptoms with Dilaudid dose. Home pack of oxycodone/acetaminophen. Consider taking tamsulosin/Flomax that might possibly help expel the ureteral stone more quickly. Drink plenty of fluids. Follow up with your [facility] urologists. Contact information also given for local urologists in this area, Frank Maki and [place], if you have difficulty getting into your [place] urologist, call for office appointment later today during regular hours for close follow up early next week. Return to this/nearest emergency department for any change worsening symptoms or any concerns prior Prescriptions: New tamsulosin [Flomax] 0.4 mg capsule 0.4 mg PO DAILY Qty: 14 0RF No Action fluticasone propionate 50 mcg/actuation [place],Suspension 1 spray INTRANASAL DAILY Qty: 0 Rx Instructions: administer into each nostril atorvastatin 80 mg tablet 80 mg PO DAILY Patient Comments: TAKE 1 TABLET BY MOUTH ONCE DAILY diltiazem HCl 180 mg capsule,extended release 24hr 180 mg PO DAILY Patient Comments: TAKE 1 CAPSULE BY MOUTH EVERY DAY metoprolol succinate 50 mg tablet extended release 24 hr 75 mg PO DAILY Patient Comments: TAKE 1 AND 1/2 TABLETS BY MOUTH TWICE DAILY diclofenac sodium 100 mg tablet extended release 24 hr 100 mg PO DAILY Patient Comments: TAKE 1 TABLET BY MOUTH EVERY DAY WITH FOOD hydroxyzine HCl 10 mg tablet 10 mg PO Q6HR PRN (Reason: Anxiety) Patient Comments: TAKE 1 TABLET BY MOUTH EVERY 6 HOURS DIRECTED FOR ANXIETY ciprofloxacin HCl 500 mg tablet 500 mg PO Q12H Qty: 14 0RF omeprazole 40 mg capsule,delayed release(DR/EC) 1 cap PO DAILY Patient Comments: TAKE ONE CAPSULE BY MOUTH EVERY DAY olmesartan 20 mg tablet 2 tab PO DAILY Patient Comments: TAKE 1 TABLET BY MOUTH EVERY DAY. IF BLOOD PRESSURE IS ABOVE 140/80, INCREASE TO 2 TABS A DAY. oxycodone 10 mg tablet 1 tab PO QID PRN (Reason: Pain (Scale Score 4-6)) Patient Comments: TAKE ONE TABLET BY MOUTH FOUR TIMES A DAY FOR BACK AND LEG PAIN oxycodone 10 mg tablet 10 mg PO Q6H PRN (Reason: pain) Qty: 10 0RF Referrals: Ray Maki DO [Physician] - Arthur Neumann MD [Physician] - Hosea Reyes MD [Primary Care Provider] - Stand Alone Forms: Patient Portal/API/Survey
[2024-09-01 01:08] LABS: Add Manual Diff / Slide Review NO; Basophils Absolute Auto 100 /uL (0-100); Basophils Percent Auto 0.6 % (0-2); Eosinophils Absolute Auto 200 /uL (0-450); Eosinophils Percent Auto 2.1 % (2-4); Hematocrit 41.7 % (41-53); Hemoglobin 14.1 g/dL (13.5-17.5); Lymphocytes Absolute Auto 1300 /uL (1100-4500); Mean Corpuscular HGB Conc 33.7 % (30-36); Monocytes Absolute Auto 600 /uL (0-900); Monocytes Percent Auto 6.7 % (3-14); Neutrophils Absolute Auto 7500 /uL (1500-7000); Neutrophils Percent Auto 77.6 % (50-75); Platelet Count 199 X10^3/uL (150-400); Red Blood Cell Count 4.84 X10^6/uL (4.5-5.9); Red Cell Distribution Width 14.4 % (11.6-14.8); White Blood Cell Count 9.7 X10^3/uL (4.5-11.0)
[2024-09-01 01:29] LABS: Alanine Aminotransferase 16 IU/L (<50); Albumin Globulin Ratio 1.1 (1.0-2.8); Alkaline Phosphatase 78 U/L (38-126); Aspartate Aminotransferase 24 IU/L (17-59); BUN Creatinine Ratio 10.8 (6-22); Bilirubin Total 0.5 mg/dL (0.2-1.3); Blood Urea Nitrogen 15 mg/dL (9-20); Calcium 8.9 mg/dL (8.4-10.2); Carbon Dioxide 23 mmol/L (22-32); Chloride 105 mmol/L (98-107); Estimated Glomerular Filt Rate 54 mL/min (>60); Globulin 3.5 g/dL (1.7-4.1); Glucose 145 mg/dL (80-110); HEMOLYSIS 28 (0-50); Lipase 82 U/L (23-300); Potassium 3.7 mmol/L (3.4-5.1); Sodium 135 mmol/L (137-145); Total Protein 7.5 g/dL (6.3-8.2)
--- NOTE | 2024-09-01 02:01 | DI.CT.S_ITS ---
PROCEDURE: CT ABDOMEN PELVIS WO CON INDICATIONS: LLQ pain TECHNIQUE: Axial sections were acquired from the lung bases to the pubic symphysis. Coronal and sagittal reformats were performed. For radiation dose reduction, the following was used: automated exposure control, adjustment of mA and/or kV according to patient size. COMPARISON: [facility], CT, CT KIDNEY URETER BLADDER (KUB), 01/16/2024, 5:20. FINDINGS: Image quality: Diagnostic. Lower Chest: No significant findings. URINARY: Right Kidney: No obstructing stones or hydronephrosis. Right Ureter: No hydroureter. Left Kidney: Severe left-sided hydronephrosis is seen extending to the level of UPJ. Nonobstructing stones are noted in lower pole left kidney measures up to 1.3 x 0.5 cm in size. Significant left perinephric fat stranding is seen. Left Ureter: No hydroureter. Bladder: Normal wall thickness. No stones. ABDOMEN: Liver: No contour-deforming solid mass. Gallbladder: No radiopaque gallstones or wall thickening. Biliary ducts: No biliary dilation. Pancreas: No ductal dilation. Spleen: Size is within normal limits. Adrenal Glands: No adrenal nodules. Stomach and Bowel: Normal colonic caliber, without significant wall thickening. Normal appendix. No abscess collection. Peritoneum: No abnormal intraperitoneal fluid. No free air. Ventral Wall: No hernia. Abdominal Nodes: No enlarged retroperitoneal or mesenteric lymph nodes. Vessels: Aorta and inferior vena cava are normal in size. PELVIS: Pelvic Organs: Unremarkable. Pelvic Nodes: Unremarkable. Miscellaneous: No inguinal hernias are seen. Bones: No aggressive appearing bony lesions. Prior right total hip arthroplasty. IMPRESSION: 1. Severe left-sided hydronephrosis without obstructing stone. No hydroureter. Finding is not significantly changed from prior study and likely represent chronic UPJ obstruction. Nonobstructing stones also seen in left kidney as above. 2. No right-sided hydronephrosis or hydroureter. Normal appearing urinary bladder. 3. No bowel obstruction or abnormal bowel wall thickening. No free fluid or free air. Normal appendix. No significant discrepancies from preliminary reading. Dictated by: Charlie Cano M.D. on 09/01/2024 at 8:52 Approved by: Charlie Cano M.D. on 09/01/2024 at 8:58
[2024-09-01 02:04] LABS: Bacteria Urine Occasional (0-1); RBC Urine 10-30/HPF (0-5/HPF); Squamous Epithelial Cell Urine 0-1 /HPF (0-5/HPF); Urine Volume 10mL (spun)
[2024-09-01 02:05] LABS: Culture Indicated Urine Cult Not Indicated; WBC Urine None Seen (0-5/HPF)
[2024-09-01] MEDS: ONDANSETRON 4 MG/2 ML INJ IV (02:15)
[2024-09-01] MEDS: HYDROMORPHONE 0.5 MG INJ IV (02:15)
[2024-09-01] MEDS: OXYCODONE/APAP 5/325 PREPACK 1 BOTTLE MISC (04:03)
== END 2024-09-01 04:23 | disposition home or self-care (01) ==
PROVIDERS: Emergency Provider Emergency Medicine; PCP Family Medicine
DX: N13.2 Hydronephrosis with renal and ureteral calculous obstruction (principal); Z87.442 Personal history of urinary calculi
CPT/HCPCS: 36415; 74176; 80053; 81003; 81015; 83690; 85025; 93005; 96374; 96375; 99284; J1171; J2405

== ENCOUNTER 2025-06-03 07:07 | Emergency (ER) | payer MEDICARE, OTHER, SELFPAY ==
[2021-10-23 21:44] VITALS: BMI 29.9
[2025-06-03] VITALS (20 sets, daily range): BP systolic 143–202; BP diastolic 81–97; PULSE 63–83; RESP 18–23; TEMP 36.6; O2SAT 94–99; BMI 33.0
--- NOTE | 2025-06-03 07:23 | DI.RAD.S_ITS ---
PROCEDURE: XR CHEST 1V INDICATIONS: Chest Pain TECHNIQUE: One view of the chest was acquired. COMPARISON: [facility], CR, XR CHEST 1V, 10/23/2021, 17:27. [facility], CR, XR CHEST 1V, 07/12/2020, 13:04. FINDINGS: Surgical changes and devices: None. Lungs and pleura: Lungs are clear. No pleural effusions or pneumothorax. Mediastinum: Mediastinal contours appear normal. Heart size is mildly enlarged, stable. Bones and chest wall: No suspicious bony lesions. Overlying soft tissues appear unremarkable. IMPRESSION: No acute cardiopulmonary abnormality is seen. Dictated by: Ash Starks M.D. on 06/03/2025 at 7:40 Approved by: Ash Starks M.D. on 06/03/2025 at 7:41
--- NOTE | 2025-06-03 07:30 | EKG_ITS ---
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
[2025-06-03 07:57] LABS: INR 1.0 (0.9-1.3); Prothrombin Time 10.9 SECONDS (9.4-12.5)
[2025-06-03 07:58] LABS: Hematocrit 42.9 % (41-53); Hemoglobin 14.5 g/dL (13.5-17.5); Mean Corpuscular HGB Conc 33.8 % (30-36); Mean Corpuscular Hemoglobin 28.8 PG (26-34); Mean Corpuscular Volume 85.4 fL (80-100); Platelet Count 204 X10^3/uL (150-400)
--- NOTE | 2025-06-03 07:58 | ED.BACK ---
HPI - Back Pain/Injury General Chief Complaint: Back Pain/Injury Stated Complaint: Sharp pain in center of back Time Seen by Provider: 06/03/25 07:16 Source: patient History of Present Illness HPI Narrative: 75-year-old male history of hypertension presents to the emergency department after had a couple hours of central back pain that began last night while resting in bed. He describes it as a sharp pain. No palliative or provocative factors. He did take some Tums later in the morning and the pain seemed to resolve just prior to coming in. No associated chest pain or abdominal pain although admits that it was difficult to tell where the pain was emanating from. No prior history of the same. No associated nausea or sweats, shortness of breath. He has 0/10 pain at this time. Known history of heart disease. No history of PE or DVT, lower extremity swelling or pain. Patient reports had previously follow up with Dr. Reyes but was discharged from the practice when missed his appointment Related Data Home Medications ?Medication ?Instructions ?Recorded ?Confirmed fluticasone propionate 50 1 spray intranasal DAILY #0 sprays 05/19/13 10/26/21 mcg/actuation nasal spray,suspension olmesartan 20 mg tablet 2 tab PO DAILY 06/27/18 10/26/21 omeprazole 40 mg capsule,delayed 1 cap PO DAILY 06/27/18 10/26/21 release oxycodone 10 mg tablet 1 tab PO QID PRN Pain (Scale Score 06/27/18 10/26/21 4-6) atorvastatin 80 mg tablet 80 mg PO DAILY 10/26/21 10/26/21 diclofenac sodium 100 mg 100 mg PO DAILY 10/26/21 10/26/21 tablet,extended release 24 hr diltiazem HCl 180 mg 180 mg PO DAILY 10/26/21 10/26/21 capsule,extended release 24 hr hydroxyzine HCl 10 mg tablet 10 mg PO Q6HR PRN Anxiety 10/26/21 10/26/21 metoprolol succinate 50 mg 75 mg PO DAILY 10/26/21 10/26/21 tablet,extended release 24 hr Previous Rx's ?Medication ?Instructions ?Recorded ciprofloxacin HCl 500 mg tablet 500 mg PO Q12H #14 tabs 08/14/22 oxycodone 10 mg tablet 10 mg PO Q6H PRN pain #10 tabs 07/24/23 tamsulosin 0.4 mg capsule (Flomax) 0.4 mg PO DAILY #14 caps 09/01/24 apixaban 5 mg (74 tabs) tablets in See Rx Instructions PO .COMPLEX 06/03/25 a dose pack (Eliquis DVT-PE Treat #74 ea 30D Start) diltiazem HCl 120 mg capsule,24 120 mg PO DAILY #30 caps 06/03/25 hr,extended release Allergies Allergy/AdvReac Type Severity Reaction Status Date / Time procaine (From Novocain) Allergy Verified 06/03/25 07:19 Review of Systems Review of Systems Narrative: Pertinent ROS obtained and negative except as stated in HPI Patient History Medical History (Updated 06/03/25 @ 13:05 by Karla Haji MD) Hypertension Chronic pain Hiatal hernia Social History household members: none Smoking Status: Former smoker alcohol intake: current Smoking Status: Former smoker alcohol intake frequency: other Exam Initial Vital Signs Initial Vital Signs: Vital Signs Temperature 97.9 F 06/03/25 07:18 Pulse Rate 83 06/03/25 07:18 Respiratory Rate 18 06/03/25 07:18 Blood Pressure 202/96 H 06/03/25 07:18 Pulse Oximetry 98 06/03/25 07:18 Oxygen Delivery Method Room Air 06/03/25 07:18 Constitutional: Well appearing, no acute distress Head: NCAT Neck: No JVD Cardiovascular: RRR, no murmur or rub, 2+ radial pulses Pulmonary: CTA bilaterally, no respiratory distress Abdominal: soft, non-tender, no pulsatile mass Musculoskeletal: chest wall non tender Extremities: No LE edema or posterior calf/thigh pain Skin: warm and dry, no diaphoresis Neurological: Alert and oriented x3, normal speech, visual milton intact, normal strength in extremities Course Orders Ordered: Discontinued Medications Aspirin (Aspirin 81 Mg Chew Tab) 324 mg PO NOW ONE Stop: 06/03/25 08:14 Last Admin: 06/03/25 08:27 Dose: 324 mg Documented By: Vital Signs Vital signs: Vital Signs - 8 hr 06/03/25 08:00 06/03/25 08:00 06/03/25 08:30 Pulse Rate 79 83 Respiratory Rate 23 Blood Pressure 158/91 H Pulse Oximetry 96 96 Oxygen Delivery Method 06/03/25 08:31 06/03/25 08:31 06/03/25 08:36 Pulse Rate 79 Respiratory Rate Blood Pressure 188/95 H 172/95 H Pulse Oximetry 96 Oxygen Delivery Method 06/03/25 08:36 06/03/25 09:02 06/03/25 09:04 Pulse Rate 81 78 77 Respiratory Rate 19 Blood Pressure Pulse Oximetry 97 97 Oxygen Delivery Method 06/03/25 09:04 06/03/25 09:30 06/03/25 10:00 Pulse Rate 81 76 Respiratory Rate 18 Blood Pressure 172/84 H Pulse Oximetry 97 94 Oxygen Delivery Method 06/03/25 10:30 06/03/25 11:00 06/03/25 11:30 Pulse Rate 78 63 Respiratory Rate 20 18 18 Blood Pressure Pulse Oximetry 94 95 99 Oxygen Delivery Method 06/03/25 11:40 06/03/25 11:40 06/03/25 12:00 Pulse Rate 72 67 Respiratory Rate 22 Blood Pressure 158/87 H Pulse Oximetry 97 96 Oxygen Delivery Method 06/03/25 12:00 06/03/25 12:30 06/03/25 12:30 Pulse Rate 79 Respiratory Rate Blood Pressure 172/90 H 161/97 H Pulse Oximetry 95 Oxygen Delivery Method 06/03/25 13:00 06/03/25 13:01 06/03/25 13:01 Pulse Rate 71 76 Respiratory Rate Blood Pressure 143/81 H Pulse Oximetry 97 96 Oxygen Delivery Method 06/03/25 13:07 06/03/25 13:07 Pulse Rate 73 Respiratory Rate 20 Blood Pressure 184/85 H Pulse Oximetry 98 Oxygen Delivery Method Room Air MDM - Back Pain/Injury Lab Data 06/03/25 07:45 06/03/25 07:45 Labs: Lab Results 06/03/25 06/03/25 06/03/25 Range/Units 07:45 09:41 11:30 WBC 9.5 (4.5-11.0) X10^3/uL RBC 5.02 (4.5-5.9) X10^6/uL Hgb 14.5 (13.5-17.5) g/dL Hct 42.9 (41-53) % MCV 85.4 (80-100) fL MCH 28.8 (26-34) PG MCHC 33.8 (30-36) % RDW 13.1 (11.6-14.8) % Plt Count 204 (150-400) X10^3/uL Neut % (Auto) Not Reportable Lymph % (Auto) Not Reportable [place] % (Auto) Not Reportable Eos % (Auto) Not Reportable Baso % (Auto) Not Reportable Lymph # (Auto) Not Reportable [place] # (Auto) Not Reportable Baso # (Auto) Not Reportable Total Counted 100 Seg Neutrophils % 66.0 (38-70) % Lymphocytes % (Manual) 28.0 (25-45) % Monocytes % (Manual) 5.0 (2-11) % Eosinophils % (Manual) 1.0 L (2-4) % Neutrophils # (Manual) 6270 H (3368-5824) /uL RBC Morphology Normal morphology PT 10.9 (9.4-12.5) SECONDS INR 1.0 (0.9-1.3) APTT 28 (25.1-36.5) SECONDS D-Dimer 1118 H (<500) ng/ml Sodium 138 (137-145) mmol/L Potassium 3.6 (3.4-5.1) mmol/L Chloride 107 (98-107) mmol/L Carbon Dioxide 21 L (22-32) mmol/L BUN 24 H (9-20) mg/dL Creatinine 1.20 (0.66-1.25) mg/dL Estimated GFR > 60 (>60) mL/min BUN/Creatinine Ratio 20.0 (6-22) Glucose 131 H (70-99) mg/dL Calcium 8.9 (8.4-10.2) mg/dL Magnesium 1.5 L (1.6-2.3) mg/dL Total Bilirubin 0.7 (0.2-1.3) mg/dL AST 45 (17-59) IU/L ALT 26 (<50) IU/L Alkaline Phosphatase 65 (38-126) U/L Total Creatine Kinase 106 (55-170) U/L Troponin I 0.012 0.014 0.017 (0.01-0.034) ng/mL NT-Pro-B Natriuret Pep 536 H (<125) pg/mL Total Protein 7.6 (6.3-8.2) g/dL Albumin 4.3 (3.5-5.0) g/dL Globulin 3.3 (1.7-4.1) g/dL Albumin/Globulin Ratio 1.3 (1.0-2.8) Lipase 103 (23-300) U/L MDM Narrative Medical decision making narrative: In brief, this is a 75-year-old male with hypertension not currently with PCP and not taking his medication who presents to the emergency department for evaluation of episode of central back pain that resolved with Tums prior to coming. He reports mild URI symptoms including cough and runny nose that have resolved 2 days ago although also reports history of allergies In chart review: I do not see any PCP notes review but I see is history of hypertension and stroke, acute kidney injury On arrival to the emergency department, the patient is in no pain. He appears well-perfused and has symmetric pulses. No neurologic signs or symptoms. He has normal heart and lung sounds and no lower extremity edema Differential diagnoses considered but not limited to: Pneumonia, pleurisy, ACS, pulmonary embolism, MSK etiology, pericarditis Initial treatment plan includes: Serial troponins, D-dimer, other laboratories, chest x-ray, EKG EKG 0730 sinus rhythm rate of 83, normal AK 200, QRS 96, QTC 446. No ST-elevation there is T-wave inversion in lead 3. TWI in III is not new as compared to EKG from Aug 2024. Laboratories pertinent for: elevated ddimer, non elevated troponin/slight uptrending x3, chronic renal insufficiency, modest elevation 536 Imaging pertinent for: CTPA shows R basal lateral segmental PE. Spoke with career development consultant Dr. Mcgill regarding slight uptrend in troponin. Graciously reviews CT and agrees with lack of chest pain or acute ischemic changes would be appropriate for outpatient treatment for PE. Would not plan for stress test in setting of PE. PESI is low risk. On reassessment at 1240 pt remains chest pain free. We had a lengthy discussion regarding signs symptoms of acute pulmonary embolism. Unclear whether his episode of thoracic pain was related to thromboembolism versus other etiology. He does have risk factors for coronary artery disease with heart score of 4 but serial troponins are not elevated. We did talk about possible admission for observation but after some shared decision-making the patient would like to be discharged with blood thinner medication, plans to reestablish with primary care. He is provided with referral help line. I did also refill his diltiazem and encouraged him to keep a daily blood pressure log. Return precautions discussed and provided prior to discharge Pertinent scoring tools used to guide clinical decision making, if applicable: Pulmonary Embolism Severity Index (PESI) from [facility] on 06/03/2025 All calculations should be rechecked by clinician prior to use RESULT SUMMARY: 84 points Class II, Low Risk: 1.7-3.5% 30-day mortality in this group. INPUTS: Age ?> 75 years Sex ?> 10 = Male History of cancer ?> 0 = No History of heart failure ?> 0 = No History of chronic lung disease ?> 0 = No Heart rate >=10 ?> 0 = No Systolic BP <100 mmHg ?> 0 = No Respiratory rate >=0 ?> 0 = No Temperature <36?C/96.8?F ?> 0 = No Altered mental status (disorientation, lethargy, stupor, or coma) ?> 0 = No O2 saturation <90% ?> 0 = No HEART Score for Major Cardiac Events from [facility] on 06/04/2025 All calculations should be rechecked by clinician prior to use RESULT SUMMARY: 4 points Moderate Score (4-6 points) Risk of MACE of 12-16.6%. INPUTS: History ?> 0 = Slightly suspicious EKG ?> 0 = Normal Age ?> 2 = >=5 Risk factors ?> 2 = >= risk factors or history of atherosclerotic disease Initial troponin ?> 0 = <=ormal limit Discharge Plan Departure Patient Disposition: Home Clinical Impression: Back pain, thoracic, Pulmonary embolism Instructions: DI for Pulmonary Embolism Activity Restrictions/Additional Instructions: I am glad that your back pain has resolved. CT scan today did show evidence of a pulmonary embolism, a blood clot in the lungs. This can cause chest or back pain, shortness of breath and in severe cases can cause respiratory failure and . You will need to take blood thinner medication as prescribed and make an appointment with your family doctor for recheck ideally in the next week. I have refilled your blood pressure medication as well. As we discussed your troponin level or heart enzyme level were slightly up trending today although technically within normal limits. This could be related to the blood clot or potentially your uncontrolled high blood pressure. I would like you to have a low threshold to return to the emergency department if you develop recurrent chest or back pain or new symptoms such as shortness of breath If you do not have a primary care provider please contact the [facility] Resource line at [phone]. They will ask some questions about your medical history and help you get set up with a provider in the community. Prescriptions: New Radha DVT-PE Treat 30D Start 5 mg (74 tabs) tablets,dose pack See Rx Instructions .ROUTE .COMPLEX Qty: 74 0RF Rx Instructions: orally per package directions diltiazem HCl 120 mg capsule,extended release 24 hr 120 mg PO DAILY Qty: 30 0RF No Action fluticasone propionate 50 mcg/actuation [place],Suspension 1 spray INTRANASAL DAILY Qty: 0 Rx Instructions: administer into each nostril atorvastatin 80 mg tablet 80 mg PO DAILY Patient Comments: TAKE 1 TABLET BY MOUTH ONCE DAILY diltiazem HCl 180 mg capsule,extended release 24hr 180 mg PO DAILY Patient Comments: TAKE 1 CAPSULE BY MOUTH EVERY DAY metoprolol succinate 50 mg tablet extended release 24 hr 75 mg PO DAILY Patient Comments: TAKE 1 AND 1/2 TABLETS BY MOUTH TWICE DAILY diclofenac sodium 100 mg tablet extended release 24 hr 100 mg PO DAILY Patient Comments: TAKE 1 TABLET BY MOUTH EVERY DAY WITH FOOD hydroxyzine HCl 10 mg tablet 10 mg PO Q6HR PRN (Reason: Anxiety) Patient Comments: TAKE 1 TABLET BY MOUTH EVERY 6 HOURS DIRECTED FOR ANXIETY ciprofloxacin HCl 500 mg tablet 500 mg PO Q12H Qty: 14 0RF tamsulosin [Flomax] 0.4 mg capsule 0.4 mg PO DAILY Qty: 14 0RF omeprazole 40 mg capsule,delayed release(DR/EC) 1 cap PO DAILY Patient Comments: TAKE ONE CAPSULE BY MOUTH EVERY DAY olmesartan 20 mg tablet 2 tab PO DAILY Patient Comments: TAKE 1 TABLET BY MOUTH EVERY DAY. IF BLOOD PRESSURE IS ABOVE 140/80, INCREASE TO 2 TABS A DAY. oxycodone 10 mg tablet 1 tab PO QID PRN (Reason: Pain (Scale Score 4-6)) Patient Comments: TAKE ONE TABLET BY MOUTH FOUR TIMES A DAY FOR BACK AND LEG PAIN oxycodone 10 mg tablet 10 mg PO Q6H PRN (Reason: pain) Qty: 10 0RF Referrals: Gabo Lancaster MD [Physician, Family Practice] Referral Note: PE and HTN, needs to establish care Hosea Reyes MD [Primary Care Provider, [facility]] Stand Alone Forms: Patient Portal/API
[2025-06-03 08:00] LABS: Add Manual Diff / Slide Review YES; PTT Partial Thromboplastin Tim 28 SECONDS (25.1-36.5)
[2025-06-03 08:07] LABS: Alanine Aminotransferase 26 IU/L (<50); Albumin 4.3 g/dL (3.5-5.0); Albumin Globulin Ratio 1.3 (1.0-2.8); Alkaline Phosphatase 65 U/L (38-126); Blood Urea Nitrogen 24 mg/dL (9-20); Calcium 8.9 mg/dL (8.4-10.2); Carbon Dioxide 21 mmol/L (22-32); Chloride 107 mmol/L (98-107); Creatine Kinase 106 U/L (55-170); Estimated Glomerular Filt Rate > 60 mL/min (>60); Globulin 3.3 g/dL (1.7-4.1); Glucose 131 mg/dL (70-99); HEMOLYSIS < 15 (0-50); Lipase 103 U/L (23-300); Magnesium 1.5 mg/dL (1.6-2.3); Potassium 3.6 mmol/L (3.4-5.1); Sodium 138 mmol/L (137-145); Total Protein 7.6 g/dL (6.3-8.2)
[2025-06-03 08:18] LABS: NT-proBNP (BNP-Adult 18+) 536 pg/mL (<125); Troponin I 0.012 ng/mL (0.01-0.034)
[2025-06-03] MEDS: ASPIRIN 81 MG CHEW TAB 324 MG PO (08:27)
--- NOTE | 2025-06-03 08:44 | DI.CT.S_ITS ---
PROCEDURE: CT ANGIO CHEST PE PROTOCOL INDICATIONS: +ddimer central back pain TECHNIQUE: After the administration of intravenous contrast, 2 mm thick sections acquired from the pulmonary apices to the posterior costophrenic angles. 3-dimensional maximum intensity projection (MIP) coronal and sagittal reformats were then acquired through the thorax. For radiation dose reduction, the following was used: automated exposure control, adjustment of mA and/or kV according to patient size. COMPARISON: None. FINDINGS: Image quality: Images are degraded by arms down technique and streak artifact. Contrast bolus timing is poor Pulmonary arteries: Bolus timing and body habitus results in significant imaging the radiation. There is probable obstructive clot within the right basilar lateral segment as seen on axial image 76 and oblique image 54. Lower Neck: No enlarged lymph nodes. Thyroid: No thyroid nodules which require sonographic follow up, per consensus guidelines. Axillae: No enlarged lymph nodes. Chest Wall: Unremarkable. Bones: Unremarkable. Lungs and Pleura: No pneumothorax or pleural effusions. No consolidation or suspicious nodules. Heart: Heart size is normal. No pericardial effusion. Thoracic Vessels: No aortic aneurysm. Mediastinum and Inocencia: No enlarged lymph nodes. Esophagus: No wall thickening. No hiatal hernia. Upper Abdomen: Calcific cholelithiasis. IMPRESSION: Right basal lateral segmental pulmonary embolus. Dr. Key discussed the above findings with the ordering provider at 9:12 a.m. [place] time. Dictated by: Arthur Key M.D. on 06/03/2025 at 9:01 Approved by: Arthur Key M.D. on 06/03/2025 at 9:12
[2025-06-03 08:52] LABS: Eosinophils Percent Manual 1.0 % (2-4); Lymphocytes Percent Manual 28.0 % (25-45); Monocytes Percent Manual 5.0 % (2-11); Neutrophils Absolute Manual 6270 /uL (3000-5900); RBC Morphology Normal Morphology; Segmented Neutrophils Percent 66.0 % (38-70); Total Cells Counted 100
[2025-06-03 10:14] LABS: Troponin I 0.014 ng/mL (0.01-0.034)
[2025-06-03 12:07] LABS: Troponin I 0.017 ng/mL (0.01-0.034)
== END 2025-06-03 13:17 | disposition home or self-care (01) ==
PROVIDERS: Emergency Provider Student in an Organized Health Care Education/Training Program; PCP Family Medicine
DX: I26.99 Other pulmonary embolism without acute cor pulmonale (principal); M54.6 Pain in thoracic spine
CPT/HCPCS: 36415; 71045; 71275; 80053; 82550; 83690; 83735; 83880; 84484; 85007; 85025; 85379; 85610; 85730; 93005; 99284; Q9967

== ENCOUNTER 2025-06-09 02:42 | Emergency (ER) | payer MEDICARE, OTHER, SELFPAY ==
[2021-10-23 21:44] VITALS: BMI 29.9
--- NOTE | 2025-06-09 03:12 | DI.CT.S_ITS ---
PROCEDURE: CT ABDOMEN PELVIS W CON INDICATIONS: abd back pain TECHNIQUE: After the administration of intravenous contrast, axial sections acquired from the lung bases to the pubic symphysis. Coronal and sagittal reformats were performed. For radiation dose reduction, the following was used: automated exposure control, adjustment of mA and/or kV according to patient size. COMPARISON: [facility], CT, CT KIDNEY URETER BLADDER (KUB), 01/16/2024, 5:20. FINDINGS: Image quality: Portions of the lower pelvis are suboptimally evaluated secondary to metallic streak artifact from hip arthroplasty. Lower Chest: No significant findings. ABDOMEN: Liver: No solid mass. Steatosis. Gallbladder: Luminal stones without wall thickening. Biliary ducts: No biliary dilation. Pancreas: No ductal dilation. Spleen: Size is within normal limits. Adrenal Glands: No adrenal nodules. Kidneys and Ureters: Unchanged appearance of left hydro nephrosis as well as proximal hydroureter with extrarenal pelvis.. Renal atrophy with significant cysts on the left as well as dependent stones, unchanged. Stomach and Bowel: Normal colonic caliber, without significant wall thickening. Minimal diverticula. No inflammation. Appendix is normal. Peritoneum: No abnormal intraperitoneal fluid. No free air. Ventral Wall: No significant ventral hernia. Abdominal Nodes: No retroperitoneal or mesenteric adenopathy by size criteria. Vessels: Aorta and inferior vena cava are normal in size. PELVIS: Pelvic Organs: Unremarkable. Bladder: No bladder wall thickening, accounting for underdistention. Pelvic Nodes: No enlarged lymph nodes. Miscellaneous: No inguinal hernias are seen. Bones: No aggressive osseous abnormality. Right hip arthroplasty. 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 Cholelithiasis without appearance of cholecystitis. Nonobstructing left renal calculi. Diverticulosis. The above findings are concordant with preliminary report. Dictated by: Aniyah Sherman M.D. on 06/09/2025 at 8:22 Approved by: Aniyah Sherman M.D. on 06/09/2025 at 8:25
--- NOTE | 2025-06-09 03:12 | ED.ABDPAIN ---
HPI - Abdominal Pain General Chief Complaint: Urogenital-Male Stated Complaint: Blood from kidney, pain on sides, diarrhea Time Seen by Provider: 06/09/25 02:55 History of Present Illness HPI narrative: 75-year-old gentleman history of hypertension, recently diagnosed with right-sided pulmonary embolism started on Eliquis 2 days ago, previous history of kidney stones presents with pain across the back and also pain across the abdomen. Denies chest pain, shortness of breath, nausea, vomiting, diarrhea, constipation, rectal bleeding, cough, sore throat. Other than what is stated 14 point review of system is negative. Related Data Home Medications ?Medication ?Instructions ?Recorded ?Confirmed fluticasone propionate 50 1 spray intranasal DAILY #0 sprays 05/19/13 10/26/21 mcg/actuation nasal spray,suspension olmesartan 20 mg tablet 2 tab PO DAILY 06/27/18 10/26/21 omeprazole 40 mg capsule,delayed 1 cap PO DAILY 06/27/18 10/26/21 release oxycodone 10 mg tablet 1 tab PO QID PRN Pain (Scale Score 06/27/18 10/26/21 4-6) atorvastatin 80 mg tablet 80 mg PO DAILY 10/26/21 10/26/21 diclofenac sodium 100 mg 100 mg PO DAILY 10/26/21 10/26/21 tablet,extended release 24 hr diltiazem HCl 180 mg 180 mg PO DAILY 10/26/21 10/26/21 capsule,extended release 24 hr hydroxyzine HCl 10 mg tablet 10 mg PO Q6HR PRN Anxiety 10/26/21 10/26/21 metoprolol succinate 50 mg 75 mg PO DAILY 10/26/21 10/26/21 tablet,extended release 24 hr Previous Rx's ?Medication ?Instructions ?Recorded ciprofloxacin HCl 500 mg tablet 500 mg PO Q12H #14 tabs 08/14/22 oxycodone 10 mg tablet 10 mg PO Q6H PRN pain #10 tabs 07/24/23 tamsulosin 0.4 mg capsule (Flomax) 0.4 mg PO DAILY #14 caps 09/01/24 apixaban 5 mg (74 tabs) tablets in See Rx Instructions PO .COMPLEX 06/03/25 a dose pack (Eliquis DVT-PE Treat #74 ea 30D Start) diltiazem HCl 120 mg capsule,24 120 mg PO DAILY #30 caps 06/03/25 hr,extended release hydrocodone 5 mg-acetaminophen 325 1 tab PO Q4-6H PRN pain #20 tabs 06/09/25 mg tablet tamsulosin 0.4 mg capsule (Flomax) 0.4 mg PO DAILY #30 caps 06/09/25 Allergies Allergy/AdvReac Type Severity Reaction Status Date / Time procaine (From Novocain) Allergy Verified 06/09/25 03:20 Review of Systems Review of Systems ROS Unobtainable: All systems reviewed & are unremarkable except as noted in HPI and below Patient History Medical History (Updated 06/09/25 @ 04:53 by Julien Finney DO) Hypertension Chronic pain Hiatal hernia Social History household members: none alcohol intake: current alcohol intake frequency: other Exam Narrative Exam Narrative: GENERAL: [75] year old patient appears stated age. Well-developed patient, in mild distress. HEAD: Atraumatic. Normocephalic. EYES: Pupils equal round and reactive. Extraocular motions intact. No scleral icterus. No injection or drainage. ENT: Nose without bleeding, purulent drainage. Throat without erythema, tonsillar hypertrophy or exudate. Airway patent. NECK: Trachea midline. Non tender CARDIOVASCULAR: Regular rate and rhythm without murmurs, gallops, or rubs. RESPIRATORY: Clear to auscultation. Breath sounds equal bilaterally. No wheezes, rales, or rhonchi. GASTROINTESTINAL: Abdomen soft, non-tender, nondistended. EXTREMITIES: No edema or joint tenderness. BACK: Nontender without deformity or crepitance. No flank tenderness. NEURO: AOx3. SKIN: No rash or erythema of visible areas MDM - Abdominal Pain ECG Data Interpretation: NSR HR 88 AL 194 QRS [address]-t wave change Unchanged from 06/03/25 [facility] Narrative Medical decision making narrative: All lab work, vital signs, nurse triage note, medication list, previous ER visits, and all imaging studies reviewed. WBC 8.9 hemoglobin 15.7 platelets 231 sodium 137 potassium 4.1 chloride 102 CO2 26 BUN 24 creatinine 1.36 glucose 138 LFTs normal lipase 77 urine +3 occult blood. Differential diagnosis kidney stone, kidney infection, pancreatitis, UTI, constipation, small-bowel obstruction, diverticulitis. 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 Multiple nonobstructing calculi. in the lower pole of the left kidney. Cholelithiasis. Patient given here fluids, [place] take-home pack, Flomax, strainer, [place] and Flomax prescription on discharge home. Follow up with Dr. Maki urologist and to keep hydrated. Discharge Plan Departure Patient Disposition: Home Clinical Impression: Kidney stone Instructions: DI for Kidney Stones Activity Restrictions/Additional Instructions: Return with new or worsening symptoms. Take your medicines as directed. Keep hydrated. Follow up with Dr. Maki call office for appointment. ? Prescriptions: New tamsulosin [Flomax] 0.4 mg capsule 0.4 mg PO DAILY Qty: 30 0RF hydrocodone-acetaminophen 5-325 mg tablet 1 tab PO Q4-6H PRN (Reason: pain) Qty: 20 0RF No Action fluticasone propionate 50 mcg/actuation [place],Suspension 1 spray INTRANASAL DAILY Qty: 0 Rx Instructions: administer into each nostril atorvastatin 80 mg tablet 80 mg PO DAILY Patient Comments: TAKE 1 TABLET BY MOUTH ONCE DAILY diltiazem HCl 180 mg capsule,extended release 24hr 180 mg PO DAILY Patient Comments: TAKE 1 CAPSULE BY MOUTH EVERY DAY metoprolol succinate 50 mg tablet extended release 24 hr 75 mg PO DAILY Patient Comments: TAKE 1 AND 1/2 TABLETS BY MOUTH TWICE DAILY diclofenac sodium 100 mg tablet extended release 24 hr 100 mg PO DAILY Patient Comments: TAKE 1 TABLET BY MOUTH EVERY DAY WITH FOOD hydroxyzine HCl 10 mg tablet 10 mg PO Q6HR PRN (Reason: Anxiety) Patient Comments: TAKE 1 TABLET BY MOUTH EVERY 6 HOURS DIRECTED FOR ANXIETY ciprofloxacin HCl 500 mg tablet 500 mg PO Q12H Qty: 14 0RF tamsulosin [Flomax] 0.4 mg capsule 0.4 mg PO DAILY Qty: 14 0RF omeprazole 40 mg capsule,delayed release(DR/EC) 1 cap PO DAILY Patient Comments: TAKE ONE CAPSULE BY MOUTH EVERY DAY olmesartan 20 mg tablet 2 tab PO DAILY Patient Comments: TAKE 1 TABLET BY MOUTH EVERY DAY. IF BLOOD PRESSURE IS ABOVE 140/80, INCREASE TO 2 TABS A DAY. oxycodone 10 mg tablet 1 tab PO QID PRN (Reason: Pain (Scale Score 4-6)) Patient Comments: TAKE ONE TABLET BY MOUTH FOUR TIMES A DAY FOR BACK AND LEG PAIN oxycodone 10 mg tablet 10 mg PO Q6H PRN (Reason: pain) Qty: 10 0RF Eliquis DVT-PE Treat 30D Start 5 mg (74 tabs) tablets,dose pack See Rx Instructions .ROUTE .COMPLEX Qty: 74 0RF Rx Instructions: orally per package directions diltiazem HCl 120 mg capsule,extended release 24 hr 120 mg PO DAILY Qty: 30 0RF Referrals: Ray Maki DO [Physician, Urology] Hosea Reyes MD [Primary Care Provider, Family Practice] Stand Alone Forms: Patient Portal/API
[2025-06-09 03:20] VITALS: BP 159/100; PULSE 76; RESP 16; TEMP 36.9; O2SAT 94; BMI 33.0
[2025-06-09 03:24] LABS: Appearance Urine UA CLEAR; Bilirubin Urine UA NEGATIVE (NEGATIVE); Color Urine UA YELLOW; Glucose Urine UA NEGATIVE (Negative); Ketones Urine UA NEGATIVE (NEGATIVE); Leukocyte Esterase Urine UA NEGATIVE (NEGATIVE); Nitrite Urine UA NEGATIVE (Negative); Occult Blood Urine UA 3+ (Negative); Protein Urine UA NEGATIVE (Negative); Specific Gravity Urine UA 1.015 (1.000-1.035); Urobilinogen Urine UA 0.2 E.U./dL (0.2); pH Urine UA 5.5 (4.5-8.0)
[2025-06-09 03:30] LABS: Culture Indicated Urine Cult Not Indicated
[2025-06-09 03:32] LABS: Add Manual Diff / Slide Review NO; Hematocrit 46.2 % (41-53); Hemoglobin 15.7 g/dL (13.5-17.5); Lymphocytes Absolute Auto 2200 /uL (1100-4500); Mean Corpuscular HGB Conc 33.9 % (30-36); Mean Corpuscular Hemoglobin 28.8 PG (26-34); Mean Corpuscular Volume 84.9 fL (80-100); Platelet Count 231 X10^3/uL (150-400)
[2025-06-09] MEDS: LACTATED RINGERS 1,000 ML 1000 ML IV (03:38)
--- NOTE | 2025-06-09 03:39 | EKG_ITS ---
[address] [address] [address] [address] Test Date: 2025-06-09 Pat Name: Jeremie Donohue Department: Room: Gender: Male [employer] Up: : 1950 Requested By: Order Number: [id number] Reading MD: Julien Og MD Measurements Intervals [place] Rate: 88 P: 61 PA: 194 QRS: -5 QRSD: 90 T: 0 QT: 364 QTc: 440 Interpretive Statements Normal sinus rhythm Inferior infarct , age undetermined Electronically Signed On 06-11-2025 7:47:28 PDT by Julien Og MD
[2025-06-09 03:43] LABS: Alanine Aminotransferase 27 IU/L (<50); Albumin 4.6 g/dL (3.5-5.0); Albumin Globulin Ratio 1.4 (1.0-2.8); Alkaline Phosphatase 63 U/L (38-126); Blood Urea Nitrogen 24 mg/dL (9-20); Calcium 9.5 mg/dL (8.4-10.2); Carbon Dioxide 26 mmol/L (22-32); Chloride 102 mmol/L (98-107); Estimated Glomerular Filt Rate 55 mL/min (>60); Globulin 3.4 g/dL (1.7-4.1); Glucose 138 mg/dL (70-99); HEMOLYSIS < 15 (0-50); Lipase 77 U/L (23-300); Potassium 4.1 mmol/L (3.4-5.1); Sodium 137 mmol/L (137-145); Total Protein 8.0 g/dL (6.3-8.2)
[2025-06-09 04:15] VITALS: PULSE 85; O2SAT 94
[2025-06-09 04:30] VITALS: PULSE 80; O2SAT 95
[2025-06-09 04:31] VITALS: BP 153/83; PULSE 81; O2SAT 94
[2025-06-09] MEDS: TAMSULOSIN 0.4 MG CAPSULE PO (05:15)
== END 2025-06-09 05:31 | disposition home or self-care (01) ==
PROVIDERS: Emergency Provider Family Medicine; PCP Family Medicine
DX: N20.0 Calculus of kidney (principal); Z87.442 Personal history of urinary calculi; Z86.711 Personal history of pulmonary embolism; Z79.01 Long term (current) use of anticoagulants
CPT/HCPCS: 36415; 74177; 80053; 81001; 83690; 85025; 93005; 93010; 96361; 96374; 99284; J1171; J7120; Q9967

== ENCOUNTER → 2025-08-28 13:51 | Outpatient (CLI) | payer MEDICARE, OTHER, SELFPAY ==
[2021-10-23 21:44] VITALS: BMI 29.9
--- NOTE | 2025-08-28 13:53 | DI.NM.S_ITS ---
PROCEDURE: NM RENAL FUNCTION W LASIX RADIOPHARMACEUTICAL: 10 mCi Tc-99m MAG3 IV and 40 mg furosemide IV. INDICATIONS: 75 y/o M w/ left UPJO, please eval TECHNIQUE: The patient was hydrated orally before the examination was begun. After intravenous administration of Tc-99m MAG3, posterior abdominal radionuclide angiogram and sequential (1 minute each frame) renal images were obtained. A time-activity curve for each kidney was generated and analyzed. To evaluate for obstruction, the patient was given 40 mg furosemide via slow intravenous injection after the start of the examination. Sequential images were obtained for up to an additional 20 minutes. COMPARISON: [facility], CT, CT ABDOMEN PELVIS W CON, 06/09/2025, 3:20. FINDINGS: Perfusion: There is normal vascular flow to both kidneys. Morphology: Marked left hydronephrosis. No significant right hydronephrosis. Subjectively, left kidney appears larger than the contralateral side. Both renal collecting systems and bladder fill with radiotracer activity. Function: Both kidneys demonstrate normal cortical tracer uptake. Limited clearance of radiotracer activity in the left kidney prior to administration of intravenous Lasix. Partial clearance of the radiotracer activity from the right kidney prior to administration of intravenous Lasix. The right kidney contributes 48.7 % of total renal function. The left kidney contributes 51.3 % of total renal function. Left renal function is probably over estimated given inclusion of counts within the dilated renal collecting system. Lasix stimulation: After diuretic administration, there is prompt clearance of tracer activity from the renal collecting systems in right kidney. Limited Lasix response in the left kidney. Radiotracer activity in of the left kidney and renal collecting system plateaus without significant clearance. The half-time of emptying of tracer activity from the right pelvicaliceal system is 23.9 minutes. Normal emptying half-times are less than 10 minutes; borderline ranges are from 10 to 20 minutes. IMPRESSION: Normal function in the right kidney. Scintigraphic findings concerning for obstruction of the left kidney. Right and left renal function as above. Dictated by: Anali North M.D. on 08/31/2025 at 21:09 Approved by: Anali North M.D. on 08/31/2025 at 21:22
== END ==
LOC: NUCM 13:52
PROVIDERS: Referring Provider Urology; Visit Provider Urology
DX: N13.30 Unspecified hydronephrosis (principal)
CPT/HCPCS: 78708; A9562